=== PATIENT | male | born 1990 | race Caucasian/White ===

== ENCOUNTER 2024-05-06 19:08 | Emergency (ER) | payer OTHER, SELFPAY ==
[2024-05-06 19:14] VITALS: BP 109/73; PULSE 90; TEMP 36.7; O2SAT 100; BMI 18.0
--- NOTE | 2024-05-06 19:31 | ED.SKABFB1 ---
HPI - Skin/Abscess/Foreign Bdy General Chief complaint: Skin/Abscess/Foreign Body Stated complaint: Abscess/Boil on buttocks Time Seen by Provider: 05/06/24 19:22 Source: patient Mode of arrival: walk-in History of Present Illness HPI narrative: This 34-year-old male with a history of HIV who is on antiretroviral therapy presents for evaluation of an abscess on his left buttock. It started 2 weeks ago as a pimple that he popped. Since that time it has gotten larger and is now draining copious mucopurulent material. He thinks he may have had a fever twice but has not documented any fever. He denies any chest pain or shortness of breath. He also has a lesion on the glans of his penis. He denies that he has ever had herpes and is not currently sexually active. The lesion on his penis he states started like a pimple and is now flat and approximately 1.5 cm. There is no notable drainage from this area. He has no abdominal pain. He has been urinating normally. He states the abscess on his buttock is causing him a lot of pain and he cannot sit or lie down comfortably on his left buttock. His infectious disease doctor is at [facility]. Related Data Home Medications ?Medication ?Instructions ?Recorded ?Confirmed bictegravir 50 mg-emtricitabine tab PO 05/06/24 200 mg-tenofovir alafenam 25 mg tablet (Biktarvy) cariprazine .Route 05/06/24 Allergies Allergy/AdvReac Type Severity Reaction Status Date / Time No Known Drug Allergies Allergy Verified 05/06/24 19:17 Review of Systems ROS Status of ROS 10 or more systems reviewed and unremarkable except as noted in history and below PFSH PFSH Social History Little interest or pleasure in doing things: not at all Feeling down, depressed, or hopeless: not at all Exam Narrative Exam Narrative: Vital signs and Nursing Notes reviewed: Patient is afebrile with a normal pulse, normal blood pressure, he is not hypoxic with pulse ox of 100% on room air General: Awake, alert, oriented, uncomfortable due to a left buttock abscess and lying on his right buttock, no respiratory distress, extremely thin/cachectic male HEENT: Normocephalic atraumatic, mucous membranes are moist and pink, eyes are clear, normal conjunctiva, vision is grossly intact Chest: Lungs are clear to auscultation with good air entry, there is no wheezing rhonchi or rales appreciated no accessory muscle use, patient is speaking in complete sentences-no chest wall tenderness to palpation CVS: Regular rate and rhythm S1-S2, no murmurs rubs or gallops, pulses are brisk and equal bilaterally ABD: Soft, nondistended, nontender, no rebound guarding or rigidity, bowel sounds are normal, no pulsatile masses appreciated : Small area of erythema on the glans of the penis which is somewhat excoriated without vesicles or drainage. This may be a herpes outbreak it is unclear at this time. There is also an approximately 6 x 6 cm indurated erythematous tender abscess on the midportion of the left buttock draining copious mucopurulent drainage that was cultured, there is no extension of this buttock into the rectum or anus area and there is no perineal infection concerning for necrotizing fasciitis. Extremities: Moving all extremities, no lower extremity tenderness or swelling noted, negative Homans' sign, pulses are brisk and equal bilaterally Skin: Normal in appearance without rash,pallor, petechiae or purpura Neuro: No focal deficits Constitutional Vital Signs, click to edit/add: Last Vital Signs Temp 98.0 F 05/06/24 19:14 Pulse 84 05/06/24 21:13 Resp 16 05/06/24 21:13 BP 109/73 05/06/24 19:14 Pulse Ox 99 05/06/24 21:13 O2 Del Method Room Air 05/06/24 19:14 Course Vital Signs Vital signs: Vital Signs Temperature 98.0 F 05/06/24 19:14 Pulse Rate 90 05/06/24 19:14 Respiratory Rate 16 05/06/24 19:14 Blood Pressure 109/73 05/06/24 19:14 Pulse Oximetry 100 05/06/24 19:14 Oxygen Delivery Method Room Air 05/06/24 19:14 Temperature 98.0 F 05/06/24 19:14 Pulse Rate 84 05/06/24 21:13 Respiratory Rate 16 05/06/24 21:13 Blood Pressure 109/73 05/06/24 19:14 Pulse Oximetry 99 05/06/24 21:13 Oxygen Delivery Method Room Air 05/06/24 19:14 MDM - Skin/Abscess/Foreign Bdy MDM Narrative Medical decision making narrative: This 34-year-old male with history of HIV who is on antiretroviral therapy and sees infectious disease at [facility] presents for evaluation of an abscess on his left buttock that has been there for the past 2 weeks. He states it started out like a pimple and he popped it. Since then it has grown in size and has been draining. It is approximately 6 cm, indurated and tender with mucopurulent drainage which was cultured. He also has a flat red area on the glans of his penis that is hard to differentiate but could be a herpes simplex two outbreak. He states he does not think he has ever had herpes before but in light of the fact that he is immunosuppressed and now has an abscess I explained to him that his immune system may be somewhat diminished allowing for a viral infection to present itself. There was nothing to culture on his penis but the buttock abscess was cultured. He has normal vital signs in the emergency department but thinks he may have had a fever twice over the course of the past 2 weeks. An IV was placed and he was medicated with IV Unasyn, Zofran and given a Percocet for pain. He was given an acyclovir for the lesion on his penis. Routine labs are reviewed. He has a normal white count and hemoglobin. Electrolytes are normal but his glucose is only 54. He was given a Gatorade and peanut butter crackers. He admits that he did not drink much or eat much earlier today. He does state that he feels hungry though. Overall he is not toxic in appearance but very thin and somewhat cachectic. He will be discharged home with prescription for Zofran, Percocet for pain, Augmentin until cultures come back and Valtrex for the lesion on his penis. He was encouraged to follow-up closely with his infectious disease doctor at [facility]. He was also encouraged to use warm compresses and or soaks in the tub to keep the open area on his buttock draining. Incision and drainage was not performed as the abscess was draining copious purulent drainage. The abscess did not appear to approximate the buttocks or perineum and there was no sign of any necrotizing fasciitis on the exam. Lab Data Labs: Lab Results 05/06/24 Range/Units 19:30 WBC 5.2 (4.0-11.0) 10^3/uL RBC 3.72 L (4.70-6.10) 10^6/uL Hgb 14.2 (14.0-18.0) g/dL Hct 40.1 L (42.0-54.0) % MCV 107.8 H (80.0-94.0) fL MCH 38.2 H (25.9-34.0) pg MCHC 35.4 H (29.9-35.2) g/dL RDW 13.5 (11.0-15.0) % Plt Count 216 (150-450) 10^3/uL MPV 12.7 (9.5-13.5) fL Neut % (Auto) 74.4 (43.0-75.0) % Lymph % (Auto) 16.2 L (20.5-60.0) % Rock % (Auto) 7.1 (1.7-12.0) % Eos % (Auto) 1.7 (0.9-7.0) % Baso % (Auto) 0.4 (0.2-2.0) % Neut # (Auto) 3.9 (1.4-6.5) 10^3/uL Lymph # (Auto) 0.8 L (1.2-3.8) 10^3/uL Rock # (Auto) 0.4 (0.3-0.8) 10^3/uL Eos # (Auto) 0.1 (0.0-0.7) 10^3/uL Baso # (Auto) 0.0 (0.0-0.1) 10^3/uL Abs Immat Gran (auto) 0.01 (0.00-0.03) 10^3/uL Imm/Tot Granulo (auto) 0.2 (0.0-0.5) % Sodium 135 L (136-145) mmol/L Potassium 3.9 (3.5-5.1) mmol/L Chloride 99 (98-107) mmol/L Carbon Dioxide 28.8 (21.0-32.0) mmol/L Anion Gap 11.1 BUN 15.0 (7.0-18.0) mg/dL Creatinine 0.86 (0.70-1.30) mg/dL Est GFR ( Amer) >60 (>=60) Est GFR (Non-Af Amer) >60 (>=60) BUN/Creatinine Ratio 17.4 Glucose 54 L (74-106) mg/dL Lactate 1.5 (0.4-2.0) mmol/L Calcium 9.3 (8.5-10.1) mg/dL Total Bilirubin 0.9 (0.2-1.0) mg/dL AST 17 (15-37) U/L ALT 16 (16-63) U/L Alkaline Phosphatase 94 (46-116) U/L Total Protein 9.4 H (6.4-8.2) g/dL Albumin 3.9 (3.4-5.0) g/dL Globulin 5.5 g/dL Albumin/Globulin Ratio 0.7 Discharge Plan Discharge Chief Complaint: Skin/Abscess/Foreign Body Clinical Impression: Abscess of buttock, left, Lesion of penis, Hypoglycemia Patient Disposition: Home, Self-Care Time of Disposition Decision: 20:31 Condition: Good Prescriptions / Home Meds: No Action Biktarvy 50-200-25 mg tablet PO cariprazine [Vraylar] .Route Print Language: Filipino Instructions: Non-diabetic Hypoglycemia (ED), Abscess (ED) Additional Instructions: Follow-up closely with your infectious disease doctor for further evaluation and treatment of the abscess and lesion on your penis. Use all medications as prescribed. Use warm compresses or soaks to keep the buttock abscess open and draining. Referrals: Physician,Non-Staff, MD [Primary Care Provider] - 1 week Discharge Date/Time: 05/06/24 21:05
[2024-05-06 19:59] LABS: Basophils Percent Auto 0.4 % (0.2-2.0); Eosinophils Absolute Auto 0.1 10^3/uL (0.0-0.7); Eosinophils Percent Auto 1.7 % (0.9-7.0); Hematocrit 40.1 % (42.0-54.0); Hemoglobin 14.2 g/dL (14.0-18.0); Immature Granulocytes Abs Auto 0.01 10^3/uL (0.00-0.03); Immature Granulocytes Pct Auto 0.2 % (0.0-0.5); Lymphocytes Absolute Auto 0.8 10^3/uL (1.2-3.8); Lymphocytes Percent Auto 16.2 % (20.5-60.0); Mean Corpuscular HGB Conc 35.4 g/dL (29.9-35.2); Mean Corpuscular Hemoglobin 38.2 pg (25.9-34.0); Mean Corpuscular Volume 107.8 fL (80.0-94.0); Mean Platelet Volume 12.7 fL (9.5-13.5); Monocytes Absolute Auto 0.4 10^3/uL (0.3-0.8); Monocytes Percent Auto 7.1 % (1.7-12.0); Neutrophils Absolute Auto 3.9 10^3/uL (1.4-6.5); Neutrophils Percent Auto 74.4 % (43.0-75.0); Platelet Count 216 10^3/uL (150-450); Red Blood Count 3.72 10^6/uL (4.70-6.10); Red Cell Distribution Width 13.5 % (11.0-15.0); White Blood Count 5.2 10^3/uL (4.0-11.0)
[2024-05-06] MEDS: 0.9 % SODIUM CHLORIDE 1,000 ML 1000 ML IV (20:02)
[2024-05-06] MEDS: OXYCODONE HCL/ACETAMINOPHEN 5MG/325MG 1 TAB PO (20:05)
[2024-05-06] MEDS: ACYCLOVIR 200 MG CAPSULE 400 MG PO (20:05)
[2024-05-06] MEDS: ONDANSETRON PF 4 MG/2 ML VIAL IV (20:06)
[2024-05-06] MEDS: AMPICILLIN SODIUM/SULBACTAM NA 3 GM in 0.9 % SODIUM CHLORIDE 100 ML IV (20:07)
[2024-05-06 20:15] LABS: Alanine Aminotransferase 16 U/L (16-63); Albumin Globulin Ratio 0.7; Albumin Level 3.9 g/dL (3.4-5.0); Alkaline Phosphatase 94 U/L (46-116); Anion Gap 11.1; Aspartate Amino Transferase 17 U/L (15-37); BUN Creatinine Ratio 17.4; Bilirubin Total 0.9 mg/dL (0.2-1.0); Calcium 9.3 mg/dL (8.5-10.1); Carbon Dioxide 28.8 mmol/L (21.0-32.0); Chloride 99 mmol/L (98-107); Estimated GFR (African America >60 (>=60); Estimated GFR (Non-African Ame >60 (>=60); Globulin 5.5 g/dL; Glucose 54 mg/dL (74-106); Potassium 3.9 mmol/L (3.5-5.1); Sodium 135 mmol/L (136-145); Total Protein 9.4 g/dL (6.4-8.2)
[2024-05-06 20:17] LABS: Lactate/Lactic Acid 1.5 mmol/L (0.4-2.0)
[2024-05-06 21:13] VITALS: PULSE 84; O2SAT 99
== END 2024-05-06 21:05 | disposition home or self-care (01) ==
PROVIDERS: Emergency Provider Emergency Medicine
DX: N48.89 Other specified disorders of penis (principal); L02.31 Cutaneous abscess of buttock; E16.2 Hypoglycemia, unspecified; Z21 Asymptomatic human immunodeficiency virus [HIV] infection status; Z79.899 Other long term (current) drug therapy
CPT/HCPCS: 36415; 80053; 83605; 85025; 87040; 87070; 87075; 87150; 87186; 96365; 96375; 99285; J0295; J2405

== ENCOUNTER 2025-01-05 08:52 | Emergency (ER) | payer OTHER, SELFPAY ==
[2025-01-05 08:57] VITALS: BP 107/70; PULSE 111; TEMP 36.5; O2SAT 100; BMI 18.2
--- NOTE | 2025-01-05 09:15 | ED.GENADUL1 ---
HPI HPI - General Adult General Chief complaint: Back Pain/Injury Stated complaint: LOWER BACK PAIN Time Seen by Provider: 01/05/25 08:58 Source: patient Mode of arrival: walk-in History of Present Illness HPI narrative: 34-year-old male presents for lower back pain. There is been no injury and it started yesterday. It does not radiate and he has no dysuria or hematuria. Certain movements make it worse. Related Data Home Medications ?Medication ?Instructions ?Recorded ?Confirmed bictegravir 50 mg-emtricitabine 1 tab PO DAILY 05/06/24 01/05/25 200 mg-tenofovir alafenam 25 mg tablet (Biktarvy) cariprazine .Route 05/06/24 sulfamethoxazole 800 tab 01/05/25 mg-trimethoprim 160 mg tablet Allergies Allergy/AdvReac Type Severity Reaction Status Date / Time No Known Drug Allergies Allergy Verified 05/06/24 19:17 Opioid HPI Opioid Management Most Recent Opioid Data: Last Pain Scale 10 Today, 08:57 Last MAR Pain Assessment Today, 09:35 Review of Systems ROS Narrative A ten point review of systems is negative except as noted above. PFSH PFSH Social History Little interest or pleasure in doing things: not at all Feeling down, depressed, or hopeless: not at all Exam Narrative Exam Narrative: Nurses note and vital signs reviewed and patient is not hypoxic. General: Diminutive male is standing when I walk into the room. He is in no acute distress. Skin: Warm, dry, no pallor noted. There is no rash noted. Head: Normocephalic, atraumatic Eye: Normal conjunctiva, no drainage Ears, Nose, Mouth, and Throat: oral mucosa is moist. Nares patent. Cardiovascular: Regular Rate and Rhythm Respiratory: Patient is in no distress, no accessory muscle use, lungs are clear to auscultation, no wheezing, rales or rhonchi Back: No bruise or abrasion. He has no palpable tenderness. GI: Soft and nontender Musculoskeletal: Motor strength intact in his lower extremities. Hips and knees have full range of motion Neurological: A&O, normal speech Psychiatric: Cooperative Constitutional Vital Signs, click to edit/add: Last Vital Signs Temp 97.7 F 01/05/25 08:57 Pulse 111 H 01/05/25 08:57 Resp 20 01/05/25 08:57 BP 107/70 01/05/25 08:57 Pulse Ox 100 01/05/25 08:57 O2 Del Method Room Air 01/05/25 08:57 Course Vital Signs Vital signs: Vital Signs Temperature 97.7 F 01/05/25 08:57 Pulse Rate 111 H 01/05/25 08:57 Respiratory Rate 20 01/05/25 08:57 Blood Pressure 107/70 01/05/25 08:57 Pulse Oximetry 100 01/05/25 08:57 Oxygen Delivery Method Room Air 01/05/25 08:57 Temperature 97.7 F 01/05/25 08:57 Pulse Rate 111 H 01/05/25 08:57 Respiratory Rate 20 01/05/25 08:57 Blood Pressure 107/70 01/05/25 08:57 Pulse Oximetry 100 01/05/25 08:57 Oxygen Delivery Method Room Air 01/05/25 08:57 Medical Decision Making MDM Narrative Medical decision making narrative: X-rays were performed but the patient walked out before they were resulted. He had been given IM Toradol. He is fully able to make medical decisions for himself. Differential Diagnosis Differential Diagnosis: Muscle strain, back pain, arthritis Discharge Plan Discharge Stand Alone Forms: Portal Instructions Chief Complaint: Back Pain/Injury Clinical Impression: Low back pain, Left against medical advice Patient Disposition: Left Against Medical Advice Time of Disposition Decision: 09:59 Condition: Undetermined Mode of Transportation: Private Vehicle Prescriptions / Home Meds: No Action Biktarvy 50-200-25 mg tablet 1 tab PO DAILY cariprazine [Vraylar] .Route sulfamethoxazole-trimethoprim 800-160 mg tablet Print Language: Yemeni Instructions: Acute Low Back Pain (ED), Against Medical Advice (ED) Referrals: Physician,Non-Staff, MD [Primary Care Provider] - 1 week Discharge Date/Time: 01/05/25 09:49
[2025-01-05] MEDS: KETOROLAC TROMETHAMINE 30 MG/ML VIAL IM (09:35)
--- OUTSIDE RECORDS SUMMARY | 2025-01-05 10:05 | XMS_ITS | CCD ---
Author Organization [facility] Care Team Providers Care Mechanic Helper Name Role Phone TONJA KAISER Unavailable Unavailable TONJA KAISER Unavailable Unavailable MC VERDUZCO Unavailable Unavailable PEDRO STEWART Unavailable Unavailable TONJA KAISER Unavailable Unavailable TONJA KAISER Unavailable Unavailable TALEB, NADA Unavailable Unavailable BRODIE, LUCIANA Unavailable Unavailable BRODIE, LUCIANA Unavailable Unavailable SONAM MICHEL Unavailable Unavailable SELF, REFERRED Referring Unavailable CATRACHO CHOWDHURYA Attending Unavailable LUCIANA MICHELLE Admitting Unavailable TONJA KAISER Primary Care Unavailable Unavailable Primary Care Provider Unavailabl e [facility] Primary Care Provider Unav ailable FLO DOWLING Admitting Unavailable FLO DOWLING Attending Unavailable ATUL ARNDT Attending Unavailable [facility] Primary Care Unavailable GAYATRI GONZALES Admitting Unavailable GAYATRI GONZALES Attending Unavailable MC LUO Consulting Unavailable MISAEL SIMMONS Consulting Unavailable WALLACE LIM Admitting Unavailable WALLACE LIM Attending Unavailable TONJA KAISER Primary Care Unavailable GINA HEREDIA Consulting Unavailable JANINE OLMSTEAD Referring Unavailable TONJA KAISER Primary Care Unavailable NEISHA SIMMONS Referring Unavailable [facility] Primary Care Unavailable JOI ARTEAGA Attending Unavailable GRACY NELSON Referring Unavailable DOMONIQUE CORTEZ Attending Unavailable [facility] Primary Care Unavailable DOMONIQUE CORTEZ Attending Unavailable GRACY NELSON Referring Unavailable Mee Barcenas Attending Unavailable Mee Barcenas Primary Care Unavailable Mee Barcenas Admitting Unavailable NO PCP, NO PCP Primary Care Unavailable RUBIN BLANC Attending Unavailable NO PCP, NO PCP Primary Care Unavailable TONJA KAISER Attending Unavailable ANAND BLISS Attending Unavailable TOSHIA SHINE Attending Unavailable HALIMA WELLS Attending Unavailable TOSHIA SHINE Referring Unavailable TOSHIA SHINE Referring Unavailable HALIMA WELLS Attending Unavailable TONJA KAISER Attending Unavailable Allergies Allergy Classification Reported Allergen(s) Allergy Type Date of Onset Reaction(s) Facility (1 source) No Known Medication Allergies; Translations: [Unknown] Propensity to adverse reactions to drug (disorder) [facility] Repository Medications Current Medications Medication Drug Class(es) Dates Sig (Normalized) Sig (Original) azithromycin 600 mg oral tablet (18 sources) Macrolide Antimicrobial Start: 07-01-2023 End: 07-19-2023 take 2 tablets by mouth every week azithromycin (Zithromax) 600 MG tablet Indications: Human immunodeficiency virus (HIV) disease (HCC) Take 2 tablets (1,200 mg) by mouth 1 (one) time per week for 3 doses. 6 tablet 0 07/04/2023 07/19/2023 Active Start: 06-25-2023 End: 06-24-2023 azithromycin (Zithromax) tab let 1,200 mg Start: 06-25-2023 End: 06-24-2023 azithromycin (Zithromax) tab let 1,200 mg cariprazine 3 mg oral capsule (2 sources) Atypical Antipsychotic Start: 02-04-2023 Vraylar 3 MG capsule Take 3 mg by mouth. 0 02/04/2023 Active fluticasone propionate 0.05 mg/actuat metered dose nasal spray (11 sources) Corticosteroid Start: 07-04-2023 End: 07-03-2024 take 2 spray(s) nasal route once daily fluticasone (Flonase) 50 MCG/ACT nasal spray Indications: Chronic cough Administer 2 sprays into each nostril daily. Shake gently. Before first use, prime pump. After use, clean tip and replace cap. 16 g 11 07/04/2023 07/03/2024 Active loratadine 10 mg oral tablet (11 sources) Start: 07-04-2023 End: 07-03-2024 take 1 tablet by mouth once daily as needed loratadine (Claritin) 10 MG tablet Indications: Chronic cough Take 1 tablet (10 mg) by mouth Daily as needed for allergies. 30 tablet 11 07/04/2023 07/03/2024 Active sulfamethoxazole 800 mg / trimethoprim 160 mg oral tablet (20 sources) Dihydrofolate Reductase Inhibitor Antibacterial, Sulfonamide Antimicrobial Start: 06-27-2023 End: 07-04-2023 take 1 tablet by mouth three times weekly sulfamethoxazole-tri methoprim (Bactrim DS) 800-160 MG tablet Indications: Human immunodeficiency virus (HIV) disease (HCC) Take 1 tablet by mouth three times a week. 21 tablet 0 07/04/2023 Active Start: 06-27-2023 take 1 tablet by ammon th three times weekly sulfamethoxazole-trimethoprim (Bactrim D S) 800-160 MG tablet Take 1 tablet by mouth three times a week. 21 tablet 0 06/27/2023 Active Start: 06-27-2023 take 1 tablet by ammon th three times weekly sulfamethoxazole-trimethoprim (Bactrim D S) 800-160 MG tablet Take 1 tablet by mouth three times a week. 21 tablet 0 06/27/2023 Active Start: 06-27-2023 take 1 tablet by ammon th three times weekly sulfamethoxazole-trimethoprim (Bactrim D S) 800-160 MG tablet Take 1 tablet by mouth three times a week. 21 tablet 0 06/27/2023 Active Start: 06-27-2023 take 1 tablet by ammon th three times weekly sulfamethoxazole-trimethoprim (Bactrim D S) 800-160 MG tablet Take 1 tablet by mouth three times a week. 21 tablet 0 06/27/2023 Active Start: 06-24-2023 End: 06-24-2023 sulfamethoxazole-trimethopri m (Bactrim DS) 800-160 MG per tablet 1 tablet vitamin b12 1 mg oral tablet (20 sources) Vitamin B12 Start: 07-04-2023 End: 07-04-2023 cyanocobalamin (Vitamin B-12 ) injection 1,000 mcg Start: 06-24-2023 End: 07-04-2023 take 1 tablet by mouth once daily cyanocobalamin (Vitamin B-12) 1000 MCG tablet Indications: B12 deficiency Take 1 tablet (1,000 mcg) by mouth daily. 30 tablet 0 07/04/2023 Active Start: 06-24-2023 End: 06-24-2023 cyanocobalamin (Vitamin B-12 ) injection 1,000 mcg Completed/Discontinued Medications Medication Drug Class(es) Dates Sig (Normalized) Sig (Original) Acetaminophen (2 sources) Start: 05-15-2023 End: 05-17-2023 take 1 tablet by mouth every six hours as needed for pain and fever acetaminophen (Tylenol) tablet 650 mg 2 ml benztropine mesylate 1 mg/ml injection (2 sources) Anticholinergic, Antihistamine Start: 05-15-2023 End: 05-17-2023 inject 2 mg by intramuscular injection twice daily as needed 2 mg, IntraMUSCular, 2 times daily PRN, Acute Dystonia/Extrapyram idal Symptoms, Starting on 05/15/23 at 2220 diphenhydrAMINE (2 sources) Histamine-1 Receptor Antagonist Start: 05-15-2023 End: 05-17-2023 take 1 capsule by mouth every six hours as needed diphenhydrAMINE (BENADryl) capsule 50 mg diphenhydrAMINE (BENADryl) injection 50 mg (2 sources) Start: 05-15-2023 End: 05-17-2023 inject 50 mg by intramuscular injection every six hours as needed diphenhydrAMINE (BENADryl) injection 50 mg hydrOXYzine pamoate 50 mg oral capsule (2 sources) Antihistamine Start: 05-15-2023 End: 05-17-2023 take 1 capsule by mouth every six hours as needed for anxiety 50 mg, Oral, Every 6 hours PRN, anxiety, Starting on 05/15/23 at 2220 Contact provider if symptoms not relieved by current dose. LORazepam 0.5 mg oral tablet (4 sources) Benzodiazepine Start: 05-15-2023 End: 05-15-2023 LORazepam (Ativan) tablet 0.5 mg Start: 05-14-2023 End: 05-14-2023 LORazepam (Ativan) tablet 1 mg Nicotine (2 sources) Cholinergic Nicotinic Agonist Start: 05-16-2023 End: 05-17-2023 nicotine (Nicoderm, Step 2) 14 MG/24HR patch 1 patch polyethylene glycol 3350 [id number] mg powder for oral solution (2 sources) Osmotic Laxative Start: 05-15-2023 End: 05-17-2023 take 17 g by mouth every twenty-four hours as needed for constipation 17 g, Oral, Daily PRN, constipation, Starting on 05/15/23 at 2220 1st line for treatment of constipation - give scheduled if no bowel movement in past 24 hours. traZODone hydrochloride 50 mg oral tablet (2 sources) Serotonin Reuptake Inhibitor Start: 05-15-2023 End: 05-17-2023 take 50 mg by mouth once daily as needed for sleep 50 mg, Oral, Nightly PRN, sleep, Starting on 05/15/23 at 2220 Problems Active Problems Problem Classification Problem Date Documented Da te Episodic/Chronic Abdominal pain (1 source) Generalized abdominal pain; Translations: [Generalized abdominal pain] Onset: 8 Episodic Anxiety disorders (17 sources) Posttraumatic stress disorder; Translations: [Post-traumatic stress disorder, unspecified] Onset: 2 05-05-2023 Chronic Coagulation and hemorrhagic disorders (11 sources) Thrombocytopenic disorder; Translations: [Thrombocytopenia, unspecified] Onset: 3 06-29-2023 Chronic HIV infection (20 sources) Human immunodeficiency virus infection; Translations: [Human immunodeficiency virus [HIV] disease] Onset: 4 06-11-2022 Chronic Miscellaneous mental health disorders (2 sources) Primary insomnia; Translations: [Primary insomnia] Onset: 4 Chronic Mood disorders (2 sources) Bipolar disorder, unspecified; Translations: [Bipolar disorder, unspecified] Onset: 2 Chronic Nutritional deficiencies (17 sources) Malnutrition (calorie); Translations: [Moderate protein-calorie malnutrition] Onset: 3 05-05-2023 Chronic Other connective tissue disease (2 sources) Hand pain Onset: 5 Episodic Other eye disorders (17 sources) Bilateral vitreous floaters; Translations: [Other vitreous opacities, bilateral] Onset: 3 07-04-2023 Chronic Other eye disorders (2 sources) Other vitreous opacities, bilateral; Translations: [Other vitreous opacities, bilateral] Onset: 3 Chronic Other gastrointestinal disorders (1 source) Personal history of other diseases of the digestive system; Translations: [Personal history of other diseases of the digestive system] Onset: 8 Episodic Other hereditary and degenerative nervous system conditions (2 sources) Drug induced akathisia; 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] Onset: 4 Chronic Other infections; including parasitic (17 sources) Post-viral disorder; 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 condition, unspecified] Onset: 3 05-05-2023 Chronic Other nervous system disorders (2 sources) Paresthesia; Translations: [Anesthesia of skin] 06-24-2023 Episodic Other nervous system disorders (4 sources) Numbness of upper limb; Translations: [Anesthesia of skin] Onset: 3 06-24-2023 Episodic Residual codes; unclassified (2 sources) Auditory hallucinations; Translations: [Auditory hallucinations] 05-15-2023 Episodic Residual codes; unclassified (2 sources) Noncompliance with medication regimen; Translations: [Non compliance w medication regimen] 06-24-2023 Episodic Skin and subcutaneous tissue infections (3 sources) Acute lymphangitis of left finger; Translations: [Cellulitis of unspecified finger] Onset: 5 Episodic Substance-related disorders (3 sources) Nicotine dependence, unspecified, uncomplicated; Translations: [Other psychoactive substance abuse, uncomplicated] Onset: 7 Chronic Unclassified (1 source) Patient's other noncompliance with medication regimen for other reason; Translations: [Patient's other noncompliance with medication regimen for other reason] Onset: 3 Unclassified (1 source) Finger Pain Onset: 5 Unclassified (1 source) Thumb Pain Onset: 5 Unclassified (2 sources) Health Maintenance; Translations: [Health Maintenance] Onset: 4 Past or Other Problems Problem Classification Problem Date Documented Da te Episodic/Chronic E Codes: Fall (2 sources) Unspecified fall, initial encounter; Translations: [Unspecified fall, initial encounter] Onset: 06-11-2024 Episodic Genitourinary symptoms and ill-defined conditions (2 sources) Painful micturition, unspecified; Translations: [Painful micturition, unspecified] Onset: 04-26-2024 Episodic Immunizations and screening for infectious disease (6 sources) Needs influenza immunization; Translations: [Encounter for immunization] Onset: 07-04-2023 07-04-2023 Episodic Nutritional deficiencies (17 sources) Cobalamin deficiency; Translations: [Deficiency of other specified B group vitamins] Onset: 07-04-2023 07-04-2023 Episodic Other aftercare (2 sources) Other chcf (current) drug therapy; Translations: [Other chcf (current) drug therapy] Onset: 05-09-2024 Episodic Other circulatory disease (17 sources) Orthostatic hypotension; Translations: [Orthostatic hypotension] Onset: 05-04-2023 05-04-2023 Episodic Other connective tissue disease (20 sources) Other symptoms and signs involving the musculoskeletal system; Translations: [Other musculoskeletal symptoms referable to limbs] Onset: 06-25-2017 06-11-2022 Episodic Other connective tissue disease (2 sources) Pain in right leg; Translations: [Pain in right leg] Onset: 05-03-2023 Episodic Other gastrointestinal disorders (2 sources) Diarrhea, unspecified; Translations: [Diarrhea, unspecified] Onset: 04-26-2024 Episodic Other lower respiratory disease (17 sources) Chronic cough; Translations: [Chronic cough] Onset: 07-04-2023 07-04-2023 Episodic Other nervous system disorders (19 sources) Metabolic encephalopathy; Translations: [Metabolic encephalopathy] Onset: 06-25-2017 Resolved: 07-04-2023 06-11-2022 Chronic Other nervous system disorders (2 sources) Tremor, unspecified; Translations: [Paresthesia of skin] Onset: 06-24-2017 Episodic Other nervous system disorders (17 sources) Paresthesia of upper limb; Translations: [Anesthesia of skin] Onset: 06-24-2023 07-04-2023 Episodic Other nervous system disorders (15 sources) Impaired cognition; Translations: [Other symptoms and signs involving cognitive functions and awareness] Onset: 07-04-2023 07-04-2023 Episodic Other nervous system disorders (2 sources) Anesthesia of skin; Translations: [Anesthesia of skin] Onset: 07-04-2023 Episodic Other nervous system disorders (2 sources) Paresthesia of skin; Translations: [Paresthesia of skin] Onset: 07-04-2023 Episodic Residual codes; unclassified (19 sources) Altered mental status; Translations: [Altered mental status, unspecified] Onset: 06-25-2017 Resolved: 07-04-2023 06-11-2022 Episodic Residual codes; unclassified (2 sources) Auditory hallucinations; Translations: [Auditory hallucinations] Onset: 05-14-2023 Episodic Residual codes; unclassified (2 sources) High risk heterosexual behavior; Translations: [High risk heterosexual behavior] Onset: 05-09-2024 Episodic Spondylosis; intervertebral disc disorders; other back problems (3 sources) Radiculopathy, site unspecified; Translations: [Lumbago with sciatica, right side] Onset: 06-24-2017 Episodic Substance-related disorders (4 sources) Inhalant use, unspecified, uncomplicated; Translations: [Other psychoactive substance use, unspecified, uncomplicated] Onset: 05-09-2024 Episodic Suicide and intentional self-inflicted injury (20 sources) Suicidal thoughts; Translations: [Suicidal ideations] Onset: 05-14-2023 05-15-2023 Episodic Syncope (19 sources) Syncope and collapse; Translations: [Syncope and collapse] Onset: 05-03-2023 Resolved: 07-04-2023 05-04-2023 Episodic Unclassified (1 source) Altered mental status, unspecified; Translations: [Altered mental status, unspecified] Onset: 06-25-2017 Episodic Unclassified (1 source) Patient's other noncompliance with medication regimen for other reason; Translations: [Patient's other noncompliance with medication regimen for other reason] Onset: 06-24-2023 Results Test Name Value Interpretation Reference Range Facility Office Visiton 12-19-2024 Follow-up visit [id number] Constantin Galan 1990 M Date Provider Department Center 12/19/2024 TONJA ANDRADE [facility] Adrian Heal Family History Problem Relation Age of Onset Alcohol abuse Mother Anxiety disorder Mother Arthritis Mother Cancer Mother COPD Mother Depression Mother Diabetes Mother Drug abuse Mother Hypertension Mother Kidney disease Mother Mental illness Mother Suicide Attempts Mother Alcohol abuse Father Family Status - Relation Status Age at Mother Father Level of Service:87083 [place] OFFICE/OUTPATIENT ESTABLISHED LOW MDM 20 MIN Reason for Visit and Comments: Human immunodeficiency virus (HIV) disease (CMS/HCC) [Other] Normal [facility] EDPROVon 12-10-[address] [facility] Lisa [facility] [id number] EMERGENCY DEPARTMENT ENCOUNTER ED Room: CHIEF COMPLAINT Chief Complaint Patient presents with Hand Pain Possible left thumb infection HISTORY OF PRESENT ILLNESS Patient is a 34-year-old male past medical history of HIV (not on antiretroviral medications for the past 2 months due to being incarcerated) presents to ED with 2 weeks of left thumb pain. Patient states pain began as a swelling at the tip of his thumb which was red and inflamed. Became increasingly painful with pressure and began to have a blood blister . Patient was seen at [place] and was given antibiotics for which patient has taken without any relief. Patient did not have incision and drainage at the time. Patient denies any nausea, vomiting, fevers, chills, pain extends to the palm of his hand. No circumferential swelling or pain with passive extension. Distal pulse intact. Patient denies any IV sites in his hand. Denies any other swollen joints but does report having recurrent abscesses that emerged different locations. Denies any pustules to his palms of his hands or soles. Patient has establish care with [facility] however has missed his last 2 appointments and currently trying to reschedule. REVIEW OF SYSTEMS Review of Systems Constitutional: Negative for fatigue and fever. Respiratory: Negative for cough and chest tightness. Cardiovascular: Negative for chest pain. Skin: Positive for wound. Negative for pallor and rash. Neurological: Positive for light-headedness. All other systems reviewed and are negative. PAST MEDICAL HISTORY has a past medical history of HIV disease ([facility] (2012), STD (sexually transmitted disease), and Varicella (Rogelio had it when i was a kid). SURGICAL HISTORY has no past surgical history on file. CURRENT MEDICATIONS Previous Medications ALPRAZOLAM (XANAX) 1 MG TABLET Take 1 tablet (1 mg) by mouth if needed each day for anxiety. BACLOFEN (LIORESAL) 20 MG TABLET Take 1 tablet (20 mg) by mouth if needed at bedtime (Sleep). BENZTROPINE (COGENTIN) 0.5 MG TABLET Take 1 tablet (0.5 mg) by mouth two times daily. CFQAHHNNC-QEYLWBIV-ZULSX OV ALA (BIKTARVY) 50-200-25 MG TABLET Take one tablet by mouth per day. CARIPRAZINE (VRAYLAR) 4.5 MG CAPSULE TAKE 1 CAPSULE (3 MG) BY MOUTH IN THE MORNING. GABAPENTIN (NEURONTIN) 100 MG CAPSULE Take 1 capsule (100 mg) by mouth if needed in the morning, at noon, and at bedtime (Anxiety). ALLERGIES has No Known Allergies. FAMILY HISTORY He indicated that the status of his mother is unknown. He indicated that the status of his father is unknown. family history includes Alcohol abuse in his father and mother; Anxiety disorder in his mother; Arthritis in his mother; COPD in his mother; Cancer in his mother; Depression in his mother; Diabetes in his mother; Drug abuse in his mother; Hypertension in his mother; Kidney disease in his mother; Mental illness in his mother; Suicide Attempts in his mother. SOCIAL HISTORY reports that he has been smoking cigarettes. He has a 15 pack-year smoking history. He has never used smokeless tobacco. He reports that he does not currently use alcohol after a past usage of about 3.0 standard drinks of alcohol per week. He reports that he does not currently use drugs after having used the following drugs: Marijuana, Methamphetamines, and Psilocybin. PHYSICIAL EXAM INITIAL VITALS: height is 1.473 m (4' 10 ) and weight is 38.1 kg (84 lb). His temporal temperature is 36.8 ???C (98.3 ???F). His blood pressure is 119/77 and his pulse is 95. His respiration is 20 and oxygen saturation is 100%. Physical Exam Vitals and nursing note reviewed. Constitutional: General: He is not in acute distress. Appearance: He is well-developed. He is ill-appearing. Comments: Cronically ill appearing, Cachectic Appearance. HENT: Head: Normocephalic and atraumatic. Eyes: Conjunctiva/sclera: Conjunctivae normal. Cardiovascular: Rate and Rhythm: Normal rate and regular rhythm. Heart sounds: No murmur heard. Pulmonary: Effort: Pulmonary effort is normal. No respiratory distress. Breath sounds: Normal breath sounds. Abdominal: Palpations: Abdomen is soft. Tenderness: There is no abdominal tenderness. Musculoskeletal: General: No swelling. Arms: Cervical back: Neck supple. Comments: 3 cm blood blister that is warm and exquisitely tender to touch on the left thumb consistent with felon. No evidence of flexor tenosynovitis or deep infection of the palmar aspect of hand. Plan to incise and drain and discharged with another round of antibiotics. Skin: General: Skin is warm and dry. Capillary Refill: Capillary refill takes less than 2 seconds. Neurological: Mental Status: He is alert. Psychiatric: Mood and Affect: Mood normal. DIAGNOSTIC RESULTS EKG: All EKG's are inte (more content not included)... Normal [facility] BLOOD CULTUREon 11-28-2024 Bacteria identified Aer cx Nom (Bld) SPECIMEN NOTES SUBOPTIMAL VOLUME OF BLOOD COLLECTED, RESULTS MAY BE AFFECTED. CULTURE RESULTS NO GROWTH 5 DAYS Normal [facility] Comment on above: Performed By: #### 1 7928-3 #### [facility] ([id number]) [address] [place] [address], [address] [place] [address] Bacteria identified Aer cx Nom (Bld) CULTURE RESULTS NO GROWTH 5 DAYS Normal [facility] CBC AND AUTO DIFFon 11-29-19 25 ABSOLUTE BASOPHIL 0.0 X10E9/L Normal 0.0-0.2 [facility] Comment on above: Performed By: #### C YANETH GARCÍA, 1988-12 #### [facility] ([id number]) [address] [place] [address] ABSOLUTE NEUTROPHIL 5.9 X10E9/L Normal 1.5-6.6 [facility] Comment on above: Performed By: #### C YANETH GARCÍA, 1988-12 #### [facility] ([id number]) [address] [facility] [place] [address] Basophils/100 WBC (Bld) 0.3 % Normal P [facility] Comment on above: Performed By: #### C YANETH GARCÍA, 1988-12 #### [facility] ([id number]) [address] [facility] [place] [address] Eosinophils (Bld) [#/Vol] 0.1 10*3/uL Normal 0.0-0.4 [facility] Comment on above: Performed By: #### C YANETH GARCÍA, 1988-12 #### [facility] ([id number]) [address] [place] [address] Eosinophils/100 WBC (Bld) 1.1 % Normal [facility] Comment on above: Performed By: #### C RICKY [facility], 1988-12 #### [facility] ([id number]) [address] [place] [address] Erythrocyte distribution width (RBC) [Ratio] 15.2 % High 11.5-15.0 [facility] Comment on above: Performed By: #### C RICKY [facility], 1988-12 #### [facility] ([id number]) [address] [place] [address] Hematocrit (Bld) [Volume fraction] 39.9 % Normal 39-49 [facility] Comment on above: Performed By: #### Navdeep GARCÍA [facility], 1988-12 #### [facility] ([id number]) [address] [place] [address] Hemoglobin (Bld) [Mass/Vol] 14.2 g/dL Normal 13.0-17.0 [facility] Comment on above: Performed By: #### Navdeep GARCÍA [facility], 1988-12 #### [facility] ([id number]) [address] [place] [address] Lymphocytes (Bld) [#/Vol] 0.7 10*3/uL Low 1.0-3.5 [facility] Comment on above: Performed By: #### Navdeep GARCÍA [facility], 1988-12 #### [facility] ([id number]) [address] [place] [address] Lymphocytes/100 WBC (Bld) 9.5 % Normal [facility] Comment on above: Performed By: #### Navdeep GARCÍA [facility], 1988-12 #### [facility] ([id number]) [address] [place] [address] MCH (RBC) [Entitic mass] 38.8 pg High 27-34 [facility] Comment on above: Performed By: #### C RICKY [facility], , 1988-12 #### [facility] ([id number]) [address] [place] [address] MCHC (RBC) [Mass/Vol] 35.5 g/dL Normal 32-36 [facility] Comment on above: Performed By: #### C RICKY [facility], , 1988-12 #### [facility] ([id number]) [address] [place] [address] MCV (RBC) [Entitic vol] 109 fL High 80-100 P [facility] Comment on above: Performed By: #### Navdeep GARCÍA [facility], , 1987-12 #### [facility] ([id number]) [address] [place] [place] [address] Monocytes (Bld) [#/Vol] 0.4 10*3/uL Normal 0-0.9 [facility] Comment on above: Performed By: #### C BCA [facility], , 1987-12 #### [facility] ([id number]) [address] [place] [place] [address] Monocytes/100 WBC (Bld) 5.5 % Normal [facility] Comment on above: Performed By: #### Navdeep BCA [facility], , 1987-12 #### [facility] ([id number]) [address] [place] [place] [address] Neutrophils/100 WBC (Bld) 83.6 % Normal [facility] Comment on above: Performed By: #### C BCA CMP, , 1987-12 #### [facility] ([id number]) [address] [place] [place] [address] Platelet mean volume (Bld) [Entitic vol] 9.9 fL Normal 7-12 [facility] Comment on above: Performed By: #### C BCA, CMP, , 1987-12 #### [facility] ([id number]) [address] [place] [address] Platelets (Bld) [#/Vol] 172 10*3/uL Normal 150-450 [facility] Comment on above: Performed By: #### C YANETH GARCÍA, 1987-12 #### [facility] ([id number]) [address] [place] [address] RBC COUNT 3.66 X10E12/L Low 4.10-5.70 [facility] Comment on above: Performed By: #### C RICKY CMP, , 1987-12 #### [facility] ([id number]) [address] [place] [address] WBC (Bld) [#/Vol] 7.1 10*3/uL Normal 4.0-11.0 [facility] Comment on above: Performed By: #### C RICKY CMP, 1987-12 #### [facility] ([id number]) [address] [place] [address] COMPREHENSIVE METABOLIC PANE Agustin 11-28-2024 Albumin [Mass/Vol] 4.2 g/dL Normal 3.2-5.3 [facility] Comment on above: Performed By: #### C RICKY CMP, 1987-12 #### [facility] ([id number]) [address] [place] [address] ALP [Catalytic activity/Vol] 80 U/L Normal 39-130 [facility] Comment on above: Performed By: #### C BCA CMP, 1987-12 #### [facility] ([id number]) [address] [place] [address] ALT [Catalytic activity/Vol] 18 U/L Normal 0-40 [facility] Comment on above: Performed By: #### C BCA CMP, 1987-12 #### [facility] ([id number]) [address] [place] [address] Anion gap [Moles/Vol] 11 mmol/L Normal 5-15 [facility] Comment on above: Performed By: #### C BCA CMP, 1987-12 #### [facility] ([id number]) [address] [place] [place] [address] AST [Catalytic activity/Vol] 21 U/L Normal 0-41 [facility] Comment on above: Performed By: #### C BCA CMP, 1987-12 #### [facility] ([id number]) [address] [place] [place] [address] Bilirubin [Mass/Vol] 0.6 mg/dL Normal 0.3-1.2 [facility] Comment on above: Performed By: #### C RICKY [facility], 1987-12 #### [facility] ([id number]) [address] [place] [place] [address] Calcium [Mass/Vol] 9.3 mg/dL Normal 8.5-10.5 [facility] Comment on above: Performed By: #### C RICKY [facility], 1987-12 #### [facility] ([id number]) [address] [place] [place] [address] Chloride [Moles/Vol] 102 mmol/L Normal 98-109 [facility] Comment on above: Performed By: #### C BCA [facility], 1987-12 #### [facility] ([id number]) [address] [place] [place] [address] CO2 [Moles/Vol] 25 mmol/L Normal 22-32 [facility] Comment on above: Performed By: #### C BCA CMP, 1987-12 #### [facility] ([id number]) [address] [place] [address] Creatinine [Mass/Vol] 0.67 mg/dL Low 0.70-1.20 [facility] Comment on above: Result Comment: METH OD TRACEABLE TO IDMS STANDARD Performed By: #### C RICKY CMP, 1987-12 #### [facility] ([id number]) [address] [place] [address] eGFR (CKD-EPI) NON-RACE DEPENDENT >90 Normal >59 [facility] Comment on above: Result Comment: Reported eGFR is based on the CKD-EPI 2020 equation that does not use a race coefficient. Performed By: #### C YANETH GARCÍA, 1987-12 #### [facility] ([id number]) [address] [place] [address] Glucose [Mass/Vol] 111 mg/dL High 65-99 [facility] Comment on above: Performed By: #### C RICKY [facility], 1987-12 #### [facility] ([id number]) [address] [place] [address] Potassium [Moles/Vol] 3.9 mmol/L Normal 3.5-5.0 [facility] Comment on above: Performed By: #### C YANETH GARCÍA, 1987-12 #### [facility] ([id number]) [address] [place] [address] Protein [Mass/Vol] 8.7 g/dL High 6.0-8.0 [facility] Comment on above: Performed By: #### C RICKY [facility], 1987-12 #### [facility] ([id number]) [address] [place] [address] Sodium [Moles/Vol] 138 mmol/L Normal 134-146 [facility] Comment on above: Performed By: #### C RICKY [facility], 1987-12 #### [facility] ([id number]) [address] [place] [address] Urea nitrogen [Mass/Vol] 26 mg/dL High 5-23 [facility] Comment on above: Performed By: #### C RICKY [facility], 1987-12 #### [facility] ([id number]) [address] [place] [address] CRP [Mass/Vol]on 11-28-2024 C REACTIVE PROTEIN 0.9 mg/dL High 0.000-0.744 [facility] Comment on above: Performed By: #### C RICKY [facility], , 1987-12 #### [facility] ([id number]) [address] [facility] [place] [address] Lactate (P latia) [Moles/Vol]o n 11-28-2024 LACTATE W/REFLEX 1.9 mmol/L Normal 0.4-2.0 [facility] Comment on above: Result Comment: Result did not trigger repeat Lactate, re-order if needed. Performed By: #### C RICKY, [facility], [id number], 1987-12 #### [facility] ([id number]) [address] [facility] [place] [address] XR FINGER THUMB LT MIN 2 VWS on 11-28-2024 XR FINGER THUMB LT MIN 2 VWS XR FINGER THUMB LT MIN 2 VWS XR FINGER THUMB LT MIN 2 VWS INDICATION: infection COMPARISON: None FINDINGS: No acute fracture or dislocation. No suspicious periosteal reaction or erosion. No retained radiopaque foreign body. Bones appear somewhat undermineralized for age; correlate clinically IMPRESSION: No osseous abnormality. Finalized by Mc Raymundo MD on 11/28/2024 4:22 AM Normal [facility] Office Visiton 06-26-2024 Follow-up visit [id number] Constantin Galan 1990 M Date Provider Department Center 06/26/2024 HALIMA ARROYO [facility] Adrian Heal Family History Problem Relation Age of Onset Alcohol abuse Mother Anxiety disorder Mother Arthritis Mother Cancer Mother COPD Mother Depression Mother Diabetes Mother Drug abuse Mother Hypertension Mother Kidney disease Mother Mental illness Mother Suicide Attempts Mother Alcohol abuse Father Family Status - Relation Status Age at Mother Father Level of Service:74757 [place] OFFICE/OUTPATIENT ESTABLISHED LOW MDM 20 MIN Reason for Visit and Comments: Health Maintenance [619] Normal [facility] CT CERVICAL SPINE WO IV CONT Sorin 06-11-2024 CT CERVICAL SPINE WO IV CONTRAST STUDY: Cervical spine CT without contrast CLINICAL HISTORY: Acute cervical neck pain. Fall. Trauma. COMPARISON:None TECHNIQUE: CT cervical spine was performed utilizing thin section CT imaging without contrast. Coronal and sagittal reformatted images were obtained and reviewed. Automated exposure control was utilized. FINDINGS: The cervical spine is visualized from the skull base through C6. No vertebral soft tissue swelling. No vertebral body height loss. The dens is not. The lateral masses of C1 appear to be well aligned with C2. Please note, CT is insensitive for the evaluation of the spinal canal and spinal canal contents. If concern for intracanalicular process consider correlation MRI. Please note, ligamentous injury is not well evaluated on a neutral position CT. If concern for ligamentous injury consider flex-ex radiographs or MRI. IMPRESSION: 1. No evidence of acute osseous abnormality. All CT scans at this facility use dose modulation, iterative reconstruction, and/or weight based dosing when appropriate to reduce radiation dose to as low as reasonably achievable. Electronically signed: Mc Stewart. [facility] CT HEAD WO IV CONTRASTon CT HEAD WO IV CONTRAST STUDY: CT HEAD WI THOUT CONTRAST CLINICAL HISTORY: Acute head pain. fall; r/o bleed COMPARISON: 03/22/2018 TECHNIQUE: CT head was performed without contrast utilizing 2.5 mm axial reconstruction with images reviewed in bone and brain windows. Automated exposure control was utilized. FINDINGS: No intracranial mass mass effect or shift of midline structures. No extra-axial fluid flexion. Terrell-white differentiation is preserved. There is no CT evidence of large vessel vascular distribution of acute infarct, acute ischemia or hemorrhage. Midline structures appear to be unremarkable. Nasal septal defect is seen measuring 90 10 mm. Please note, MRI is more sensitive for the evaluation of an acute or occult process if indicated. IMPRESSION: 1. No evidence of an acute intracranial process. All CT scans at this facility use dose modulation, iterative reconstruction, and/or weight based dosing when appropriate to reduce radiation dose to as low as reasonably achievable. Electronically signed: Mc Stewart. [facility] CT LUMBAR SPINE WO IV CONTRA STon 06-11-2024 CT LUMBAR SPINE WO IV CONTRAST CT LUMBAR SPINE WO IV CONTRAST 06/11/2024 8:30 PM CLINICAL INDICATIONS: Lumbar back pain, fall. Trauma. Injury. PROTOCOL: TECHNIQUE: Multi detector CT axial slices of the lumbar spine are obtained with IV contrast. Volumetric acquisition sagittal, coronal, and 3-D reconstructions were performed and reviewed on a separate workstation. All CT scans at this facility use dose modulation, iterative reconstruction, and/or weight based dosing when appropriate to reduce radiation dose to as low as reasonably achievable. COMPARISON: None FINDINGS: The lowest lumbar type vertebral body is taken as L5 for the purposes of this examination. There is degenerative disc disease noted with disc bulging at L4-L5. There is no vertebral body height loss. Facets are well aligned. Please note, CT is insensitive for the evaluation of the spinal canal and spinal canal contents. Consider correlation with MRI if concern for intracanalicular process. Moderate amount of stool seen in the colon. IMPRESSION: No evidence of acute osseous abnormality. Electronically signed: Mc Stewart. Normal [facility] CT THORACIC SPINE WO IV CONT RASTon 06-11-2024 CT THORACIC SPINE WO IV CONTRAST CT THORACIC SPINE WO IV CONTRAST 06/11/2024 8:30 PM CLINICAL INDICATIONS: Acute thoracic back pain. Fall. TECHNIQUE: Multi detector CT axial slices of the thoracic spine are obtained with IV contrast. Volumetric acquisition sagittal, coronal, and 3-D reconstructions were performed and reviewed on a separate workstation. All CT scans at this facility use dose modulation, iterative reconstruction, and/or weight based dosing when appropriate to reduce radiation dose to as low as reasonably achievable. COMPARISON: None FINDINGS: No vertebral body height loss. There is mild mid thoracic degenerative disc disease. There is dependent changes and atelectasis in both lungs. Please note, CT is insensitive for the evaluation of the spinal canal spinal canal contents. Consider MRI if there is concern for intracanalicular process. IMPRESSION: Mild multilevel degenerative disc disease with endplate degenerative changes. No evidence of acute osseous abnormality. Electronically signed: Mc Stewart. Normal 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 Patient states that he was not paying attention and was unaware it was there. Patient denies needing any assistance climbing out. Patient reports lower right sided back pain that worsened while walking to the ED. Reports tingling down right leg. Full sensation. Patient is reporting a tingling sensation in his head that he states is present when he is cold. Blue/garcia discoloration noted to patients finger tips, patients finger tips are cold on further assessment. Normal [facility] EDPROVon 06-11-[address] [facility] Lisa [facility] [id number] EMERGENCY DEPARTMENT ENCOUNTER 06/11/2024 CHIEF COMPLAINT Chief Complaint Patient presents with Back Pain Fall HISTORY OF PRESENT ILLNESS 34 y/o male with a h/o HIV, PTSD, bipolar disorder presents to the ED for evaluation of back pain. 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 Pt reports he initially landed on his feet and then onto his buttock. Pt c/o right low back pain since the fall. Pt reports he was able to get himself out of the hole and walk here. Pt denies n/w/t of extremities. Pt reports the right low back pain radiates into right buttock. Pt denies neck and upper back pain. Pt denies head injury, MARTINEZ, LOC. Pt denies loss of bladder/bowel control. Pt denies any other injuries or concerns. Pt denies anticoagulation. REVIEW OF SYSTEMS Review of Systems Constitutional: Negative for chills and fever. Eyes: Negative for visual disturbance. Respiratory: Negative for shortness of breath. Cardiovascular: Negative for chest pain. Gastrointestinal: Negative for abdominal pain, diarrhea and vomiting. Genitourinary: Negative for difficulty urinating. Musculoskeletal: Positive for back pain. Negative for neck pain. Skin: Negative for wound. Neurological: Negative for dizziness, syncope, weakness, numbness and headaches. Psychiatric/Behavioral: Negative for confusion. All other systems reviewed and are negative. PAST MEDICAL HISTORY has a past medical history of HIV disease ([facility]) (2012), STD (sexually transmitted disease), and Varicella (Rogelio had it when i was a kid). SURGICAL HISTORY has no past surgical history on file. CURRENT MEDICATIONS Discharge Medication List as of 06/11/2024 9:20 PM CONTINUE these medications which have NOT CHANGED Details ALPRAZolam (Xanax) 1 mg tablet Take 1 tablet (1 mg) by mouth if needed each day for anxiety., Starting Tue05/11/2024, Until 06/10/2024 at 2359, Normal baclofen (Lioresal) 20 mg tablet Take 1 tablet (20 mg) by mouth if needed at bedtime (Sleep)., Starting Tue05/09/2024, Until Tue08/07/2024 at 2359, Normal benztropine (Cogentin) 0.5 mg tablet Take 1 tablet (0.5 mg) by mouth two times daily., Starting Tue05/09/2024, Normal jpywqnsgx-unmdzirm-sfgup ov ala (Biktarvy) 50-200-25 mg tablet Take one tablet by mouth per day., Normal cariprazine (Vraylar) 4.5 mg capsule TAKE 1 CAPSULE (3 MG) BY MOUTH IN THE MORNING., Normal diazePAM (Valium) 5 mg tablet Take 1 tablet (5 mg) by mouth if needed for anxiety., Starting Tue11/09/2022, Normal gabapentin (Neurontin) 100 mg capsule Take 1 capsule (100 mg) by mouth if needed in the morning, at noon, and at bedtime (Anxiety)., Starting Tue05/09/2024, Until Tue08/07/2024 at 2359, Normal sulfamethoxazole-trimeth oprim (Bactrim DS) 800-160 mg tablet Take 1 tablet by mouth in the morning., Starting Tue05/17/2024, Until Tue07/16/2024, Normal ALLERGIES has No Known Allergies. FAMILY HISTORY He indicated that the status of his mother is unknown. He indicated that the status of his father is unknown. family history includes Alcohol abuse in his father and mother; Anxiety disorder in his mother; Arthritis in his mother; COPD in his mother; Cancer in his mother; Depression in his mother; Diabetes in his mother; Drug abuse in his mother; Hypertension in his mother; Kidney disease in his mother; Mental illness in his mother; Suicide Attempts in his mother. SOCIAL HISTORY reports that he has been smoking cigarettes. He has a 15.00 pack-year smoking history. He has never used smokeless tobacco. He reports current alcohol use of about 3.0 standard drinks of alcohol per week. He reports current drug use. Drugs: Marijuana, Methamphetamines, and Psilocybin. PHYSICIAL EXAM INITIAL VITALS: oral temperature is 36.4 ???C (97.6 ???F). His blood pressure is 106/79 and his pulse is 108. His respiration is 18 and oxygen saturation is 98%. Physical Exam Vitals reviewed. Constitutional: General: He is not in acute distress. Appearance: Normal appearance. He is not ill-appearing or toxic-appearing. HENT: Head: Normocephalic and atraumatic. Mouth/Throat: Mouth: Mucous membranes are moist. Eyes: Extraocular Movements: Extraocular movements intact. Conjunctiva/sclera: Conjunctivae normal. Cardiovascular: Rate and Rhythm: Normal rate and regular rhythm. Pulses: Normal pulses. Heart sounds: Normal heart sounds. Pulmonary: Effort: Pulmonary effort is normal. No respiratory distress. Breath sounds: Normal breath sounds. Chest: Chest wall: No tenderness. Abdominal: Palpations: Abdomen is soft. Tenderness: There is no abdominal tenderness. Musculoskeletal: General: Normal range of motion. Cervical back: Normal range of motion and neck supple. No tenderness. Thoracic back: No tenderness. Lumb (more content not included)... Normal [facility] Orders Onlyon 05-17-2024 Orders Only [id number] Constantin Galan Delroy 1990 M Date Provider Department Center 05/17/2024 TONJA ANDRADE [facility] Family History Problem Relation Age of Onset Alcohol abuse Mother Anxiety disorder Mother Arthritis Mother Cancer Mother COPD Mother Depression Mother Diabetes Mother Drug abuse Mother Hypertension Mother Kidney disease Mother Mental illness Mother Suicide Attempts Mother Alcohol abuse Father Family Status - Relation Status Age at Mother Father Normal [facility] Orders Onlyon 05-11-2024 Orders Only [id number] Constantin Galan W 1990 M Date Provider Department Center 05/11/2024 Gabino-HALIMA WELLS [facility] Family History Problem Relation Age of Onset Alcohol abuse Mother Anxiety disorder Mother Arthritis Mother Cancer Mother COPD Mother Depression Mother Diabetes Mother Drug abuse Mother Hypertension Mother Kidney disease Mother Mental illness Mother Suicide Attempts Mother Alcohol abuse Father Family Status - Relation Status Age at Mother Father Normal [facility] CBC WITH AUTO DIFFERENTIALon 05-09-2024 Basophils (Bld) [#/Vol] 0.01 10*3/uL Normal 0.00-0.[address] [facility] Comment on above: Performed By: #### L [id number] #### [facility] ([facility]) [address] [place] [address] Basophils/100 WBC (Bld) 0.3 % Normal 0.0-1.0 [facility] Comment on above: Performed By: #### L [id number] #### [facility] ([facility]) [address] [place] [address] Eosinophils (Bld) [#/Vol] 0.02 10*3/uL Normal 0.00-0.[address] [facility] Comment on above: Performed By: #### L [id number] #### [facility] [address] [place] [address] Eosinophils/100 WBC (Bld) 0.6 % Normal 0.0-6.[address] [facility] Comment on above: Performed By: #### L [id number] #### [facility] ([facility]) [address] [place] [address] Erythrocyte distribution width (RBC) [Ratio] 13.4 % Normal 11.5-15.[address] [facility] Comment on above: Performed By: #### L [id number] #### [facility] ([facility]) [address] [place] [address] ERYTHROCYTE MEAN CORPUSCULAR HEMOGLOBIN CONCENTRATION (G/DL) BY AUTOMATED 35.7 g/dL High 32.0-35.[address] [facility] Comment on above: Performed By: #### L [id number] #### [facility] [address] [place] [address] Hematocrit (Bld) [Volume fraction] 38.1 % Low 39.0-55.[address] [facility] Comment on above: Performed By: #### L [id number] #### [facility] ([facility] [address] [place] [address] Hemoglobin (Bld) [Mass/Vol] 13.6 g/dL Normal 13.0-17.[address] [facility] Comment on above: Performed By: #### L [id number] #### [facility] ([facility]) [address] [place] [address] Immature granulocytes (Bld) [#/Vol] 0.01 10*3/uL Normal 0.00-0.[address] [facility] Comment on above: Performed By: #### L [id number] #### [facility] ([facility]) [address] [place] [address] Immature granulocytes/100 WBC (Bld) 0.3 % Normal 0.0-1.[address] [facility] Comment on above: Performed By: #### L [id number] #### [facility] ([facility]) [address] [place] [address] Lymphocytes (Bld) [#/Vol] 0.62 10*3/uL Low 1.20-4.[address] [facility] Comment on above: Performed By: #### L [id number] #### [facility] ([facility]) [address] [place] [address] Lymphocytes/100 WBC (Bld) 17.4 % Low 20.0-45.[address] [facility] Comment on above: Performed By: #### L [id number] #### [facility] ([facility]) [address] [place] [address] MCH (RBC) [Entitic mass] 38.4 pg High 27.0-33.[address] [facility] Comment on above: Performed By: #### L [id number] #### [facility] ([facility]) [address] [place] [address] MCV (RBC) [Entitic vol] 107.6 fL High 82.0-98.0 [facility] Comment on above: Performed By: #### L [id number] #### [facility] ([facility]) [address] [place] [address] Monocytes (Bld) [#/Vol] 0.26 10*3/uL Normal 0.10-1.[address] [facility] Comment on above: Performed By: #### L [id number] #### [facility] [address] [place] [address] Monocytes/100 WBC (Bld) 7.3 % Normal 5.0-12.0 [facility] Comment on above: Performed By: #### L [id number] #### [facility] ([facility]) [address] [place] [address] Neutrophils (Bld) [#/Vol] 2.65 10*3/uL Normal 1.60-7.[address] [facility] Comment on above: Performed By: #### L [id number] #### [facility] ([facility]) [address] [place] [address] Neutrophils/100 WBC (Bld) 74.1 % High 40.0-72.[address] [facility] Comment on above: Performed By: #### L [id number] #### [facility] ([facility]) [address] [place] [address] NRBC (PER 100 WBCS) BY AUTOMATED COUNT 0.0 % Normal [address] [facility] Comment on above: Performed By: #### L [id number] #### [facility] ([facility]) [address] [place] [address] PLATELETS (10*3/UL) IN BLOOD AUTOMATED COUNT 159 10*3/uL Normal 150-[address] [facility] Comment on above: Performed By: #### L [id number] #### [facility] ([facility]) [address] [place] [address] RBC (Bld) [#/Vol] 3.54 10*6/uL Low 4.20-5.70 [facility] Comment on above: Performed By: #### L [id number] #### [facility] ([facility]) [address] [place] [address] WBC (Bld) [#/Vol] 3.57 10*3/uL Low 4.00-10.60 [facility] Comment on above: Performed By: #### L [id number] #### [facility] ([facility]) [address] [place] [address] CHLAMYDIA TRACHOMATIS AND NE ISSERIA GONORRHEA, TMAon 05-09-2024 CHLAMYDIA TRACHOMATIS DNA PROBE (PRESENCE) IN UNSP SPEC Negative Normal Negative [facility] Comment on above: Result Comment: No C hlamydia trachomatis rRNA Detected. The Aptima Combo 2 Assay is a FDA approved target amplification nucleic acid probe test that utilizes target capture for the in vitro qualitative detection and differentiation of ribosomal RNA (rRNA) from Chlamydia trachomatis (CT) and/or Neisseria gonorrhoeae (GC) to aid the diagnosis of chlamydial and/or gonococcal urogenital disease using the Carlisle System. The Aptima Combo 2 Assay involves target capture, target amplification by Campus Recruiting Coordinator-Mediated Amplification (TMA), and the detection of the amplification products (amplicon) by the Hybridization Protection Assay (HPA). The internal process controls of the [place] System monitor the target capture, amplification, and detection steps of the assay, this is not intended to control for sampling adequacy. Performed By: #### L [id number] ####[facility] ([facility])[address] [place] [address] NEISSERIA GONORRHOEAE DNA PROBE (PRESENCE) IN UNSP SPEC Negative Normal Negative [facility] Comment on above: Result Comment: No N eisseria gonorrhoeae rRNA Detected. The Aptima Combo 2 Assay is a FDA approved target amplification nucleic acid probe test that utilizes target capture for the in vitro qualitative detection and differentiation of ribosomal RNA (rRNA) from Chlamydia trachomatis (CT) and/or Neisseria gonorrhoeae (GC) to aid the diagnosis of chlamydial and/or gonococcal urogenital disease using the [place] System. The Aptima Combo 2 Assay involves target capture, target amplification by Campus Recruiting Coordinator-Mediated Amplification (TMA), and the detection of the amplification products (amplicon) by the Hybridization Protection Assay (HPA). The internal process controls of the [place] System monitor the target capture, amplification, and detection steps of the assay, this is not intended to control for sampling adequacy. Performed By: #### L [id number] ####[facility] ([facility])[address] [place] [address] COMPREHENSIVE METABOLIC PANE Agustin 05-09-2024 Albumin [Mass/Vol] 4.1 g/dL Normal 3.5-5.7 [facility] Comment on above: Performed By: #### L [id number] #### [facility] ([facility]) [address] [place] [address] ALP [Catalytic activity/Vol] 76 U/L Normal 34-[address] [facility] Comment on above: Performed By: #### L [id number] #### [facility] ([facility]) [address] [place] [address] ALT [Catalytic activity/Vol] 7 U/L Normal 7-[address] [facility] Comment on above: Performed By: #### L [id number] #### [facility] ([facility]) [address] [place] [address] Anion gap [Moles/Vol] 10 mmol/L Normal 7-20 [facility] Comment on above: Performed By: #### L [id number] #### [facility] ([facility]) [address] [place] [address] AST [Catalytic activity/Vol] 15 U/L Normal 13-[address] [facility] Comment on above: Performed By: #### L [id number] #### [facility] ([facility]) [address] [place] [address] Bilirubin [Mass/Vol] 0.8 mg/dL Normal 0.3-1.0 [facility] Comment on above: Performed By: #### L [id number] #### [facility] ([facility]) [address] [place] [address] Calcium [Mass/Vol] 9.1 mg/dL Normal 8.6-10.3 [facility] Comment on above: Performed By: #### L [id number] #### [facility] ([facility]) [address] [place] [address] Chloride [Moles/Vol] 100 mmol/L Normal 98-107 [facility] Comment on above: Performed By: #### L [id number] #### [facility] ([facility]) [address] [place] [address] CO2 [Moles/Vol] 28 mmol/L Normal 21-31 [facility] Comment on above: Performed By: #### L [id number] #### [facility] ([facility]) [address] [place] [address] Creatinine [Mass/Vol] 0.75 mg/dL Normal 0.70-1.30 [facility] Comment on above: Performed By: #### L [id number] #### [facility] ([facility]) [address] [place] [address] GLOMERULAR FILTRATION RATE ML/MIN/1.73 SQ M.PREDICTED 120.7 mL/min/1.73m*2 Normal >60.[address] [facility] Comment on above: Result Comment: The [facility]???s estimated glomerular filtration rate (eGFR) will no longer include consideration of race in its calculation. The National Kidney Foundation???s eGFR Task Force developed new recommendations for the estimation of the glomerular filtration rate in the [place] They recommend immediate implementation of the new equation refit without the race variable in all laboratories because the calculation does not include race. In addition to not including race in the calculation and reporting, it included diversity in its development, and has acceptable performance characteristics and potential consequences that do not disproportionately affect any one group of individuals. Performed By: #### L [id number] #### [facility] ([facility]) [address] [place] [address] Glucose [Mass/Vol] 63 mg/dL Low 70-100 [facility] Comment on above: Performed By: #### L [id number] #### [facility] ([facility]) [address] [place] [address] Potassium [Moles/Vol] 3.5 mmol/L Normal 3.5-5.1 [facility] Comment on above: Performed By: #### L [id number] #### [facility] ([facility]) [address] [place] [address] Protein [Mass/Vol] 8.1 g/dL Normal 6.0-8.3 [facility] Comment on above: Performed By: #### L [id number] #### [facility] ([facility]) [address] [place] [address] Sodium [Moles/Vol] 134 mmol/L Low 136-145 [facility] Comment on above: Performed By: #### L [id number] #### [facility] ([facility]) [address] [place] [address] Urea nitrogen [Mass/Vol] 12 mg/dL Normal 7-[address] [facility] Comment on above: Performed By: #### L [id number] #### [facility] ([facility]) [address] [place] [address] UREA NITROGEN/CREATININE (MASS RATIO) IN SER/PLAS 16.[address] [facility] Comment on above: Performed By: #### L [id number] #### [facility] ([facility]) [address] [place] [address] Labon 05-09-2024 Lab [id number] AngeliaConstantin Delroy 1990 M Date Provider Department [place] 05/09/[address] [place] [address] LAB RESOURCE [facility] Family History Problem Relation Age of Onset Alcohol abuse Mother Anxiety disorder Mother Arthritis Mother Cancer Mother COPD Mother Depression Mother Diabetes Mother Drug abuse Mother Hypertension Mother Kidney disease Mother Mental illness Mother Suicide Attempts Mother Alcohol abuse Father Family Status - Relation Status Age at Mother Father Normal [facility] Office Visiton 05-09-2024 Follow-up visit [id number] Constantin Galan 1990 M Date Provider Department [place] 05/09/2024 HALIMA ARROYO [facility] Adrian Heal Family History Problem Relation Age of Onset Alcohol abuse Mother Anxiety disorder Mother Arthritis Mother Cancer Mother COPD Mother Depression Mother Diabetes Mother Drug abuse Mother Hypertension Mother Kidney disease Mother Mental illness Mother Suicide Attempts Mother Alcohol abuse Father Family Status - Relation Status Age at Mother Father Level of Service:65643 [place] OFFICE/OUTPATIENT ESTABLISHED LOW MDM 20 MIN Reason for Visit and Comments: Health Maintenance [619] Normal [facility] RPRon 05-09-2024 REAGIN AB PRESENCE IN SERUM BY RPR Non-Reactive Normal Nonreactive [facility] Comment on above: Performed By: #### L [id number] ####[facility] ([facility] [place] [address] T CELL SUBSET ANALYSISon CD3 88.87 % Normal 65.00-90.[address] [facility] Comment on above: Performed By: #### L [id number] #### [facility] ([facility]) [address] [place] [address] CD3 ABSOLUTE 552 cells/mm3 Low 760-2130 [facility] Comment on above: Performed By: #### L [id number] #### [facility] ([facility]) [address] [place] [address] CD4 8.04 % Low 40.00-70.[address] [facility] Comment on above: Performed By: #### L [id number] #### [facility] ([facility]) [address] [place] [address] CD4 ABSOLUTE 50 cells/mm3 Low 430-[address] [facility] Comment on above: Performed By: #### L [id number] #### [facility] ([facility]) [address] [place] [address] CD4:CD8 0.10 Low 1.00-4.[address] [facility] Comment on above: Performed By: #### L [id number] #### [facility] ([facility]) [address] [place] [address] CD8 78.16 % High 15.00-40.[address] [facility] Comment on above: Performed By: #### L [id number] #### [facility] ([facility]) [address] [place] [address] CD8 ABSOLUTE 486 cells/mm3 Normal 180-865 [facility] Comment on above: Performed By: #### L [id number] #### [facility] ([facility]) [address] [place] [address] TOXICOLOGY PANEL URINEon AMPHETAMINE+METHAMPHETA MINE SCREEN (PRESENCE) IN URINE Negative Normal Negative [facility] Comment on above: Performed By: #### L [id number] #### [facility] ([facility]) [address] [place] [address] BARBITURATES PRESENCE IN URINE BY SCREEN METHOD Negative Normal Negative [facility] Comment on above: Performed By: #### L [id number] #### [facility] ([facility]) [address] [place] [address] Benzodiazepines Ql (U) Negative Normal Negative [facility] Comment on above: Performed By: #### L [id number] #### [facility] ([facility]) [address] [place] [address] CANNABINOID (PRESENCE) IN URINE BY SCREEN METHOD Negative Normal Negative [facility] Comment on above: Performed By: #### L [id number] #### [facility] ([facility]) [address] [place] [address] Cocaine Ql (U) Negative Normal Negative [facility] Comment on above: Performed By: #### L [id number] #### [facility] ([facility]) [address] [place] [address] METHADONE (PRESENCE) IN URINE BY SCREEN METHOD Negative Normal Negative [facility] Comment on above: Performed By: #### L [id number] #### [facility] ([facility]) [address] [place] [address] OPIATES (PRESENCE) IN URINE BY SCREEN METHOD Negative Normal Negative [facility] Comment on above: Performed By: #### L [id number] #### [facility] ([facility]) [address] [place] [address] PHENCYCLIDINE PRESENCE IN URINE BY SCREEN METHOD Negative Normal Negative [facility] Comment on above: Performed By: #### L [id number] #### [facility] ([facility]) [address] [place] [address] Propoxyphene Screen Ql (U) Negative Normal Negative [facility] Comment on above: Performed By: #### L [id number] #### [facility] ([facility]) [address] [place] [address] TRICYCLIC ANTIDEPRESSANTS (PRESENCE) IN URINE Negative Normal Negative [facility] Comment on above: Performed By: #### L [id number] #### [facility] ([facility]) [address] [place] [address] URINALYSISon 05-09-2024 BILIRUBIN, TOTAL PRESENCE IN URINE Negative Normal Negative [facility] Comment on above: Order Comment: Micro scopics not performed on urines with negative chemical reactions unless requested on original order. Performed By: #### L [id number] #### [facility] ([facility]) [address] [place] [address] Clarity (U) Clear Normal Clear [facility] Comment on above: Order Comment: Micro scopics not performed on urines with negative chemical reactions unless requested on original order. Performed By: #### L [id number] #### [facility] ([facility]) [address] [place] [address] Color (U) Yellow Normal Yellow [facility] Comment on above: Order Comment: Micro scopics not performed on urines with negative chemical reactions unless requested on original order. Performed By: #### L [id number] #### [facility] ([facility]) [address] [place] [address] Glucose (U) [Mass/Vol] Negative Normal Negative [facility] Comment on above: Order Comment: Micro scopics not performed on urines with negative chemical reactions unless requested on original order. Performed By: #### L [id number] #### [facility] ([facility]) [address] [place] [address] HEMOGLOBIN PRESENCE IN URINE Negative Normal Negative [facility] Comment on above: Order Comment: Micro scopics not performed on urines with negative chemical reactions unless requested on original order. Performed By: #### L [id number] #### [facility] ([facility]) [address] [place] [address] Ketones Ql (U) Negative Normal Negative [facility] Comment on above: Order Comment: Micro scopics not performed on urines with negative chemical reactions unless requested on original order. Performed By: #### L [id number] #### [facility] ([facility]) [address] [place] [address] LEUKOCYTE ESTERASE PRESENCE IN URINE BY TEST STRIP Negative Normal Negative [facility] Comment on above: Order Comment: Micro scopics not performed on urines with negative chemical reactions unless requested on original order. Performed By: #### L [id number] #### [facility] ([facility]) [address] [place] [address] NITRITE PRESENCE IN URINE Negative Normal Negative [facility] Comment on above: Order Comment: Micro scopics not performed on urines with negative chemical reactions unless requested on original order. Performed By: #### L [id number] #### [facility] ([facility]) [address] [place] [address] pH (U) 6.0 [pH] Normal 5.0-8.[address] [facility] Comment on above: Order Comment: Micro scopics not performed on urines with negative chemical reactions unless requested on original order. Performed By: #### L [id number] #### [facility] ([facility]) [address] [place] [address] Protein (U) [Mass/Vol] Negative Normal Negative Un [facility] Comment on above: Order Comment: Micro scopics not performed on urines with negative chemical reactions unless requested on original order. Performed By: #### L [id number] #### [facility] ([facility]) [address] [place] [address] Specific gravity (U) [Rel density] 1.006 Low 1.015-1.[address] [facility] Comment on above: Order Comment: Micro scopics not performed on urines with negative chemical reactions unless requested on original order. Performed By: #### L [id number] #### [facility] ([facility]) [address] [place] [address] UROBILINOGEN (EU/DL) IN URINE 2.0 EU/dL Abnormal Negative [facility] Comment on above: Order Comment: Micro scopics not performed on urines with negative chemical reactions unless requested on original order. Performed By: #### L [id number] #### [facility] ([facility]) [address] [place] [address] Office Visiton 04-26-2024 Follow-up visit [id number] Constantin Galan 1990 M Date Provider Department Center 04/26/2024 TONJA ANDRADE [facility] Family History Problem Relation Age of Onset Alcohol abuse Mother Anxiety disorder Mother Arthritis Mother Cancer Mother COPD Mother Depression Mother Diabetes Mother Drug abuse Mother Hypertension Mother Kidney disease Mother Mental illness Mother Suicide Attempts Mother Alcohol abuse Father Family Status - Relation Status Age at Mother Father Level of Service:06552 [place] OFFICE/OUTPATIENT ESTABLISHED LOW MDM 20 MIN Reason for Visit and Comments: Human immunodeficiency virus (HIV) disease ([facility]) [Other] Health Maintenance [619] Med Management [[id number]] - Out of biktarvy, has not taken a dose in 3 weeks [facility] 3602-14-2024 36 Pt called he is currently in long term and needs a medication refill on his Biktarvy. He does not know his release date but stated he will call and make an appt when he is out. 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 [facility] Refillon 02-14-2024 Refill [id number] Constantin Galan 1990 M Date Provider Department [place] 02/14/2024 [address]-XIVTPLILIAN MENDOZA [facility] Family History Problem Relation Age of Onset Alcohol abuse Mother Anxiety disorder Mother Arthritis Mother Cancer Mother COPD Mother Depression Mother Diabetes Mother Drug abuse Mother Hypertension Mother Kidney disease Mother Mental illness Mother Suicide Attempts Mother Alcohol abuse Father Family Status - Relation Status Age at Mother Father Reason for Visit and Comments: Med Refill [[id number]] [facility] 36on 12-22-2023 36 Patient had previous admission to [facility]. I reschedule his appointment within the two weeks of his discharge date. Normal [facility] CBC W Auto Differential pane l (Bld)Ordered By: Giovanny Fraga on 12-16-2023 Basophils (Bld) [#/Vol] 0.0 10*3/uL 0.0 - 0.2 10*3/uL [facility] [employer] Basophils/100 WBC (Bld) 0.4 % 0.0 - 2.0 % [facility] Eosinophils (Bld) [#/Vol] 0.1 10*3/uL 0.0 - 0.5 10*3/uL [facility] Eosinophils/100 WBC (Bld) 2.6 % 0.0 - 6.0 % [facility] Erythrocyte distribution width (RBC) [Ratio] 14.7 % 11.5 - 15.0 % [facility] Hematocrit (Bld) [Volume fraction] 39.4 % Low 40.0 - 52.0 % [facility] Hemoglobin (Bld) [Mass/Vol] 14.1 g/dL 13.0 - 18.0 g/dL [facility] Immature granulocytes (Bld) [#/Vol] 0.1 10*3/uL High NINF - 0.1 10*3/uL [facility] Immature granulocytes/100 WBC (Bld) 1.5 % 0.0 - 2.0 % [facility] Interpretation and review of laboratory results Abnormal [facility] IPF 12 [facility] Lymphocytes (Bld) [#/Vol] 1.0 10*3/uL 1.0 - 4.3 10*3/uL [facility] Lymphocytes/100 WBC (Bld) 20.9 % 15.0 - 45.0 % [facility] MCH (RBC) [Entitic mass] 37.1 pg High 26.0 - 34.0 pg [facility] MCHC (RBC) [Mass/Vol] 35.8 % 30.5 - 36.0 % [facility] MCV (RBC) [Entitic vol] 103.7 fL High 77.0 - 99.0 fL [facility] Monocytes (Bld) [#/Vol] 0.4 10*3/uL 0.0 - 0.9 10*3/uL [facility] Monocytes/100 WBC (Bld) 8.7 % 5.0 - 13.0 % [facility] Neutrophils (Bld) [#/Vol] 3.0 10*3/uL 1.8 - 7.5 10*3/uL [facility] Neutrophils/100 WBC (Bld) 65.9 % 38.0 - 82.0 % [facility] Nucleated RBC/100 WBC (Bld) [Ratio] 0.9 % [facility] Platelet mean volume (Bld) [Entitic vol] 13.0 fL High 9.0 - 12.7 fL [facility] Platelets (Bld) [#/Vol] 84 10*3/uL Low 140 - 440 10*3/uL [facility] RBC (Bld) [#/Vol] 3.80 10*6/uL Low 4.40 - 5.9 0 10*6/uL [facility] WBC (Bld) [#/Vol] 4.6 10*3/uL 3.6 - 10.7 10*3/uL [facility] CBC WITH AUTO DIFFERENTIALon 12-16-2023 Basophils (Bld) [#/Vol] 0.0 10*3/uL Normal 0.0-0.2 [facility] Comment on above: Performed By: #### L [id number] ####Dairy Scientist: ZEHRA ONEILL ([id number])[facility])[address] [place] [address] Basophils/100 WBC (Bld) 0.4 % Normal 0.0-2.0 S [facility] Comment on above: Performed By: #### L [id number] ####Dairy Scientist: ZEHRA ONEILL ([id number])[facility] ([facility])[address] [place] [address] Eosinophils (Bld) [#/Vol] 0.1 10*3/uL Normal 0.0-0.5 [facility] Comment on above: Performed By: #### L [id number] ####Dairy Scientist: ZEHRA ONEILL ([phone])[facility])[address] [place] [address] Eosinophils/100 WBC (Bld) 2.6 % Normal 0.0-6.0 [facility] Comment on above: Performed By: #### L [id number] ####Dairy Scientist: ZEHRA ONEILL ([phone])[facility])[address] [place] [address] Erythrocyte distribution width (RBC) [Ratio] 14.7 % Normal 11.5-15.0 [facility] Comment on above: Performed By: #### L [id number] ####Dairy Scientist: ZEHRA ONEILL ([phone])[facility])[address] [place] [address] Hematocrit (Bld) [Volume fraction] 39.4 % Low 40.0-52.0 [facility] Comment on above: Performed By: #### L [id number] ####Dairy Scientist: ZEHRA ONEILL ([phone])[facility])[address] [place] [address] Hemoglobin (Bld) [Mass/Vol] 14.1 g/dL Normal 13.0-18.0 [facility] Comment on above: Performed By: #### L [id number] ####Dairy Scientist: ZEHRA ONEILL ([id number])[facility] ([facility])[address] [place] [address] IMMATURE GRANS % 1.5 % Normal 0.0-2.0 [facility] Comment on above: Performed By: #### L [id number] ####Dairy Scientist: ZEHRA ONEILL ([id number])[facility] [facility] [place] [address] IMMATURE GRANS ABSOLUTE 0.1 10*3/uL High <0.1 [facility] Comment on above: Performed By: #### L [id number] ####Dairy Scientist: ZEHRA ONEILL ([phone])[facility])[address] [place] [address] [place] IPF 12 Normal [facility] Comment on above: Performed By: #### L [id number] ####Dairy Scientist: ZEHRA ONEILL ([phone])[facility])[address] [place] [address] Lymphocytes (Bld) [#/Vol] 1.0 10*3/uL Normal 1.0-4.3 [facility] Comment on above: Performed By: #### L [id number] ####Dairy Scientist: ZEHRA ONEILL ([id number])[facility])[address] [place] [address] Lymphocytes/100 WBC (Bld) 20.9 % Normal 15.0-45.0 [facility] Comment on above: Performed By: #### L [id number] ####Dairy Scientist: ZEHRA ONEILL ([phone])[facility] ([facility])[address] [place] [address] MCH (RBC) [Entitic mass] 37.1 pg High 26.0-34.0 [facility] Comment on above: Performed By: #### L [id number] ####Dairy Scientist: ZEHRA ONEILL ([id number])[facility])[address] [place] [address] MCHC 35.8 % Normal 30.5-36.0 [facility] Comment on above: Performed By: #### L [id number] ####Dairy Scientist: ZEHRA ONEILL ([id number])[facility])[address] [place] [address] MCV (RBC) [Entitic vol] 103.7 fL High 77.0-99.0 S [facility] Comment on above: Performed By: #### L [id number] ####Dairy Scientist: ZEHRA ONEILL ([phone])[facility] ([facility])[address] [place] [address] Monocytes (Bld) [#/Vol] 0.4 10*3/uL Normal 0.0-0.9 [facility] Comment on above: Performed By: #### L [id number] ####Dairy Scientist: ZEHRA ONEILL ([id number])[facility] ([facility])[address] [place] [address] Monocytes/100 WBC (Bld) 8.7 % Normal 5.0-13.0 S [facility] Comment on above: Performed By: #### L [id number] ####Dairy Scientist: ZEHRA ONEILL ([phone])[facility])[address] [place] [address] NEUTROPHILS ABSOLUTE 3.0 10*3/uL Normal 1.8-7.5 [facility] Comment on above: Performed By: #### L [id number] ####Dairy Scientist: ZEHRA ONEILL ([phone])[facility])[address] [place] [address] [place] Neutrophils/100 WBC (Bld) 65.9 % Normal 38.0-82.0 [facility] Comment on above: Performed By: #### L [id number] ####Dairy Scientist: ZEHRA ONEILL ([id number])[facility] ([facility])[address] [place] [address] NRBC 0.9 /100 WBCs Normal 0.0-2.0 [facility] Comment on above: Performed By: #### L [id number] ####Dairy Scientist: ZEHRA ONEILL ([id number])[facility] ([facility])[address] [place] [address] Platelet mean volume (Bld) [Entitic vol] 13.0 fL High 9.0-12.7 [facility] Comment on above: Performed By: #### L [id number] ####Dairy Scientist: ZEHRA ONEILL ([id number])[facility] ([facility])[address] [place] [address] Platelets (Bld) [#/Vol] 84 10*3/uL Low 140-440 S [facility] Comment on above: Performed By: #### L [id number] ####Dairy Scientist: ZEHRA ONEILL ([id number])[facility] ([facility])[address] [place] [address] RBC (Bld) [#/Vol] 3.80 10*6/uL Low 4.40-5.90 [facility] Comment on above: Performed By: #### L [id number] ####Dairy Scientist: ZEHRA ONEILL ([id number])[facility] ([facility])[address] [place] [address] [place] WBC (Bld) [#/Vol] 4.6 10*3/uL Normal 3.6-10.7 [facility] Comment on above: Performed By: #### L [id number] ####Dairy Scientist: ZEHRA ONEILL ([id number])[facility] ([facility])[address] [place] [address] [place] CKon 12-16-2023 CK [Catalytic activity/Vol] 43 U/L Normal 30-170 [facility] Comment on above: Performed By: #### L [id number], LAB17, LAB46 ####Dairy Scientist: ZEHRA ONEILL ([id number])[facility] ([facility])[address] [place] [address] COMPLETE URINALYSISon 2023 BILIRUBIN, TOTAL PRESENCE IN URINE Negative Normal Negative [facility] Comment on above: Performed By: #### L [id number] ####Dairy Scientist: ZEHRA ONEILL ([id number])[facility] ([facility])[address] [place] [address] Clarity (U) Clear Normal Clear [facility] Comment on above: Performed By: #### L [id number] ####Dairy Scientist: ZEHRA ONEILL ([id number])[facility] ([facility])[address] [place] [address] Color (U) Yellow Normal Lt. Yellow [facility] Comment on above: Performed By: #### L [id number] ####Dairy Scientist: ZEHRA ONEILL ([id number])[facility] ([facility])[address] [place] [address] GLUCOSE (MG/DL) IN URINE Normal Normal Normal (<70) [facility] Comment on above: Performed By: #### L [id number] ####Dairy Scientist: ZEHRA ONEILL ([id number])[facility] ([facility])[address] [place] [address] HEMOGLOBIN PRESENCE IN URINE Negative Normal Negative [facility] Comment on above: Performed By: #### L [id number] ####Dairy Scientist: ZEHRA ONEILL ([id number])[facility] ([facility])[address] [place] [address] Ketones Ql (U) Negative Normal Negative [facility] Comment on above: Performed By: #### L [id number] ####Dairy Scientist: ZEHRA ONEILL ([phone])[facility] ([facility])[address] [place] [address] LEUKOCYTE ESTERASE PRESENCE IN URINE BY TEST STRIP Negative Normal Negative [facility] Comment on above: Performed By: #### L [id number] ####Dairy Scientist: ZEHRA ONEILL ([id number])[facility] ([facility])[address] [place] [address] NITRITE PRESENCE IN URINE Negative Normal Negative [facility] Comment on above: Performed By: #### L [id number] ####Dairy Scientist: ZEHRA ONEILL ([phone])[facility])[address] [place] [address] pH (U) 6.0 [pH] Normal 5.0-8.0 [facility] Comment on above: Performed By: #### L [id number] ####Dairy Scientist: ZEHRA ONEILL ([id number])[facility])[address] [place] [address] Protein (U) [Mass/Vol] Negative Normal Negative [facility] Comment on above: Performed By: #### L [id number] ####Dairy Scientist: ZEHRA ONEILL ([id number])[facility] ([facility])[address] [place] [address] Specific gravity (U) [Rel density] 1.023 Normal 1.005-1.030 [facility] Comment on above: Performed By: #### L [id number] ####Dairy Scientist: ZEHRA ONEILL ([id number])[facility])[address] [place] [address] UROBILINOGEN (MG/DL) IN URINE 2 mg/dL Abnormal Normal (0-1) [facility] Comment on above: Performed By: #### L [id number] ####Dairy Scientist: ZEHRA ONEILL ([id number])[facility])[address] [place] [address] COMPREHENSIVE METABOLIC PANE Agustin 12-16-2023 Albumin [Mass/Vol] 4.1 g/dL Normal 3.5-5.0 [facility] Comment on above: Performed By: #### L AB62, LAB17, LAB46 ####Dairy Scientist: ZEHRA ONEILL ([id number])[facility])[address] [place] [address] ALP [Catalytic activity/Vol] 88 U/L Normal 38-126 [facility] Comment on above: Performed By: #### Faye FERRIS, LAB17, LAB46 ####Dairy Scientist: ZEHRA ONEILL ([id number])[facility] ([facility])[address] [place] [address] ALT [Catalytic activity/Vol] 63 U/L High 0-49 [facility] Comment on above: Performed By: #### Faye FERRIS, LAB17, LAB46 ####Dairy Scientist: ZEHRA ONEILL ([id number])[facility] ([facility])[address] [place] [address] Anion gap [Moles/Vol] 10 mmol/L Normal 3-13 [facility] Comment on above: Performed By: #### Faye FERRIS, LAB17, LAB46 ####Dairy Scientist: ZEHRA ONEILL ([id number])[facility] ([facility])[address] [place] [address] AST [Catalytic activity/Vol] 47 U/L High 15-46 [facility] Comment on above: Performed By: #### Faye FERRIS, LAB17, LAB46 ####Dairy Scientist: ZEHRA ONEILL ([id number])[facility] ([facility])[address] [place] [address] Bilirubin [Mass/Vol] 0.8 mg/dL Normal 0.2-1.3 [facility] Comment on above: Performed By: #### Faye FERRIS LAB17, LAB46 ####Dairy Scientist: ZEHRA ONEILL ([id number])[facility] ([facility])[address] [place] [address] Calcium [Mass/Vol] 9.5 mg/dL Normal 8.4-10.4 [facility] Comment on above: Performed By: #### Faye FERRIS, LAB17, LAB46 ####Dairy Scientist: ZEHRA ONEILL ([id number])[facility] ([facility])[address] [place] [address] [place] Chloride [Moles/Vol] 101 mmol/L Normal 98-107 [facility] Comment on above: Performed By: #### Faye FERRIS, LAB17, LAB46 ####Dairy Scientist: ZEHRA ONEILL ([phone])[facility])[address] [place] [address] CO2 [Moles/Vol] 28 mmol/L Normal 22-30 [facility] Comment on above: Performed By: #### Faye FERRIS, LAB17, LAB46 ####Dairy Scientist: ZEHRA ONEILL ([id number])[facility])[address] [place] [address] Creatinine [Mass/Vol] 0.56 mg/dL Low 0.66-1.25 [facility] Comment on above: Performed By: #### Faye FERRIS, LAB17, LAB46 ####Dairy Scientist: ZEHRA ONEILL ([phone])[facility])[address] [place] [address] GLOMERULAR FILTRATION RATE ML/MIN/1.73 SQ M.PREDICTED >90.0 Normal >60.0 [facility] Comment on above: Result Comment: Calc ulation based on the Chronic Kidney Disease Epidemiology Collaboration (CKD-EPI) equation refit without adjustment for race Performed By: #### Faye FERRIS, LAB17, LAB46 ####Dairy Scientist: ZEHRA ONEILL ([id number])[facility] ([facility])[address] [place] [address] Glucose [Mass/Vol] 97 mg/dL Normal 70-100 [facility] Comment on above: Performed By: #### Faye FERRIS, LAB17, LAB46 ####Dairy Scientist: ZEHRA ONEILL ([phone])[facility])[address] [place] [address] Potassium [Moles/Vol] 4.0 mmol/L Normal 3.5-5.1 [facility] Comment on above: Performed By: #### Faye FERRIS, LAB17, LAB46 ####Dairy Scientist: ZEHRA ONEILL ([id number])[facility])[address] [place] [address] Protein [Mass/Vol] 8.4 g/dL High 6.3-8.2 [facility] Comment on above: Performed By: #### Faye FERRIS, LAB17, LAB46 ####Dairy Scientist: ZEHRA ONEILL ([id number])[facility] ([facility])[address] [place] [address] Sodium [Moles/Vol] 138 mmol/L Normal 135-145 [facility] Comment on above: Performed By: #### Faye FERRIS, LAB17, LAB46 ####Dairy Scientist: ZEHRA ONEILL ([id number])[facility] ([facility])[address] [place] [address] Urea nitrogen [Mass/Vol] 10 mg/dL Normal 9-20 [facility] Comment on above: Performed By: #### Faye FERRIS, LAB17, LAB46 ####Dairy Scientist: ZEHRA ONEILL ([id number])[facility] ([facility])[address] [place] [address] Comprehensive metabolic 1998 panelon 12-16-2023 Albumin [Mass/Vol] 4.1 g/dL 3.5 - 5.0 g/dL [facility] ALP [Catalytic activity/Vol] 88 U/L 38 - 126 U/L [facility] ALT [Catalytic activity/Vol] 63 U/L High 0 - 49 U/L [facility] Anion gap [Moles/Vol] 10 mmol/L 3 - 13 mmol/L [facility] AST [Catalytic activity/Vol] 47 U/L High 15 - 46 U/L [facility] Bilirubin [Mass/Vol] 0.8 mg/dL 0.2 - 1 .3 mg/dL [facility] Calcium [Mass/Vol] 9.5 mg/dL 8.4 - 10. 4 mg/dL [facility] Chloride [Moles/Vol] 101 mmol/L 98 - 10 7 mmol/L [facility] CO2 [Moles/Vol] 28 mmol/L 22 - 30 mmol/L [facility] Creatinine [Mass/Vol] 0.56 mg/dL Low 0.66 - 1.25 mg/dL [facility] GFR/1.73 sq M.predicted MDRD (S/P/Bld) [Vol rate/Area] - PINF [facility] Comment on above: Calculation based on the Chronic Kidney Disease Epidemiology Collaboration (CKD-EPI) equation refit without adjustment for race Glucose [Mass/Vol] 97 mg/dL 70 - 100 mg/dL [facility] Interpretation and review of laboratory results Abnormal [facility] Potassium [Moles/Vol] 4.0 mmol/L 3.5 - 5.1 mmol/L [facility] Protein [Mass/Vol] 8.4 g/dL High 6.3 - 8.2 g/dL [facility] Sodium [Moles/Vol] 138 mmol/L 135 - 145 mmol/L [facility] Urea nitrogen [Mass/Vol] 10 mg/dL 9 - 20 mg/dL [facility] DRUGS OF ABUSEon 12-16-2023 AMPHETAMINE SCREEN Negative Normal [facility] Comment on above: Performed By: #### L [id number] ####Dairy Scientist: ZEHRA ONEILL ([id number])[facility] ([facility])[address] [place] [address] BARBITURATES SCREEN Negative Normal [facility] Comment on above: Performed By: #### L [id number] ####Dairy Scientist: ZEHRA ONEILL ([id number])[facility] ([facility])[address] [place] [address] BENZODIAZEPINE SCREEN Negative Normal [facility] Comment on above: Performed By: #### L [id number] ####Dairy Scientist: ZEHRA ONEILL ([id number])[facility] ([facility])[address] [place] [address] COCAINE METAB. SCREEN Negative Normal [facility] Comment on above: Performed By: #### L [id number] ####Dairy Scientist: ZEHRA ONEILL ([id number])[facility] ([facility])[address] [place] [address] METHADONE SCREEN Negative Normal [facility] Comment on above: Performed By: #### L [id number] ####Dairy Scientist: ZEHRA ONEILL ([id number])[facility] ([facility])[address] [place] [address] OPIATES SCREEN Negative Normal [facility] Comment on above: Performed By: #### L [id number] ####Dairy Scientist: ZEHRA ONEILL ([id number])[facility])[address] [place] [address] OXYCODONE SCREEN Negative [facility] Comment on above: Performed By: #### L [id number] ####Dairy Scientist: ZEHRA ONEILL ([id number])[facility])[address] [place] [address] PHENCYCLIDINE SCREEN Negative Normal [facility] Comment on above: Result Comment: ORDE R COMMENTS: The expected value for all of the drugs listed above is Negative. The following drugs or drug groups have been screened for by Immunoassay at the following thresholds: Amphetamine class (1000 ng/mL) Barbiturates (200 ng/mL) Benzodiazepines (200 ng/mL) Cocaine (300 ng/mL) Methadone (300 ng/mL) Opiates (300 ng/mL) Oxycodone (100 ng/mL) PCP (25 ng/mL) NOTE: These results are for medical treatment only. Analysis performed using non-forensic procedures. POSITIVE results are NOT confirmed by a more specific alternative method unless requested. If confirmation is needed, request confirmation under separate order. Performed By: #### L [id number] ####Dairy Scientist: ZEHRA PASCUALSCOT ([id number])[facility] ([facility])[address] [place] [address] ECG 12-LEADon 12-16-2023 ECG 12-LEAD IMPRESSION: Sinus rhythm Electronically Signed On 12-16-2023 07:18:05 EDT by Hakan Martinez [facility] ED Nursing Noteon 12-16-2023 ED Nursing Note Pt is now off ED BH unit [facility] Danny 12/16/23 035 [facility] ED Nursing Note Patient was cleared by Dr. ARNDT. Patient report was given to Gerardo WARD and transported back to [facility]. Patient left in no apparent distress. Flaco Melgar RN 12/16/23 0352 [facility] ED Nursing Note Pt walked out to [facility] by Flaco WARD Pt packaged with 5 straps and 2 rails to ensure safety [facility] Danny 12/16/23 0351 [facility] ED Nursing Note DM transport arrived to take pt back to [facility] 1 bag [facility] Danny 12/16/23 0349 [facility] ED Nursing Note Pt activated call Alvarado valencia answered it. Pt asked for something to eat. Given bagged lunch [facility] Danny 12/16/23 0316 [facility] ED Nursing Note Activated call reynaldo , SYLVIA Sam answered it. Pt asked for coca cola, given. Leeann Danny 12/16/23 0310 [facility] ED Nursing Note SYLVIA Sam at patient bedside Emilio Mike, EMT 12/16/23 0239 [facility] ED Nursing Note EKG at patient bedsi de Emilio Mike, EMT 12/16/23 0119 [facility] ED Nursing Note Dr. Arndt at patient bedside Emilio Mike, EMT 12/16/23 0112 [facility] ED Nursing Note Dr. Rivera at patient bedside Emilio Mike, EMT 12/16/23 0058 [facility] ED Nursing Note Registration at joyce ent bedside Emilio Mike, EMT 12/16/23 0051 [facility] ED Nursing Note Given coca cola and warm blanket [facility] Danny 12/16/23 0046 [facility] ED Nursing Note Patient has one bag of belongings. Patient was placed into two hospital gowns and wanded by protective services. Emilio Mike, EMT 12/16/23 0032 [facility] ED Nursing Note Emilio Mike, EM T 12/16/23 0028 Emilio Mike, EMT 12/16/23 0028 [facility] ED Provider Noteon ED Provider Note EMERGENCY DEPARTMENT ENCOUNTER Pt Name: Constantin Galan Birthdate 1990 Date of evaluation: 12/16/2023 ED Provider: Amalia Rivera MD CHIEF COMPLAINT Chief Complaint Patient presents with Delusional Patient was sent from [facility] for medical clearance. Patient is having symptoms of psychosis and racing thoughts. Patient is having racing thoughts. Patient is hearing voices. HISTORY OF PRESENT ILLNESS (Location/Symptom, Timing/Onset, Context/Setting, Quality, Duration, Modifying Factors, Severity) Note limiting factors. I wore appropriate PPE for the entirety of this encounter. HPI Constantin Galan is a 33 y.o. male who presents to the emergency department for medical clearance. Presented himself to [facility] due to symptoms of psychosis in his own words. States that he has not been sleeping and that he believes he is manic which she struggled with in the past. Does admit to methamphetamine use, states his last use was 6 days ago. Denies SI or HI. Denies medical complaints. Does have a history of HIV. Nursing Notes were reviewed. Limitations to history: Outside historians: REVIEW OF SYSTEMS Review of Systems Pertinent positives and negatives as per HPI. PAST MEDICAL HISTORY Past Medical History: Diagnosis Date Altered mental status 06/25/2017 Back injury HIV (human immunodeficiency virus infection) (HCC) 01/2013 Right leg pain since childhood Syncope and collapse 05/04/2023 SURGICAL HISTORY Past Surgical History: Procedure Laterality Date CHOLECYSTECTOMY OTHER SURGICAL HISTORY for projectile vomiting and feeding tube at CURRENT MEDICATIONS Previous Medications CYANOCOBALAMIN (VITAMIN B-12) 1000 MCG TABLET Take 1 tablet (1,000 mcg) by mouth daily. FLUTICASONE (FLONASE) 50 MCG/ACT NASAL SPRAY Administer 2 sprays into each nostril daily. Shake gently. Before first use, prime pump. After use, clean tip and replace cap. LORATADINE (CLARITIN) 10 MG TABLET Take 1 tablet (10 mg) by mouth Daily as needed for allergies. SULFAMETHOXAZOLE-TRIMETH OPRIM (BACTRIM DS) 800-160 MG TABLET Take 1 tablet by mouth three times a week. VRAYLAR 3 MG CAPSULE Take 3 mg by mouth. ALLERGIES Patient has no known allergies. FAMILY HISTORY Family History Problem Relation Name Age of Onset Heart attack Mother x4 Diabetes Mother Thyroid disease Mother Cancer Mother Type unknown SOCIAL HISTORY Social History Socioeconomic History Marital status: Single Tobacco Use Smoking status: Every Day Packs/day: 1 Types: Cigarettes Smokeless tobacco: Never Substance and Sexual Activity Alcohol use: No Alcohol/week: 0.0 standard drinks of alcohol Drug use: Yes Types: Methamphetamines Sexual activity: Defer Social Determinants of Health Transportation Needs: Unmet Transportation Needs (05/04/2023) PRAPARE - Transportation Lack of Transportation (Medical): Yes Lack of Transportation (Non-Medical): Yes Housing Stability: High Risk (05/04/2023) Housing Stability Vital Sign Unable to Pay for Housing in the Last Year: Yes Number of Places Lived in the Last Year: 2 Unstable Housing in the Last Year: Yes SCREENINGS PHYSICAL EXAM ED Triage Vitals [12/16/23 0035] Temp Heart Rate Resp BP 36.7 ?C (98.1 ?F) 86 18 (!) 123/99 SpO2 Temp Source Heart Rate Source Patient Position 97 % Temporal Monitor -- BP Location FiO2 (%) -- -- Physical Exam Vitals and nursing note reviewed. Constitutional: General: He is not in acute distress. Appearance: He is well-developed. HENT: Head: Normocephalic and atraumatic. Eyes: Conjunctiva/sclera: Conjunctivae normal. Cardiovascular: Rate and Rhythm: Normal rate and regular rhythm. Pulmonary: Effort: Pulmonary effort is normal. No respiratory distress. Abdominal: General: There is no distension. Palpations: Abdomen is soft. Musculoskeletal: Cervical back: Neck supple. Skin: General: Skin is warm and dry. Capillary Refill: Capillary refill takes less than 2 seconds. Neurological: Mental Status: He is alert. Psychiatric: Speech: Speech is rapid and pressured. Thought Content: Thought content does not include homicidal or suicidal ideation. Thought content does not include homicidal or suicidal plan. DIAGNOSTIC RESULTS RADIOLOGY (Per Emergency Physician): Interpretation per the Radiologist below, if available at the time of this note: No orders to display LABS: Labs Reviewed CBC WITH AUTO DIFFERENTIAL - Abnormal Result Value Auto WBC 4.6 RBC 3.80 (*) Hemoglobin 14.1 Hematocrit 39.4 (*) MCV 103.7 (*) MCH 37.1 (*) MCHC 35.8 RDW 14.7 Platelets 84 (*) MPV 13.0 (*) nRBC 0.9 Neutrophils Relative 65.9 Lymphocytes Relative 20.9 Monocytes Relative 8.7 Eosinophils Relative 2.6 Basophils Relative 0.4 Immature Grans % 1.5 Neutrophils Absolute 3.0 Lymphocytes Absolute 1.0 Monocytes Absolute 0.4 Eosinophils Absolute 0.1 Basophils Absolute 0.0 (more content not included)... Normal [facility] ED Provider Note Emergency Department Encounter [facility]PT Patient: Constantin Galan : 1990 Date of Evaluation: 12/16/2023 ED Supervising Physician: Atul Arndt MD I independently examined and evaluated Constantin Galan. This will serve as my Supervisory note and shared attestation. I did perform a substantive portion of the visit including all aspects of the Medical Decision Making. I wore appropriate PPE for the entirety of this encounter. In brief, Constantin Galan is a 33 y.o. that presents to the emergency department with hallucinations. He last used meth a week ago. He denies any SI or HI. He denies any medical complaints. He presented from [facility] for medical clearance. Focused exam: Nactvmk-gjdu-dwvzbnhyu, no acute distress, nontoxic-appearing HEENT- atraumatic, normocephalic Neck- no meningismus, no obvious masses Respiratory- no accessory muscle use, no respiratory distress Cardiovascular- well perfused MSK- normal muscle bulk, no gross deformities Skin- non-diaphoretic, no obvious rashes or lesions Neuro- alert, answering questions appropriately, CN2-12 grossly intact, moving all extremities Psych- calm, cooperative. Does not appear to be responding to internal stimuli. EKG interpreted by me: 12-16-2023. Time 0120. Rate 73 normal sinus rhythm. Normal axis. GA interval 122, QRS 75, QTc 396. No STEMI. Independent historians: Imaging interpreted by me: Social determinants affecting care: meth use Escalation of care, appropriate for: transfer to [facility] Brief ED course/MDM: 33-year-old male presenting for medical clearance for psychiatric admission at [facility]. His labs were reassuring. I had a low suspicion for meningitis or encephalitis in this patient given the clinical picture. He was afebrile. He has a history of meth use. I believe his presentation is likely related to the meth use. He was medically cleared for it transfer to [facility] for psychiatric admission. All diagnostic, treatment, and disposition decisions were made by myself in conjunction with the Resident. I also supervised dahl portions of any procedures performed by the Resident. For all further details of the patient's emergency department visit, please see their documentation. (Comment: Please note this report has been produced using speech recognition software and may contain errors related to that system including errors in grammar, punctuation, and spelling, as well as words and phrases that may be inappropriate. If there are any questions or concerns please feel free to contact the dictating provider for clarification.) Atul Arndt MD [employer] Atul Arndt MD 12/16/23 0147 Normal [facility] ETHANOLon 12-16-2023 ETHANOL IN SER/PLAS <0.010 Normal 0.000-0.010 [facility] Comment on above: Result Comment: NIKOLAI Haley COMMENTS: NOTE: This result is for medical treatment only. Analysis performed using non-forensic procedures. Performed By: #### L AB62, LAB17, LAB46 ####Dairy Scientist: ZEHRA ONEILL ([id number])[facility] ([facility])[address] [place] [address] Ethanol (Bld) [Mass/Vol]on 0 12-16-2023 Ethanol [Mass/Vol] g/dL 0.000 - 0.010 g/dL [facility] - Chemistry and C hemistry - challengeon 12-16-2023 CK [Catalytic activity/Vol] 43 U/L 30 - 170 U/L [facility] - Drug toxicology Ordered By: Annemarie Hernandez on 12-16-2023 Amphetamines Screen method >1000 ng/mL Ql (U) Negative [facility] Barbiturates Screen method >200 ng/mL Ql (U) Negative [facility] Benzodiazepines Ql (U) Negative [facility] Methadone Screen Ql (U) Negative S [facility] Opiates Screen Ql (U) Negative [facility] oxyCODONE Ql (U) Negative [facility] Phencyclidine Ql (U) Negative [facility] - Microbiology an d Antimicrobial susceptibilityOrdered By: Rudy Looney on 12-16-2023 SARS-CoV-2 (COVID-19) Ag IA.rapid Ql (Resp) Negative Negative [facility] Comment on above: A negative result do es not rule out the possibility of SARS-CoV-2 infection. NAAT-based methods should be considered for symptomatic patients presenting greater than seven days after onset of symptoms. Method: Lateral flow immunoassay. Fact sheets for healthcare providers and patients can be found at the following sites: https://www.fda.gov/media/235041/download https://www.fda.gov/media/634207/download No Panel InformationOrdered By: Hakan Martinez on 12-16-2023 P [place] 76 degrees [employer] Phone: GA Interval 122 ms [employer] Phone: QRS [place] 88 degrees [employer] Phone: QRSD Interval 75 ms [employer] Phone: [phone] QT Interval 359 ms [employer] Phone: [phone] QTC Interval 396 ms [employer] Phone: [phone] T Wave [place] 56 degrees [employer] Phone: [phone] [employer] Phone: No Panel Informationon 12-15 Sinus rhythm Electronically Signed On 12-16-2023 07:18:05 EDT by Hakan Martinez CV Hakan Freeman MD - 12/16/2023 IMPRESSION: Sinus rhythm Electronically Signed On 12-16-2023 07:18:05 EDT by Hakan Martinez Simple Admit Interpretation and review of laboratory results [email or web address] No Panel InformationOrdered By: Annemarie Hernandez on 12-16-2023 COCAINE METAB. SCREEN Negative [facility] [employer] The expected value f or all of the drugs listed above is Negative. The following drugs or drug groups have been screened for by Immunoassay at the following thresholds: Amphetamine class (1000 ng/mL) Barbiturates (200 ng/mL) Benzodiazepines (200 ng/mL) Cocaine (300 ng/mL) Methadone (300 ng/mL) Opiates (300 ng/mL) Oxycodone (100 ng/mL) PCP (25 ng/mL) NOTE: These results are for medical treatment only. Analysis performed using non-forensic procedures. POSITIVE results are NOT confirmed by a more specific alternative method unless requested. If confirmation is needed, request confirmation under separate order. Why Not Give Back SARS-COV-2 ANTIGENon 024 SARS-COV-2 ANTIGEN SARS-COV-2 ANTIGEN -BINAX Reference Negative Negative A negative result does not rule out the possibility of SARS-CoV-2 infection. NAAT-based methods should be considered for symptomatic patients presenting greater than seven days after onset of symptoms. Method: Lateral flow immunoassay. Fact sheets for healthcare providers and patients can be found at the following sites: https://www.fda.gov/medi a/543417/download https://www.fda.gov/medi a/798635/download Normal [facility] Comment on above: Performed By: #### L [id number] ####Dairy Scientist: ZEHRA ONEILL ([id number])[facility] ([facility] SARS-CoV-2 (COVID-19) Ag IA. rapid Ql (Resp)Ordered By: Rudy Looney on 12-16-2023 Interpretation and review of laboratory results Normal [facility] Urinalysis complete panel (U )Ordered By: Haritha Baron on 12-16-2023 Bilirubin Ql (U) Negative Negative mg/dL [facility] Clarity (U) Clear Clear [facility] Color (U) Yellow Lt. Yellow [facility] Glucose Ql (U) Normal Normal (<70) mg/dL [facility] Hemoglobin Ql (U) Negative Negative mg/dL [facility] Interpretation and review of laboratory results Abnormal [facility] Ketones (U) [Mass/Vol] Negative Negat delroy mg/dL [facility] Leukocyte esterase Test strip Ql (U) Negative Negative Geovany/uL [facility] Nitrite Ql (U) Negative Negative [facility] pH (U) 6.0 [pH] 5.0 - 8.0 pH [facility] Protein (U) [Mass/Vol] Negative Negat delroy mg/dL [facility] Specific gravity (U) [Rel density] 1.023 1.005 - 1.030 [facility] Urobilinogen (U) [Mass/Vol] 2 mg/dL Abnormal Normal (0-1) [facility] Vital signsOrdered By: Hakan Martinez on 12-16-2023 Heart rate 73 /min bpm [facility] [employer] Work Phone: 36on 08-19-2023 36 Called for ns policy - RD Normal [facility] 36on 07-26-2023 36 Tried to call and schedule patient phone number listed states Person you are calling cannot accept calls at this time then went to a fast busy signal. Please have patient contact [facility] to schedule Normal [facility] No Panel Informationon 07-07 Gerardo Ramos DO 07/07/2023 3:28 PM [facility] Neurology Lab EMG/NCS report: Patient: Constantin Galan AGE: 33 y.o. Handedness: Right Gender: Male Referring physician: Gracy Nelson DO Study date: 07/07/23 Reason for referral: Patient presents with paresthesias in the left arm and hand more than the right side. EMG/nerve conduction study of the bilateral upper extremities is done to evaluate for mononeuropathy affecting the right or left upper extremity versus right or left cervical radiculopathy. Summary: The right median sensory nerve action potential was unremarkable. The right ulnar sensory nerve action potential was unremarkable. The left median sensory nerve action potential was unremarkable. The left ulnar sensory nerve action potential was unremarkable. The right median to ulnar palmar comparison mixed nerve action potential was unremarkable. The left median to ulnar palmar comparison mixed nerve action potential was unremarkable. The right radial sensory nerve action potential was unremarkable. The left radial sensory nerve action potential was unremarkable. The right median to ulnar ring finger comparison study was unremarkable. The left median to ulnar ring finger comparison study was unremarkable. The right median to APB compound muscle action potential was unremarkable. The left median to APB compound muscle action potential was unremarkable. The right ulnar to ADM compound muscle action potential was unremarkable. The left ulnar to ADM compound muscle action potential was unremarkable. The right ulnar to FDI compound muscle action potential was unremarkable. The left ulnar to FDI compound muscle action potential was unremarkable. Concentric needle EMG was performed in the bilateral upper extremities. No increased insertional activity, fibrillation potentials, fasciculation potentials or positive sharp waves were seen in any muscle tested. Motor unit action potentials demonstrated normal morphology and firing pattern throughout. Impression: This is a normal study. There is no electrophysiological evidence of a mononeuropathy affecting the right or left upper extremity on this study. There is also no evidence of a right or left-sided cervical radiculopathy on this study. All normal values/reference values for this study were taken from the [facility] reference values which were created in 2019. This dictation was done by using the [employer] dictation system. It has been proofread but still may contain unrecognized voice recognition errors. [facility] Progress Noteon 07-06-2023 Progress Note [facility] [address] [facility] [address] Dept: [phone] Dept Loc: [phone] Visit type: New patient Reason for Visit: Other and Spots and/or Floaters Assessment and Plan Problem List Items Addressed This Visit Eye/Vision problems Floaters in visual field, bilateral Relevant Orders [facility] Ophthalmology Clinic 202 No retinal tears or heme ou Plan: RV 6 weeks, recheck peripheral retina for any tears. Signs and sx of retinal detachment etc in high myopes discussed with pt who understands and will call for any changes in his vision Subjective HPI Pt here today with c/o seeing yellow spots and flashing lights x 2 weeks. Also c/o headaches. Pt dx with HIV January 2013. Last EE x 2 years ago. Pt had muscle surgery in right eye (OD) as a child. JLK Last edited by Jericho Alba on 07/06/2023 9:39 AM. ROS Positive for: Eyes Last edited by Jericho Alba on 07/06/2023 9:39 AM. No Known Allergies Current Outpatient Medications Medication Sig Dispense Refill azithromycin (Zithromax) 600 MG tablet Take 2 tablets (1,200 mg) by mouth 1 (one) time per week for 3 doses. 6 tablet 0 cyanocobalamin (Vitamin B-12) 1000 MCG tablet Take 1 tablet (1,000 mcg) by mouth daily. 30 tablet 0 fluticasone (Flonase) 50 MCG/ACT nasal spray Administer 2 sprays into each nostril daily. Shake gently. Before first use, prime pump. After use, clean tip and replace cap. 16 g 11 loratadine (Claritin) 10 MG tablet Take 1 tablet (10 mg) by mouth Daily as needed for allergies. 30 tablet 11 sulfamethoxazole-trimeth oprim (Bactrim DS) 800-160 MG tablet Take 1 tablet by mouth three times a week. 21 tablet 0 No current facility-administered medications for this encounter. Past Medical History: Diagnosis Date Altered mental status 06/25/2017 Back injury HIV (human immunodeficiency virus infection) (HCC) 01/2013 Right leg pain since childhood Syncope and collapse 05/04/2023 Social History Tobacco Use Smoking status: Every Day Packs/day: 1 Types: Cigarettes Smokeless tobacco: Never Substance Use Topics Alcohol use: No Alcohol/week: 0.0 standard drinks of alcohol Past Surgical History: Procedure Laterality Date CHOLECYSTECTOMY OTHER SURGICAL HISTORY for projectile vomiting and feeding tube at Family History Problem Relation Name Age of Onset Heart attack Mother x4 Diabetes Mother Thyroid disease Mother Cancer Mother Type unknown Objective Base Eye Exam Visual Acuity (Snellen - Linear) Right Left Dist cc 20/50 +1 20/30 +1 Dist ph cc 20/50 +2 Near cc 20/30 20/20 Tonometry (Applanation, 9:39 AM) Right Left Pressure 13 14 Pupils Dark Light Right 3mm 2mm Left 3mm 2mm Visual Bonilla Right Left Full Full Extraocular Movement Right Left Full, Ortho Full, Ortho When looks toward nose slight cross. Pt did have muscle surgery as a child. Neuro/Psych Oriented x3: Yes Mood/Affect: Normal Dilation Both eyes: 2.5% Phenylephrine, 1.0% Tropicamide @ 9:39 AM Slit Lamp and Fundus Exam Slit Lamp Exam Right Left Lids/Lashes Normal Conjunctiva/Sclera White and quiet Cornea Clear Anterior Chamber Deep and quiet Iris Round and reactive Lens Clear Anterior Vitreous Normal Fundus Exam Right Left Disc Normal Normal C/D Ratio 0.2 0.2 Macula Normal Normal Vessels Normal Normal Periphery Normal Normal Refraction Wearing Rx Sphere Cylinder [place] Add Right -6.50 +1.00 088 None Left -9.50 +0.75 073 None Age: 1-2yrs Type: Distance Manifest Refraction Sphere Cylinder [place] Dist VA Add Near VA Right -7.00 +1.25 105 20/30 None 20/30 Left -9.50 +1.25 075 20/30 None 20/20 Final Rx Sphere Cylinder [place] Dist VA Add Near VA Right -7.00 +1.25 105 20/30 None 20/30 Left -9.50 +1.25 075 20/30 None 20/20 Type: Distance Expiration Date: 07/06/2025 Data Reviewed and Summarized The patient will need the following test completed on: 07/06/2023 1. [facility] Ophthalmology Clinic 202 Diagnosis: Floaters in visual field, bilateral (H43.393) Authorizing Provider: DO Joi Goss MD [facility] Office Visiton 07-04-2023 Follow-up visit [id number] Constantin Galan 1990 M Date Provider Department Center 07/04/2023 [id number] [facility] Chart Close Cosign Accepted by: MC BLANDON[NEVAEH] Chart Close Cosign Accepted on: TueJul 04, 2023 2:44 PM Family History Problem Relation Age of Onset Heart attack Mother Comments: x4 Diabetes Mother Thyroid disease Mother Cancer Mother Comments: Type unknown Family Status - Relation Status Age at Mother Alive Notes: Hep C Father Other Notes: Unknown Level of Service:12617 [place] TRANSJ CARE MGMT MOD MDM F2F 14 BELL D DISCHARGE Reason for Visit and Comments: Hospital Follow-up [832] - Arm tight, cough, chest pains, sob, meds for hiv Normal [facility] PATINSon 07-04-2023 PATINS Please call the [facility] to set up an appointment [facility] [address] [place] [address] Normal [facility] Progress Noteon 07-04-2023 Progress Note - Ongoing for past f ew weeks - Reports cognitive slowing and difficulty with memory - Recent CT head was negative for acute process - Recent TSH wnl - Suspect this may be multifactorial, differential includes cognitive impairment from uncontrolled HIV, vitamin B12 deficiency, uncontrolled anxiety/depression - Continue repletion of vitamin B12 levels, recheck next visit - Counseled on importance of establishing with [facility] and initiating HAART for his HIV - Reassess symptoms at follow up and evaluate further for symptoms of anxiety and depression Normal [facility] Progress Note - Present for ~2 yea rs, though feels may be worsening recently - No fevers, SOB, recent CXR negative for acute process, lungs clear on exam - low suspicion for infectious etiology at this time - Etiology possibly due to postnasal drip vs asthma vs GERD - Will trial daily antihistamine and intranasal steroids - If ineffective, will do further workup including PFTs, may consider trial of PPI Normal [facility] Progress Note - Chronic, uncontrol led - Last CD4 count 54 on 05/04/23 - Previously has been on anti-retroviral therapy but has been off this for many years - Counseled on the importance of establishing with the [facility] for initiation of treatment as his uncontrolled HIV is likely contributing to many of his symptoms - Continue Bactrim and Azithromycin for PCP, toxo and MAC prophylaxis - Provided with [facility] phone number in AVS Normal [facility] Progress Note - Intermittent for p ast few days - Etiology unclear, possibly due to migraine vs intrinsic ocular pathology - Recent CT head negative for acute process - Refer to ophthalmology for thorough eye and retinal examination [facility] Progress Note - Etiology still unc lear at this time, also having some numbness in right hand and distal LE but most pronounced in left arm - Differential includes neuropathy from HIV and/or B12 deficiency vs atypical migraine symptoms vs panic attacks vs cervical radiculopathy vs thoracic outlet syndrome - Normal pulses in all extremities on exam, no neck tenderness - Recent TSH wnl, RPR negative, LUE duplex negative for DVT - Recent CT head negative for any lesions or acute process - Will check nerve conduction studies of b/l UE - Continue to treat vitamin B12 deficiency and advised to call [facility] to establish and initiate HIV treatment [facility] Progress Note - Found to have low vitamin B12 level of 226 on 06/24/23 while in the hospital - Since levels are not severely low it is unlikely that this is the cause of all of his neurological symptoms but could be a contributing factor - Will give IM vitamin B12 injection in office today to ensure adequate repletion - Also continue PO vitamin B12 supplement, refills sent - Recheck levels and CBC at follow up appointment in 2 months [facility] Progress Note Teaching Physician Enrique bazan Direct Supervision - Modifier GC I performed a history & physical examination of the patient and also discussed the patient's management with the resident. I was present for the dahl portions of any procedures performed. I reviewed the resident's note and agree with the documented findings and plan of care with any exceptions or corrections noted below. Please see resident?s note for further details. This service has been performed in part by a resident under the direction of a teaching physician (GC Modifier). Mc Blandon MD [facility] Progress Note [facility] [address] [place] [address] Dept: [phone] Dept Loc: [phone] 07/04/2023 Visit type: inpatient follow up Reason for Visit: Hospital Follow-up (Arm tight, cough, chest pains, sob, meds for hiv) ASSESSMENT/PLAN 1. Numbness and tingling in left arm Assessment & Plan: - Etiology still unclear at this time, also having some numbness in right hand and distal LE but most pronounced in left arm - Differential includes neuropathy from HIV and/or B12 deficiency vs atypical migraine symptoms vs panic attacks vs cervical radiculopathy vs thoracic outlet syndrome - Normal pulses in all extremities on exam, no neck tenderness - Recent TSH wnl, RPR negative, LUE duplex negative for DVT - Recent CT head negative for any lesions or acute process - Will check nerve conduction studies of b/l UE - Continue to treat vitamin B12 deficiency and advised to call [facility] to establish and initiate HIV treatment Orders: - Nerve conduction test with EMG 2. B12 deficiency Assessment & Plan: - Found to have low vitamin B12 level of 226 on 06/24/23 while in the hospital - Since levels are not severely low it is unlikely that this is the cause of all of his neurological symptoms but could be a contributing factor - Will give IM vitamin B12 injection in office today to ensure adequate repletion - Also continue PO vitamin B12 supplement, refills sent - Recheck levels and CBC at follow up appointment in 2 months Orders: - cyanocobalamin (Vitamin B-12) 1000 MCG tablet; Take 1 tablet (1,000 mcg) by mouth daily., Starting Tue07/04/2023, Normal - cyanocobalamin (Vitamin B-12) injection 1,000 mcg; 1,000 mcg, IntraMUSCular, Once, On Tue07/04/23 at 1130, For 1 dose 3. Floaters in visual field, bilateral Assessment & Plan: - Intermittent for past few days - Etiology unclear, possibly due to migraine vs intrinsic ocular pathology - Recent CT head negative for acute process - Refer to ophthalmology for thorough eye and retinal examination Orders: - [facility] Ophthalmology Clinic 4. Human immunodeficiency virus (HIV) disease (HCC) Assessment & Plan: - Chronic, uncontrolled - Last CD4 count 54 on 05/04/23 - Previously has been on anti-retroviral therapy but has been off this for many years - Counseled on the importance of establishing with the [facility] for initiation of treatment as his uncontrolled HIV is likely contributing to many of his symptoms - Continue Bactrim and Azithromycin for PCP, toxo and MAC prophylaxis - Provided with [facility] phone number in AVS Orders: - azithromycin (Zithromax) 600 MG tablet; Take 2 tablets (1,200 mg) by mouth 1 (one) time per week for 3 doses., Starting Tue07/04/2023, Until Tue07/19/2023, Normal - sulfamethoxazole-trimeth oprim (Bactrim DS) 800-160 MG tablet; Take 1 tablet by mouth three times a week., Starting Tue07/04/2023, Normal 5. Chronic cough Assessment & Plan: - Present for ~2 years, though feels may be worsening recently - No fevers, SOB, recent CXR negative for acute process, lungs clear on exam - low suspicion for infectious etiology at this time - Etiology possibly due to postnasal drip vs asthma vs GERD - Will trial daily antihistamine and intranasal steroids - If ineffective, will do further workup including PFTs, may consider trial of PPI Orders: - loratadine (Claritin) 10 MG tablet; Take 1 tablet (10 mg) by mouth Daily as needed for allergies., Starting Tue07/04/2023, Until Tue07/03/2024 at 2359, Normal - fluticasone (Flonase) 50 MCG/ACT nasal spray; Administer 2 sprays into each nostril daily. Shake gently. Before first use, prime pump. After use, clean tip and replace cap., Starting Tue07/04/2023, Until Tue07/03/2024, Normal 6. Brain fog Assessment & Plan: - Ongoing for past few weeks - Reports cognitive slowing and difficulty with memory - Recent CT head was negative for acute process - Recent TSH wnl - Suspect this may be multifactorial, differential includes cognitive impairment from uncontrolled HIV, vitamin B12 deficiency, uncontrolled anxiety/depression - Continue repletion of vitamin B12 levels, recheck next visit - Counseled on importance of establishing with [facility] and initiating HAART for his HIV - Reassess symptoms at follow up and evaluate further for symptoms of anxiety and depression 7. Need for immunization against influenza - Flu vaccine quadrivalent (IIV4), for patients ages 6 mo+, (Flulaval) preservative free Follow up in about 2 months (around 09/03/2023). Subjective Constantin Galan is a 33 y.o. male presenting today for a Transitional Care Management Visit related to his recent hospital stay. HPI 33 y.o. male with PMH of HIV (noncompliance with medication last CD4 count 54 on 05/04/23), polysubstance use (tobacco, marijuana, methamphetamine), bipolar disorder, PTSD, and anxiety (more content not included)... Normal [facility] Progress Note MA time with patient 5 minutes TH Normal [facility] Progress Noteon 06-27-2023 Progress Note Initial Post-Hospita l Follow Up Call Call within 2 business days of discharge: yes Patient: Constantin Galan Patient : 1990 Spoke with: Patient Discharge department/facility: [facility] [id number] services provided: Assessment and support for treatment adherence and medication management - Did the patient get his medications filled and are they taking them as instructed from discharge? -Yes. - Patient was encouraged to follow his discharge instructions from his recent hospital stay. -Constantin states he is currently at work and did not have much time to talk. He confirmed his follow up appointment and did not report any transportation concerns. -Constantin did not report any care concerns aside from ensuring that he was listed as Constantin Galan and not Gricel for insurance purposes. -Advised patient to call [facility] [place] future needs. Recommended he save phone number from caller ID. Constantin voiced appreciation of outreach. - Confirmed patient is scheduled for a follow up appointment within 14 days of hospital discharge Follow Up Future Appointments Date Time Provider Department Center 07/04/2023 8:20 AM Gracy Nelson DO [facility] Damian RN [facility] 36on 06-24-2023 36 Notification of Hosp ital Discharge Constantin Monsalve was discharged from [facility] inpatient hospital service to home on 06/24/2023. Prior to patient's discharge, he was scheduled an [facility] follow up appointment within 7 days of hospital discharge (preferred). Will route this note to Gilles Damian (Nate) to initiate Transitional Care Management Process. Future Appointments Date Time Provider Department Center 07/04/2023 8:20 AM Gracy Nelson DO [facility] BASIC METABOLIC PANELon 10-2 Anion gap [Moles/Vol] 10 mmol/L Normal 3-13 [facility] Comment on above: Performed By: #### L AB15, [id number] ####Dairy Scientist: ZEHRA ONEILL ([id number])[facility])[address] [place] [address] Calcium [Mass/Vol] 10.6 mg/dL High 8.4-10.4 [facility] Comment on above: Performed By: #### Faye LOCKE, [id number] ####Dairy Scientist: ZEHRA ONEILL ([id number])[facility] ([facility])[address] [place] [address] Chloride [Moles/Vol] 103 mmol/L Normal 98-107 [facility] Comment on above: Performed By: #### Faye JOHNSTON15, [id number] ####Dairy Scientist: ZEHRA ONEILL ([id number])[facility] ([facility])[address] [place] [address] CO2 [Moles/Vol] 26 mmol/L Normal 22-30 [facility] Comment on above: Performed By: #### Faye JOHNSTON15, [id number] ####Dairy Scientist: ZEHRA ONEILL ([id number])[facility] ([facility])[address] [place] [address] Creatinine [Mass/Vol] 0.61 mg/dL Low 0.66-1.25 [facility] Comment on above: Performed By: #### Faye JOHNSTON15, [id number] ####Dairy Scientist: ZEHRA ONEILL ([id number])[facility])[address] [place] [address] GLOMERULAR FILTRATION RATE ML/MIN/1.73 SQ M.PREDICTED >90.0 Normal >60.0 [facility] Comment on above: Result Comment: Calc ulation based on the Chronic Kidney Disease Epidemiology Collaboration (CKD-EPI) equation refit without adjustment for race Performed By: #### L AB15, [id number] ####Dairy Scientist: ZEHRA ONEILL ([id number])[facility] ([facility])[address] [place] [address] [place] Glucose [Mass/Vol] 83 mg/dL Normal 70-100 [facility] Comment on above: Performed By: #### L AB15, [id number] ####Dairy Scientist: ZEHRA ONEILL ([id number])[facility] ([facility])[address] [place] [address] Potassium [Moles/Vol] 4.5 mmol/L Normal 3.5-5.1 [facility] Comment on above: Performed By: #### L AB15, [id number] ####Dairy Scientist: ZEHRA ONEILL ([id number])[facility] ([facility])[address] [place] [address] Sodium [Moles/Vol] 139 mmol/L Normal 135-145 [facility] Comment on above: Performed By: #### L AB15, [id number] ####Dairy Scientist: ZEHRA ONEILL ([id number])[facility] ([facility])[address] [place] [address] Urea nitrogen [Mass/Vol] 21 mg/dL High 9-20 [facility] Comment on above: Performed By: #### L AB15, [id number] ####Dairy Scientist: ZEHRA ONEILL ([id number])[facility] ([facility])[address] [place] [address] Basic metabolic 1998 panelon 06-24-2023 Anion gap [Moles/Vol] 10 mmol/L 3 - 13 mmol/L [facility] Calcium [Mass/Vol] 10.6 mg/dL High 8.4 - 10. 4 mg/dL [facility] Chloride [Moles/Vol] 103 mmol/L 98 - 10 7 mmol/L [facility] CO2 [Moles/Vol] 26 mmol/L 22 - 30 mmol/L [facility] Creatinine [Mass/Vol] 0.61 mg/dL Low 0.66 - 1.25 mg/dL [facility] GFR/1.73 sq M.predicted MDRD (S/P/Bld) [Vol rate/Area] - PINF [facility] Comment on above: Calculation based on the Chronic Kidney Disease Epidemiology Collaboration (CKD-EPI) equation refit without adjustment for race Glucose [Mass/Vol] 83 mg/dL 70 - 100 mg/dL [facility] Interpretation and review of laboratory results Abnormal [facility] Potassium [Moles/Vol] 4.5 mmol/L 3.5 - 5.1 mmol/L [facility] Sodium [Moles/Vol] 139 mmol/L 135 - 145 mmol/L [facility] Urea nitrogen [Mass/Vol] 21 mg/dL High 9 - 20 mg/dL [facility] CBC W Auto Differential pane l (Bld)Ordered By: Juan Carlos Chapman on 06-24-2023 Basophils (Bld) [#/Vol] 0.1 10*3/uL 0.0 - 0.2 10*3/uL [facility] Basophils/100 WBC (Bld) 1.5 % 0.0 - 2.0 % [facility] Eosinophils (Bld) [#/Vol] 0.2 10*3/uL 0.0 - 0.5 10*3/uL [facility] Eosinophils/100 WBC (Bld) 3.6 % 1.0 - 6.0 % [facility] Erythrocyte distribution width (RBC) [Ratio] 17.5 % High 11.5 - 14.5 % [facility] Hematocrit (Bld) [Volume fraction] 45.6 % 40.0 - 52.0 % [facility] Hemoglobin (Bld) [Mass/Vol] 15.8 g/dL 13.0 - 18.0 g/dL [facility] Interpretation and review of laboratory results Abnormal [facility] Lymphocytes (Bld) [#/Vol] 0.9 10*3/uL Low 1.0 - 4.3 10*3/uL [facility] Lymphocytes/100 WBC (Bld) 19.8 % Low 20.0 - 40.0 % [facility] MCH (RBC) [Entitic mass] 38.2 pg High 26.0 - 34.0 pg [facility] MCHC (RBC) [Mass/Vol] 34.7 % 32.0 - 36.0 % [facility] MCV (RBC) [Entitic vol] 110.2 fL High 80.0 - 98.0 fL [facility] Comment on above: I-Macrocytosis Monocytes (Bld) [#/Vol] 0.4 10*3/uL 0.0 - 0.8 10*3/uL [facility] Monocytes/100 WBC (Bld) 7.5 % 2.0 - 10.0 % [facility] Neutrophils (Bld) [#/Vol] 3.2 10*3/uL 1.8 - 7.0 10*3/uL [facility] Neutrophils/100 WBC (Bld) 67.6 % 40.0 - 80.0 % [facility] Nucleated RBC/100 WBC (Bld) [Ratio] 0.2 % [facility] Platelet mean volume (Bld) [Entitic vol] 10.3 fL 7.4 - 12.4 fL [facility] Platelets (Bld) [#/Vol] 67 10*3/uL Low 140 - 440 10*3/uL [facility] Comment on above: I-Thrombocytopenia RBC (Bld) [#/Vol] 4.14 10*6/uL Low 4.40 - 5.9 0 10*6/uL [facility] WBC (Bld) [#/Vol] 4.7 10*3/uL 3.6 - 10.7 10*3/uL [facility] CBC WITH AUTO DIFFERENTIALon 06-24-2023 Basophils (Bld) [#/Vol] 0.1 10*3/uL Normal 0.0-0.2 [facility] Comment on above: Performed By: #### L [id number] ####Dairy Scientist: ZEHRA ONEILL ([id number])[address] Basophils/100 WBC (Bld) 1.5 % Normal 0.0-2.0 [facility] Comment on above: Performed By: #### L [id number] ####Dairy Scientist: ZEHRA ONEILL ([id number])[facility] ([facility])[address] [place] [address] [place] Eosinophils (Bld) [#/Vol] 0.2 10*3/uL Normal 0.0-0.5 [facility] Comment on above: Performed By: #### L [id number] ####Dairy Scientist: ZEHRA ONEILL ([id number])[facility])[address] [place] [address] Eosinophils/100 WBC (Bld) 3.6 % Normal 1.0-6.0 [facility] Comment on above: Performed By: #### L [id number] ####Dairy Scientist: ZEHRA ONEILL ([id number])[facility])[address] [place] [address] Erythrocyte distribution width (RBC) [Ratio] 17.5 % High 11.5-14.5 [facility] Comment on above: Performed By: #### L [id number] ####Dairy Scientist: ZEHRA ONEILL ([id number])[facility])[address] [place] [address] ERYTHROCYTE MEAN CORPUSCULAR HEMOGLOBIN CONCENTRATION (G/DL) BY AUTOMATED 34.7 % Normal 32.0-36.0 [facility] Comment on above: Performed By: #### L [id number] ####Dairy Scientist: ZEHRA ONEILL ([id number])[facility])[address] [place] [address] Hematocrit (Bld) [Volume fraction] 45.6 % Normal 40.0-52.0 [facility] Comment on above: Performed By: #### L [id number] ####Dairy Scientist: ZEHRA ONEILL ([id number])[address] Hemoglobin (Bld) [Mass/Vol] 15.8 g/dL Normal 13.0-18.0 [facility] Comment on above: Performed By: #### L [id number] ####Dairy Scientist: ZEHRA ONEILL ([id number])[facility])[address] [place] [address] Lymphocytes (Bld) [#/Vol] 0.9 10*3/uL Low 1.0-4.3 [facility] Comment on above: Performed By: #### L [id number] ####Dairy Scientist: ZEHRA ONEILL ([id number])[facility])[address] [place] [address] Lymphocytes/100 WBC (Bld) 19.8 % Low 20.0-40.0 [facility] Comment on above: Performed By: #### L [id number] ####Dairy Scientist: ZEHRA ONEILL ([id number])[facility] ([facility])[address] [place] [address] MCH (RBC) [Entitic mass] 38.2 pg High 26.0-34.0 [facility] Comment on above: Performed By: #### L [id number] ####Dairy Scientist: ZEHRA ONEILL ([id number])[facility] ([facility])[address] [place] [address] MCV (RBC) [Entitic vol] 110.2 fL High 80.0-98.0 [facility] Comment on above: Result Comment: I-Ma crocytosis Performed By: #### L [id number] ####Dairy Scientist: ZEHRA ONEILL ([id number])[facility])[address] [place] [address] Monocytes (Bld) [#/Vol] 0.4 10*3/uL Normal 0.0-0.8 [facility] Comment on above: Performed By: #### L [id number] ####Dairy Scientist: ZEHRA ONEILL ([id number])[facility] ([facility])[address] [place] [address] Monocytes/100 WBC (Bld) 7.5 % Normal 2.0-10.0 [facility] Comment on above: Performed By: #### L [id number] ####Dairy Scientist: ZEHRA ONEILL ([id number])[facility])[address] [place] [address] Neutrophils (Bld) [#/Vol] 3.2 10*3/uL Normal 1.8-7.0 [facility] Comment on above: Performed By: #### L [id number] ####Dairy Scientist: ZEHRA ONEILL ([id number])[facility])[address] [place] [address] Neutrophils/100 WBC (Bld) 67.6 % Normal 40.0-80.0 [facility] Comment on above: Performed By: #### L [id number] ####Dairy Scientist: ZEHRA ONEILL ([phone])[facility] ([facility])[address] [place] [address] NRBC (PER 100 WBCS) BY AUTOMATED COUNT 0.2 /100 WBCs Normal 0.0-2.0 [facility] Comment on above: Performed By: #### L [id number] ####Dairy Scientist: ZEHRA ONEILL ([id number])[facility] ([facility])[address] [place] [address] Platelet mean volume (Bld) [Entitic vol] 10.3 fL Normal 7.4-12.4 [facility] Comment on above: Performed By: #### L [id number] ####Dairy Scientist: ZEHRA ONEILL ([id number])[facility] ([facility])[address] [place] [address] PLATELETS (10*3/UL) IN BLOOD AUTOMATED COUNT 67 10*3/uL Low 140-440 [facility] Comment on above: Result Comment: I-Th rombocytopenia Performed By: #### L [id number] ####Dairy Scientist: ZEHRA ONEILL ([id number])[facility] ([facility])[address] [place] [address] RBC (Bld) [#/Vol] 4.14 10*6/uL Low 4.40-5.90 [facility] Comment on above: Performed By: #### L [id number] ####Dairy Scientist: ZEHRA ONEILL ([id number])[facility] ([facility])[address] [place] [address] WBC (Bld) [#/Vol] 4.7 10*3/uL Normal 3.6-10.7 [facility] Comment on above: Performed By: #### L [id number] ####Dairy Scientist: ZEHRA ONEILL ([id number])[facility])[address] [place] [address] CK TOTAL AND CKMBon 10-27-20 23 CK [Catalytic activity/Vol] 60 U/L Normal 30-170 [facility] Comment on above: Performed By: #### L AB69, [id number], [id number], LAB67, LAB63 ####Dairy Scientist: ZEHRA ONEILL ([id number])[facility])[address] [place] [address] CK.MB [Mass/Vol] 0.5 ng/mL Normal 0.0-4.4 [facility] Comment on above: Performed By: #### L AB69, [id number], [id number], LAB67, LAB63 ####Dairy Scientist: ZEHRA ONEILL ([id number])[facility])[address] [place] [address] RELATIVE INDEX 0.8 Normal 0.0-3.0 [facility] Comment on above: Performed By: #### L AB69, [id number], [id number], LAB67, LAB63 ####Dairy Scientist: ZEHRA ONEILL ([id number])[address] CK.total/Creatine kinase.MB [Catalytic ratio]on 06-24-2023 CK [Catalytic activity/Vol] 60 U/L 30 - 170 U/L [facility] CK.MB [Mass/Vol] 0.5 ng/mL 0.0 - 4.4 ng/mL [facility] Interpretation and review of laboratory results Normal [facility] RELATIVE INDEX 0.8 0.0 - 3.0 [facility] CT HEAD WO IV CONTRASTon CT HEAD WO IV CONTRAST Patient Name: CONSTANTIN BAI : 1990 [facility]#: [id number] Exam Date/Time: 06/24/2023 05:44 Procedure: CT HEAD WO IV CONTRAST Ordering Provider: [facility] Reason For Exam: Dizziness, non-specific EXAMINATION: CT of the head without intravenous contrast. EXAM DATE AND TIME: 06/24/2023 5:44 AM EDT INDICATION: Dizziness, non-specific ADDITIONAL INFORMATION: 33-year-old male with nonspecific dizziness presents for evaluation COMPARISON: None LIMITATIONS: Streak artifact from earrings limits evaluation particularly in the region of the temporal lobes TECHNIQUE: Thin axial imaging of the head was performed without intravenous contrast. Images were reformatted in coronal and sagittal projections using the raw CT data and were interpreted in conjunction with the axial images to render the findings listed below. Dose reduction was employed with automated exposure control. FINDINGS: Brain: No mass or acute hemorrhage. No evidence of acute infarct. Ventricles: Normal in size and morphology for the patient's age. No extracerebral collection with mass effect. Paranasal sinuses: Lobulated mucosal thickening is present involving the maxillary sinuses, right greater than left. Mastoids: There is a small right mastoid effusion. The right mastoid air cells appear hypoplastic. The left mastoid air cells are clear. Skull: The osseous calvarium is intact. Orbits: No orbital emphysema. Soft tissues: The soft tissues are unremarkable. IMPRESSION: 1. No acute intracranial abnormality with limitations as above. 2. Maxillary sinusitis, right greater than left. 3. Small right mastoid effusion. Report Dictated on Electronically Signed By: Trevon Jeffers MD Electronically Signed Date/Time: 06/24/2023 5:51 AM EDT Dizziness, non-specific, tinlging and numbness in L UE and L LE Pt unable to remove earrings Normal [facility] CT Head WO contraston 2022 1. No acute intracra nial abnormality with limitations as above. 2. Maxillary sinusitis, right greater than left. 3. Small right mastoid effusion. Report Dictated on Electronically Signed By: Trevon Jeffers MD Electronically Signed Date/Time: 06/24/2023 5:51 AM T [facility] Patient Name[facility] CONSTANTIN [facility]SALVE : 1990 [id number] Exam Date/Time: 06/24/2023 05:44 Procedure: CT HEAD WO IV CONTRAST Ordering Provider: [facility] Reason For Exam: Dizziness, non-specific EXAMINATION: CT of the head without intravenous contrast. EXAM DATE & TIME: 06/24/2023 5:44 AM EDT INDICATION: Dizziness, non-specific ADDITIONAL INFORMATION: 33-year-old male with nonspecific dizziness presents for evaluation COMPARISON: None LIMITATIONS: Streak artifact from earrings limits evaluation particularly in the region of the temporal lobes TECHNIQUE: Thin axial imaging of the head was performed without intravenous contrast. Images were reformatted in coronal and sagittal projections using the raw CT data and were interpreted in conjunction with the axial images to render the findings listed below. Dose reduction was employed with automated exposure control. FINDINGS: Brain: No mass or acute hemorrhage. No evidence of acute infarct. Ventricles: Normal in size and morphology for the patient's age. No extracerebral collection with mass effect. Paranasal sinuses: Lobulated mucosal thickening is present involving the maxillary sinuses, right greater than left. Mastoids: There is a small right mastoid effusion. The right mastoid air cells appear hypoplastic. The left mastoid air cells are clear. Skull: The osseous calvarium is intact. Orbits: No orbital emphysema. Soft tissues: The soft tissues are unremarkable. [facility] Trevon Jeffers MD - 06/24/2023 Patient Name: CONSTANTIN MONSALVE : 1990 [id number] Exam Date/Time: 06/24/2023 05:44 Procedure: CT HEAD WO IV CONTRAST Ordering Provider: [facility] Reason For Exam: Dizziness, non-specific EXAMINATION: CT of the head without intravenous contrast. EXAM DATE & TIME: 06/24/2023 5:44 AM EDT INDICATION: Dizziness, non-specific ADDITIONAL INFORMATION: 33-year-old male with nonspecific dizziness presents for evaluation COMPARISON: None LIMITATIONS: Streak artifact from earrings limits evaluation particularly in the region of the temporal lobes TECHNIQUE: Thin axial imaging of the head was performed without intravenous contrast. Images were reformatted in coronal and sagittal projections using the raw CT data and were interpreted in conjunction with the axial images to render the findings listed below. Dose reduction was employed with automated exposure control. FINDINGS: Brain: No mass or acute hemorrhage. No evidence of acute infarct. Ventricles: Normal in size and morphology for the patient's age. No extracerebral collection with mass effect. Paranasal sinuses: Lobulated mucosal thickening is present involving the maxillary sinuses, right greater than left. Mastoids: There is a small right mastoid effusion. The right mastoid air cells appear hypoplastic. The left mastoid air cells are clear. Skull: The osseous calvarium is intact. Orbits: No orbital emphysema. Soft tissues: The soft tissues are unremarkable. IMPRESSION: 1. No acute intracranial abnormality with limitations as above. 2. Maxillary sinusitis, right greater than left. 3. Small right mastoid effusion. Report Dictated on Electronically Signed By: Trevon Jeffers MD Electronically Signed Date/Time: 06/24/2023 5:51 AM EDT [facility] Radiology Study observation (narrative) [facility] CT Head WO contrastOrdered B y: Trevon Jeffers on 06-24-2023 [facility] [employer] Work Phone: Cobalamin (Vitamin B12) [Mas s/Vol]on 06-24-2023 Interpretation and review of laboratory results Abnormal [facility] ECG 12-LEADon 06-24-2023 ECG 12-LEAD IMPRESSION: Sinus rhythm ST elev, probable normal early repol pattern Electronically Signed On 06-24-2023 10:52:16 EDT by Mc Harris Normal [facility] FOLATEon 06-24-2023 FOLATE 11.1 ng/mL Normal >=2.9 [facility] Comment on above: Performed By: #### L AB69, [id number], [id number], LAB67, LAB63 ####Dairy Scientist: ZEHRA ONEILL ([id number])[address] Folate [Mass/Vol]on 06-24-20 Interpretation and review of laboratory results Normal [facility] Laboratory - Chemistry and C hemistry - challengeon 06-24-2023 TSH Qn 1.380 m[IU]/L [facility] Cobalamin (Vitamin B12) [Mass/Vol] 226 pg/mL Low 239 - 931 pg/mL [facility] Folate [Mass/Vol] 11.1 ng/mL 2.9 - PINF ng/mL [facility] Troponin I.cardiac [Mass/Vol] ng/mL NINF - 0.034 ng/mL [facility] Troponin I.cardiac [Mass/Vol] ng/mL BANNERF - 0.034 ng/mL [facility] Troponin I.cardiac [Mass/Vol] ng/mL NINF - 0.034 ng/mL [facility] [employer] No Panel Informationon 06-24 No evidence of deep vein or superficial vein thrombosis in the left upper extremity. Vessels demonstrate normal compressibility, color filling, and phasic and spontaneous flow. Contralateral imaging of the right subclavian vein was normal. Right Upper Venous For comparison purposes, the right subclavian vein was investigated. This vein appeared to show normal color filling and Doppler interrogation showed phasic, spontaneous, and somewhat pulsatile flow. Left Upper Venous No evidence of deep vein or superficial vein thrombosis. The internal jugular, subclavian, axillary, brachial, radial, ulnar, basilic, and cephalic veins were imaged in the transverse view and showed normal compressibility. The internal jugular, innominate, subclavian, and axillary veins were imaged in the longitudinal view and showed normal color filling and normal phasic and spontaneous flow. Preliminary Report Preliminary report called to Dr. Aly via secure chat on 06/24/2023 at 10:22 EDT. Production Administrator Details A terrell scale, color Doppler imaging, spectral Doppler analysis and B-flow ultrasound was performed. During the study longitudinal and transverse views were obtained. Pulsed wave doppler was performed. The exam was performed with the patient in the supine position. Overall the study quality was adequate. Study was technically difficult due to: Extremely small arms. . CV CPACS Sinus rhythm ST elev, probable normal early repol pattern Electronically Signed On 06-24-2023 10:52:16 EDT by Mc Harris CV Mc Pride MD - 06/24/2023 IMPRESSION: Sinus rhythm ST elev, probable normal early repol pattern Electronically Signed On 06-24-2023 10:52:16 EDT by Mc Harris Why Not Give Back No Panel InformationOrdered By: Mc Harris on 06-24-2023 P [place] 84 degrees [employer] Phone: GA Interval 121 ms [employer] Phone: QRS [place] 84 degrees [employer] Phone: QRSD Interval 71 ms [employer] Phone: QT Interval 323 ms [employer] Phone: QTC Interval 382 ms [employer] Phone: T Wave [place] 38 degrees [employer] Phone: [employer] Phone: Progress Noteon 06-24-2023 Progress Note I have discussed the care of Constantin Monsalve with the medical student and/or resident. I have personally taken a history, examined the patient, and performed the associated medical decision making activities. I have reviewed & verified the attested documentation. Unless otherwise noted below, this documentation reflects the history, physical exam, and medical decision making that I performed myself. Please see note for my personal highlights or additions in Green. Patient seen and examined by myself on 06/24/23 [place] Changes to Care Plan: -Patient presented with chest pain and LUE pain that both started suddenly after reading a letter notifying him that he has 30-days to vacate his current residence. EKG with findings consistent with early repolarization, troponin normal. LUE venous duplex without evidence of DVT. -Patient also reportedly with LUE paresthesias, however on questioning this is localized to the medial digits of the left hand. Non-contrast head CT unremarkable. Given lack of other focal deficit, no indication for MRI or further workup. If persists recommend outpatient evaluation for carpal tunnel. -Patient with HIV and is not currently on ART. Last CD4 count was 54 in 04/2023. Given that CD4 count was close to 50 two months ago and he remains untreated, will add azithromcying for MAC prophylaxis. Was prescribed Bactrim for PJP prophylaxis following his last admission in 04/2023, however has not been taking it. Will prescribed both antibiotics at discharge. Recheck CD4 and genotype at outpatient basis. Refer to ID for treatment. -Trial topical therapies for LUE pain. Unclear etiology, however suspect musculoskeletal. -He does not require any additional inpatient workup or management, he can be discharged home with outpatient follow-up. 7AM-5PM: contact resident on [facility] Med C team (found by hovering over attending's name on left side of patient's chart) 5PM-7AM: contact AI2 (Med Team A or B) or AI3 (Med Team C or D) Normal [facility] THYROID STIMULATING HORMONEo n 06-24-2023 THYROID STIMULATING HORMONE 1.380 uIU/mL Normal 0.465-4.680 [facility] Comment on above: Performed By: #### L [id number], [id number], [id number], LAB67, LAB63 ####Dairy Scientist: ZEHRA ONEILL ([id number])[facility])[address] [place] [address] [place] TROPONIN Ion 06-24-2023 Troponin I.cardiac [Mass/Vol] ng/mL Normal <0.034 [facility] Comment on above: Result Comment: NIKOLAI Haley COMMENTS: Patients with high levels of Biotin oral intake (ie >5 mg/day) may have falsely decreased Troponin levels. Performed By: #### L AB69, [id number], [id number], LAB67, LAB63 ####Dairy Scientist: ZEHRA ONEILL ([id number])[address] Troponin I.cardiac [Mass/Vol] ng/mL Normal <0.034 [facility] Comment on above: Result Comment: NIKOLAI Haley COMMENTS: Patients with high levels of Biotin oral intake (ie >5 mg/day) may have falsely decreased Troponin levels. Performed By: #### L [id number] ####Dairy Scientist: ZEHRA ONEILL ([id number])[facility])[address] [place] [address] TROPONIN, WITH SERIAL REFLEX on 06-24-2023 Troponin I.cardiac [Mass/Vol] ng/mL Normal <0.034 [facility] Comment on above: Result Comment: NIKOLAI Haley COMMENTS: Patients with high levels of Biotin oral intake (ie >5 mg/day) may have falsely decreased Troponin levels. Performed By: #### L AB15, [id number] ####Dairy Scientist: ZEHRA ONEILL ([id number])[facility])[address] [place] [address] [place] TSH Qnon 06-24-2023 Interpretation and review of laboratory results Normal [facility] Troponin I.cardiac [Mass/Vol ]on 06-24-2023 Interpretation and review of laboratory results Normal [facility] Patients with high levels of Biotin oral intake (ie >5 mg/day) may have falsely decreased Troponin levels. [facility] Interpretation and review of laboratory results Normal [facility] Patients with high levels of Biotin oral intake (ie >5 mg/day) may have falsely decreased Troponin levels. [facility] Interpretation and review of laboratory results Normal [facility] Patients with high levels of Biotin oral intake (ie >5 mg/day) may have falsely decreased Troponin levels. [facility] VITAMIN B12on 06-24-2023 Cobalamin (Vitamin B12) [Mass/Vol] 226 pg/mL Low 239-931 [facility] Comment on above: Performed By: #### L AB69, [id number], [id number], LAB67, LAB63 ####Dairy Scientist: ZEHRA ONEILL ([id number])[facility] ([facility])[address] [place] [address] Vital signsOrdered By: Phillip Harris on 06-24-2023 Heart rate 84 /min bpm [facility] Work Phone: ED Nursing Noteon 06-23-2023 ED Nursing Note Pt states having lef t arm pain on and off and chest pain. Pt denies any heart history. Normal [facility] ED Nursing Note Bed: 18 Expected date: 06/24/23 Expected time: Means of arrival: Comments: triage Lilian Spear RN 06/24/23 0410 Normal [facility] ED Provider Noteon ED Provider Note EMERGENCY DEPARTMENT ENCOUNTER Pt Name: Constantin Monsalve Birthdate 1990 Date of evaluation: 06/23/2023 ED Provider: Josefa Flores MD CHIEF COMPLAINT Chief Complaint Patient presents with ? Chest Pain Pt states having left arm pain and tightness. Pt states pain started on and off since 1400 today. Pt states pain is 4 on 0 to 10. HISTORY OF PRESENT ILLNESS (Location/Symptom, Timing/Onset, Context/Setting, Quality, Duration, Modifying Factors, Severity) Note limiting factors. I wore appropriate PPE for the entirety of this encounter. Constantin Monsalve is a 33 y.o. male with PMHx of HIV, non compliant with medications, presents to the emergency department with tingling and numbness down L UE and LE since 1400 yesterday. Patient reports anxiety 2/2 to subpoena from prosecutors office . He currently lives with his mother and he has an order to vacate the premises. He reports that he has slight chest press of upper L chest, but only minor. NKDA, no current medications. Of note, patient is HIV + and he has not been compliant with his medications in months . Nursing Notes were reviewed. Limitations to history: None Outside historians: None REVIEW OF SYSTEMS Review of Systems Neurological: + numbness and tingling LUE and LLE PAST MEDICAL HISTORY Past Medical History: Diagnosis Date ? Back injury ? HIV (human immunodeficiency virus infection) ([facility]) 01/2013 ? Right leg pain since childhood SURGICAL HISTORY Past Surgical History: Procedure Laterality Date ? CHOLECYSTECTOMY ? OTHER SURGICAL HISTORY for projectile vomiting and feeding tube at CURRENT MEDICATIONS Previous Medications No medications on file ALLERGIES Patient has no known allergies. FAMILY HISTORY Family History Problem Relation Name Age of Onset ? Heart attack Mother x4 ? Diabetes Mother ? Thyroid disease Mother ? Cancer Mother Type unknown SOCIAL HISTORY Social History Socioeconomic History ? Marital status: Single Tobacco Use ? Smoking status: Every Day Packs/day: 1 Types: Cigarettes ? Smokeless tobacco: Never Substance and Sexual Activity ? Alcohol use: No Alcohol/week: 0.0 standard drinks of alcohol ? Drug use: Yes Types: Methamphetamines Social Determinants of Health Transportation Needs: Unmet Transportation Needs (05/04/2023) PRAPARE - Transportation ? Lack of Transportation (Medical): Yes ? Lack of Transportation (Non-Medical): Yes Housing Stability: High Risk (05/04/2023) Housing Stability Vital Sign ? Unable to Pay for Housing in the Last Year: Yes ? Number of Places Lived in the Last Year: 2 ? Unstable Housing in the Last Year: Yes SCREENINGS PHYSICAL EXAM ED Triage Vitals Temp Heart Rate Resp BP 06/23/23214906/23/23214906/23/23214906/23/232149 37.1 ?C (98.8 ?F) 98 16 101/70 SpO2 Temp Source Heart Rate Source Patient Position 06/23/23214906/23/23214906/23/23214906/24/23336 98 % Temporal Monitor Lying BP Location FiO2 (%) 06/24/23336 -- Right arm Physical Exam Vitals and nursing note reviewed. Constitutional: General: He is not in acute distress. Appearance: He is well-developed. HENT: Head: Normocephalic and atraumatic. Eyes: Extraocular Movements: Extraocular movements intact. Pupils: Pupils are equal, round, and reactive to light. Cardiovascular: Rate and Rhythm: Normal rate and regular rhythm. Heart sounds: Normal heart sounds. Pulmonary: Effort: Pulmonary effort is normal. Breath sounds: Normal breath sounds. Chest: Chest wall: No mass or deformity. Abdominal: General: Bowel sounds are normal. Palpations: Abdomen is soft. Musculoskeletal: General: Normal range of motion. Comments: FROM both UE and LE b/l. Sensation intact in all limbs. Full strength in all limbs. Skin: General: Skin is warm and dry. Neurological: General: No focal deficit present. Mental Status: He is alert and oriented to person, place, and time. Cranial Nerves: No cranial nerve deficit. Motor: No weakness. Comments: CN 2-12 intact No focal deficits, no slurring of speech or dropping of face Psychiatric: Mood and Affect: Mood normal. DIAGNOSTIC RESULTS RADIOLOGY (Per Emergency Physician): Interpretation per the Radiologist below, if available at the time of this note: CT head wo IV contrast (Results Pending) IMPRESSION: 1. No acute intracranial abnormality with limitations as above. 2. Maxillary sinusitis, right greater than left. 3. Small right mastoid effusion. LABS: Labs Reviewed CBC WITH AUTO DIFFERENTIAL - Abnormal Result Value Auto WBC 4.7 RBC 4.14 (*) Hemoglobin 15.8 Hematocrit 45.6 MCV 110.2 (*) MCH 38.2 (*) MCHC 34.7 RDW 17.5 (*) Platelets 67 (*) MPV 10.3 nRBC 0.2 Neutrophils Relative 67.6 Lymphocytes Relative 19.8 (*) Monocytes Relative 7.5 Eosinophils Relative 3.6 Basophils Relative 1.5 Neutrophils Absolute 3.2 Lymphocytes Ab (more content not included)... Normal [facility] ED Provider Note Emergency Department Encounter [facility] EMERGENCY DEPT Patient: Constantin Monsalve : 1990 Date of Evaluation: 06/23/2023 ED Supervising Physician: Atul Arndt MD I independently examined and evaluated Constantin Monsalve. This will serve as my Supervisory note and shared attestation. I did perform a substantive portion of the visit including all aspects of the Medical Decision Making. I wore appropriate PPE for the entirety of this encounter. In brief, Constantin Monsalve is a 33 y.o. that presents to the emergency department with some chest discomfort and left arm tightness/numbness. This began at approximately 1400. It began after he got a letter telling him to vacate his mother's house as he was residing too close in proximity to a preschool. He does have a history of HIV, and is not on medications. He says he has been unable to get in with a doctor. Focused exam: Hvbktww-tong-bcpmtssnc, no acute distress, nontoxic-appearing HEENT- atraumatic, normocephalic Neck- no meningismus, no obvious masses Respiratory- bilateral breath sounds, no respiratory distress Cardiovascular- regular rate and rhythm, well perfused MSK- normal muscle bulk, no gross deformities. 2+ L radial pulse. 2+ L DP pulse. Skin- non-diaphoretic, no obvious rashes or lesions Neuro- alert, oriented, no dysarthria or aphasia, visual bonilla intact, CN2-12 grossly intact, no drift in any of the four extremities, subjectively diminished sensation to light touch in the LUE and LLE. Normal sensation to light touch, grossly, to the RUE and RLE. Normal jycoqp-zv-kghn and bnmi-li-zwgi bilaterally. Psych- calm, cooperative EKG interpreted by me: 06-23-2023. Time 2226. Rate 84 normal sinus rhythm. Normal axis. GA interval 121, QRS 71, QTc 382. No STEMI. Medical conditions affecting care: HIV Escalation of care, appropriate for: Admission Brief ED course/MDM: 33-year-old male presenting with numbness in his left upper and lower extremity. His heart score is ~1, for risk factors. I have a low suspicion for vascular compromise given the examination. I have a lower suspicion for acute coronary syndrome in this patient at this time. Given the fact that he is HIV, intracranial pathologies are a consideration. I have a lower suspicion for stroke, although this is a consideration. I did not call a stroke alert at his he was at the window for thrombolytics and did not have a high enough NIH for thrombectomy. His NIH was 1, for the sensory deficits. As he has been unable to get his HIV meds, I think it is appropriate to get him admitted to establish care. Additionally, I think he would benefit from an MRI of his brain. I do not think an LP is indicated at this time. He is afebrile. The CT was reassuring. He will be admitted. All diagnostic, treatment, and disposition decisions were made by myself in conjunction with the Resident. I also supervised dahl portions of any procedures performed by the Resident. For all further details of the patient's emergency department visit, please see their documentation. (Comment: Please note this report has been produced using speech recognition software and may contain errors related to that system including errors in grammar, punctuation, and spelling, as well as words and phrases that may be inappropriate. If there are any questions or concerns please feel free to contact the dictating provider for clarification.) Atul Arndt MD Acute Care [facility] Atul Arndt MD 06/24/23 0621 [facility] ED Nursing Noteon 05-17-2023 ED Nursing Note Saturnino Huggins here to transport Pt. Nurse took Pt to EMS. Pt cooperative. 1 bag of belongings given [facility] 05/16/23 2243 [facility] ED Nursing Note Pt in hallway. Nurse letting Pt in restroom [facility] 05/16/238 [facility] ED Nursing Note Nurse at bedside for vitals [facility] 05/16/23 2234 [facility] ED Nursing Noteon 05-16-2023 ED Nursing Note Nursing staff David Nair at the pt's bedside/vitals. Paula Calloway 05/16/23 1817 [facility] ED Nursing Note computer technical support specialist Jillian S at the bedside giving the pt a dietary tray. Paula Calloway 05/16/23 1730 [facility] ED Nursing Note EMS ETA 1999->[place] Flor Bustos, SYLVIA 05/16/23 1558 [facility] ED Nursing Note Report given to Lucio alcala RN. David Bustos RN 05/16/23 1552 [facility] ED Nursing Note Report called to [facility] 5 SYLVIA Sheikh RN 05/16/23 1423 [facility] ED Nursing Note Dietary tray ordered . Paula JMarta Calloway 05/16/23 1156 Normal [facility] ED Nursing Note SPARE HAND to the room for labs. Madiha Goff MA 05/16/23 0549 Normal [facility] ED Nursing Note Pt resting in bed, b ed near call light on the wall. Lights are off and door ajar. Breathing is unlabored. Keena Ball RN 05/16/23 0106 Normal [facility] HEMOGLOBIN A1Con 05-16-2023 Glucose [Mass/Vol] 77 mg/dL Normal [facility] Comment on above: Order Comment: If no t done within last 12 months Performed By: #### L AB90 ####Dairy Scientist: ZEHRA ONEILL ([id number])[address] HbA1c (Bld) [Mass fraction] 4.3 % Normal <5.7 [facility] Comment on above: Order Comment: If no t done within last 12 months Result Comment: Norm al less than 5.7% Prediabetes 5.7% to 6.4% Diabetes 6.5% or higher --HgbA1C levels may not be accurate in patients who have renal disease, received recent blood transfusions, are anemic, or who have dyshemoglobinemia. Performed By: #### L AB90 ####Dairy Scientist: ZEHRA ONEILL ([id number])[address] LIPID PANELon 05-16-2023 Cholesterol [Mass/Vol] 102 mg/dL Normal <200 [facility] Comment on above: Order Comment: If no t done within last 12 months Performed By: #### L AB18 ####Dairy Scientist: ZEHRA ONEILL ([id number])[address] Cholesterol in HDL [Mass/Vol] 17 mg/dL Low 40-60 [facility] Comment on above: Order Comment: If no t done within last 12 months Performed By: #### L AB18 ####Dairy Scientist: ZEHRA [id number])[facility] ([facility])[address] [place] [address] Cholesterol.total/Ernestine sterol in HDL [Mass ratio] 6 {ratio} Normal [facility] Comment on above: Order Comment: If no t done within last 12 months Result Comment: Ref Range: < 3 Low Risk for CHD 3-6 Mod Risk for CHD > 6 High Risk for CHD Performed By: #### L AB18 ####Dairy Scientist: ZEHRA ONEILL ([id number])[facility] ([facility])[address] [place] [address] LOW DENSITY LIPOPROTEIN 62 mg/dL Normal 0-<100 [facility] Comment on above: Order Comment: If no t done within last 12 months Performed By: #### L AB18 ####Dairy Scientist: ZEHRA ONEILL ([id number])[facility] ([facility])[address] [place] [address] Triglyceride [Mass/Vol] 115 mg/dL Normal <150 [facility] Comment on above: Order Comment: If no t done within last 12 months Performed By: #### L AB18 ####Dairy Scientist: ZEHRA ONEILL ([id number])[facility])[address] [place] [address] Laboratory - Chemistry and C hemistry - challengeon 05-16-2023 Average glucose Estimated from glycated hemoglobin (Bld) [Mass/Vol] 77 mg/dL [facility] - Hematology and Cell countson 05-16-2023 HbA1c (Bld) [Mass fraction] 4.3 % [facility] - 5.7 % [facility] Comment on above: Normal less than 5.7 % Prediabetes 5.7% to 6.4% Diabetes 6.5% or higher --HgbA1C levels may not be accurate in patients who have renal disease, received recent blood transfusions, are anemic, or who have dyshemoglobinemia. Lipid 1996 panelon 3 Cholesterol [Mass/Vol] 102 mg/dL NINF - 200 mg/dL [facility] Cholesterol in HDL [Mass/Vol] 17 mg/dL Low 40 - 60 mg/dL [facility] Cholesterol in LDL [Mass/Vol] 62 mg/dL 0 - <100 [facility] Cholesterol.total/Ernestine sterol in HDL [Mass ratio] 6 {ratio} [facility] Comment on above: Ref Range: < 3 Low Risk for CHD 3-6 Mod Risk for CHD > 6 High Risk for CHD Interpretation and review of laboratory results Abnormal [facility] Triglyceride [Mass/Vol] 115 mg/dL NINF - 150 mg/dL [facility] No Panel Informationon 05-16 [facility] Progress Noteon 05-16-2023 Progress Note Pt seen while boarde d awaiting bed availability at [facility].Initial dispo for PPES but refused d/t RSO status. Patient has been cooperative and behaviorally appropriate per staff. Pt groggy, minimally interactive. Reports feeling no better though he did sleep some overnight. Reports vague auditory hallucinations that are continued but a little better, still endorsing suicidal thoughts with no plan or intent. Denies thoughts of violence toward others. Voices no somatic complaints and confirms no recent substance use except for daily amphetamine use over the last week. Pt was offered the choice to be referred to another inpatient psychiatric facility or to continue to await bed availability at [facility]. Pt elects for soonest bed available. A/P: Pt continues to require admission to [facility]. [] Admission orders placed [] Admission medication reconciliation completed [] Nicotine/EtOH withdrawal assessed and addressed [] Scheduled treatment started Will see daily while boarded in the ED. Normal [facility] COMPLETE URINALYSISon 2022 BACTERIA (#/HPF) IN URINE Moderate Abnormal Negative [facility] Comment on above: Performed By: #### L [id number] #### Dairy Scientist: ZEHRA ONEILL ([id number]) [facility] ([facility]) [address] [place] [address] [place] BILIRUBIN, TOTAL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 ideation while using meth as he reports not caring whether he lived or . He endorses current auditory hallucinations with 18 voices which are all talking to him negatively. One voice is telling him to jump off a bridge. Constantin is having a hard time delineating which voices are not his own. He explains that he has taken medicines to manage voices in the past but is unsure which ones and he has been out of medicine for 2 months. He denies visual hallucinations. He endorses some paranoia about the police being out to get him and is asking to see the news in case there is a warrant for his arrest. It is unclear if he has current legal charges at this time. Patient is currently able to contract for safety and does not exhibit aggression. Constantin has no other questions or concerns at this time. PSYCHIATRIC REVIEW OF SYSTEMS DEPRESSION: Endorses low mood, low energy, poor sleep, feeling worthless. Denies change in appetite, anhedonia, feelings of guilt, difficulty concentrating, psychomotor slowing, suicidal thoughts JOSE: Endorses intense irritability and mood swings, impulsiveness, racing thoughts. Denies euphoric mood, quick distraction, risky behaviors, decrease need for sleep, hyper-focused goals, flight of ideas, pressured speech, difficulty calming down ANXIETY: Endorses excessive worry, hypersomnolence, restlessness, irritability, muscle tension. Denies phobias, panic. OCD: Denies obsessive thoughts, compulsions, irrational repetitive behaviors such as checking, counting, cleaning excessively, or other rituals PSYCHOSIS: Endorses auditory hallucinations, paranoid thinking (see HPI). Denies disorganized thinking, catatonic behavior PTSD: Denies hyperarousal, flashbacks, nightmares, intrusive thoughts/behaviors, avoidance, trouble functioning due to past trauma PSYCHIATRIC HISTORY Past Diagnoses: Anxiety, Depression, Bipolar Disorder, Methamphetamine abuse Outpatient psychiatrist: Halima Wells NP with [facility]. Last seen before January 2023. Previous medications: Trials of Vraylar, Valium, and at least 3 other medicines Previous hospitalizations: Patient unsure. None identified in chart review. Self harm/Suicide attempts: Endorses a history of several attempts to by holding a gun to head, driving recklessly, stabbing self (at least twice) in the past. Last attempt was most recent meth use when he did not care if he . MEDICAL/SURGICAL HISTORY Past Medical History: Diagnosis Date Back injury HIV (human immunodeficiency virus infection) (FORMERLY [facility]) 01/2013 Right leg pain since childhood Past Surgical History: Procedure Laterality Date CHOLECYSTECTOMY OTHER SURGICAL HISTORY for projectile vomiting and feeding tube at Allergies: Patient has no known allergies. SUBSTANCE ABUSE HISTORY ETOH: Denies Nicotine: 1.5 packs cigarettes daily Cannabis: Occasionally smokes weed Illicit drugs: Meth use for 6 years. Longest period of sobriety was for 1.5 years until about 1 year ago when his dog and he started using again. Currently smokes meth and shoots it. Most recently admits to meth use about 2 nights ago when he shot 2 grams and smoked afterwards. Substance treatment: Denies SOCIAL HISTORY Born and raised: [place] Childhood: Endorses unknown type of trauma. Employment: Currently unemployed. 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 Relationships: Currently single. from (more content not included)... [facility] ED Nursing Noteon 05-14-2023 ED Nursing Note Kaitlin RN at [facility] medicating pt. Salbador Nath 05/14/232027 [facility] ED Nursing Note Pt in hallway. Salbador Nath 05/14/232026 [facility] ED Nursing Note Kaitlin, RN at [facility] doing blood work. Edin Freeman 05/14/232010 [facility] ED Nursing Note Pt coming into hallw ay, protective service officers attempting to redirect pt back into room. Salbador Nath 05/14/231952 [facility] ED Nursing Note Pt in hallway [facility] inman at pt in room 50. Stated to pt in room go ahead and kick my ass. Protective services called. Salbador Nath 05/14/231946 [facility] ED Nursing Note Pt standing in doorw ay talking to pt in room 50. Salbador Nath 05/14/231941 [facility] ED Nursing Note Ziebach juice given t o patient. Edin Freeman 05/14/231924 [facility] ED Nursing Note Physician at [facility] serjio Patel 05/14/231906 [facility] ED Nursing Note .................... .Pt resting in bed, calm and cooperative. Tearful Halima Bowles, SYLVIA 05/14/23 1850 [facility] ED Nursing Note Pt to rm 53 with RN. Jillian W. Jorge 05/14/231847 [facility] ED Nursing Note Pt has been changed into 2 hospital gowns, footies and skin assessment completed by nursing. Pt wanded by protective services. 1 bag. Pt kept eye glasses. Jillian Cheney Jorge 05/14/231847 [facility] ED Provider Noteon 3 ED Provider Note Emergency Department Encounter [facility] Patient: Constantin Monsalve : 1990 Date of Evaluation: 05/14/2023 ED Provider: Damaso Salas, Chief Complaint Chief Complaint Patient presents with ? Depression Patient states he has been feeling depressed. Pt states he recently ran away from ex-. When asked if pt feels suicidal, pt states I can't say no but I can't say yes. Pt has no plan. Hx [employer]. States he ran out of psych meds. 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 ? Psychiatric Evaluation NIRALI Monsalve is a 33 y.o. male who presents to the emergency department complaining of psychiatric evaluation. Patient states that he has been feeling suicidal and is hearing voices. He states he typically hears voices but recently they have been louder than normal and that they are asking him to jump off a bridge. Has history of drug use in the past but states that he has not used amphetamines in some time. Has history of HIV and was recently started on medications after previous admission where I did admit him at a separate hospital. Additional history obtained from : n/a Barriers to obtaining history from patient: n/a ROS: Review of Systems completed as follows: (Bold = positive, Not bold = negative) GENERAL: fevers, chills, malaise ENT: runny nose, congestion, sore throat, ear pain NEURO: weakness, numbness of tingling, headache CARDIOVASCULAR: chest pain, syncope PULMONARY: shortness of breath, cough, wheezing GASTROINTESTINAL: nausea, vomiting, abdominal pain, diarrhea, constipation, MUSCULOSKELETAL: pain GENITAL/URINARY: dysuria, hematuria, increased urinary frequency, hesitancy, flank pain SKIN: rash, lesions, wound Past History Past Medical History: Diagnosis Date ? Back injury ? HIV (human immunodeficiency virus infection) (FORMERLY [facility]) 01/2013 ? Right leg pain since childhood Past Surgical History: Procedure Laterality Date ? CHOLECYSTECTOMY ? OTHER SURGICAL HISTORY for projectile vomiting and feeding tube at Social History Socioeconomic History ? Marital status: Single Tobacco Use ? Smoking status: Every Day Packs/day: 1.00 Types: Cigarettes ? Smokeless tobacco: Never Substance and Sexual Activity ? Alcohol use: No Alcohol/week: 0.0 standard drinks of alcohol ? Drug use: Yes Types: Methamphetamines Social Determinants of Health Transportation Needs: Unmet Transportation Needs (05/04/2023) PRAPARE - Transportation ? Lack of Transportation (Medical): Yes ? Lack of Transportation (Non-Medical): Yes Housing Stability: High Risk (05/04/2023) Housing Stability Vital Sign ? Unable to Pay for Housing in the Last Year: Yes ? Number of Places Lived in the Last Year: 2 ? Unstable Housing in the Last Year: Yes I have reviewed the history above as provided by nursing notes. Medications/Allergies Previous Medications No medications on file No Known Allergies I have reviewed the history above as provided by nursing notes. Physical Exam ED Triage Vitals [05/14/23 1833] Temp Heart Rate Resp BP 37.1 ?C (98.7 ?F) (!) 142 20 (!) 130/90 SpO2 Temp Source Heart Rate Source Patient Position 98 % Temporal Monitor -- BP Location FiO2 (%) -- -- GENERAL: The patient appears nourished and normally developed. Vital signs as documented. EYES: PERRL. No scleral icterus or orbital trauma noted. HEENT: Mucous membranes moist. Nares patent without copious rhinorrhea. LUNGS: Lungs are clear to auscultation, without any respiratory distress. CARDIAC: tachycardia. rhythm is regular. No murmur appreciated ABDOMEN: Nontender, soft, with no obvious masses, and no peritoneal signs. EXTREMITIES: Non edematous, with no obvious deformities. SKIN: Good color, with no significant rashes. No pallor. NEURO: No obvious neurological deficits, normal sensation and strength bilaterally. PSYCH: Patient appears agitated. He is pacing around the room. He is occasionally tearful. He appears internally stimulated. Reports SI without HI. Reports auditory hallucinations Diagnostics Labs: Results for orders placed or performed during the hospital encounter of 05/14/23 SARS-CoV-2 Antigen Specimen: Nose; Swab Result Value Ref Range SARS-CoV-2 Antigen Negative Negative CBC auto differential Result Value Ref Range Auto WBC 9.0 3.6 - 10.7 10*3/uL RBC 4.10 (L) 4.40 - 5.90 10*6/uL Hemoglobin 15.6 13.0 - 18.0 g/dL Hematocrit 45.5 40.0 - 52.0 % MCV 110.9 (H) 80.0 - 98.0 fL MCH 38.0 (H) 26.0 - 34.0 pg MCHC 34.3 32.0 - 36.0 % RDW 16.0 (H) 11.5 - 14.5 % Platelets 116 (L) 140 - 440 10*3/uL MPV 10.2 7.4 - 12.4 fL nRBC 0.2 0.0 - 2.0 /100 WBCs Neutrophils Relative 85.6 (H) 40.0 - 80.0 % Lymphocytes Relative 5.8 (L) 20.0 - 40.0 % Monocytes Relative 7.3 2.0 - 10.0 % Eosinophils Relative 0.7 (L) 1.0 - 6.0 % Basophils Relative 0.6 0.0 - 2.0 % Neutrophils Absolute 7.7 (H) 1.8 - 7.0 10*3/uL Lymphocytes Absolu (more content not included)... Normal [facility] ED Provider Note Emergency Department Encounter Location: [facility] Patient: Constantin Monsalve : 1990 Date of evaluation: 05/14/2023 ED Provider: Atul Arndt MD Time received sign-out: 0700 Constantin Monsalve was checked out to me by the previous team. Please see the initial documentation for details of the patient's initial ED presentation, physical exam and completed studies. In brief, Constantin Monsalve is a 33 y.o. adult that presented to the emergency department with AH pending psych. I have reviewed and interpreted all of the currently available lab results and diagnostics from this visit: Results for orders placed or performed during the hospital encounter of 05/14/23 SARS-CoV-2 Antigen Specimen: Nose; Swab Result Value Ref Range SARS-CoV-2 Antigen Negative Negative CBC auto differential Result Value Ref Range Auto WBC 9.0 3.6 - 10.7 10*3/uL RBC 4.10 (L) 4.40 - 5.90 10*6/uL Hemoglobin 15.6 13.0 - 18.0 g/dL Hematocrit 45.5 40.0 - 52.0 % MCV 110.9 (H) 80.0 - 98.0 fL MCH 38.0 (H) 26.0 - 34.0 pg MCHC 34.3 32.0 - 36.0 % RDW 16.0 (H) 11.5 - 14.5 % Platelets 116 (L) 140 - 440 10*3/uL MPV 10.2 7.4 - 12.4 fL nRBC 0.2 0.0 - 2.0 /100 WBCs Neutrophils Relative 85.6 (H) 40.0 - 80.0 % Lymphocytes Relative 5.8 (L) 20.0 - 40.0 % Monocytes Relative 7.3 2.0 - 10.0 % Eosinophils Relative 0.7 (L) 1.0 - 6.0 % Basophils Relative 0.6 0.0 - 2.0 % Neutrophils Absolute 7.7 (H) 1.8 - 7.0 10*3/uL Lymphocytes Absolute 0.5 (L) 1.0 - 4.3 10*3/uL Monocytes Absolute 0.7 0.0 - 0.8 10*3/uL Eosinophils Absolute 0.1 0.0 - 0.5 10*3/uL Basophils Absolute 0.1 0.0 - 0.2 10*3/uL Comprehensive metabolic panel Result Value Ref Range SODIUM 140 135 - 145 mmol/L POTASSIUM 3.8 3.5 - 5.1 mmol/L CHLORIDE 98 98 - 107 mmol/L CARBON DIOXIDE 27 22 - 30 mmol/L ANION GAP 14 (H) 3 - 13 mmol/L UREA NITROGEN 18 9 - 20 mg/dL CREATININE 0.82 0.66 - 1.25 mg/dL GLUCOSE 97 70 - 100 mg/dL CALCIUM 10.6 (H) 8.4 - 10.4 mg/dL AST (SGOT) 37 15 - 46 U/L ALT 34 0 - 49 U/L ALKALINE PHOSPHATASE 102 38 - 126 U/L ALBUMIN 5.3 (H) 3.5 - 5.0 g/dL BILIRUBIN, TOTAL 2.3 (H) 0.2 - 1.3 mg/dL TOTAL PROTEIN 11.0 (H) 6.3 - 8.2 g/dL eGFR >90.0 >60.0 mL/min/1.73m*2 Drug screen panel, emergency Result Value Ref Range AMPHETAMINE SCREEN Positive BARBITURATES SCREEN Negative BENZODIAZEPINE SCREEN Negative COCAINE METAB. SCREEN Negative METHADONE SCREEN Negative OPIATES SCREEN Negative OXYCODONE SCREEN Negative PHENCYCLIDINE SCREEN Negative Ethanol Result Value Ref Range ETHANOL IN SER/PLAS <0.010 0.000 - 0.010 g/dL CK Result Value Ref Range CK 129 30 - 170 U/L Urinalysis with reflex microscopic Result Value Ref Range Color, Urine Dark Yellow (A) Lt. Yellow Clarity, Urine Clear Clear pH, Urine 5.5 5.0 - 8.0 pH Leukocytes, Urine 25 (A) Negative Geovany/uL Nitrite, Urine Negative Negative Protein, Urine 50 (A) Negative mg/dL Glucose, Urine Normal Normal (<70) mg/dL Bilirubin, Urine Negative Negative mg/dL Ketones, Urine 10 (A) Negative mg/dL Urobilinogen, Urine 2 (A) Normal (0-1) mg/dL Blood, Urine Negative Negative mg/dL RBC, Urine 3-5 (A) 0 - 2 /HPF WBC, Urine 6-10 (A) 0 - 5 /HPF Squamous Epithelial, Urine 0-2 3 - 5 /HPF Bacteria, Urine Moderate (A) Negative /HPF Mucus, Urine Many (A) Negative /LPF Hyaline Casts, Urine 0-2 (A) Negative /LPF SPECIFIC GRAVITY OF URINE (NUMERIC) 1.035 (H) 1.005 - 1.030 ECG 12 lead Result Value Ref Range Heart Rate 132 bpm QRSD Interval 70 ms QT Interval 289 ms QTC Interval 428 ms P [place] 78 degrees QRS [place] 87 degrees T Wave [place] 44 degrees GA Interval 103 ms No orders to display Final ED Course and MDM: In brief, Constantin Monsalve is a 33 y.o. whose care was signed out to me by the outgoing provider. In brief, pt with signed out to me pending psych. Psych saw pt. He will go to [facility]. Medications LORazepam (Ativan) tablet 1 mg (1 mg Oral Given 05/14/232024) LORazepam (Ativan) tablet 0.5 mg (0.5 mg Oral Given 05/15/23 1042) diphenhydrAMINE (BENADryl) injection 50 mg (50 mg IntraMUSCular Given 05/15/23 1236) And haloperidol lactate (Haldol) injection 5 mg (5 mg IntraMUSCular Given 05/15/23 1236) And LORazepam (Ativan) injection 2 mg (2 mg IntraMUSCular Given 05/15/23 1236) Final Impression 1. Auditory hallucination 2. Suicidal ideation 3. HIV infection, unspecified symptom status (HCC) DISPOSITION Transfer To Another Facility 05/15/2023 01:02:30 PM (Please note that portions of this note may have been completed with a voice recognition program. Efforts were made to edit the dictations but occasionally words are mis-transcribed.) Atul Arndt MD [employer] Atul Arndt MD 05/15/23 1303 Normal [facility] ETHANOLon 05-14-2023 ETHANOL IN SER/PLAS <0.010 Normal 0.000-0.010 [facility] Comment on above: Result Comment: NIKOLAI Haley COMMENTS: NOTE: This result is for medical treatment only. Analysis performed using non-forensic procedures. Performed By: #### L AB46, LAB62, LAB17 ####Dairy Scientist: ZEHRA ONEILL ([id number])[address] Ethanol (Bld) [Mass/Vol]on 0 05-14-2023 Ethanol [Mass/Vol] g/dL 0.000 - 0.010 g/dL [facility] - Chemistry and C hemistry - challengeon 05-14-2023 CK [Catalytic activity/Vol] 129 U/L 30 - 170 U/L [facility] - Microbiology an d Antimicrobial susceptibilityOrdered By: Leydi Boggs on 05-14-2023 SARS-CoV-2 (COVID-19) Ag IA.rapid Ql (Resp) Negative Negative [facility] Comment on above: A negative result do es not rule out the possibility of SARS-CoV-2 infection. NAAT-based methods should be considered for symptomatic patients presenting greater than seven days after onset of symptoms. Method: Lateral flow immunoassay. Fact sheets for healthcare providers and patients can be found at the following sites: https://www.fda.gov/media/376610/download https://www.seniorshelf.com.gov/media/379005/download No Panel Informationon 05-14 Interpretation and review of laboratory results Normal [facility] SARS-CoV-2 (COVID-19) Ag IA. rapid Ql (Resp)Ordered By: Leydi Boggs on 05-14-2023 Interpretation and review of laboratory results Normal [facility] CARECOORDon 05-05-2023 CARECOORD S/W, follow up Yohan Casiano from [facility] did speak with the patient and did reinstate patient Medicaid effective 04/29/23. Medicaid billing number: [id number]. No call back from the Care Center. I did message the [facility] in [employer] chat to schedule the patient. [facility] did schedule the patient for PCP appt. 05/[address] Nino GENAO. They noted they made a referral to the Care Center and will follow up with the patient via phone. I did visit patient to inform of the above. His Mother was at the bedside. He did give permission to speak in front of Mother. The patient was provided a bus pass. He noted he will be staying at the [facility]. Patient appreciative, made aware of the above appointments and follow up call from care Center referral. [facility] and patient info provided for follow up. [facility] CARECOORD S/W, follow up Yohan Casiano from [facility] did email me today concerning patient. I am trying to see if we can get patient Medicaid reactivated quickly. I am awaiting Tonja response about speaking directly to the patient. I did discuss patient with ID Physician who requested patient be set up with the Care Center at [facility] for follow up and ongoing care. I did call the Care Center [phone] to make an appointment. New patient Intake will call me back. I did also call [facility] [phone] requesting assist for patient. Contact info left requesting a call back. The patient tells me today he will likely go to [facility]. He is requesting bus passes. I will see if I can secure some passes. The patient did inform me he is from his spouse. Aty times the patient will go by Constantin Galan. Await call back from the above agencies. Normal [facility] CBC (HEMOGRAM)on 05-05-2023 Erythrocyte distribution width (RBC) [Ratio] 15.7 % High 11.5-14.5 [facility] Comment on above: Performed By: #### L [id number] ####Dairy Scientist: NANO KOHLER ([id number])[facility] ([facility])[address] [place] [address] ERYTHROCYTE MEAN CORPUSCULAR HEMOGLOBIN CONCENTRATION (G/DL) BY AUTOMATED 35.5 % Normal 32.0-36.0 [facility] Comment on above: Performed By: #### L [id number] ####Dairy Scientist: NANO KOHLER ([id number])[facility] ([facility] [place] [address] Hematocrit (Bld) [Volume fraction] 36.3 % Low 40.0-52.0 [facility] Comment on above: Performed By: #### L [id number] ####Dairy Scientist: NANO KOHLER ([id number])[facility] ([facility])[address] [place] [address] Hemoglobin (Bld) [Mass/Vol] 12.9 g/dL Low 13.0-18.0 [facility] Comment on above: Performed By: #### L [id number] ####Dairy Scientist: NANO KOHLER ([id number])[facility] ([facility])[address] [place] [address] MCH (RBC) [Entitic mass] 38.7 pg High 26.0-34.0 [facility] Comment on above: Performed By: #### L [id number] ####Dairy Scientist: NANO KOHLER ([id number])[facility] ([facility])[address] MCV (RBC) [Entitic vol] 109.1 fL High 80.0-98.0 [facility] Comment on above: Performed By: #### L [id number] ####Dairy Scientist: NANO KOHLER ([id number])[facility] ([facility])[address] Platelet mean volume (Bld) [Entitic vol] 12.0 fL Normal 7.4-12.4 [facility] Comment on above: Performed By: #### L AB294 ####Dairy Scientist: NANO KOHLER ([id number])[facility] ([facility])[address] PLATELETS (10*3/UL) IN BLOOD AUTOMATED COUNT 50 10*3/uL Low 140-440 [facility] Comment on above: Performed By: #### L [id number] ####Dairy Scientist: NANO KOHLER ([id number])[facility] M[facility]NI[facility] ([facility])[address] [place] [address] RBC (Bld) [#/Vol] 3.33 10*6/uL Low 4.40-5.90 [facility] Comment on above: Performed By: #### L [id number] ####Dairy Scientist: NANO KOHLER ([id number])[facility] MULLINSCHRISTUS [facility]. VINCENT PHYSICIANS MEDICAL CENTEREnrique ([facility])[address] [place] [address] WBC (Bld) [#/Vol] 2.9 10*3/uL Low 3.6-10.7 [facility] Comment on above: Performed By: #### L [id number] ####Dairy Scientist: NANO KOHLER ([id number])[facility] MULLINSCHRI[address]US [facility]ENTERN ([facility])[address] CHLAMYDIA/GONORRHEAon 2022 CHLAMYDIA/GONORRHEA NEISSERIA GONORRHOEA E DNA PROBE Reference Not Detected Not Detected CHLAMYDIA TRACHOMATIS DNA PROBE Reference Not Detected Not Detected ORDER COMMENTS: Methodology: real-time PCR This test is intended for medical purposes only and is not intended for the evaluation of suspected sexual abuse or for other forensic purposes. In certain contexts, culture may be required to meet applicable laws and regulations for diagnosis of C. trachomatis and N. gonorrhoeae infections. Per 2014 CDC recommmendations, this test does not include confirmation of positive results by an alternative nucleic acid target. A negative result does not exclude the possibility of infection. A result of invalid indicates that a new specimen should be collected if clinically indicated. Normal [facility] Comment on above: Performed By: #### L [id number] #### Dairy Scientist: ZEHRA ONEILL ([id number]) [facility] ([facility]) [address] COMPREHENSIVE METABOLIC PANE Agustin 05-05-2023 Albumin [Mass/Vol] 3.2 g/dL Low 3.5-5.0 [facility] Comment on above: Performed By: #### L AB17 ####Dairy Scientist: NANO KOHLER ([id number])[facility] ([facility])[address] ALP [Catalytic activity/Vol] 61 U/L Normal 38-126 [facility] Comment on above: Performed By: #### L AB17 ####Dairy Scientist: NANO KOHLER ([id number])[facility])[address] ALT [Catalytic activity/Vol] 15 U/L Normal 0-49 [facility] Comment on above: Performed By: #### L AB17 ####Dairy Scientist: NANO KOHLER ([id number])[facility] ([facility])[address] Anion gap [Moles/Vol] 4 mmol/L Normal 3-13 [facility] Comment on above: Performed By: #### L AB17 ####Dairy Scientist: NANO KOHLER ([id number])[facility] ([facility])[address] AST [Catalytic activity/Vol] 22 U/L Normal 15-46 [facility] Comment on above: Performed By: #### L AB17 ####Dairy Scientist: NANO KOHLER ([id number])[facility] ([facility])[address] Bilirubin [Mass/Vol] 0.5 mg/dL Normal 0.2-1.3 [facility] Comment on above: Performed By: #### L AB17 ####Dairy Scientist: NANO KOHLER ([id number])[facility] [place] ([facility])[address] Calcium [Mass/Vol] 8.0 mg/dL Low 8.4-10.4 [facility] Comment on above: Performed By: #### L AB17 ####Dairy Scientist: NANO KOHLER ([id number])[facility] ([facility])[address] Chloride [Moles/Vol] 108 mmol/L High 98-107 [facility] Comment on above: Performed By: #### L AB17 ####Dairy Scientist: NANO KOHLER ([id number])[facility] [place] ([facility])[address] CO2 [Moles/Vol] 25 mmol/L Normal 22-30 [facility] Comment on above: Performed By: #### L AB17 ####Dairy Scientist: NANO KOHLER ([id number])[facility] [place] ([facility])[address] Creatinine [Mass/Vol] 0.43 mg/dL Low 0.66-1.25 [facility] Comment on above: Performed By: #### L AB17 ####Dairy Scientist: NANO KOHLER ([id number])[facility] [place] ([facility])[address] GLOMERULAR FILTRATION RATE ML/MIN/1.73 SQ M.PREDICTED >90.0 Normal >60.0 [facility] Comment on above: Result Comment: Calc ulation based on the Chronic Kidney Disease Epidemiology Collaboration (CKD-EPI) equation refit without adjustment for race Performed By: #### L AB17 ####Dairy Scientist: NANO KOHLER ([id number])[facility]ITAL[facility] COLINEnrique (SBHLAB)[address] Glucose [Mass/Vol] 105 mg/dL High 70-100 [facility] Comment on above: Performed By: #### L AB17 ####Dairy Scientist: NANO KOHLER ([id number])[facility] [place] (SBHLAB)[address] Potassium [Moles/Vol] 4.0 mmol/L Normal 3.5-5.1 [facility] Comment on above: Performed By: #### L AB17 ####Dairy Scientist: NANO KOHLER ([id number])[facility] [place] ([facility] Protein [Mass/Vol] 6.1 g/dL Low 6.3-8.2 [facility] Comment on above: Performed By: #### L AB17 ####Dairy Scientist: NANO KOHLER ([id number])[facility] [place] ([facility])[address] Sodium [Moles/Vol] 137 mmol/L Normal 135-145 [facility] Comment on above: Performed By: #### L AB17 ####Dairy Scientist: NANO KOHLER ([id number])[facility] ([facility])[address] Urea nitrogen [Mass/Vol] 11 mg/dL Normal 9-20 [facility] Comment on above: Performed By: #### L AB17 ####Dairy Scientist: NANO KOHLER ([id number])[facility] ([facility])[address] Consulton 05-05-2023 Consult Nutrition Assessment Type and Reason for Visit: Initial, Consult Nutrition Recommendations/Plan: Continue Regular diet Encourage patient to participate in room service and order well balanced meals Per MNT protocol, added: Ensure Plus High Protein BID between meals (+350 kcal, 20 g protein, 240 mL/serving) Please record % meals and oral nutrition supplements consumed in flow-sheet for most accurate nutrient intake assessment. RDN to continue to monitor weekly: fluid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 Abs.Neutrophil (Seg) 6.01 k/uL Normal 1.8-7.7 [facility] Comment on above: Performed By: #### B MP, CDP ####[address] [address] Basophils/100 WBC Auto (Bld) 0 % Normal [facility] Comment on above: Performed By: #### B MP, CDP ####[facility] [place], [place] [address] [facility] [place] [address] Blood morphology MACROCYTOSIS PRESENT Normal [facility] Comment on above: Result Comment: LARG E PLATELETS PRESENTPerformed at [facility] [address] [place] [address] Performed By: #### B MP, CDP ####[facility] [place], [place] [address] [facility] [place] [address] Eosinophils 0.15 10*3/uL Normal 0.0-0.4 [facility] Comment on above: Performed By: #### B MP, CDP ####[address] [facility] [place] [address] Eosinophils/100 leukocytes 2 % Normal 1-4 [facility] Comment on above: Performed By: #### B MP, CDP ####[facility] [facility] [place] [address] Lymphocytes 0.91 10*3/uL Low 1.0-4.8 [facility] Comment on above: Performed By: #### B MP, CDP ####[facility] [place], [place] [address] [facility] [place] [address] Lymphocytes/100 leukocytes 12 % Low 24-44 [facility] Comment on above: Performed By: #### B MP, CDP ####[facility] [place], [place] [address] [facility] [place] [address] Monocytes 0.53 10*3/uL Normal 0.2-0.8 [facility] Comment on above: Performed By: #### B MP, CDP ####[facility] [place], [place] [address] [address] Monocytes/100 leukocytes 7 % Normal 1-7 [facility] Comment on above: Performed By: #### B MP, CDP ####[facility] [place] [address].[place] [address] Neutrophil (Seg) 79 % High 36-66 [facility] Comment on above: Performed By: #### B MP, CDP ####[address] [place] [address] Erythrocyte distribution width Auto Ratio (RBC) 15.5 % High 11.5-14.5 [facility] Comment on above: Performed By: #### B MP, CDP ####[address] [address] Erythrocytes (RBC) 3.98 10*6/uL Low 4.5-5.9 [facility] Comment on above: Performed By: #### B MP, CDP ####[address] [address] Hematocrit (HCT) 45.3 % Normal 41-53 [facility] Comment on above: Performed By: #### B MP, CDP ####[address] [address] Hemoglobin mass conc (Bld) 15.6 g/dL Normal 13.5-17.5 [facility] Comment on above: Performed By: #### B MP, CDP ####[address] [address] MCH 39.1 pg High 26-34 [facility] Comment on above: Performed By: #### B MP, CDP ####[address] [address] MCHC mass conc (RBC) 34.4 g/dL Normal 31-37 [facility] Comment on above: Performed By: #### B MP, CDP ####[facility] [place] [address] MCV 113.7 fL High 80-100 [facility] Comment on above: Performed By: #### B MP, CDP ####[facility] [place], [place] [address] [address] Platelets 226 10*3/uL Normal 130-400 [facility] Comment on above: Performed By: #### B MP, CDP ####[facility] [place], [place] [address] [address] WBC (Leukocytes) 7.6 10*3/uL Normal 3.5-11.0 [facility] Comment on above: Performed By: #### B MP, CDP ####[address] [place] [address] Auto Diff Performed NOT REPORTED Normal [facility] Comment on above: Performed By: #### B MP, CDP ####[facility] [place] [address].[place] [address] Erythrocyte morphology NOT REPORTED Normal [facility] Comment on above: Performed By: #### B MP, CDP ####[address] [place] [address] Erythrocytes (RBC) NOT REPORTED Normal [facility] Comment on above: Performed By: #### B MP, CDP ####[facility] [place], [place] [address] [address] Granulocytes/100 WBC (Bld) NOT REPORTED Normal 0.00-0.30 [facility] Comment on above: Performed By: #### B MP, CDP ####[facility] [place], [place] [address] [address] Immature granulocytes #/vol (Bld) NOT REPORTED Normal 0 [facility] Comment on above: Performed By: #### B MP, CDP ####[facility] [place] [address] Platelet mean volume (PMV) NOT REPORTED Normal 6.0-12.0 [facility] Comment on above: Performed By: #### B MP, CDP ####[facility] [place] [address] Platelets NOT REPORTED Normal [facility] Comment on above: Performed By: #### B MP, CDP ####[facility] [place] [address] WBC Morphology NOT REPORTED Normal [facility] Comment on above: Performed By: #### B MP, CDP ####[facility] [address] Occ Bld, Fecal Scrnon 2017 Occult Blood 1 Negative Normal NEG [facility] Comment on above: Performed By: #### O BS ####[facility] [place] [address] Specimen 1 Date Normal [facility] Comment on above: Performed By: #### O BS ####[facility] [place], [place] [address] [address] Specimen 1 Time 1549 Normal [facility] Comment on above: Result Comment: Perf ormed at [facility] [address] [place] [address] Performed By: #### O BS ####[facility] [place] [address] Specimen 2 Date NOT REPORTED Normal [facility] Comment on above: Performed By: #### O BS ####[facility] [facility] [place] [address] Specimen 2 Time NOT REPORTED Normal [facility] Comment on above: Performed By: #### O BS ####[facility] [facility] [place] [address] Specimen 3 Date NOT REPORTED Normal [facility] Comment on above: Performed By: #### O BS ####[facility] [place] [address].[place] [address] Specimen 3 Time NOT REPORTED Normal [facility] Comment on above: Performed By: #### O BS ####[facility] [place] [address].[place] [address] Occult Blood 2 NOT REPORTED Normal NEG [facility] Comment on above: Performed By: #### O BS ####[facility] [place] [address] Occult Blood 3 NOT REPORTED Normal NEG [facility] Comment on above: Performed By: #### O BS ####[facility] [place] [address].[place] [address] UA w/Reflex Cultureon 2017 Acetaminophen mass conc Negative Normal NEG [facility] Comment on above: Performed By: #### U AX ####[facility] [place] [address].[place] [address] Bilirubin (direct) Negative Normal NEG [facility] Comment on above: Performed By: #### U AX ####[address] [place] [address] Hemoglobin mass conc (Bld) Negative Normal NEG [facility] Comment on above: Performed By: #### U AX ####[address] [place] [address] Nitrite,Ur Negative Normal NEG [facility] Comment on above: Performed By: #### U AX ####[facility] [place] [address] Turbidity CLEAR Normal CLEAR [facility] Comment on above: Performed By: #### U AX ####[facility] [address] [facility] [place] [address] Urine, color YELLOW Normal YEL [facility] Comment on above: Performed By: #### U AX ####[facility] [place] [address] Urine, glucose presence Negative Normal NEG [facility] Comment on above: Performed By: #### U AX ####[facility] [place] [address] Urine, leukocyte esterase presence Negative Normal NEG [facility] Comment on above: Result Comment: Perf ormed at [facility] [address] [place] [address] Performed By: #### U AX ####[facility] [place] [address] Urine, pH 6.5 [pH] Normal 5.0-8.0 [facility] Comment on above: Performed By: #### U AX ####[facility] [place] [address] Urine, protein presence Negative Normal NEG [facility] Comment on above: Performed By: #### U AX ####[facility] [place] [address].[place] [address] Urine, specific gravity 1.015 Normal 1.005-1.030 [facility] Comment on above: Performed By: #### U AX ####[facility] [place] [address] Urobilinogen,Ur Normal Normal NORM [facility] Comment on above: Performed By: #### U AX ####[facility] [facility] [place] [address] Comment NOT REPORTED Normal [facility] Comment on above: Performed By: #### U AX ####[facility] [place] [address] Cult,Bloodon 07-01-2017 Cult,Blood Specimen Description .BLOOD 5ML PURP 5ML RED LEFT UPPER ARM Performed at [address] [address] Special Requests NOT REPORTEDCulture NO GROWTH 6 DAYS Performed at [address] [address] Report Status FINAL 07/01/2017 Normal [facility] Comment on above: Performed By: #### A LCB, BMP, CDP, PATH ####[address] [address] Cult,Blood Specimen Description .BLOOD RED 3ML PURPLE 3ML BOTH LEFT AC Performed at [address] [address] Special Requests NOT REPORTEDCulture NO GROWTH 6 DAYS Performed at [address] [address] Report Status FINAL 07/01/2017 Normal [facility] Comment on above: Performed By: #### A LCB, BMP, CDP, PATH ####[address] [address] HIV-1,Quant,RNAon 07-01-2017 HIV-1,Quant,RNA Specimen Description .PLASMA Performed at [address] [address] Special Requests NOT REPORTEDDirect Exam HIV-1 RNA DETECTED, 1510 CP/ML (3.18 LOG CP/ML) This test is a sensitive method for quantitating HIV-1 RNA viral loads in plasma. It utilizes RT-PCR in the FDA approved [employer]qman 48 system. This test is intended for detecting and quantifying HIV-1 RNA viral loads in the range of 20 - 10,000,000 cp/ml (1.30 - 7.00 log cp/ml). The reference value for this assay is <20 cp/ml (<1.30 log cp/ml). Patie nts should have confirmed HIV-1 infection prior to RNA quantification. The test has been developed to monitor disease progression and efficacy of Anti-HIV drug therapy. Performed at [address] [address] Report Status FINAL 07/01/2017 Normal [facility] Comment on above: Performed By: #### A LCB, BMP, CDP, PATH ####[address] [address] Cult,CSFon 06-28-2017 Cult,CSF Specimen Description .CSF Performed at [address] [address] Special Requests NOT REPORTEDDirect Exam NO NEUTROPHILS SEEN NO BACTERIA SEEN Gram stain made from cytocentrifuged specimen. Organisms and cells will be concentrated. Culture NO GROWTH 3 DAYS Performed at [address] [address] Report Status FINAL 06/28/2017 Normal [facility] Comment on above: Performed By: #### A LCB, BMP, CDP, PATH ####[address] [address] VDRL, Qual, CSFon 06-28-2017 VDRL, Qual, CSF NONREACTIVE Normal NR [facility] Comment on above: Result Comment: Perf ormed at [address] [address] Performed By: #### L AC ####[facility] [place] [address].[place] [address] HSV DNA, PCRon 06-27-2017 HSV by PCR Not Detected Normal [facility] Comment on above: Result Comment: (NOT E)NOT DETECTED - A negative result does not rule out thepresence of PCR inhibitors in the patient specimen or assayspecific nucleic acid in concentrations below the level ofdetection by the assay.INTERPRETIVE INFORMATION: Herpes Simplex Virus by PCRTest developed and characteristics determined by [employer]. See Compliance Statement B: [facility]/CSPerformed by Dimple Dough,[address] [place] [address],[place] [address] vee.[facility] [facility], Lobito Davila MD, Lab. Director Performed By: #### A CHUN, LAUREN, LAILA, PATH ####[address] [place] [address] Smear to Pathologiston 06-27 Smear to Pathologist TO BE REVIEWED BY PATHOLOGIST Normal [facility] Comment on above: Result Comment: Revi ewed by pathologist: Parag Ledesma M.D.SMEAR AND CBC DATA REVIEWED. MODERATE MACROCYTOSIS NOTED. INCREASE IN HEMOGLOBIN AND HEMATOCRIT. PLEASE ALSO SEE SUBSEQUENT CBC DATA.Performed at [facility] [address] [place] [address] Performed By: #### A AARTIB, LAUREN, LAILA, PATH ####[facility] [place] [address].[place] [address] B12/Folate Panelon 7 Cobalamins (Vitamin B12) 165 pg/mL Low 211-946 [facility] Comment on above: Performed By: #### A AARTIB, BMP, CDP, PATH ####[address] [place] [address] Folic Acid 8.7 ng/mL Normal >4.8 [facility] Comment on above: Result Comment: Perf ormed at [facility] [address] [place] [address] Performed By: #### A LAUREN MCCOLLUM CDP, PATH ####[address] [address] Basic Metabolic Profon 06-26 (cont.) Normal [facility] Comment on above: Result Comment: Aver age GFR for 20-29 years old: 116 mL/min/1.73sq mChronic Kidney Disease: <60 mL/min/1.73sq mKidney failure: <15 mL/min/1.73sq meGFR calculated using average adult body mass. Additional eGFR calculator available at:http://www.[employer]/multiple_crcl_2012.htmPerformed at [facility] [address] [place] [address] Performed By: #### A LAUREN MCCOLLUM, LAILA, PATH ####[address] [address] Anion gap 11 mmol/L Normal 9-17 [facility] Comment on above: Performed By: #### A LAUREN MCCOLLUM, LAILA, PATH ####[address] [address] Calcium 8.9 mg/dL Normal 8.6-10.4 [facility] Comment on above: Performed By: #### A LAUREN MCCOLLUM, LAILA, PATH ####[address] [address] Chloride 100 mmol/L Normal 98-107 [facility] Comment on above: Performed By: #### A LAUREN MCCOLLUM, LAILA, PATH ####[address] [address] CO2 26 mmol/L Normal 20-31 [facility] Comment on above: Performed By: #### A LAUREN MCCOLLUM, CDP, PATH ####[facility] [place] [address] Creatinine 0.69 mg/dL Low 0.70-1.20 [facility] Comment on above: Performed By: #### A LCB, BMP, CDP, PATH ####[facility] [place], [place] [address] [place] [address] eGFR (non-black) mL/min/{1.73_m2} Normal >60 [facility] Comment on above: Performed By: #### A LCB, BMP, CDP, PATH ####[facility] [place] [address].[place] [address] Glucose mass conc 92 mg/dL Normal 70-99 [facility] Comment on above: Performed By: #### A LCB, BMP, CDP, PATH ####[facility] [place] [address].[place] [address] Potassium molar conc 3.9 mmol/L Normal 3.7-5.3 [facility] Comment on above: Performed By: #### A LCB, BMP, CDP, PATH ####[address] [place] [address] Sodium 137 mmol/L Normal 135-144 [facility] [place] Comment on above: Performed By: #### A LCB, BMP, CDP, PATH ####[facility] [place] [place], [place] [address] [facility] [place] [address] Urea nitrogen 10 mg/dL Normal 6-20 [facility] [place] Comment on above: Performed By: #### A LCB, BMP, CDP, PATH ####[address] [address] BUN/CRE Ratio NOT REPORTED Normal 9-20 [facility] [place] Comment on above: Performed By: #### A LCB, BMP, CDP, PATH ####[address] [place] [address] Staging: NOT REPORTED Normal [facility] [place] Comment on above: Performed By: #### A LCB, BMP, CDP, PATH ####[address] [address] CBC with Diffon 06-26-2017 Abs. Basophil 0.05 k/uL Normal 0.0-0.2 [facility] [place] Comment on above: Performed By: #### A LCB, BMP, CDP, PATH ####[address] [place] [address] Abs.Neutrophil (Seg) 3.75 k/uL Normal 1.3-9.1 [facility] Comment on above: Performed By: #### A LCB, BMP, CDP, PATH ####[address] [place] [address] Basophils/100 WBC Auto (Bld) 1 % Normal [facility] [place] Comment on above: Performed By: #### A LCB, BMP, CDP, PATH ####[address] [address] Blood morphology MACROCYTOSIS PRESENT Normal [facility] [place] Comment on above: Result Comment: Perf ormed at [facility] [address] [place] [address] Performed By: #### A LCB, BMP, CDP, PATH ####[address] [address] Eosinophils 0.10 10*3/uL Normal 0.0-0.4 [facility] [place] Comment on above: Performed By: #### A LCB, BMP, CDP, PATH ####[address] [address] Eosinophils/100 leukocytes 2 % Normal [facility] [place] Comment on above: Performed By: #### A LCB, BMP, CDP, PATH ####[facility] [place] [place] [address].[place] [address] Lymphocytes 0.88 10*3/uL Low 1.0-4.8 [facility] [place] Comment on above: Performed By: #### A LCB, BMP, CDP, PATH ####[address] [place] [address] Lymphocytes/100 leukocytes 17 % Normal [facility] [place] Comment on above: Performed By: #### A LCB, BMP, CDP, PATH ####[address] [address] Monocytes 0.42 10*3/uL Normal 0.1-1.3 [facility] [place] Comment on above: Performed By: #### A LCB, BMP, CDP, PATH ####[address] [address] Monocytes/100 leukocytes 8 % Normal [facility] [place] Comment on above: Performed By: #### A LCB, BMP, CDP, PATH ####[address] [address] Neutrophil (Seg) 72 % Normal [facility] Comment on above: Performed By: #### A LCB, BMP, CDP, PATH ####[address] [address] Erythrocyte distribution width Auto Ratio (RBC) 14.6 % Normal 11.5-14.9 [facility] [place] Comment on above: Performed By: #### A LCB, BMP, CDP, PATH ####[address] [address] Erythrocytes (RBC) 4.11 10*6/uL Low 4.5-5.9 [facility] Comment on above: Performed By: #### A LCB, BMP, CDP, PATH ####[facility] [place] [place] [address] Hematocrit (HCT) 46.3 % Normal 41-53 [facility] Comment on above: Performed By: #### A LCB, BMP, CDP, PATH ####[address] [address] Hemoglobin mass conc (Bld) 16.4 g/dL Normal 13.5-17.5 [facility] [place] Comment on above: Performed By: #### A LCB, BMP, CDP, PATH ####[address] [address] MCH 39.9 pg High 26-34 [facility] [place] Comment on above: Performed By: #### A LCB, BMP, CDP, PATH ####[address] [address] MCHC mass conc (RBC) 35.4 g/dL Normal 31-37 [facility] Comment on above: Performed By: #### A LCB, BMP, CDP, PATH ####[address] [address] MCV 112.6 fL High 80-100 [facility] [place] Comment on above: Performed By: #### A LCB, BMP, CDP, PATH ####[address] [address] Platelet mean volume (PMV) 9.5 fL Normal 6.0-12.0 [facility] [place] Comment on above: Performed By: #### A LCB, BMP, CDP, PATH ####[address] [address] Platelets 159 10*3/uL Normal 150-450 [facility] [place] Comment on above: Performed By: #### A LCB, BMP, CDP, PATH ####[facility] [place] [facility] [place] [address] WBC (Leukocytes) 5.2 10*3/uL Normal 3.5-11.0 [facility] Comment on above: Performed By: #### A LCB, BMP, CDP, PATH ####[address] [address] Auto Diff Performed NOT REPORTED Normal [facility] Comment on above: Performed By: #### A LCB, BMP, CDP, PATH ####[address] [address] Erythrocyte morphology NOT REPORTED Normal [facility] [place] Comment on above: Performed By: #### A LCB, BMP, CDP, PATH ####[address] [address] Granulocytes/100 WBC (Bld) NOT REPORTED Normal 0.00-0.30 [facility] [place] Comment on above: Performed By: #### A LCB, BMP, CDP, PATH ####[address] [address] Immature granulocytes #/vol (Bld) NOT REPORTED Normal 0 [facility] [place] Comment on above: Performed By: #### A LCB, BMP, CDP, PATH ####[address] [address] Platelets NOT REPORTED Normal [facility] [place] Comment on above: Performed By: #### A LCB, BMP, CDP, PATH ####[address] [address] WBC Morphology NOT REPORTED Normal [facility] Comment on above: Performed By: #### A LCB, BMP, CDP, PATH ####[address] [address] CONSULTATIONon 06-26-[address] [address] CONSULTATIONPATIENT NAME: CONSTANTIN GALAN : 1990MED REC NO: [id number] ROOM: 2096ACCOUNT NO: [id number] ADMIT DATE: 06/25/2017PROVIDER: Cherelle Balderas HasanCONSULT DATE: 06/26/2017REFERRING PROVIDER: Dr. Asher and Dr. Peng OF PRESENT ILLNESS: This gentleman was brought to the hospital onaccount of difficulty thinking and reasoning by . According to theinformation provided, he states that for the last few days, the right upperextremity has been painful, weak, numb and tender. He is now on a medicalmonitored floor.No change in vision, speech or swallowing. No transient lateralizedneurological symptoms. He smokes.Urine was positive for benzodiazepines and cannabinoids.Additional laboratory is satisfactory.CT brain unremarkable.Cervical spine CT with mild degenerative changes. He is on a medicalfloor.FAMILY HISTORY: Unremarkable for neurological disorders.REVIEW OF SYSTEMS: Remarkable for HIV infection and he is on retroviraltherapy.PHYSIC AL EXAMINATION: A sick-looking frail, young gentleman is seen,short-statured. He is awake. Insight, orientation, and recall seemsnormal. Symmetric facies are noted. Tongue, palate and uvula midline. Motor examination reveals no drift of the outstretched upper extremities. Right upper extremity proximal and distal strength 5- with weak grasp. Tender shoulder, elbow and wrist joint.Left upper extremity 5/5, bilateral lower extremities 5/5, distal 5/5. Upper extremity reflexes 2 knee jerks, 2 ankle jerks, 2 plantar responseflexor. Stance, gait, and cerebellar testing is unremarkable.This gentleman is experiencing features of a painful right upper extremity.IMAGING STUDIES: Unremarkable.We will obtain x-rays of his shoulder, elbow and wrist. Also, we willstart him on naproxen short-term for one week.He will undergo B12, folate, and thyroid profile on account of complains ofcognitive dysfunction.We will follow up in the hospital only as-needed. Thank you for asking usto see the patient. He can be discharged at your discretion.Cherelle BALDERAS HASAND: 06/26/2017 11:15:40 /[id number]#: [id number] Doc#: [id number]: Dr. Mayo Normal [facility] [place] CT HEAD WO CONTRASTon 2016 CT HEAD WO CONTRAST EXAMINATION:CT OF TH E HEAD WITHOUT CONTRAST - STROKE ALERT 06/25/2017 1:26 amTECHNIQUE:CT of the head was performed without the administration of intravenouscontrast. Dose modulation, iterative reconstruction, and/or weight basedadjustment of the mA/kV was utilized to reduce the radiation dose to as lowas reasonably achievable.COMPARISON:No ne.HISTORY:ORDERING SYSTEM PROVIDED HISTORY: change in mental status, HIVTECHNOLOGIST PROVIDED HISTORY:Has a code stroke or stroke alert been called?->NoOrdering Physician Provided Reason for Exam: CHANGE IN MENTAL STATUS, HIVAcuity: AcuteType of Exam: InitialFINDINGS:BRAIN/VE NTRICLES: There is no acute intracranial hemorrhage, mass effect ormidline shift. No abnormal extra-axial fluid collection. The terrell-whitedifferentiatio n is maintained without evidence of an acute infarct. There isno evidence of hydrocephalus.ORBITS: The visualized portion of the orbits demonstrate no acute abnormality.SINUSES: Nonspecific effusion of right mastoid air cells. Remainingparanasal sinuses are unremarkable.SOFT TISSUES/SKULL: No acute abnormality of the visualized skull or softtissues.IMPRESSION: No acute intracranial abnormality.Nonspecific right mastoid effusion.Interpreted by:TERESA Clancyigned by:Trevon Mcclain MD06/26/17Final result Normal [facility] [place] Smear to Pathologiston 06-26 Smear to Pathologist NOT REPORTED Normal [facility] Comment on above: Performed By: #### A LCB, BMP, CDP, PATH ####[facility] [place] [place] [address] TSH w/reflex to FT4on 2016 Thyroid stimulating hormone (TSH) 0.81 m[IU]/L Normal 0.30-5.00 [facility] [place] Comment on above: Result Comment: Perf ormed at [facility] [address] [facility] [place] [address] Performed By: #### A CHUN, LAUREN, LAILA, PATH ####[facility] [place] [facility] [place] [address] Thyroxine, Freeon 06-26-2017 Thyroxine, Free 0.89 ng/dL Low 0.93-1.70 [facility] [place] Comment on above: Result Comment: Perf ormed at [facility] [address] [facility] [place] [address] Performed By: #### A CHUN, LAUREN, LAILA, PATH ####[facility] [place] [facility] [place] [address] XR ELBOW RIGHT LIMITEDon XR ELBOW RIGHT LIMITED EXAMINATION:3 VIE WS OF THE RIGHT SHOULDER; 2 VIEWS OF THE RIGHT ELBOW; 2 VIEWS OF THERIGHT WRIST06/26/2017 12:16 pmCOMPARISON:Right shoulder plain radiographs from 06/24/2017HISTORY:ORDERI NG SYSTEM PROVIDED HISTORY: arthritis fxTECHNOLOGIST PROVIDED HISTORY:Reason for exam:->arthritis fxOrdering Physician Provided Reason for Exam: painAcuity: AcuteType of Exam: InitialAdditional signs and symptoms: Pain right arm x 2 days no known [id number] male with right arm pain for 2 days without any known injuryFINDINGS:Right shoulder:Right acromioclavicular and right glenohumeral joints grossly unremarkable.Visualized right-sided ribs appear intact. monitor car operator leads overlie theright hemithorax. No acute fracture or gross dislocation.Right elbow:Osseous alignment is normal. Joint spaces are well maintained. No acutefracture or gross dislocation is seen.The radial head and radial neck appear intact.There is no significant elevation of the posterior fat pad or sail sign tosuggest a joint effusion.Right wrist:Joint spaces are well maintained.Osseous alignment is normal. No marginal erosions are identified.No acute fracture or gross dislocation is seen.Scaphoid appears grossly intact.No significant soft tissue swelling is identified.IMPRESSION: Right shoulder:No acute fracture or gross dislocation.Right elbow:No acute fracture or gross dislocation.Right wrist:No acute fracture or gross dislocation.Interpreted by:TERESA Deeigned by:Caden Duncan MD06/26/17Final result Normal [facility] [place] XR SHOULDER RIGHT STANDARDon 06-26-2017 XR SHOULDER RIGHT STANDARD EXAMINATION:3 VIEWS OF THE RIGHT SHOULDER; 2 VIEWS OF THE RIGHT ELBOW; 2 VIEWS OF THERIGHT WRIST06/26/2017 12:16 pmCOMPARISON:Right shoulder plain radiographs from 06/24/2017HISTORY:ORDERI NG SYSTEM PROVIDED HISTORY: arthritis fxTECHNOLOGIST PROVIDED HISTORY:Reason for exam:->arthritis fxOrdering Physician Provided Reason for Exam: painAcuity: AcuteType of Exam: InitialAdditional signs and symptoms: Pain right arm x 2 days no known [id number] male with right arm pain for 2 days without any known injuryFINDINGS:Right shoulder:Right acromioclavicular and right glenohumeral joints grossly unremarkable.Visualized right-sided ribs appear intact. monitor car operator leads overlie theright hemithorax. No acute fracture or gross dislocation.Right elbow:Osseous alignment is normal. Joint spaces are well maintained. No acutefracture or gross dislocation is seen.The radial head and radial neck appear intact.There is no significant elevation of the posterior fat pad or sail sign tosuggest a joint effusion.Right wrist:Joint spaces are well maintained.Osseous alignment is normal. No marginal erosions are identified.No acute fracture or gross dislocation is seen.Scaphoid appears grossly intact.No significant soft tissue swelling is identified.IMPRESSION: Right shoulder:No acute fracture or gross dislocation.Right elbow:No acute fracture or gross dislocation.Right wrist:No acute fracture or gross dislocation.Interpreted by:TERESA Deeigned by:Caden Duncan MD06/26/17Final result Normal [facility] [place] XR WRIST RIGHT LIMITEDon XR WRIST RIGHT LIMITED EXAMINATION:3 VIE WS OF THE RIGHT SHOULDER; 2 VIEWS OF THE RIGHT ELBOW; 2 VIEWS OF THERIGHT WRIST06/26/2017 12:16 pmCOMPARISON:Right shoulder plain radiographs from 06/24/2017HISTORY:ORDERI [employer] SYSTEM PROVIDED HISTORY: arthritis fxTECHNOLOGIST PROVIDED HISTORY:Reason for exam:->arthritis fxOrdering Physician Provided Reason for Exam: painAcuity: AcuteType of Exam: InitialAdditional signs and symptoms: Pain right arm x 2 days no known [id number] male with right arm pain for 2 days without any known injuryFINDINGS:Right shoulder:Right acromioclavicular and right glenohumeral joints grossly unremarkable.Visualized right-sided ribs appear intact. monitor car operator leads overlie theright hemithorax. No acute fracture or gross dislocation.Right elbow:Osseous alignment is normal. Joint spaces are well maintained. No acutefracture or gross dislocation is seen.The radial head and radial neck appear intact.There is no significant elevation of the posterior fat pad or sail sign tosuggest a joint effusion.Right wrist:Joint spaces are well maintained.Osseous alignment is normal. No marginal erosions are identified.No acute fracture or gross dislocation is seen.Scaphoid appears grossly intact.No significant soft tissue swelling is identified.IMPRESSION: Right shoulder:No acute fracture or gross dislocation.Right elbow:No acute fracture or gross dislocation.Right wrist:No acute fracture or gross dislocation.Interpreted by:TERESA Deeigned by:Caden Duncan MD06/26/17Final result Normal [facility] [place] APTTon 06-25-2017 aPTT 26.6 s Normal 23.0-31.0 [facility] [place] Comment on above: Result Comment: IV H eparin Therapy Range: 64.3-87.8Performed at [address] [address] Performed By: #### L AC ####[address] [address] Ammoniaon 06-25-2017 Ammonia 36 umol/L Normal 16-60 [facility] [place] Comment on above: Result Comment: Perf ormed at [address] [address] Performed By: #### L AC ####[address] [address] Basic Metabolic Profon 06-25 (cont.) Normal [facility] [place] Comment on above: Result Comment: Aver age GFR for 20-29 years old: 116 mL/min/1.73sq mChronic Kidney Disease: <60 mL/min/1.73sq mKidney failure: <15 mL/min/1.73sq meGFR calculated using average adult body mass. Additional eGFR calculator available at:http://[email or web address]_crcl_2012.htmPerformed at [facility] [address] [place] [address] Performed By: #### A LCB, BMP, CDP, PATH ####[address] [address] Anion gap 14 mmol/L Normal 9-17 [facility] [place] Comment on above: Performed By: #### A LCB, BMP, CDP, PATH ####[address] [address] Calcium 9.5 mg/dL Normal 8.6-10.4 [facility] [place] Comment on above: Performed By: #### A LCB, BMP, CDP, PATH ####[facility] [place] [place] [address] Chloride 98 mmol/L Normal 98-107 [facility] [place] Comment on above: Performed By: #### A LCB, BMP, CDP, PATH ####[facility] [place] [place] [address] CO2 26 mmol/L Normal 20-31 [facility] [place] Comment on above: Performed By: #### A LCB, BMP, CDP, PATH ####[address] [address] Creatinine 0.68 mg/dL Low 0.70-1.20 [facility] [place] Comment on above: Performed By: #### A LCB, BMP, CDP, PATH ####[place] [address] [facility] [place] [address] eGFR (non-black) mL/min/{1.73_m2} Normal >60 [facility] Comment on above: Performed By: #### A LCB, BMP, CDP, PATH ####[facility] [place] [place] [address].[place] [address] Glucose mass conc 100 mg/dL High 70-99 [facility] Comment on above: Performed By: #### A LCB, BMP, CDP, PATH ####[facility] [place] [place] [address].[place] [address] Potassium molar conc 4.2 mmol/L Normal 3.7-5.3 [facility] Comment on above: Performed By: #### A LCB, BMP, CDP, PATH ####[address] [place] [address] Sodium 138 mmol/L Normal 135-144 [facility] [place] Comment on above: Performed By: #### A LCB, BMP, CDP, PATH ####[address] [address] Urea nitrogen 9 mg/dL Normal 6-20 [facility] [place] Comment on above: Performed By: #### A LCB, BMP, CDP, PATH ####[facility] [place] [place] [address].[place] [address] BUN/CRE Ratio NOT REPORTED Normal 9-20 [facility] [place] Comment on above: Performed By: #### A LCB, BMP, CDP, PATH ####[address] [address] Staging: NOT REPORTED Normal [facility] [place] Comment on above: Performed By: #### A LCB, BMP, CDP, PATH ####[address] [address] CBC with Diffon 06-25-2017 Abs. Basophil 0.09 k/uL Normal 0.0-0.2 [facility] [place] Comment on above: Performed By: #### A LCB, BMP, CDP, PATH ####[facility] [place] [place] [address] Abs.Neutrophil (Seg) 6.94 k/uL Normal 1.3-9.1 [facility] Comment on above: Performed By: #### A LCB, BMP, CDP, PATH ####[facility] [place] [place] [address].[place] [address] Basophils/100 WBC Auto (Bld) 1 % Normal [facility] [place] Comment on above: Performed By: #### A LCB, BMP, CDP, PATH ####[facility] [place] [place] [address].[place] [address] Blood morphology MACROCYTOSIS PRESENT Normal [facility] [place] Comment on above: Result Comment: Perf ormed at [facility] [address] [facility] [place] [address] Performed By: #### A LCB, BMP, CDP, PATH ####[facility] [place] [facility] [place] [address] Eosinophils 0.09 10*3/uL Normal 0.0-0.4 [facility] [place] Comment on above: Performed By: #### A LCB, BMP, CDP, PATH ####[facility] [place] [place] [address].[place] [address] Eosinophils/100 leukocytes 1 % Normal [facility] [place] Comment on above: Performed By: #### A LCB, BMP, CDP, PATH ####[facility] [place] [facility] [place] [address] Lymphocytes 1.16 10*3/uL Normal 1.0-4.8 [facility] [place] Comment on above: Performed By: #### A LCB, BMP, CDP, PATH ####[facility] [place] [place] [address] Lymphocytes/100 leukocytes 13 % Normal [facility] [place] Comment on above: Performed By: #### A LCB, BMP, CDP, PATH ####[facility] [place] [place] [address].[place] [address] Monocytes 0.62 10*3/uL Normal 0.1-1.3 [facility] [place] Comment on above: Performed By: #### A LCB, BMP, CDP, PATH ####[address] [address] Monocytes/100 leukocytes 7 % Normal [facility] [place] Comment on above: Performed By: #### A LCB, BMP, CDP, PATH ####[address] [address] Neutrophil (Seg) 78 % Normal [facility] Comment on above: Performed By: #### A LCB, BMP, CDP, PATH ####[address] [address] Erythrocyte distribution width Auto Ratio (RBC) 14.9 % Normal 11.5-14.9 [facility] [place] Comment on above: Performed By: #### A LCB, BMP, CDP, PATH ####[address] [address] Erythrocytes (RBC) 4.37 10*6/uL Low 4.5-5.9 [facility] Comment on above: Performed By: #### A LCB, BMP, CDP, PATH ####[address] [address] Hematocrit (HCT) 50.1 % Normal 41-53 [facility] Comment on above: Performed By: #### A LCB, BMP, CDP, PATH ####[facility] [place] [place] [address] Hemoglobin mass conc (Bld) 17.6 g/dL High 13.5-17.5 [facility] [place] Comment on above: Performed By: #### A LCB, BMP, CDP, PATH ####[address] [address] MCH 40.2 pg High 26-34 [facility] [place] Comment on above: Performed By: #### A LCB, BMP, CDP, PATH ####[address] [address] MCHC mass conc (RBC) 35.1 g/dL Normal 31-37 [facility] Comment on above: Performed By: #### A LCB, BMP, CDP, PATH ####[address] [address] MCV 114.6 fL High 80-100 [facility] [place] Comment on above: Performed By: #### A LCB, BMP, CDP, PATH ####[address] [address] Platelet mean volume (PMV) 9.8 fL Normal 6.0-12.0 [facility] [place] Comment on above: Performed By: #### A LCB, BMP, CDP, PATH ####[address] [address] Platelets 187 10*3/uL Normal 150-450 [facility] [place] Comment on above: Performed By: #### A LCB, BMP, CDP, PATH ####[address] [address] WBC (Leukocytes) 8.9 10*3/uL Normal 3.5-11.0 [facility] Comment on above: Performed By: #### A LCB, BMP, CDP, PATH ####[facility] [place] [place] [address] Auto Diff Performed NOT REPORTED Normal [facility] Comment on above: Performed By: #### A LCB, BMP, CDP, PATH ####[facility] [place] [place] [address] Erythrocyte morphology NOT REPORTED Normal [facility] [place] Comment on above: Performed By: #### A LCB, BMP, CDP, PATH ####[facility] [place] [place] [address] Granulocytes/100 WBC (Bld) NOT REPORTED Normal 0.00-0.30 [facility] [place] Comment on above: Performed By: #### A LCB, BMP, CDP, PATH ####[address] [place] [address] Immature granulocytes #/vol (Bld) NOT REPORTED Normal 0 [facility] [place] Comment on above: Performed By: #### A LCB, BMP, CDP, PATH ####[address] [place] [address] Platelets NOT REPORTED Normal [facility] [place] Comment on above: Performed By: #### A LCB, BMP, CDP, PATH ####[address] [place] [address] WBC Morphology NOT REPORTED Normal [facility] Comment on above: Performed By: #### A LCB, BMP, CDP, PATH ####[address] [place] [address] CD4 Absoluteon 06-25-2017 Ab.T Help(CD3+,CD4+) 271 /uL Low [phone] [facility] Comment on above: Performed By: #### A LCB, BMP, CDP, PATH ####[address] [place] [address] Lymphocytes/100 leukocytes 19 % Low 24-44 [facility] [place] Comment on above: Result Comment: Perf ormed at [facility] [address] [place] [address] Performed By: #### A LCB, BMP, CDP, PATH ####[facility] [place] [place], [place] [address] [place] [address] T [place] (CD3+,CD4+) 23 % Low 27-64 [facility] Comment on above: Performed By: #### A LCB, BMP, CDP, PATH ####[address] [facility] [address] WBC (Leukocytes) 6.2 10*3/uL Normal 3.5-11.0 [facility] Comment on above: Performed By: #### A LCB, BMP, CDP, PATH ####[facility] [place] [place] [address] CSF Cell Counton 06-25-2017 Erythrocytes (RBC) 22 /mm3 High 0 [facility] [place] Comment on above: Result Comment: MARIA M ECTED ON 06/25 AT 0412: PREVIOUSLY REPORTED 11 Performed By: #### L AC ####[facility] [place] [place] [address] WBC (Leukocytes) 0 /mm3 Normal <5 [facility] Comment on above: Performed By: #### L AC ####[facility] [place] [place] [address] Tube Number 3 Normal [facility] [place] Comment on above: Result Comment: Perf ormed at [facility] [address] [place] [address] Performed By: #### L AC ####[address] [place] [address] Urine, appearance COLORLESS Normal [facility] Comment on above: Performed By: #### L AC ####[facility] [place] [facility] [place] [address] Urine, color CLEAR Normal [facility] [place] Comment on above: Performed By: #### L AC ####[facility] [place] [place] [address], [place] [address] Xanthochromia ABSENT Normal [facility] [place] Comment on above: Performed By: #### L AC ####[facility] [place] [place] [address] [place] [address] Volume 6CC Normal [facility] [place] Comment on above: Performed By: #### L AC ####[address] [address] Cryptococcus Ag,CSFon 2016 Cryptococcus Ag,CSF Negative Normal NEG [facility] [place] Comment on above: Result Comment: Perf ormed at [address] [place] [address] Performed By: #### L AC ####[facility] [place] [place] [address] Drug Scr, Abuse, Uron 2016 Amphetamine(s),Ur Negative Normal NEG [facility] Comment on above: Result Comment: (Pos itive cutoff 1000 ng/mL) Performed By: #### L AC ####[address] [address] Barbiturate(s),Ur Negative Normal NEG [facility] Comment on above: Result Comment: (Pos itive cutoff 200 ng/mL) Performed By: #### L AC ####[address] [address] Base excess Negative Normal NEG [facility] [place] Comment on above: Result Comment: (Pos itive cutoff 300 ng/mL) Performed By: #### L AC ####[address] [address] Benzodiazepine(s) Positive Abnormal NEG [facility] Comment on above: Result Comment: (Pos itive cutoff 200 ng/mL) Performed By: #### L AC ####[address] [address] Cannabinoid(s),Ur Positive Abnormal NEG [facility] Comment on above: Result Comment: (Pos itive cutoff 50 ng/mL) Performed By: #### L AC ####[address] [address] Interpretive Info Assay provides medic al screening only. The absence of expected drug(s) and/or Normal [facility] Comment on above: Result Comment: meta bolite(s) may indicate diluted or adulterated urine, limitations of testing or timing of collection.Testing for legal purposes should be confirmed by another method. To request confirmation of test result, please call the lab within 7 days of sample submission.Performed at [facility] [address] [place] [address] Performed By: #### L AC ####[address] [address] Opiate(s), Ur Negative Normal NEG [facility] [place] Comment on above: Result Comment: (Pos itive cutoff 300 ng/mL) Performed By: #### L AC ####[address] [address] Oxycodone, Urine Negative Normal NEG [facility] Comment on above: Result Comment: (Pos itive cutoff 100 ng/mL) Performed By: #### L AC ####[address] [address] Phencyclidine, Ur Negative Normal NEG [facility] Comment on above: Result Comment: (Pos itive cutoff 25 ng/mL) Performed By: #### L AC ####[address] [address] Urine, methadone presence Negative Normal NEG [facility] [place] Comment on above: Result Comment: (Pos itive cutoff 300 ng/mL) Performed By: #### L AC ####[address] [address] Buprenorphrine, Ur NOT REPORTED Normal NEG [facility] Comment on above: Performed By: #### L AC ####[address] [address] MDMA, Urine NOT REPORTED Normal NEG [facility] [place] Comment on above: Performed By: #### L AC ####[address] [address] Methamphetamine, Ur NOT REPORTED Normal NEG [facility] Comment on above: Performed By: #### L AC ####[address] [address] Propoxyphene,Urine NOT REPORTED Normal NEG [facility] Comment on above: Performed By: #### L AC ####[address] [address] Urine, tricyclic antidepressants NOT REPORTED Normal NEG [facility] [place] Comment on above: Performed By: #### L AC ####[address] [address] Ethanol Alcoholon 06-25-2017 Ethanol mg/dL Normal <10 [facility] [place] Comment on above: Performed By: #### A LCB, BMP, CDP, PATH ####[address] [address] Ethanol percent <0.010 Normal [facility] [place] Comment on above: Result Comment: Perf ormed at [facility] [address] [place] [address] Performed By: #### A LCB, BMP, CDP, PATH ####[facility] [place] [place] [address] Fungi,Direct Examon 06-25-20 17 Fungi,Direct Exam Specimen Description .CSF Performed at [facility] [address] [place] [address] Special Requests NOT REPORTEDDirect Exam NO FUNGAL ELEMENTS SEEN Performed at [address] [address] Report Status FINAL 06/25/2017 Normal [facility] Comment on above: Performed By: #### A LCB, BMP, CDP, PATH ####[address] [place] [address] Glucose,CSFon 06-25-2017 Glucose mass conc 65 mg/dL Normal 40-70 [facility] Comment on above: Result Comment: Perf ormed at [facility] [address] [place] [address] Performed By: #### L AC ####[place] [address] [facility] [address] HSV DNA, PCRon 06-25-2017 HSV source .BLOOD Normal [facility] [place] Comment on above: Result Comment: Perf ormed at [facility] [address] [place] [address] Performed By: #### A LCB, BMP, CDP, PATH ####[place] [address] [place] [place] [address] Lactic Acidon 06-25-2017 Lactate 1.5 mmol/L Normal 0.5-2.2 [facility] [place] Comment on above: Result Comment: Perf ormed at [facility] [address] [facility] [place] [address] Performed By: #### L AC ####[facility] [place] [facility] [place] [address] Lactate 2.3 mmol/L High 0.5-2.2 [facility] [place] Comment on above: Result Comment: Perf ormed at [facility] [address] [facility] [place] [address] Performed By: #### L AC ####[facility] [place] [facility] [place] [address] MRI CERVICAL SPINE WO CONTRA STon 06-25-2017 MRI CERVICAL SPINE WO CONTRAST EXAMINATION:MRI OF THE CERVICAL SPINE WITHOUT CONTRAST 06/25/2017 4:11 pmTECHNIQUE:Multiplanar multisequence MRI of the cervical spine was performed without theadministration of intravenous contrast.COMPARISON:None .HISTORY:ORDERING SYSTEM PROVIDED HISTORY: NECK PAIN, CERVICAL SPINETECHNOLOGIST PROVIDED HISTORY:Ordering Physician Provided Reason for Exam: decreased sensation of right taran shoulder pain across the shoulder muscle that he noticed when he woke upyesterday morning. He went to bed at 11:30 that night and states that he hadno pain or decreased sensation at that time. Patient states has someweakness. Pt is HIV positive and takes meds.Acuity: AcuteType of Exam: InitialFINDINGS:There are motion artifacts.BONES/ALIGNMEN T: There is straightening and mild reversal of normal cervicallordosis. There is normal alignment of the cervical spine. The vertebralbody heights are maintained. The bone marrow signal appears unremarkable.There is no evidence of fracture or destructive osseous lesion. Theintervertebral disc heights are grossly maintained.SPINAL CORD: No abnormal cord signal is seen.SOFT TISSUES: No paraspinal mass identified.C2-C3: There is no significant disc protrusion, spinal canal stenosis orneural foraminal narrowing.C3-C4: There is disc osteophytic ridge, with mild left foraminal narrowing.No spinal canal narrowing.C4-C5: There is disc osteophytic ridge, without spinal canal or foraminalstenosis.C5-C6: There is disc osteophytic ridge, without spinal canal or foraminalstenosis.C6-C7: There is disc osteophytic ridge, without spinal canal or foraminalstenosis.C7-T1: There is no significant disc protrusion, spinal canal stenosis orneural foraminal narrowing.IMPRESSION: Limited by motion artifacts.Straightening and mild reversal of normal cervical lordosis.Degenerative disc disease as described above.No spinal canal narrowing.Foraminal narrowing, mild at left C3-4.Interpreted by:TERESA Powelligned by:Kush Nelson MD06/25/17Final result Normal [facility] PTon 06-25-2017 INR Coag RelTime (PPP) 1.0 {INR} Normal [facility] Comment on above: Result Comment: Non- therapeutic Range: INR = 0.9-1.2Therapeutic Range: Moderate Anticoagulant Intensity: INR = 2.0-3.0 High Anticoagulant Intensity: INR = 2.5-3.5Performed at [address] [address] Performed By: #### L AC ####[address] [address] Prothrombin time (PT) Coag time (PPP) 10.8 s Normal 9.7-12.0 [facility] [place] Comment on above: Performed By: #### L AC ####[address] [address] Protein, Total, CSFon 2016 Total Protein - CSF 28.1 mg/dL Normal 15.0-45.0 [facility] [place] Comment on above: Result Comment: Perf ormed at [place] [address] [place] [address] Performed By: #### L AC ####[address] [address] Surgical Pathologyon 017 Surgical Pathology (NOTE)[id number], [place] [address] Fax: SURGICAL PATHOLOGY REPORTPatient Name: EDU GALAN#: [id number] DiagnosisCEREBROSPINAL FLUID, CYTOSPIN PREPARATIONS: HYPOCELLULAR SPECIMEN CONTAINING FEW SCATTERED LYMPHOCYTES ANDRARE MONOCYTOID CELLSNO NEOPLASTIC CELLS IDENTIFIEDDiagnosis CommentThis case was discussed with Dr. Quispe, emergency physician, onJune 27, 2017.Parag Ledesma M.D.Electronically Signed Out 06/27/2017Clinical InformationCerebral spinal fluidSource:A: Cerebrospinal fluid, cytospinsGross DescriptionReceived 1 cc of clear, thin CSF fluid. Two cytospins are made forcytologic evaluation. Microscopic DescriptionTwo cytospin preparations of the cerebrospinal fluid are received. Microscopic examination is performed. Normal [facility] Urinalysis, Routineon 2016 Acetaminophen mass conc Negative Normal NEG [facility] Comment on above: Performed By: #### U AMARU, DEBRA ####[address] [place] [address] Bilirubin (direct) Negative Normal NEG [facility] [place] Comment on above: Performed By: #### U AMARU DEBRA ####[facility] [place] [address] Hemoglobin mass conc (Bld) Negative Normal NEG [facility] [place] Comment on above: Performed By: #### U A UMJIGAR, DEBRA ####[facility] [place] [place] [address] Nitrite,Ur Negative Normal NEG [facility] Comment on above: Performed By: #### U AMARU, DEBRA ####[address] [address] Turbidity CLEAR Normal CLEAR [facility] [place] Comment on above: Performed By: #### U AMARU DEBRA ####[facility] [place] [facility] [place] [address] Urine, color YELLOW Normal YEL [facility] [place] Comment on above: Performed By: #### MARU Ruggiero DEBRA ####[facility] [place] [facility] [address] Urine, glucose presence Negative Normal NEG [facility] Comment on above: Performed By: #### MARU Ruggiero DEBRA ####[facility] [place] [facility] [place] [address] Urine, leukocyte esterase presence Negative Normal NEG [facility] [place] Comment on above: Result Comment: Perf ormed at [facility] [address] [place] [address] Performed By: #### MARU Ruggiero DEBRA ####[facility] [place] [place] [address].[place] [address] Urine, pH 6.5 [pH] Normal 5.0-8.0 [facility] [place] Comment on above: Performed By: #### MARU Ruggiero DEBRA ####[facility] [place] [place] [address].[place] [address] Urine, protein presence TRACE Abnormal NEG [facility] Comment on above: Performed By: #### MARU Ruggiero DEBRA ####[facility] [place] [place] [address].[place] [address] Urine, specific gravity 1.011 Normal 1.000-1.030 [facility] [place] Comment on above: Performed By: #### MARU Ruggiero DEBRA ####[facility] [place] [place] [address].[place] [address] Urobilinogen,Ur Normal Normal NORM [facility] Comment on above: Performed By: #### GERI RuggieroO, DEBRA ####[address] [address] Comment NOT REPORTED Normal [facility] Comment on above: Performed By: #### U A, UMTOMASO, DEBRA ####[address] [address] Urinalysis,Microon 7 ----- Normal [facility] Comment on above: Performed By: #### U A, UMTOMASO, DEBRA ####[address] [address] Mucus Strands 2+ Abnormal [facility] Comment on above: Performed By: #### U AMARU, DEBRA ####[address] [address] Urine WBC's 2 TO 5 Normal [facility] Comment on above: Performed By: #### U AMARU, DEBRA ####[address] [address] Urine, amorphous sediment presence in sediment 1+ Abnormal [facility] Comment on above: Result Comment: Perf ormed at [place] [address] [place] [address] Performed By: #### U A, UMICAO, DEBRA ####[address] [address] Urine, bacteria in sediment FEW Abnormal [facility] Comment on above: Performed By: #### U A, UMICAO, DEBRA ####[address] [address] Urine, epithelial cells in sediment 0 TO 2 Normal [facility] Comment on above: Performed By: #### U A, UMICAO, DEBRA ####[facility] [place] [facility] [place] [address] Urine, erythrocytes 0 TO 2 Normal [facility] Comment on above: Performed By: #### U A, UMICAO, DEBRA ####[facility] [place] [place] [address].[place] [address] Epithelial, Renal NOT REPORTED Normal 0 [facility] Comment on above: Performed By: #### U A, UMICAO, DEBRA ####[facility] [place] [place] [address].[place] [address] Other Observations NOT REPORTED Normal NREQ [facility] Comment on above: Performed By: #### U A, UMICAO, DEBRA ####[address] [place] [address] Trichomonas NOT REPORTED Normal NONE [facility] Comment on above: Performed By: #### U A, UMICAO, DEBRA ####[facility] [place] [place] [address].[place] [address] Urine, casts in sediment NOT REPORTED Normal [facility] Comment on above: Performed By: #### U A, UMICAO, DEBRA ####[facility] [place] [place] [address].[place] [address] Urine, crystals in sediment NOT REPORTED Normal [facility] Comment on above: Performed By: #### U A, UMICAO, DEBRA ####[facility] [place] [place] [address].[place] [address] Urine, yeast presence in sediment NOT REPORTED Normal NONE [facility] Comment on above: Performed By: #### U A, UMICAO, DEBRA ####[facility] [place] [place] [address].[place] [address] XR CHEST LIMITEDon 7 XR CHEST LIMITED EXAMINATION:SINGLE V IEW OF THE CHEST06/25/2017 1:43 amCOMPARISON:None.HISTOR Y:ORDERING SYSTEM PROVIDED HISTORY: AMSTECHNOLOGIST PROVIDED HISTORY:Reason for exam:->AMSOrdering Physician Provided Reason for Exam: AMSAcuity: AcuteType of Exam: InitialFINDINGS:The cardiac silhouette is within normal limits for size. The pulmonaryvasculature is within normal limits. There is no focal consolidation, pleuraleffusion or pneumothorax. The visualized osseous structures demonstrate noacute abnormality.IMPRESSION: No acute cardiopulmonary abnormality.Interpreted by:TERESA Delgadoigned by:Mc Montgomery MD06/25/17Final result Normal [facility] XR SHOULDER RIGHT STANDARDon 06-24-2017 Thyroid stimulating hormone (TSH) EXAMINATION:3 VIEWS OF THE RIGHT CNVLOBFN41/27/2017 11:56 amCOMPARISON:None.HISTOR Y:ORDERING SYSTEM PROVIDED HISTORY: PainTECHNOLOGIST PROVIDED HISTORY:Reason for exam:->PainOrdering Physician Provided Reason for Exam: RT SHOULDER PAINAcuity: UnknownType of Exam: [id number] male with right shoulder painFINDINGS:Right acromioclavicular and right glenohumeral joints grossly unremarkable.Visualized ribs appear grossly intact. No acute fracture or grossdislocation.IMPRESS ION: No acute fracture or gross dislocation.Interpreted by:TERESA Deeigned by:Caden Duncan MD06/24/17Final result Normal [facility] Vital Signs Date Time Vital Sign Value Performing Clinician Yossi vogel 12-16-2023 02:38-0400 Body temperature 99.1 [degF] Atul Arndt MD Work Phone: [facility] 12-16-2023 02:38-0400 Diastolic blood pressure 76 mm[Hg] Atul Arndt MD Work Phone: [facility] 12-16-2023 02:38-0400 Heart rate 87 /min Atul Arndt MD Work Phone: [facility] 12-16-2023 02:38-0400 Respiratory rate 16 /min Atul Arndt MD Work Phone: [facility] 12-16-2023 02:38-0400 SaO2% (BldA) [Mass fraction] 97 % Atul Arndt MD Work Phone: [facility] [employer] 12-16-2023 02:38-0400 Systolic blood pressure 124 mm[Hg] Atul Arndt MD Work Phone: [facility] [employer] 12-16-2023 00:35-0400 Body height 149.9 cm Atul Arndt MD Work Phone: [facility] [employer] 12-16-2023 00:35-0400 Body mass index (BMI) [Ratio] 17.57 kg/m2 Atul Arndt MD Work Phone: [employer] 12-16-2023 00:35-0400 Body weight 39.46 kg Atul Arndt MD Work Phone: [facility] [employer] 07-04-2023 08:34-0500 Body height 147.3 cm Gracy Nelson DO Work Phone: [employer] 07-04-2023 08:34-0500 Body mass index (BMI) [Ratio] 18.6 kg/m2 Gracytomas Nelson DO Work Phone: [employer] 07-04-2023 08:34-0500 Body temperature 97 [degF] Gracy Nelson DO Work Phone: [employer] 07-04-2023 08:34-0500 Body weight 40.37 kg Gracytomas Nelson DO Work Phone: [employer] 07-04-2023 08:34-0500 Diastolic blood pressure 73 mm[Hg] Gracy Nelson DO Work Phone: [employer] 07-04-2023 08:34-0500 Heart rate 91 /min Gracy Nelson DO Work Phone: [employer] 07-04-2023 08:34-0500 SaO2% (BldA) [Mass fraction] 99 % Gracy Nelson DO Work Phone: [employer] Comment on above: 07-04-2023 08:34-0500 Systolic blood pressure 107 mm[Hg] Gracy Nelson DO Work Phone: [facility] [employer] 06-24-2023 15:19-0400 Body temperature 98.8 [degF] Atul Arndt MD Work Phone: [facility] [employer] 06-24-2023 15:19-0400 Diastolic blood pressure 78 mm[Hg] Atul Ems Work Phone: [facility] [employer] 06-24-2023 15:19-0400 Heart rate 87 /min Atul Ems Work Phone: [facility] [employer] 06-24-2023 15:19-0400 Respiratory rate 14 /min Atul Ems Work Phone: [facility] [employer] 06-24-2023 15:19-0400 SaO2% (BldA) [Mass fraction] 100 % Atul Arndt MD Work Phone: [facility] [employer] 06-24-2023 15:19-0400 Systolic blood pressure 114 mm[Hg] Atul Arndt MD Work Phone: [facility] [employer] 05-16-2023 22:35-0400 Body temperature 98.8 [degF] Damaso Nesheim DO Work Phone: [facility] [employer] 05-16-2023 22:35-0400 Diastolic blood pressure 69 mm[Hg] Damaso Nesheim DO Work Phone: [facility] [employer] 05-16-2023 22:35-0400 Heart rate 120 /min Damaso Nesheim DO Work Phone: [facility] [employer] 05-16-2023 22:35-0400 Respiratory rate 18 /min Damaso Nesheim DO Work Phone: [facility] [employer] 05-16-2023 22:35-0400 SaO2% (BldA) [Mass fraction] 96 % Damaso Nesheim DO Work Phone: [facility] [employer] 05-16-2023 22:35-0400 Systolic blood pressure 98 mm[Hg] Damaso Nesheim DO Work Phone: [employer] 05-14-2023 18:32-0400 Body height 147.3 cm [employer] Work Phone: [employer] 05-14-2023 18:32-0407 Body mass index (BMI) [Ratio] 16.93 kg/m2 Damaso [employer]esLenet Work Phone: [employer] 05-14-2023 18:32-0403 Body weight 36.74 kg [employer] Work Phone: [employer] Encounters Encounter Date Encounter Type Care Provider Facility Start: 12-19-2024 End: 12-19-2024 ambulatory TONJA Mercer BARBI [facility] Start: 12-09-2024 End: 12-10-2024 Emergency department patient visit [facility] Start: 12-09-2024 End: 12-09-2024 Emergency department patient visit NO PCP NO PCP [facility] Start: 11-28-2024 End: 11-28-2024 Emergency department patient visit NO PCP NO PCP [facility] Start: 06-26-2024 End: 06-26-2024 ambulatory HALIMA Zhu [facility] Start: 06-11-2024 End: 06-11-2024 Emergency department patient visit TOSHIA SHINE [facility] Start: 05-09-2024 End: 05-09-2024 ambulatory HALIMA Zhu [facility] Start: 04-26-2024 End: 04-26-2024 ambulatory TONJA KAISER [facility] Start: 01-18-2024 End: 01-18-2024 Emergency department patient visit Facility:[facility] Start: 12-16-2023 End: 12-16-2023 Emergency department patient visit ATUL Briceño [facility] Start: 12-16-2023 End: 12-16-2023 Encounter for other general examination ATUL D [facility] Start: 12-16-2023 End: 12-16-2023 Admission to establishment Atul Arndt MD Work Phone: [employer] Work Phone: Start: 12-16-2023 End: 12-16-2023 Emergency department patient visit Atul Arndt MD Work Phone: [facility] Comment on above: Medical clearance fo r psychiatric admission (Primary Dx) Start: 08-19-2023 Telephone encounter Pcp None Other Phone: [facility] Comment on above: No Show Start: 07-07-2023 End: 07-08-2023 ambulatory [facility] Start: 07-07-2023 End: 07-07-2023 Subsequent hospital visit by physician Domonique Cortez MD Work Phone: [facility] Comment on above: Numbness and tinglin g in left arm Start: 07-06-2023 End: 07-07-2023 ambulatory [facility] Start: 07-06-2023 End: 07-06-2023 Office outpatient new 30 minutes Joi Arteaga MD Work Phone: [facility] Comment on above: Floaters in visual f ield, bilateral Start: 07-04-2023 End: 07-04[facility] Start: 07-04-2023 End: 07-04-2023 Sbsq hospital care/day 35 minutes Domonique Cortez MD Work Phone: [facility] [place] Comment on above: Numbness and tinglin g in left arm (Primary Dx); B12 deficiency; Floaters in visual field, bilateral; Human immunodeficiency virus (HIV) disease (HCC); Chronic cough; Brain fog; Need for immunization against influenza Start: 07-04-2023 End: 07-04-2023 Transitional care manage srvc 14 day discharge Domonique Cortez MD Work Phone: [facility] [place] Comment on above: Numbness and tinglin g in left arm (Primary Dx); B12 deficiency; Floaters in visual field, bilateral; Human immunodeficiency virus (HIV) disease (HCC); Chronic cough; Brain fog; Need for immunization against influenza Start: 06-24-2023 End: 06-24-2023 ambulatory FLO DOWLING [facility] Start: 06-24-2023 End: 06-24-2023 Emergency department patient visit Atul Arndt MD Work Phone: [facility] Comment on above: Numbness and tinglin g of left upper and lower extremity (Primary Dx); Non compliance w medication regimen; Currently asymptomatic HIV infection, with history of HIV-related illness (HCC); Left arm weakness Start: 06-24-2023 End: 06-24-2023 Emergency department patient visit NEISHA SIMMONS [facility] Start: 06-23-2023 End: 06-23-2023 Subsequent hospital visit by physician Ach Ecg [facility] Comment on above: Arrived Start: 05-14-2023 End: 05-17-2023 Emergency department patient visit GAYATRI GONZALES [facility] Start: 05-14-2023 End: 05-16-2023 Emergency department patient visit Damaso G Josue DO Work Phone: [facility] Comment on above: Auditory hallucinati on (Primary Dx); Suicidal ideation; HIV infection, unspecified symptom status (HCC) Start: 05-03-2023 End: 05-05-2023 ambulatory MISAEL SIMMONS [facility] Start: 05-03-2023 End: 05-03-2023 Emergency department patient visit JANINE OLMSTEAD [facility] Start: 05-03-2023 End: 05-03-2023 Subsequent hospital visit by physician [facility] Non-Invasive Cardiology Comment on above: Arrived Start: 03-05-2023 ambulatory Facility:[facility] Start: 12-29-2020 End: 12-29-2020 Emergency department patient visit REFERRED SELF Facility:[facility] Start: 10-05-2019 End: 10-05-2019 ambulatory Mee Barcenas Facility:[facility] Start: 01-30-2018 End: 01-30-2018 Emergency department patient visit [facility] Start: 10-04-2017 End: 10-05-2017 Emergency department patient visit [facility] Start: 06-25-2017 End: 06-26-2017 Ambulatory [facility] Start: 06-24-2017 End: 06-24-2017 Emergency department patient visit PEDRO STEWART [facility] Procedures Date Procedure Procedure Detail Performing Clinician Start: 12-16-2023 Ecg routine ecg w/le ast 12 lds trcg only w/o i&r Atul Arndt MD Work Phone: Start: 12-16-2023 Urnls dip stick/tabl et rgnt auto w/o microscopy Atul Arndt MD Work Phone: Start: 12-16-2023 Comprehensive metabo lic panel Atul Arndt MD Work Phone: Start: 12-16-2023 End: 12-16-2023 Drug test def 1-7 classes Atul Arndt MD Work Phone: Start: 12-16-2023 SARS-CoV-2 (COVID-19 ) Ag [Presence] in Respiratory specimen by Rapid immunoassay Atul Arndt MD Work Phone: Start: 07-07-2023 Needle emg ea extrem ty w/paraspinl area complete Gracy Nelson DO Work Phone: Start: 06-24-2023 Dup-scan xtr veins unilateral/limited study Lucero Constanza Aly DO Work Phone: Start: 06-24-2023 Creatine kinase total P lucian Constanza Aly DO Work Phone: Start: 06-24-2023 Ct head/brain w/o co ntrast material Josefa Flores MD Work Phone: Start: 06-24-2023 Assay of troponin quantitative Atul Arndt MD Work Phone: Start: 06-24-2023 Basic metabolic pane l calcium total Atul Arndt MD Work Phone: Start: 06-23-2023 Ecg routine ecg w/le ast 12 lds trcg only w/o i&r Neisha Simmons PA-C Work Phone: Start: 09-18-2023 Hemoglobin glycosylated a1c Melinda Baig DO Work Phone: Start: 05-16-2023 Lipid panel Melinda Baig DO Work Phone: Start: 05-16-2023 Lipid 1996 panel - S julio c or Plasma Damaso Salas DO Work Phone: Start: 05-15-2023 Drug tst prsmv instr mnt chem analyzers pr date Damaso Salas DO Work Phone: Start: 05-15-2023 Urnls dip stick/tabl et reagent auto microscopy Damaso Yoana Salas DO Work Phone: Start: 05-14-2023 SARS-CoV-2 (COVID-19 ) Ag [Presence] in Respiratory specimen by Rapid immunoassay Damaso Salas DO Work Phone: Start: 05-14-2023 Comprehensive metabo lic panel Damaso Salas DO Work Phone: Start: 05-14-2023 Drug test def 1-7 classes Damaso Yoana Salas DO Work Phone: Start: 05-14-2023 Ecg routine ecg w/le ast 12 lds i&r only Hakan Martinez MD Work Phone: Start: 05-03-2023 Ecg routine ecg w/le ast 12 lds trcg only w/o i&r Damaso Salas DO Work Phone: Start: 01-30-2018 OCCULT BLOOD SCREEN [facility]ACQUI [facility] Start: 01-30-2018 Basic metabolic pane l calcium total TONJA [facility] Start: 01-30-2018 Blood count complete auto&auto difrntl wbc TONJA [facility] Start: 01-30-2018 URINE RT REFLEX TO CULTURE [facility]JA [facility] Start: 01-30-2018 INSERT PERIPHERAL IV DA JHOAN [facility] Start: 06-26-2017 DISCHARGE PATIENT SUGEY [facility] Start: 06-26-2017 Radex elbow 2 views JACQUI [facility] Start: 06-26-2017 Radex shoulder compl ete minimum 2 views TONJA [facility] Start: 06-26-2017 Radex wrist 2 views [facility]ACQUI [facility] Start: 06-26-2017 T4, FREE TONJA MARTINEZ Start: 06-26-2017 TSH WITH REFLEX ELIECER [facility] Start: 06-26-2017 VITAMIN B12 AND FOLATE [facility]JA [facility] Start: 06-26-2017 BASIC METABOLIC PANEL Keyanna [facility] Start: 06-26-2017 CBC WITH AUTO DIFFERENTIAL [facility] Start: 06-26-2017 PERIPHERAL BLOOD SME AR, PATH REVIEW [facility]JA [facility] Start: 06-25-2017 Mri spinal canal cer vical w/o contrast matrl [facility]JA [facility] Start: 06-25-2017 PT EVAL AND TREAT SUGEY SAMRA RICOEN Start: 06-25-2017 IP CONSULT TO NEUROLOGY [facility]JA [facility] Start: 06-25-2017 HIV RNA, QUANTITATIVE, PCR TONJA [facility] Start: 06-25-2017 T-HELPER CELLS (CD4) COUNT [facility]JA [facility] Start: 06-25-2017 AMMONIA TONJA MARTINEZ Start: 06-25-2017 DIET GENERAL TONJA MARTINEZ Start: 06-25-2017 FULL CODE TONJA MARTINEZ Start: 06-25-2017 NOTIFY PHYSICIAN (SPECIFY) TONJA [facility] Start: 06-25-2017 PLACE INTERMITTENT PNEUMATIC COMPRESSION DEVICE [facility]JA [facility] Start: 06-25-2017 REASON FOR NO CHEMIC AL VTE PROPHYLAXIS TONJA [facility] Start: 06-25-2017 TELEMETRY MONITORING ALLISON LOPEZLIBRADO BARBI Start: 06-25-2017 VITAL SIGNS TONJA MARTINEZ Start: 06-25-2017 IP CONSULT TO INFECT IOUS DISEASES TONJA [facility] Start: 06-25-2017 PATIENT STATUS (FROM ED OR OR/PROCEDURAL) TONJA [facility] Start: 06-25-2017 LACTIC ACID TONJA MARTINEZ Start: 06-25-2017 HSV PCR TONJA MARTINEZ Start: 06-25-2017 CRYPTOCOCCAL ANTIGEN, CSF TONJA [facility] Start: 06-25-2017 CSF CELL COUNT WITH DIFFERENTIAL TONJA [facility] Start: 06-25-2017 CSF CULTURE TONJA MARTINEZ Start: 06-25-2017 CYTOLOGY, NON-CHECKER/STOCKER SUGEY [facility] Start: 06-25-2017 FUNGAL STAIN TONJA MARTINEZ Start: 06-25-2017 GLUCOSE, CSF TONJA MARTINEZ Start: 06-25-2017 PROTEIN, CSF TONJA MARTINEZ Start: 06-25-2017 VDRL, CSF TONJA MARTINEZ Start: 06-25-2017 Microscopic urinalysis TOJNA [facility] Start: 06-25-2017 Urinalysis TONJA MARTINEZ Start: 06-25-2017 URINE DRUG SCREEN SUGEY [facility] Start: 06-25-2017 Chest x-ray 1 view frontal TONJA [facility] Start: 06-25-2017 BEDREST TONJA MARTINEZ Start: 06-25-2017 LUMBAR PUNCTURE ELIECER [facility] Start: 06-25-2017 NURSING COMMUNICATION D INNA [facility] Start: 06-25-2017 VERIFY INFORMED CONSENT TONJA [facility] Start: 06-25-2017 Ct head/brain w/o co ntrast material TONJA [facility] Start: 06-25-2017 BASIC METABOLIC PANEL D INNA [facility] Start: 06-25-2017 CBC WITH AUTO DIFFERENTIAL TONJA [facility] Start: 06-25-2017 ETHANOL TONJA MARTINEZ Start: 06-25-2017 PERIPHERAL BLOOD SME AR, PATH REVIEW TONJA [facility] Start: 06-25-2017 APTT TONJA MARTINEZ Start: 06-25-2017 CULTURE BLOOD #1 MIHIR VELOZ Start: 06-25-2017 LACTIC ACID TONJA MARTINEZ Start: 06-25-2017 PROTIME-INR TONJA MARTINE[facility] Start: 06-25-2017 INSERT PERIPHERAL IV DA JHOAN [facility] Start: 06-25-2017 POC GLUCOSE FINGERSTICK [facility]JA [facility] Start: 06-25-2017 LUMBAR PUNCTURE [facility]ECER [facility] Start: 06-24-2017 Radex shoulder compl ete minimum 2 views TONJA [facility] Start: 06-24-2017 POC GLUCOSE FINGERSTICK [facility]JA [facility] Plan of Treatment Date Care Activity Detail Author Start: 2049 RSV Immunization age d 60 or older (1 - 1-dose 60+ series) RSV Immunization aged 60 or older (1 - 1-dose 60+ series) [facility] Start: 11-02-2026 DTaP/Tdap/Td Vaccine s (7 - Td or Tdap) DTaP/Tdap/Td Vaccines (7 - Td or Tdap) [facility] Start: 07-06-2025 Glaucoma screening Diabetes: R etinopathy Screening [facility] Start: 05-16-2024 Hemoglobin A1c measurement Diabetes: Hemoglobin A1C [facility] Start: 05-16-2024 Lipid panel Lipid Panel [facility] Start: 09-05-2023 End: 09-05-2023 Patient encounter procedure 09/05/2023 8:10 AM EST Office Visit [facility] [place] [address] [place] [phone] Davin Martinez MD [address] [place], [place] [phone] [facility] [place] Start: 08-19-2023 End: 08-19-2023 Patient encounter procedure 08/19/2023 9:00 AM EST Appointment [facility] [address] [place] [phone] Joi Arteaga MD [address] [place], [place] [phone] [facility] Start: 07-07-2023 End: 07-07-2023 Patient encounter procedure 07/07/2023 10:30 AM EST Appointment [facility] [address] [place] [address] Domonique Cortez MD [address], [address] [place], [place] [phone] [facility] Start: 07-06-2023 End: 07-06-2023 Patient encounter procedure 07/06/2023 9:00 AM EST Appointment [facility] [address] [place] [phone] Joi Arteaga MD [address] [place], [place] [phone] [facility] Start: 07-04-2023 End: 07-04-2024 Nerve conduction test with EMG Nerve conduction test with [facility] Neurology Routine Numbness and tingling in left arm Expected: 07/04/2023 (Approximate), Expires: 07/04/2024 [facility] Work Phone: Comment on above: Expected: 07/04/2023 (Approximate), Expires: 07/04/2024 Start: 07-04-2023 End: 07-04-2023 Patient encounter procedure 07/04/2023 8:20 AM EST [facility] [address] [place] [phone] Gracy Nelson DO [address] [place] [address] [facility] Start: 05-19-2023 End: 05-19-2023 Patient encounter procedure 05/19/2023 8:45 AM EDT Office Visit [address] [phone] Idris Oneill MD [address] [place] [address] [facility] Start: 05-18-2023 End: 05-18-2023 Patient encounter procedure 05/18/2023 9:00 AM EDT Office Visit [facility] [address] [place] [phone] Eugenio Lopez MD [address] [place], [place] [phone] [facility] Start: 04-29-2023 Influenza vaccination Influenza Vacc ine (#1) [facility] Start: 11-02-2021 Pneumococcal Vaccine : Pediatrics (0 to 5 Years) and At-Risk Patients (6 to 64 Years) (3 - PPSV23 or PCV20) Pneumococcal Vaccine: Pediatrics (0 to 5 Years) and At-Risk Patients (6 to 64 Years) (3 - PPSV23 or PCV20) [facility] Start: 11-02-2021 Pneumococcal Vaccine : Pediatrics (0 to 5 Years) and At-Risk Patients (6 to 64 Years) (3 of 3 - PPSV23 or PCV20) Pneumococcal Vaccine: Pediatrics (0 to 5 Years) and At-Risk Patients (6 to 64 Years) (3 of 3 - PPSV23 or PCV20) [facility] Start: 07-03-2014 Hepatitis A Vaccines (2 of 2 - Risk 2-dose series) Hepatitis A Vaccines (2 of 2 - Risk 2-dose series) [facility] Start: 10-01-2013 Pneumococcal Vaccine : Pediatrics (0 to 5 Years) and At-Risk Patients (6 to 64 Years) (2 - PPSV23 if available, else PCV20) Pneumococcal Vaccine: Pediatrics (0 to 5 Years) and At-Risk Patients (6 to 64 Years) (2 - PPSV23 if available, else PCV20) [facility] Start: 02-26-2008 DTaP/Tdap/Td Vaccine s (1 - Tdap) DTaP/Tdap/Td Vaccines (1 - Tdap) [facility] Start: 02-26-2008 Hepatitis A Vaccines (1 of 2 - Risk 2-dose series) Hepatitis A Vaccines (1 of 2 - Risk 2-dose series) [facility] Start: 02-26-2008 Zoster Vaccines (1 o f 2) Zoster Vaccines (1 of 2) [facility] Start: 2007 Hepatitis C screening Hepatitis C Sc reening [facility] Start: 2007 MMR Vaccines (1 of 2 - Risk 2-dose series) MMR Vaccines (1 of 2 - Risk 2-dose series) [facility] Start: 2002 Varicella vaccination Varicell a Vaccines (1 of 2 - 13+ 2-dose series) [facility] Start: 04-05-2001 Varicella vaccination Varicell a Vaccines (1 of 2 - 2-dose childhood series) [facility] Start: 2001 Depression Screening Depression Scre ening [facility] Start: 1999 Diabetic foot examination Diabetes: Foot Exam [facility] Start: 1999 Glaucoma screening Diabetes: R etinopathy Screening [facility] Start: 1999 Preventive dental service Diabetes: Dental Exam [facility] Start: 1994 COVID-19 Vaccine (#1) COVID-19 Vacci ne (#1) [facility] Start: 1991 Meningococcal Vaccin e (1 - Risk 2-dose series) Meningococcal Vaccine (1 - Risk 2-dose series) [facility] Start: 1990 Varicella vaccination Varicell a Vaccines (1 of 2 - 2-dose childhood series) [facility] Start: 1989 COVID-19 Vaccine (#1) COVID-19 Vacci ne (#1) [facility] Start: 1989 Hemoglobin A1c measurement Diabetes: Hemoglobin A1C [facility] Start: 1989 Hepatitis B Vaccines (1 of 3 - 3-dose series) Hepatitis B Vaccines (1 of 3 - 3-dose series) [facility] Start: 1989 Lipid panel Lipid Panel [facility] Immunizations Immunization Date Immunization Notes Care Provider Fa cility 07-04-2023 influenza, injectabl e, quadrivalent, preservative free Gracy Omar DO Work Phone: [facility] 07-04-2023 influenza virus vaccine, unspecified formulation Gracy Omar DO Work Phone: [facility] 05-24-2014 influenza virus vaccine, unspecified formulation Atul Arndt MD Work Phone: [facility] 12-31-2013 hepatitis A and hepatitis B vaccine Atul Arndt MD Work Phone: [facility] 08-06-2013 pneumococcal conjuga te vaccine, 13 valent Sbh Ecg [facility] 08-06-2013 hepatitis A and hepatitis B vaccine Atul Arndt MD Work Phone: [facility] NEGATED: Highlighted row has not occurred!05-15-2023 Influenza, injectable, Madin Adrienne Canine Kidney, preservative free, quadrivalent Damaso Nesheim DO Work Phone: [facility] Comment on above: Deferred: Patient Re fused Payers Date Payer Category Payer Medicaid [id number] 2022 Unknown [id number] 2019 Unknown [id number] 2017 Unknown [id number] 2015 Unknown [id number] 1989 Unknown [id number] 1989 Unknown [id number] 1989 Unknown [id number] [id number] 1989 Unknown [id number] Social History Date Type Detail Facility Tobacco smoking status NHIS Smokes tobacc o daily [facility] History of tobacco use Cigarette Smoker S [facility] Start: 05-03-2023 End: 12-16-2023 Alcohol intake Current non-drinker of alcohol (finding) [facility] Start: 05-03-2023 End: 05-04-2023 Alcohol intake [facility] Start: 05-03-2023 End: 05-04-2023 Tobacco use panel [facility] Start: 1989 Sex Assigned At Not on file [facility] Start: 04-23-2023 End: 05-14-2023 Exposure to SARS-CoV-2 (event) Not sure [facility] How often to you hav e a drink containing alcohol? Never [facility] How many standard dr inks containing alcohol do you have on a typical day? Patient does not drink [facility] In the past 12 month s, was there a time when you were not able to pay the mortgage or rent on time? Yes [facility] How often to you hav e a drink containing alcohol? 2-3 time sa week [facility] How many standard dr inks containing alcohol do you have on a typical day? 3 or 4 [facility] Clinical Notes 05-04-2023 to 12-19-2024 [facility] Danny - 12/16/2023 3:52 AM EDTIndimery Seguraw - 12/16/2023 3:52 AM Acacia Melgar RN - 12/16/2023 3:51 AM EDTIndia Danny - 12/16/2023 3:50 AM EDTIndia Danny - 12/16/2023 3:49 AM EDT Note Date & Type Note Facility 12-19-2024 Note Case Management Care Plan Labs Viral Load: 1913 Date drawn: 05/09/2024 CD4: 50 Date drawn: 05/09/2024 Lab follow up needed: Patient was encouraged to get labs before leaving campus - patient reports unable to get labs today. Medication compliance Compliance: Patient has not been compliant with medication Prescribed ART: Biktarvy Barriers with medication: Patient report no barriers, however is not taking ART as prescribed. Mcm attempted to assess barriers, patient was not open to communication. Coverage Insurance: Medicaid [employer] program: Not enrolled in [employer] Supervisor: LORETA Housing: Unstable Type: Other - living with friends. Barriers to stable housing: Lack of income, limited supports. Referrals made: Patient educated about possible resources within patient area. Follow up plan: Mcm will continue to monitor. Utilities: NA Barriers to stable utilities: NA - not responsible for utilities. Referrals made: NA Follow up plan: Mcm will continue to monitor. Food: Patient reports food instability Barriers to stable food: Patient did not report any issues with foos stability, however has lost a considerable amount of weight. Referrals made: Patient educated, and offered meal vouchers, declined. Follow up plan: Mcm will continue to monitor. Behavioral Health Therapy: Patient has declined a referral for Behavioral Health services Therapist: LORETA Psychotropic Medication Management: Patient is not consistent with medication management services Prescriber: Halima Zhu Groups: Patient has declined referrals for groups Transportation Problems getting to medical appointments and/or medical needs met? No If yes, explain Resources provided Social Support: Patient reports lack of social support. Prevention for Positives PFP methods: [facility] reviewed Prevention for Positives information with patient., Patient understands U=U., MCM reviewed additional STI information. Patient was encouraged to take condoms. [facility] 12-19-2024 Note Immunization History Administered Date(s) Administered Hep A, Adult 09/07/2017, 04/19/2018 Influenza, Unspecified 05/29/2018 Influenza, injectable, quadrivalent, preservative free 06/07/2017, 09/11/2019 Influenza, seasonal, injectable 05/24/2014 Pneumococcal Conjugate PCV 13 04/09/2016, 08/27/2016 Pneumococcal Polysaccharide PPV23 11/02/2016 Tdap 11/02/2016 Subjective Constantin Galan is a 34 y.o. male who presents to the Infectious Disease clinic for follow-up of HIV infection. Constantin Galan was diagnosed in 2012 and has been on Biktarvy since 2019. Constantin Galan is feeling unchanged since his last visit. Patient states that he has been using methamphetamine and he has been losing weight and his teeth are breaking. Constantin W [place] >90% adherent with medication and tolerating it well. Remains sexually active and uses condoms for protection consistently. Denies nausea, vomiting, diarrhea, constipation, SOB, chest pain, fever, and rash. Risk Factors: MSM Past Medical History: Past Medical History: Diagnosis Date HIV disease ([facility]) 2012 STD (sexually transmitted disease) Varicella Rogelio had it when i was a kid Patient Active Problem List Diagnosis Bipolar I disorder ([facility]) Posttraumatic stress disorder Acute leg pain Autonomic neuropathy Back pain Chronic pain Hemorrhoids HIV (human immunodeficiency virus infection) ([facility]) Joint pain Migraine without aura Retention of urine Short stature disorder Syncope Severe stimulant use disorder ([facility]) Past Surgical History No past surgical history on file. Medications Current Outpatient Medications on File Prior to Visit Medication Sig Dispense Refill benztropine (Cogentin) 0.5 mg tablet Take 1 tablet (0.5 mg) by mouth two times daily. 60 tablet 2 cariprazine (Vraylar) 4.5 mg capsule TAKE 1 CAPSULE (3 MG) BY MOUTH IN THE MORNING. 30 capsule 2 ibuprofen 600 mg tablet Take 1 tablet (600 mg) by mouth every 6 (six) hours if needed for moderate pain (4-7 pain score) for up to 10 days. 40 tablet 0 [DISCONTINUED] nbmjapsvz-lpvvnypo-yaiosch ala (Biktarvy) 50-200-25 mg tablet Take one tablet by mouth per day. 30 tablet 3 ALPRAZolam (Xanax) 1 mg tablet Take 1 tablet (1 mg) by mouth if needed each day for anxiety. 30 tablet 0 baclofen (Lioresal) 20 mg tablet Take 1 tablet (20 mg) by mouth if needed at bedtime (Sleep). 30 tablet 2 [] clindamycin (Cleocin) 300 mg capsule Take 1 capsule (300 mg) by mouth three times daily for 7 days. 21 capsule 0 gabapentin (Neurontin) 100 mg capsule Take 1 capsule (100 mg) by mouth if needed in the morning, at noon, and at bedtime (Anxiety). 90 capsule 2 No current facility-administered medications on file prior to visit. Social History Socioeconomic History Marital status: Spouse name: None Number of children: None Years of education: None Highest education level: None Occupational History None Tobacco Use Smoking status: Every Day Current packs/day: 1.00 Average packs/day: 1 pack/day for 15.0 years (15.0 ttl pk-yrs) Types: Cigarettes Smokeless tobacco: Never Tobacco comments: Vape daily Vaping Use Vaping status: Never Used Substance and Sexual Activity Alcohol use: Not Currently Alcohol/week: 3.0 standard drinks of alcohol Types: 3 Cans of beer per week Drug use: Not Currently Types: Marijuana, Methamphetamines, Psilocybin Comment: Used crystal meth a week ago Sexual activity: Yes Partners: Male control/protection: None Other Topics Concern None Social History Narrative None Social Determinants of Health Financial Resource Strain: High Risk (11/23/2023) Overall Financial Resource Strain (CARDIA) Difficulty of Paying Living Expenses: Hard Food Insecurity: No Food Insecurity (12/09/2024) Received from [facility] Hunger Screening Within the past 12 months we worried whether our food would run out before we got money to buy more.: Never True Within the past 12 months the food we bought just didn't last and we didn't have money to get more.: Never True Transportation Needs: Unmet Transportation Needs (11/23/2023) Transportation Lack of Transportation (Medical): Yes Lack of Transportation (Non-Medical): Not on file Physical Activity: Not on file Stress: Not on file Social Connections: Not on file Intimate Partner Violence: At Risk (11/23/2023) Humiliation, Afraid, Rape, and Kick questionnaire Fear of Current or Ex-Partner: Yes Emotionally Abused: Not on file Physically Abused: Not on file Sexually Abused: Not on file Housing Stability: High Risk (11/23/2023) Housing Stability Vital Sign Unable to Pay for Housing in the Last Year: Yes Number of Times Moved in the Last Year: Not on file Homeless in the Last Year: Not on file Family History Family History Problem Relation Name Age of Onset Alcohol abuse Mother Keena Anxiety disorder Mother Keena Arthritis Mother (more content not included)... [facility] 12-19-2024 Note [place] [employer] met with patient on 12/19/24 manager reading and patient created patient Care Plan and discussed additional SDOH: Transportation: Patient has access to transport via own vehicle. Dental: Dental services were requested, patient was informed that he will have to utilize insurance, and if [facility] accepts insurance, he can seek services there. However, our dental assistance is currently limited to emergencies. Mcm asked if patient would like assistance with finding dental services. Patient did decline. Primary Care Provider: Declined referral Eligbility: Patient meets program eligibility., Application submitted this visit. [facility] 12-10-2024 Note Procedure Digital Block Performed by: Anand Bliss MD Authorized by: Anand Bliss MD Consent: Consent obtained: Verbal Consent given by: Patient Risks, benefits, and alternatives were discussed: yes Risks discussed: Infection, allergic reaction and unsuccessful block Alternatives discussed: No treatment [place] protocol: Procedure explained and questions answered to patient or proxy's satisfaction: yes Patient identity confirmed: Verbally with patient Indications: Indications: Pain relief Location: Block location: Finger Pre-procedure details: Neurovascular status: intact Skin preparation: Alcohol and antiseptic wash Procedure details: Syringe type: Controlled syringe Needle gauge: 25 G Anesthetic injected: Lidocaine 1% w/o epi Technique: Three-sided block Injection procedure: Anatomic landmarks identified, incremental injection, negative aspiration for blood, anatomic landmarks palpated and introduced needle Post-procedure details: Outcome: Anesthesia achieved Procedure completion: Tolerated well, no immediate complications Anand Bliss MD 12/14/[address] [facility] 12-10-2024 Note Procedure Incision and Drainage Performed by: Anand Bliss MD Authorized by: Anand Bliss MD Consent: Consent obtained: Verbal Consent given by: Patient Risks discussed: Bleeding, incomplete drainage and pain Alternatives discussed: No treatment [place] protocol: Procedure explained and questions answered to patient or proxy's satisfaction: yes Patient identity confirmed: Verbally with patient Location: Type: Abscess Size: 3 cm Location: Upper extremity Upper extremity location: Finger Finger location: L thumb Pre-procedure details: Skin preparation: Povidone-iodine Sedation: Sedation type: None Anesthesia: Anesthesia method: None Procedure type: Complexity: Simple Procedure details: Ultrasound guidance: no Needle aspiration: no Incision types: Single straight Incision depth: Dermal Drainage: Bloody and purulent Drainage amount: Moderate Wound treatment: Wound left open Packing materials: None Post-procedure details: Procedure completion: Tolerated well, no immediate complications Comments: Bilateral incision along the inferior cuticle edge of the left thumb to evacuate bloody purulent drainage from erasmo Bliss MD 12/14/[address] [facility] 11-12-2024 Note Patient called to re scheduled missed appointments with ID provider & and Mh provider. Patient was agreeable to have appointments scheduled on same day, patient informed that a new application will need to be completed during next clinic appointment. Patient agreeable. [facility] 10-30-2024 Note Outreach attempt - r eschedule missed appointment with the following providers ID & MH. Patient also is currently no eligible for program services. [facility] 10-23-2024 Note Outreach attempt reg arding missed appointments and program eligibility. 10/24/2024 patient will no longer being eligible for services after today (10/23/2024), unless application is completed and supportive documents submitted - if applicable. Mcm left VM. [facility] 10-18-2024 Note Mcm called patient r egarding the following : missed ID appointment, program eligibility is needed. Patient's application expires 10/24/2024 - which will make him not eligable for services. [facility] lvm. [facility] 10-03-2024 Note Outreach attempt to patient regarding missed clinic appointments as well as update eligibility documents. Patient reports not able to complete application via phone, and will complete it during ID appointment scheduled for 10/10/2024. [facility] 07-30-2024 Note [facility] attempted to bell l pt regarding missed appointment within clinic. Pt was encouraged to call [facility] to have missed appointment rescheduled. [facility] 06-26-2024 Note Attestation signed by Halima Wells NP at 06/29/2024 12:57 PM As the teaching Nurse Practitioner, I have personally performed or re-performed the history of present illness, physical exam and medical decision making activities of the encounter and verified the student's documentation. I made pertinent changes as necessary to ensure accurate documentation. Psych Progress Note Time In: 1523 Time Out: 1543 The primary encounter diagnosis was Substance use disorder. Diagnoses of Akathisia, Bipolar I disorder ([facility]), Primary insomnia, and Other long term care pharmacist (current) drug therapy were also pertinent to this visit. HPI Present at Visit: Attended session alone. Constantin was in the office for his medication management appointment. Location of Service: Office Focus: Mood instability Constantin said today ???has been hell???. He shared there has been a lot going on. He said he was in the emergency department because he had fallen into a hole. He shared that he had hit his head and injured his lower back. He said that he is feeling better from that incident. Constantin shared that he is still going to Recovery. He shared that he still resides with Aditya and Royce. He said that they started back on meth, but he has not. He shared that his relationship with Aditya is coming to an end as he believes Aditya is cheating on him. He described a recent situation when Aditya left him at a hotel after he got high. Constantin shared that he met another person over the weekend that has taken interest in him. He said he has not pursued or been involved with this sarbjit as he would feel like he was cheating on Aditya even though he got permission from Aditya to see other people. Constantin has recognized that Aditya triggers him to doing drugs. He said that Aditya has been emotionless, and he realizes that he is better off without him. Review medications with patient. Patient has been compliant with meds. Patient understands that a urine toxicology test is required in order to refill his Xanax. Patient has no further concerns or questions at this time. Current Presenting Symptoms/Problems: Mood: Good concentration Anxiety: Generalized worry Trauma/Abuse: No abuse reported Cognition: bereavement Sleep: Insomnia Lifestyle Habits: Attempts healthy eating, Regular exercise, and Structured routine of day Medication Compliance: Inconsistent Onset/Timing: Adolescence Context: Constantin substance use disorder began early in adolescence he believes that is related to his unstable childhood. Severity: Moderate to severe Therapeutic Interventions Provided: Assessed Mood, Assessed Thinking, Assessed Safety, Discussed Medications, Discussed rationale, risks, benefits and alternatives, Medications Discussed, Psychoeducation, and Symptoms monitoring Response to Intervention: Agreeable Overall Assessment of Progress: recent recovery OARRS: No concerns noted and Reviewed Mental Status Exam Level of Alertness: alert Appearance: appears stated age, clean, dressed appropriately, neat, and well-groomed Eye Contact: normal Build/Stature: thin and short Posture: good posture and relaxed Muscle Tone: normal Gait and Ambulation: coordinated and normal Attitude Toward Examiner: cooperative Behavior: normal Speech: clear, coherent reciprocal, normal, normal pitch, normal rate, normal rhythm, normal volume, and spontaneous Language: expressive normal and receptive normal Mood: anxious and depressed Affect: flat Thought Process: coherent, goal-directed, linear, logical, normal, and relevant Thought Content: intact Orientation: oriented to person, oriented to place, and oriented to time Attention and Concentration: able to appropriately shift attention, able to focus, able to sustain attention, and intact Memory: able to comment on events, conversation content appropriate, and intact Estimated Intelligence: average Insight: intact Judgement: social judgment impaired: Mild Reliability: reliability unclear Plan: Continue-Vraylar 4.5 mg daily Bipolar Continue- Benztropine 0.5 mg BID Akathisia Continue- Gabapentin 100 mg TID Anxiety Continue - Baclofen 20 mg nightly for insomnia Complete labs. Continue- Xanax 1 mg daily as needed for panic if Tox is screen is negative. Constantin knows to contact the office with any treatment concerns. Constantin will reschedule with me in 1 month to review his medications. He will begin psychotherapy as soon as possible [facility] 05-17-2024 Note ERROR [facility] 05-09-2024 Note You are not granted access to view this sensitive note. [facility] 04-26-2024 Note Mcm met with pt. Pt reports not changes since last in clinic. Was given a gas vouchers to assist with getting to and from appointment. Pt reports being aware he needs to mushroom picker ART. No additional concerns reported. [facility] 04-26-2024 Note Immunization History Administered Date(s) Administered Hep A, Adult 09/07/2017, 04/19/2018 Influenza, Unspecified 05/29/2018 Influenza, injectable, quadrivalent, preservative free 06/07/2017, 09/11/2019 Influenza, seasonal, injectable 05/24/2014 Pneumococcal Conjugate PCV 13 04/09/2016, 08/27/2016 Pneumococcal Polysaccharide PPV23 11/02/2016 Tdap 11/02/2016 Subjective Constantin Galan is a 34 y.o. male who presents to the Infectious Disease clinic for follow-up of HIV infection. Constantin Galan was diagnosed in 2012 and has been on Biktarvy since 2019. Constantin Galan is feeling unchanged since his last visit. Constantin Galan >90% adherent with medication and tolerating it well. Remains sexually active and uses condoms for protection consistently. Denies nausea, vomiting, diarrhea, constipation, SOB, chest pain, fever, and rash. Risk Factors: MSM Past Medical History: Past Medical History: Diagnosis Date HIV disease ([facility]) 2012 STD (sexually transmitted disease) Varicella Rogelio had it when i was a kid Patient Active Problem List Diagnosis Bipolar I disorder ([facility]) Posttraumatic stress disorder Acute leg pain Autonomic neuropathy Back pain Chronic pain Hemorrhoids HIV (human immunodeficiency virus infection) ([facility]) Joint pain Migraine without aura Retention of urine Short stature disorder Syncope Severe stimulant use disorder ([facility]) Past Surgical History No past surgical history on file. Medications Current Outpatient Medications on File Prior to Visit Medication Sig Dispense Refill benztropine (Cogentin) 0.5 mg tablet Take 1 tablet (0.5 mg) by mouth in the morning and at bedtime. 60 tablet 2 cariprazine (Vraylar) 4.5 mg capsule TAKE 1 CAPSULE (3 MG) BY MOUTH IN THE MORNING. 30 capsule 2 diazePAM (Valium) 5 mg tablet Take 1 tablet (5 mg) by mouth if needed for anxiety. 30 tablet 2 naltrexone ER (Vivitrol) injection Inject 4 mL (380 mg) into the shoulder, thigh, or buttocks every 28 (twenty-eight) days. 1.2 each 5 traZODone (Desyrel) 50 mg tablet TAKE 1 TABLET (50 MG) BY MOUTH AT BEDTIME NEEDED FOR SLEEP 30 tablet 2 buPROPion XL (Wellbutrin XL) 150 mg 24 hr tablet TAKE 1 TABLET (150 MG) BY MOUTH IN THE MORNING. DO NOT CRUSH, CHEW, OR SPLIT. 30 tablet 2 gabapentin (Neurontin) 100 mg capsule Take 1 capsule (100 mg) by mouth if needed in the morning, at noon, and at bedtime (Anxiety). 90 capsule 2 No current facility-administered medications on file prior to visit. Social History Socioeconomic History Marital status: Spouse name: None Number of children: None Years of education: None Highest education level: None Occupational History None Tobacco Use Smoking status: Every Day Packs/day: 1.00 Years: 15.00 Additional pack years: 0.00 Total pack years: 15.00 Types: Cigarettes Smokeless tobacco: Never Tobacco comments: Vape daily Vaping Use Vaping Use: Never used Substance and Sexual Activity Alcohol use: Yes Alcohol/week: 3.0 standard drinks of alcohol Types: 3 Cans of beer per week Drug use: Yes Types: Marijuana, Methamphetamines, Psilocybin Comment: Used crystal meth a week ago Sexual activity: Yes Partners: Male control/protection: None Other Topics Concern None Social History Narrative None Social Determinants of Health Financial Resource Strain: High Risk (11/23/2023) Overall Financial Resource Strain (CARDIA) Difficulty of Paying Living Expenses: Hard Food Insecurity: No Food Insecurity (11/23/2023) Hunger Vital Sign Worried About Running Out of Food in the Last Year: Never true Ran Out of Food in the Last Year: Not on file Transportation Needs: Unmet Transportation Needs (11/23/2023) Transportation Lack of Transportation (Medical): Yes Lack of Transportation (Non-Medical): Not on file Physical Activity: Not on file Stress: Not on file Social Connections: Not on file Intimate Partner Violence: At Risk (11/23/2023) Humiliation, Afraid, Rape, and Kick questionnaire Fear of Current or Ex-Partner: Yes Emotionally Abused: Not on file Physically Abused: Not on file Sexually Abused: Not on file Housing Stability: High Risk (11/23/2023) Housing Stability Vital Sign Unable to Pay for Housing in the Last Year: Yes Number of Places Lived in the Last Year: Not on file Unstable Housing in the Last Year: Yes Family History Family History Problem Relation Name Age of Onset Alcohol abuse Mother Keena Anxiety disorder Mother Keena Arthritis Mother Keena Cancer Mother Keena COPD Mother Keena Depression Mother Keena Diabetes Mother Keena Drug abuse Mother Keena Hypertension Mother Keena Kidney disease Mother Keena Mental illness Mother Keena Suicide Attempts Mother Keena Alcohol abuse Father Rogelio Allergies No Known Allergies Review of Systems Constitutional: Negative. HENT: Negative. Eyes: Negative. Respirato (more content not included)... [facility] 04-10-2024 Note Missed appointments, unable to contact and complete eligibility documents. [facility] 12-16-2023 Emergency department Note Pt is now off ED BH unit [facility] Danny 12/16/23 0352 [facility] 12-16-2023 Emergency department Note Pt is now off ED BH unit [facility] Danny 12/16/23 035 Patient was cleared by Dr. ARNDT. Patient report was given to Gerardo WARD and transported back to [facility]. Patient left in no apparent distress. Flaco Melgar RN 12/16/23 035 Pt walked out to cot by Flaco WARD Pt packaged with 5 straps and 2 rails to ensure safety [facility] Danny 12/16/23 035 transport arrived to take pt back to [facility] 1 bag [facility] Danny 12/16/23 0349 Pt activated call light, Alvarado Brush answered it. Pt asked for something to eat. Given bagged lunch [facility] Danny 12/16/23 0316 Activated call light, SYLVIA Sam answered it. Pt asked for coca cola, given. Leeann Danny 12/16/23 0310 SYLVIA Sam at patient bedside MONSE Trcay 12/16/23 0239 EKG at patient bedside MONSE Tracy 12/16/[address] Arndt at patient bedside MONSE Tracy 12/16/[address] Rivera at patient bedside MONSE Tracy 12/16/23 0058 Registration at patient bedside MONSE Tracy 12/16/23 0051 Given coca cola and warm blanket Leeann Danny 12/16/23 0046 Patient has one bag of belongings. Patient was placed into two hospital gowns and wanded by protective services. MONSE Tracy 12/16/23 0032 MONSE Tracy 12/16/23 0028 MONSE Tracy 12/16/23 0028 Emergency Department Encounter [facility] EMERGENCY DEPT Patient: Constantin Galan : 1990 Date of Evaluation: 12/16/2023 ED Supervising Physician: Atul Arndt MD I independently examined and evaluated Constantin Galan. This will serve as my Supervisory note and shared attestation. I did perform a substantive portion of the visit including all aspects of the Medical Decision Making. I wore appropriate PPE for the entirety of this encounter. In brief, Constantin Galan is a 33 y.o. that presents to the emergency department with hallucinations. He last used meth a week ago. He denies any SI or HI. He denies any medical complaints. He presented from [facility] for medical clearance. Focused exam: [id number], no acute distress, nontoxic-appearing HEENT- atraumatic, normocephalic Neck- no meningismus, no obvious masses Respiratory- no accessory muscle use, no respiratory distress Cardiovascular- well perfused MSK- normal muscle bulk, no gross deformities Skin- non-diaphoretic, no obvious rashes or lesions Neuro- alert, answering questions appropriately, CN2-12 grossly intact, moving all extremities Psych- calm, cooperative. Does not appear to be responding to internal stimuli. EKG interpreted by me: 12-16-2023. Time 0120. Rate 73 normal sinus rhythm. Normal axis. GA interval 122, QRS 75, QTc 396. No STEMI. Independent historians: Imaging interpreted by me: Social determinants affecting care: meth use Escalation of care, appropriate for: transfer to [facility] Brief ED course/MDM: 33-year-old male presenting for medical clearance for psychiatric admission at [facility]. His labs were reassuring. I had a low suspicion for meningitis or encephalitis in this patient given the clinical picture. He was afebrile. He has a history of meth use. I believe his presentation is likely related to the meth use. He was medically cleared for it transfer to [facility] for psychiatric admission. All diagnostic, treatment, and disposition decisions were made by myself in conjunction with the Resident. I also supervised dahl portions of any procedures performed by the Resident. For all further details of the patient's emergency department visit, please see their documentation. (Comment: Please note this report has been produced using speech recognition software and may contain errors related to that system including errors in grammar, punctuation, and spelling, as well as words and phrases that may be inappropriate. If there are any questions or concerns please feel free to contact the dictating provider for clarification.) Atul Arndt MD Acute Care [facility] Atul Arndt MD 12/16/23 0147 Patient was sent from [facility] for medical clearance. Patient is having symptoms of psychosis and racing thoughts. Patient is having racing thoughts. Patient is hearing voices. documented in this encounter [facility] 12-16-2023 Emergency department Note Patient was cleared by Dr. ARNDT. Patient report was given to Gerardo WARD and transported back to [facility]. Patient left in no apparent distress. Flaco Melgar RN 12/16/23 0352 [facility] 12-16-2023 Emergency department Note Pt walked out to cot by Flaco WARD Pt packaged with 5 straps and 2 rails to ensure safety [facility] Danny 12/16/23 0351 [facility] 12-16-2023 Emergency department Note DM transport arrived to take pt back to [facility] 1 bag [facility] Danny 12/16/23 0349 [facility] 12-16-2023 Emergency department Note Pt activated call lightAlvarado answered it. Pt asked for something to eat. Given bagged lunch [facility] 12/16/23 0316 [facility] 12-16-2023 Emergency department Note Activated call light, SYLVIA Sam answered it. Pt asked for coca cola, given. [facility] 12/16/23 0310 [facility] 12-16-2023 Emergency department Note [facility]LVIA [facility] 12/16/23 0239 [facility] 12-16-2023 Note Patient was sent fro [facility] for medical clearance. Patient is having symptoms of psychosis and racing thoughts. Patient is having racing thoughts. Patient is hearing voices. [facility] 12-16-2023 Emergency department Note EKG at patient bedside MONSE Tracy 12/16/23 0119 [facility] 12-16-[address] Arndt at patient bedside MONSE Tracy 12/16/23 0112 [facility] 12-16-2023 Note NOTE: This result is for medical treatment only. Analysis performed using non-forensic procedures. [facility] 12-16-[address] Rivera at patient bedside MONSE Tracy 12/16/23 0058 [facility] 12-16-2023 Emergency department Note Registration at patient bedside MONSE Tracy 12/16/23 0051 [facility] 12-16-2023 Emergency department Note Given coca cola and warm blanket Leeann Delgado 12/16/23 0046 [facility] 12-16-2023 Emergency department Note Patient has one bag of belongings. Patient was placed into two hospital gowns and wanded by protective services. MONSE Tracy 12/16/23 0032 [facility] 12-16-2023 Emergency department Note MONSE Tracy 12/16/23 0028 MONSE Tracy 12/16/23 0028 [facility] 12-16-2023 Emergency department Triage note Patient was sent from [facility] for medical clearance. Patient is having symptoms of psychosis and racing thoughts. Patient is having racing thoughts. Patient is hearing voices. [facility] 12-16-2023 Physician Emergency department Note Emergency Department Encounter [facility] EMERGENCY DEPT Patient: Constantin Galan : 1990 Date of Evaluation: 12/16/2023 ED Supervising Physician: Atul Arndt MD I independently examined and evaluated Constantin Galan. This will serve as my Supervisory note and shared attestation. I did perform a substantive portion of the visit including all aspects of the Medical Decision Making. I wore appropriate PPE for the entirety of this encounter. In brief, Constantin Galan is a 33 y.o. that presents to the emergency department with hallucinations. He last used meth a week ago. He denies any SI or HI. He denies any medical complaints. He presented from [facility] for medical clearance. Focused exam: [id number], no acute distress, nontoxic-appearing HEENT- atraumatic, normocephalic Neck- no meningismus, no obvious masses Respiratory- no accessory muscle use, no respiratory distress Cardiovascular- well perfused MSK- normal muscle bulk, no gross deformities Skin- non-diaphoretic, no obvious rashes or lesions Neuro- alert, answering questions appropriately, CN2-12 grossly intact, moving all extremities Psych- calm, cooperative. Does not appear to be responding to internal stimuli. EKG interpreted by me: 12-16-2023. Time 0120. Rate 73 normal sinus rhythm. Normal axis. GA interval 122, QRS 75, QTc 396. No STEMI. Independent historians: Imaging interpreted by me: Social determinants affecting care: meth use Escalation of care, appropriate for: transfer to [facility] Brief ED course/MDM: 33-year-old male presenting for medical clearance for psychiatric admission at [facility]. His labs were reassuring. I had a low suspicion for meningitis or encephalitis in this patient given the clinical picture. He was afebrile. He has a history of meth use. I believe his presentation is likely related to the meth use. He was medically cleared for it transfer to [facility] for psychiatric admission. All diagnostic, treatment, and disposition decisions were made by myself in conjunction with the Resident. I also supervised dahl portions of any procedures performed by the Resident. For all further details of the patient's emergency department visit, please see their documentation. (Comment: Please note this report has been produced using speech recognition software and may contain errors related to that system including errors in grammar, punctuation, and spelling, as well as words and phrases that may be inappropriate. If there are any questions or concerns please feel free to contact the dictating provider for clarification.) Atul Arndt MD [employer] Atul Arndt MD 12/16/23 0147 [employer] Phone: 08-19-2023 Telephone encounter Note Called for ns policy - RD [facility] 08-19-2023 Miscellaneous Notes Called for ns policy - RD documented in this encounter [facility] 07-07-2023 Note [facility] EMG/NCS report: Patient: Constantin Galan AGE: 33 y.o. Handedness: Right Gender: Male Referring physician: Gracy Nelson DO Study date: 07/07/23 Reason for referral: Patient presents with paresthesias in the left arm and hand more than the right side. EMG/nerve conduction study of the bilateral upper extremities is done to evaluate for mononeuropathy affecting the right or left upper extremity versus right or left cervical radiculopathy. Summary: The right median sensory nerve action potential was unremarkable. The right ulnar sensory nerve action potential was unremarkable. The left median sensory nerve action potential was unremarkable. The left ulnar sensory nerve action potential was unremarkable. The right median to ulnar palmar comparison mixed nerve action potential was unremarkable. The left median to ulnar palmar comparison mixed nerve action potential was unremarkable. The right radial sensory nerve action potential was unremarkable. The left radial sensory nerve action potential was unremarkable. The right median to ulnar ring finger comparison study was unremarkable. The left median to ulnar ring finger comparison study was unremarkable. The right median to APB compound muscle action potential was unremarkable. The left median to APB compound muscle action potential was unremarkable. The right ulnar to ADM compound muscle action potential was unremarkable. The left ulnar to ADM compound muscle action potential was unremarkable. The right ulnar to FDI compound muscle action potential was unremarkable. The left ulnar to FDI compound muscle action potential was unremarkable. Concentric needle EMG was performed in the bilateral upper extremities. No increased insertional activity, fibrillation potentials, fasciculation potentials or positive sharp waves were seen in any muscle tested. Motor unit action potentials demonstrated normal morphology and firing pattern throughout. Impression: This is a normal study. There is no electrophysiological evidence of a mononeuropathy affecting the right or left upper extremity on this study. There is also no evidence of a right or left-sided cervical radiculopathy on this study. All normal values/reference values for this study were taken from the [facility] reference values which were created in 2019. This dictation was done by using the [employer] dictation system. It has been proofread but still may contain unrecognized voice recognition errors. [facility] 07-07-2023 Procedure note Associated Ord er(s): NERVE CONDUCTION TEST WITH EMG [facility] EMG/NCS report: Patient: Constantin Galan AGE: 33 y.o. Handedness: Right Gender: Male Referring physician: Gracy Nelson DO Study date: 07/07/23 Reason for referral: Patient presents with paresthesias in the left arm and hand more than the right side. EMG/nerve conduction study of the bilateral upper extremities is done to evaluate for mononeuropathy affecting the right or left upper extremity versus right or left cervical radiculopathy. Summary: The right median sensory nerve action potential was unremarkable. The right ulnar sensory nerve action potential was unremarkable. The left median sensory nerve action potential was unremarkable. The left ulnar sensory nerve action potential was unremarkable. The right median to ulnar palmar comparison mixed nerve action potential was unremarkable. The left median to ulnar palmar comparison mixed nerve action potential was unremarkable. The right radial sensory nerve action potential was unremarkable. The left radial sensory nerve action potential was unremarkable. The right median to ulnar ring finger comparison study was unremarkable. The left median to ulnar ring finger comparison study was unremarkable. The right median to APB compound muscle action potential was unremarkable. The left median to APB compound muscle action potential was unremarkable. The right ulnar to ADM compound muscle action potential was unremarkable. The left ulnar to ADM compound muscle action potential was unremarkable. The right ulnar to FDI compound muscle action potential was unremarkable. The left ulnar to FDI compound muscle action potential was unremarkable. Concentric needle EMG was performed in the bilateral upper extremities. No increased insertional activity, fibrillation potentials, fasciculation potentials or positive sharp waves were seen in any muscle tested. Motor unit action potentials demonstrated normal morphology and firing pattern throughout. Impression: This is a normal study. There is no electrophysiological evidence of a mononeuropathy affecting the right or left upper extremity on this study. There is also no evidence of a right or left-sided cervical radiculopathy on this study. All normal values/reference values for this study were taken from the [facility] reference values which were created in 2019. This dictation was done by using the [employer] dictation system. It has been proofread but still may contain unrecognized voice recognition errors. [employer] Phone: 07-07-2023 Procedure note Associated Ord er(s): NERVE CONDUCTION TEST WITH EMG [facility] EMG/NCS report: Patient: Constantin Galan AGE: 33 y.o. Handedness: Right Gender: Male Referring physician: Gracy Nelson DO Study date: 07/07/23 Reason for referral: Patient presents with paresthesias in the left arm and hand more than the right side. EMG/nerve conduction study of the bilateral upper extremities is done to evaluate for mononeuropathy affecting the right or left upper extremity versus right or left cervical radiculopathy. Summary: The right median sensory nerve action potential was unremarkable. The right ulnar sensory nerve action potential was unremarkable. The left median sensory nerve action potential was unremarkable. The left ulnar sensory nerve action potential was unremarkable. The right median to ulnar palmar comparison mixed nerve action potential was unremarkable. The left median to ulnar palmar comparison mixed nerve action potential was unremarkable. The right radial sensory nerve action potential was unremarkable. The left radial sensory nerve action potential was unremarkable. The right median to ulnar ring finger comparison study was unremarkable. The left median to ulnar ring finger comparison study was unremarkable. The right median to APB compound muscle action potential was unremarkable. The left median to APB compound muscle action potential was unremarkable. The right ulnar to ADM compound muscle action potential was unremarkable. The left ulnar to ADM compound muscle action potential was unremarkable. The right ulnar to FDI compound muscle action potential was unremarkable. The left ulnar to FDI compound muscle action potential was unremarkable. Concentric needle EMG was performed in the bilateral upper extremities. No increased insertional activity, fibrillation potentials, fasciculation potentials or positive sharp waves were seen in any muscle tested. Motor unit action potentials demonstrated normal morphology and firing pattern throughout. Impression: This is a normal study. There is no electrophysiological evidence of a mononeuropathy affecting the right or left upper extremity on this study. There is also no evidence of a right or left-sided cervical radiculopathy on this study. All normal values/reference values for this study were taken from the [facility] reference values which were created in 2019. This dictation was done by using the [employer] dictation system. It has been proofread but still may contain unrecognized voice recognition errors. documented in this encounter [facility] 07-06-2023 History of Present illness Narrative Images from the original note were not included. [facility] [address] [facility] [address] Dept: [phone] Dept Loc: [phone] Visit type: New patient Reason for Visit: Other and Spots and/or Floaters Assessment and Plan Problem List Items Addressed This Visit Eye/Vision problems Floaters in visual field, bilateral Relevant Orders [facility] Ophthalmology Clinic 202 No retinal tears or heme ou Plan: RV 6 weeks, recheck peripheral retina for any tears. Signs and sx of retinal detachment etc in high myopes discussed with pt who understands and will call for any changes in his vision Subjective HPI Pt here today with c/o seeing yellow spots and flashing lights x 2 weeks. Also c/o headaches. Pt dx with HIV January 2013. Last EE x 2 years ago. Pt had muscle surgery in right eye (OD) as a child. JLK Last edited by Jericho Alba on 07/06/2023 9:39 AM. ROS Positive for: Eyes Last edited by Jericho Alba on 07/06/2023 9:39 AM. No Known Allergies Current Outpatient Medications Medication Sig Dispense Refill azithromycin (Zithromax) 600 MG tablet Take 2 tablets (1,200 mg) by mouth 1 (one) time per week for 3 doses. 6 tablet 0 cyanocobalamin (Vitamin B-12) 1000 MCG tablet Take 1 tablet (1,000 mcg) by mouth daily. 30 tablet 0 fluticasone (Flonase) 50 MCG/ACT nasal spray Administer 2 sprays into each nostril daily. Shake gently. Before first use, prime pump. After use, clean tip and replace cap. 16 g 11 loratadine (Claritin) 10 MG tablet Take 1 tablet (10 mg) by mouth Daily as needed for allergies. 30 tablet 11 sulfamethoxazole-trimethoprim (Bactrim DS) 800-160 MG tablet Take 1 tablet by mouth three times a week. 21 tablet 0 No current facility-administered medications for this encounter. Past Medical History: Diagnosis Date Altered mental status 06/25/2017 Back injury HIV (human immunodeficiency virus infection) (HCC) 01/2013 Right leg pain since childhood Syncope and collapse 05/04/2023 Social History Tobacco Use Smoking status: Every Day Packs/day: 1 Types: Cigarettes Smokeless tobacco: Never Substance Use Topics Alcohol use: No Alcohol/week: 0.0 standard drinks of alcohol Past Surgical History: Procedure Laterality Date CHOLECYSTECTOMY OTHER SURGICAL HISTORY for projectile vomiting and feeding tube at Family History Problem Relation Name Age of Onset Heart attack Mother x4 Diabetes Mother Thyroid disease Mother Cancer Mother Type unknown Objective Base Eye Exam Visual Acuity (Snellen - Linear) Right Left Dist cc 20/50 +1 20/30 +1 Dist ph cc 20/50 +2 Near cc 20/30 20/20 Tonometry (Applanation, 9:39 AM) Right Left Pressure 13 14 Pupils Dark Light Right 3mm 2mm Left 3mm 2mm Visual Bonilla Right Left Full Full Extraocular Movement Right Left Full, Ortho Full, Ortho When looks toward nose slight cross. Pt did have muscle surgery as a child. Neuro/Psych Oriented x3: Yes Mood/Affect: Normal Dilation Both eyes: 2.5% Phenylephrine, 1.0% Tropicamide @ 9:39 AM Slit Lamp and Fundus Exam Slit Lamp Exam Right Left Lids/Lashes Normal Conjunctiva/Sclera White and quiet Cornea Clear Anterior Chamber Deep and quiet Iris Round and reactive Lens Clear Anterior Vitreous Normal Fundus Exam Right Left Disc Normal Normal C/D Ratio 0.2 0.2 Macula Normal Normal Vessels Normal Normal Periphery Normal Normal Refraction Wearing Rx Sphere Cylinder [place] Add Right -6.50 +1.00 088 None Left -9.50 +0.75 073 None Age: 1-2yrs Type: Distance Manifest Refraction Sphere Cylinder [place] Dist VA Add Near VA Right -7.00 +1.25 105 20/30 None 20/30 Left -9.50 +1.25 075 20/30 None 20/20 Final Rx Sphere Cylinder [place] Dist VA Add Near VA Right -7.00 +1.25 105 20/30 None 20/30 Left -9.50 +1.25 075 20/30 None 20/20 Type: Distance Expiration Date: 07/06/2025 Data Reviewed and Summarized The patient will need the following test completed on: 07/06/2023 1. [facility] Op[facility]mology Clinic Diagnosis: Floaters in visual field, bilateral (H43.393) Authorizing Provider: DO Joi Goss MD documented in this encounter [facility] 07-04-2023 Evaluation + Plan note Associated Problem(s): Brain fog - Ongoing for past few weeks - Reports cognitive slowing and difficulty with memory - Recent CT head was negative for acute process - Recent TSH wnl - Suspect this may be multifactorial, differential includes cognitive impairment from uncontrolled HIV, vitamin B12 deficiency, uncontrolled anxiety/depression - Continue repletion of vitamin B12 levels, recheck next visit - Counseled on importance of establishing with [facility] and initiating HAART for his HIV - Reassess symptoms at follow up and evaluate further for symptoms of anxiety and depression [facility] 07-04-2023 Miscellaneous Notes Associated Problem(s): Brain fog - Ongoing for past few weeks - Reports cognitive slowing and difficulty with memory - Recent CT head was negative for acute process - Recent TSH wnl - Suspect this may be multifactorial, differential includes cognitive impairment from uncontrolled HIV, vitamin B12 deficiency, uncontrolled anxiety/depression - Continue repletion of vitamin B12 levels, recheck next visit - Counseled on importance of establishing with [facility] and initiating HAART for his HIV - Reassess symptoms at follow up and evaluate further for symptoms of anxiety and depression Associated Problem(s): Chronic cough - Present for ~2 years, though feels may be worsening recently - No fevers, SOB, recent CXR negative for acute process, lungs clear on exam - low suspicion for infectious etiology at this time - Etiology possibly due to postnasal drip vs asthma vs GERD - Will trial daily antihistamine and intranasal steroids - If ineffective, will do further workup including PFTs, may consider trial of PPI Associated Problem(s): Human immunodeficiency virus (HIV) disease (HCC) - Chronic, uncontrolled - Last CD4 count 54 on 05/04/23 - Previously has been on anti-retroviral therapy but has been off this for many years - Counseled on the importance of establishing with the [facility] for initiation of treatment as his uncontrolled HIV is likely contributing to many of his symptoms - Continue Bactrim and Azithromycin for PCP, toxo and MAC prophylaxis - Provided with [facility] phone number in AVS Associated Problem(s): Floaters in visual field, bilateral - Intermittent for past few days - Etiology unclear, possibly due to migraine vs intrinsic ocular pathology - Recent CT head negative for acute process - Refer to ophthalmology for thorough eye and retinal examination Associated Problem(s): Numbness and tingling in left arm - Etiology still unclear at this time, also having some numbness in right hand and distal LE but most pronounced in left arm - Differential includes neuropathy from HIV and/or B12 deficiency vs atypical migraine symptoms vs panic attacks vs cervical radiculopathy vs thoracic outlet syndrome - Normal pulses in all extremities on exam, no neck tenderness - Recent TSH wnl, RPR negative, LUE duplex negative for DVT - Recent CT head negative for any lesions or acute process - Will check nerve conduction studies of b/l UE - Continue to treat vitamin B12 deficiency and advised to call [facility] to establish and initiate HIV treatment Associated Problem(s): B12 deficiency - Found to have low vitamin B12 level of 226 on 06/24/23 while in the hospital - Since levels are not severely low it is unlikely that this is the cause of all of his neurological symptoms but could be a contributing factor - Will give IM vitamin B12 injection in office today to ensure adequate repletion - Also continue PO vitamin B12 supplement, refills sent - Recheck levels and CBC at follow up appointment in 2 months documented in this encounter [facility] 07-04-2023 Miscellaneous Notes Associated Problem(s): Brain fog - Ongoing for past few weeks - Reports cognitive slowing and difficulty with memory - Recent CT head was negative for acute process - Recent TSH wnl - Suspect this may be multifactorial, differential includes cognitive impairment from uncontrolled HIV, vitamin B12 deficiency, uncontrolled anxiety/depression - Continue repletion of vitamin B12 levels, recheck next visit - Counseled on importance of establishing with [facility] and initiating HAART for his HIV - Reassess symptoms at follow up and evaluate further for symptoms of anxiety and depression Associated Problem(s): Chronic cough - Present for ~2 years, though feels may be worsening recently - No fevers, SOB, recent CXR negative for acute process, lungs clear on exam - low suspicion for infectious etiology at this time - Etiology possibly due to postnasal drip vs asthma vs GERD - Will trial daily antihistamine and intranasal steroids - If ineffective, will do further workup including PFTs, may consider trial of PPI Associated Problem(s): Human immunodeficiency virus (HIV) disease (HCC) - Chronic, uncontrolled - Last CD4 count 54 on 05/04/23 - Previously has been on anti-retroviral therapy but has been off this for many years - Counseled on the importance of establishing with the [facility] for [facility] of treatment as his uncontrolled HIV is likely contributing to many of his symptoms - Continue Bactrim and Azithromycin for PCP, toxo and MAC prophylaxis - Provided with [facility] phone number in AVS Associated Problem(s): Floaters in visual field, bilateral - Intermittent for past few days - Etiology unclear, possibly due to migraine vs intrinsic ocular pathology - Recent CT head negative for acute process - Refer to ophthalmology for thorough eye and retinal examination Associated Problem(s): Numbness and tingling in left arm - Etiology still unclear at this time, also having some numbness in right hand and distal LE but most pronounced in left arm - Differential includes neuropathy from HIV and/or B12 deficiency vs atypical migraine symptoms vs panic attacks vs cervical radiculopathy vs thoracic outlet syndrome - Normal pulses in all extremities on exam, no neck tenderness - Recent TSH wnl, RPR negative, LUE duplex negative for DVT - Recent CT head negative for any lesions or acute process - Will check nerve conduction studies of b/l UE - Continue to treat vitamin B12 deficiency and advised to call [facility] to establish and initiate HIV treatment Associated Problem(s): B12 deficiency - Found to have low vitamin B12 level of 226 on 06/24/23 while in the hospital - Since levels are not severely low it is unlikely that this is the cause of all of his neurological symptoms but could be a contributing factor - Will give IM vitamin B12 injection in office today to ensure adequate repletion - Also continue PO vitamin B12 supplement, refills sent - Recheck levels and CBC at follow up appointment in 2 months Addended by: GRACY NELSON on: 07/06/2023 09:01 AM Modules accepted: Level of Service documented in this encounter [facility] 07-04-2023 Evaluation + Plan note Associated Problem(s): Chronic cough - Present for ~2 years, though feels may be worsening recently - No fevers, SOB, recent CXR negative for acute process, lungs clear on exam - low suspicion for infectious etiology at this time - Etiology possibly due to postnasal drip vs asthma vs GERD - Will trial daily antihistamine and intranasal steroids - If ineffective, will do further workup including PFTs, may consider trial of PPI [facility] 07-04-2023 Evaluation + Plan note Associated Problem(s): Human immunodeficiency virus (HIV) disease (HCC) - Chronic, uncontrolled - Last CD4 count 54 on 05/04/23 - Previously has been on anti-retroviral therapy but has been off this for many years - Counseled on the importance of establishing with the [facility] for initiation of treatment as his uncontrolled HIV is likely contributing to many of his symptoms - Continue Bactrim and Azithromycin for PCP, toxo and MAC prophylaxis - Provided with [facility] phone number in AVS [facility] 07-04-2023 Evaluation + Plan note Associated Problem(s): Floaters in visual field, bilateral - Intermittent for past few days - Etiology unclear, possibly due to migraine vs intrinsic ocular pathology - Recent CT head negative for acute process - Refer to ophthalmology for thorough eye and retinal examination [facility] 07-04-2023 Evaluation + Plan note Associated Problem(s): Numbness and tingling in left arm - Etiology still unclear at this time, also having some numbness in right hand and distal LE but most pronounced in left arm - Differential includes neuropathy from HIV and/or B12 deficiency vs atypical migraine symptoms vs panic attacks vs cervical radiculopathy vs thoracic outlet syndrome - Normal pulses in all extremities on exam, no neck tenderness - Recent TSH wnl, RPR negative, LUE duplex negative for DVT - Recent CT head negative for any lesions or acute process - Will check nerve conduction studies of b/l UE - Continue to treat vitamin B12 deficiency and advised to call [facility] to establish and initiate HIV treatment [facility] 07-04-2023 Evaluation + Plan note Associated Problem(s): B12 deficiency - Found to have low vitamin B12 level of 226 on 06/24/23 while in the hospital - Since levels are not severely low it is unlikely that this is the cause of all of his neurological symptoms but could be a contributing factor - Will give IM vitamin B12 injection in office today to ensure adequate repletion - Also continue PO vitamin B12 supplement, refills sent - Recheck levels and CBC at follow up appointment in 2 months [facility] 07-04-2023 Note Addended by: GRACY MOTA on: 07/06/2023 09:01 AM Modules accepted: Level of Service [facility] 07-04-2023 History of Present illness Narrative Images from the original note were not included. [facility] [address] [place] [id number] Dept: [phone] Dept Loc: [phone] 07/04/2023 Visit type: inpatient follow up Reason for Visit: Hospital Follow-up (Arm tight, cough, chest pains, sob, meds for hiv) ASSESSMENT/PLAN 1. Numbness and tingling in left arm Assessment & Plan: - Etiology still unclear at this time, also having some numbness in right hand and distal LE but most pronounced in left arm - Differential includes neuropathy from HIV and/or B12 deficiency vs atypical migraine symptoms vs panic attacks vs cervical radiculopathy vs thoracic outlet syndrome - Normal pulses in all extremities on exam, no neck tenderness - Recent TSH wnl, RPR negative, LUE duplex negative for DVT - Recent CT head negative for any lesions or acute process - Will check nerve conduction studies of b/l UE - Continue to treat vitamin B12 deficiency and advised to call [facility] to establish and initiate HIV treatment Orders: - Nerve conduction test with EMG 2. B12 deficiency Assessment & Plan: - Found to have low vitamin B12 level of 226 on 06/24/23 while in the hospital - Since levels are not severely low it is unlikely that this is the cause of all of his neurological symptoms but could be a contributing factor - Will give IM vitamin B12 injection in office today to ensure adequate repletion - Also continue PO vitamin B12 supplement, refills sent - Recheck levels and CBC at follow up appointment in 2 months Orders: - cyanocobalamin (Vitamin B-12) 1000 MCG tablet; Take 1 tablet (1,000 mcg) by mouth daily., Starting Tue07/04/2023, Normal - cyanocobalamin (Vitamin B-12) injection 1,000 mcg; 1,000 mcg, IntraMUSCular, Once, On Tue07/04/23 at 1130, For 1 dose 3. Floaters in visual field, bilateral Assessment & Plan: - Intermittent for past few days - Etiology unclear, possibly due to migraine vs intrinsic ocular pathology - Recent CT head negative for acute process - Refer to ophthalmology for thorough eye and retinal examination Orders: - [facility] 4. Human immunodeficiency virus (HIV) disease (HCC) Assessment & Plan: - Chronic, uncontrolled - Last CD4 count 54 on 05/04/23 - Previously has been on anti-retroviral therapy but has been off this for many years - Counseled on the importance of establishing with the [facility] for initiation of treatment as his uncontrolled HIV is likely contributing to many of his symptoms - Continue Bactrim and Azithromycin for PCP, toxo and MAC prophylaxis - Provided with [facility] phone number in AVS Orders: - azithromycin (Zithromax) 600 MG tablet; Take 2 tablets (1,200 mg) by mouth 1 (one) time per week for 3 doses., Starting Tue07/04/2023, Until Tue07/19/2023, Normal - sulfamethoxazole-trimethoprim (Bactrim DS) 800-160 MG tablet; Take 1 tablet by mouth three times a week., Starting Tue07/04/2023, Normal 5. Chronic cough Assessment & Plan: - Present for ~2 years, though feels may be worsening recently - No fevers, SOB, recent CXR negative for acute process, lungs clear on exam - low suspicion for infectious etiology at this time - Etiology possibly due to postnasal drip vs asthma vs GERD - Will trial daily antihistamine and intranasal steroids - If ineffective, will do further workup including PFTs, may consider trial of PPI Orders: - loratadine (Claritin) 10 MG tablet; Take 1 tablet (10 mg) by mouth Daily as needed for allergies., Starting Tue07/04/2023, Until Tue07/03/2024 at 2359, Normal - fluticasone (Flonase) 50 MCG/ACT nasal spray; Administer 2 sprays into each nostril daily. Shake gently. Before first use, prime pump. After use, clean tip and replace cap., Starting Tue07/04/2023, Until Tue07/03/2024, Normal 6. Brain fog Assessment & Plan: - Ongoing for past few weeks - Reports cognitive slowing and difficulty with memory - Recent CT head was negative for acute process - Recent TSH wnl - Suspect this may be multifactorial, differential includes cognitive impairment from uncontrolled HIV, vitamin B12 deficiency, uncontrolled anxiety/depression - Continue repletion of vitamin B12 levels, recheck next visit - Counseled on importance of establishing with [facility] and initiating HAART for his HIV - Reassess symptoms at follow up and evaluate further for symptoms of anxiety and depression 7. Need for immunization against influenza - Flu vaccine quadrivalent (IIV4), for patients ages 6 mo+, (Flulaval) preservative free Follow up in about 2 months (around 09/03/2023). Subjective Constantin Galan is a 33 y.o. male presenting today for a Transitional Care Management Visit related to his recent hospital stay. HPI 33 y.o. male with PMH of HIV (noncompliance with medication last CD4 count 54 on 05/04/23), polysubstance use (tobacco, marijuana, methamphetamine), bipolar disorder, PTSD, and anxiety that presented to [facility] on 06/24/2023 and was admitted for chest discomfort + left arm pain and paresthesias. At presentation VSS, labs only significant for platelets 67, MCV 110.2, B12 226, folate 11.1. ECG with findings consistent with early repolarization, Serial troponins negative. Non-contrast CT head with no acute intracranial abnormality. LUE duplex was also performed which was negative. Patient's symptoms resolved spontaneously overnight. He was started on azithromycin and bactrim for prophylaxis for opportunistic infections and referred to HIV care center for initiation of HIV treatment. Yellow Spots in Vision - Last couple days, intermittent - Headache for past week, comes and goes - Otherwise denies change in vision - Denies any eye pain or redness Left Arm Tight/Numbness Chest tightness - Gets numbness and tingling after arm tightens up lasting 45 minutes to 1 hour - Denies any specific trigger, usually occurs when arm is at rest - Also feels that chest is tight at this time, some SOB, heart racing Cough - For past couple years, but feels it is worsening - Does have some sputum production daily for last couple moths - Denies fevers - Usually feels cold but is sweating intermittently - Does report Feels out of it , brain fog Lightheaded, no syncope - Last few weeks - Thinks he is not acting right - Poor appetite, not eating well for past couple days, does feel sick is he tries to eat - Denies room spinning, has not passed out - Feels that his brain is processing things slower than usual 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 Medications listed as ordered at the time of discharge from hospital: Outpatient Medications Prior to Visit Medication Sig Dispense Refill azithromycin (Zithromax) 600 MG tablet Take 2 tablets (1,200 mg) by mouth 1 (one) time per week for 3 doses. Do not start before July 01, 2023. 6 tablet 0 cyanocobalamin (Vitamin B-12) 1000 MCG tablet Take 1 tablet (1,000 mcg) by mouth daily. 30 tablet 0 sulfamethoxazole-trimethoprim (Bactrim DS) 800-160 MG tablet Take 1 tablet by mouth three times a week. 21 tablet 0 No facility-administered medications prior to visit. Reconciled medication list reflecting any changes from today's visit: Current Outpatient Medications: azithromycin (Zithromax) 600 MG tablet, Take 2 tablets (1,200 mg) by mouth 1 (one) time per week for 3 doses., Disp: 6 tablet, Rfl: 0 cyanocobalamin (Vitamin B-12) 1000 MCG tablet, Take 1 tablet (1,000 mcg) by mouth daily., Disp: 30 tablet, Rfl: 0 fluticasone (Flonase) 50 MCG/ACT nasal spray, Administer 2 sprays into each nostril daily. Shake gently. Before first use, prime pump. After use, clean tip and replace cap., Disp: 16 g, Rfl: 11 loratadine (Claritin) 10 MG tablet, Take 1 tablet (10 mg) by mouth Daily as needed for allergies., Disp: 30 tablet, Rfl: 11 sulfamethoxazole-trimethoprim (Bactrim DS) 800-160 MG tablet, Take 1 tablet by mouth three times a week., Disp: 21 tablet, Rfl: 0 No current facility-administered medications for this visit. Review of Systems Constitutional: Positive for appetite change (Decreased appetite) and fatigue. HENT: Positive for postnasal drip. Negative for sore throat and trouble swallowing. Eyes: Positive for visual disturbance (Intermittent yellow spots). Respiratory: Positive for cough. Cardiovascular: Positive for chest pain (Left side, associated with arm pain and numbness). Skin: Negative for rash and wound. Neurological: Positive for weakness (generalized), light-headedness, numbness and headaches. Negative for tremors. Psychiatric/Behavioral: Positive for decreased concentration. The patient is nervous/anxious. No Known Allergies Past Medical History: Diagnosis Date Altered mental status 06/25/2017 Back injury HIV (human immunodeficiency virus infection) (HCC) 01/2013 Right leg pain since childhood Syncope and collapse 05/04/2023 Past Surgical History: Procedure Laterality Date CHOLECYSTECTOMY OTHER SURGICAL HISTORY for projectile vomiting and feeding tube at Family History Problem Relation Name Age of Onset Heart attack Mother x4 Diabetes Mother Thyroid disease Mother Cancer Mother Type unknown Social History Tobacco Use Smoking status: Every Day Packs/day: 1 Types: Cigarettes Smokeless tobacco: Never Substance Use Topics Alcohol use: No Alcohol/week: 0.0 standard drinks of alcohol Objective BP 107/73 (BP Location: Right arm, Patient Position: Sitting, BP Cuff Size: Adult) Pulse 91 Temp 36.1 C (97 F) (Temporal) Ht 4' 10 (1.473 m) Wt 89 lb (40.4 kg) SpO2 99% Comment: RA BMI 18.60 kg/m Physical Exam Constitutional: General: He is not in acute distress. Appearance: He is not toxic-appearing. HENT: Mouth/Throat: Mouth: Mucous membranes are dry. Eyes: General: No visual field deficit. Cardiovascular: Rate and Rhythm: Regular rhythm. Tachycardia present. Pulses: Normal pulses. Heart sounds: Normal heart sounds. Pulmonary: Effort: Pulmonary effort is normal. No respiratory distress. Breath sounds: Normal breath sounds. Abdominal: General: Abdomen is flat. Bowel sounds are normal. There is no distension. Palpations: Abdomen is soft. Tenderness: There is no abdominal tenderness. Musculoskeletal: Right lower leg: No edema. Left lower leg: No edema. Skin: General: Skin is warm and dry. Neurological: Mental Status: He is alert and oriented to person, place, and time. Sensory: Sensory deficit present. Motor: No tremor. Deep Tendon Reflexes: Reflex Scores: Patellar reflexes are 2+ on the right side and 1+ on the left side. Comments: Diminished sensation over entire left arm and hand, right arm with diminished sensation in hand and fingers, bilateral LE with diminished sensation distally Psychiatric: Mood and Affect: Mood is anxious. Speech: Speech normal. Behavior: Behavior normal. Data Reviewed and Summarized: Medical decision making including: See Assessment/Plan Goals None [facility] Staffed with Dr. Kevin NELSON DO PGY : 3 07/04/2023 MARA time with patient 5 minutes TH Teaching Physician Note Direct Supervision - Modifier GC I performed a history & physical examination of the patient and also discussed the patient's management with the resident. I was present for the dahl portions of any procedures performed. I reviewed the resident's note and agree with the documented findings and plan of care with any exceptions or corrections noted below. Please see resident s note for further details. This service has been performed in part by a resident under the direction of a teaching physician (ADIN Mckeon). Mc Blandon MD documented in this encounter [facility] 07-04-2023 History of Present illness Narrative Images from the original note were not included. [facility] [address] [facility] [id number] Dept: [phone] Dept Loc: [phone] 07/04/2023 Visit type: inpatient follow up Reason for Visit: Hospital Follow-up (Arm tight, cough, chest pains, sob, meds for hiv) ASSESSMENT/PLAN 1. Numbness and tingling in left arm Assessment & Plan: - Etiology still unclear at this time, also having some numbness in right hand and distal LE but most pronounced in left arm - Differential includes neuropathy from HIV and/or B12 deficiency vs atypical migraine symptoms vs panic attacks vs cervical radiculopathy vs thoracic outlet syndrome - Normal pulses in all extremities on exam, no neck tenderness - Recent TSH wnl, RPR negative, LUE duplex negative for DVT - Recent CT head negative for any lesions or acute process - Will check nerve conduction studies of b/l UE - Continue to treat vitamin B12 deficiency and advised to call [facility] to establish and initiate HIV treatment Orders: - Nerve conduction test with EMG 2. B12 deficiency Assessment & Plan: - Found to have low vitamin B12 level of 226 on 06/24/23 while in the hospital - Since levels are not severely low it is unlikely that this is the cause of all of his neurological symptoms but could be a contributing factor - Will give IM vitamin B12 injection in office today to ensure adequate repletion - Also continue PO vitamin B12 supplement, refills sent - Recheck levels and CBC at follow up appointment in 2 months Orders: - cyanocobalamin (Vitamin B-12) 1000 MCG tablet; Take 1 tablet (1,000 mcg) by mouth daily., Starting Tue07/04/2023, Normal - cyanocobalamin (Vitamin B-12) injection 1,000 mcg; 1,000 mcg, IntraMUSCular, Once, On Tue07/04/23 at 1130, For 1 dose 3. Floaters in visual field, bilateral Assessment & Plan: - Intermittent for past few days - Etiology unclear, possibly due to migraine vs intrinsic ocular pathology - Recent CT head negative for acute process - Refer to ophthalmology for thorough eye and retinal examination Orders: - [facility] 4. Human immunodeficiency virus (HIV) disease (HCC) Assessment & Plan: - Chronic, uncontrolled - Last CD4 count 54 on 05/04/23 - Previously has been on anti-retroviral therapy but has been off this for many years - Counseled on the importance of establishing with the [facility] for initiation of treatment as his uncontrolled HIV is likely contributing to many of his symptoms - Continue Bactrim and Azithromycin for PCP, toxo and MAC prophylaxis - Provided with [facility] phone number in AVS Orders: - azithromycin (Zithromax) 600 MG tablet; Take 2 tablets (1,200 mg) by mouth 1 (one) time per week for 3 doses., Starting Tue07/04/2023, Until Tue07/19/2023, Normal - sulfamethoxazole-trimethoprim (Bactrim DS) 800-160 MG tablet; Take 1 tablet by mouth three times a week., Starting Tue07/04/2023, Normal 5. Chronic cough Assessment & Plan: - Present for ~2 years, though feels may be worsening recently - No fevers, SOB, recent CXR negative for acute process, lungs clear on exam - low suspicion for infectious etiology at this time - Etiology possibly due to postnasal drip vs asthma vs GERD - Will trial daily antihistamine and intranasal steroids - If ineffective, will do further workup including PFTs, may consider trial of PPI Orders: - loratadine (Claritin) 10 MG tablet; Take 1 tablet (10 mg) by mouth Daily as needed for allergies., Starting Tue07/04/2023, Until Tue07/03/2024 at 2359, Normal - fluticasone (Flonase) 50 MCG/ACT nasal spray; Administer 2 sprays into each nostril daily. Shake gently. Before first use, prime pump. After use, clean tip and replace cap., Starting Tue07/04/2023, Until Tue07/03/2024, Normal 6. Brain fog Assessment & Plan: - Ongoing for past few weeks - Reports cognitive slowing and difficulty with memory - Recent CT head was negative for acute process - Recent TSH wnl - Suspect this may be multifactorial, differential includes cognitive impairment from uncontrolled HIV, vitamin B12 deficiency, uncontrolled anxiety/depression - Continue repletion of vitamin B12 levels, recheck next visit - Counseled on importance of establishing with [facility] and initiating HAART for his HIV - Reassess symptoms at follow up and evaluate further for symptoms of anxiety and depression 7. Need for immunization against influenza - Flu vaccine quadrivalent (IIV4), for patients ages 6 mo+, (Flulaval) preservative free Follow up in about 2 months (around 09/03/2023). Subjective Constantin Galan is a 33 y.o. male presenting today for a Transitional Care Management Visit related to his recent hospital stay. HPI 33 y.o. male with PMH of HIV (noncompliance with medication last CD4 count 54 on 05/04/23), polysubstance use (tobacco, marijuana, methamphetamine), bipolar disorder, PTSD, and anxiety that presented to [facility] on 06/24/2023 and was admitted for chest discomfort + left arm pain and paresthesias. At presentation VSS, labs only significant for platelets 67, MCV 110.2, B12 226, folate 11.1. ECG with findings consistent with early repolarization, Serial troponins negative. Non-contrast CT head with no acute intracranial abnormality. LUE duplex was also performed which was negative. Patient's symptoms resolved spontaneously overnight. He was started on azithromycin and bactrim for prophylaxis for opportunistic infections and referred to HIV care center for initiation of HIV treatment. Yellow Spots in Vision - Last couple days, intermittent - Headache for past week, comes and goes - Otherwise denies change in vision - Denies any eye pain or redness Left Arm Tight/Numbness Chest tightness - Gets numbness and tingling after arm tightens up lasting 45 minutes to 1 hour - Denies any specific trigger, usually occurs when arm is at rest - Also feels that chest is tight at this time, some SOB, heart racing Cough - For past couple years, but feels it is worsening - Does have some sputum production daily for last couple moths - Denies fevers - Usually feels cold but is sweating intermittently - Does report Feels out of it , brain fog Lightheaded, no syncope - Last few weeks - Thinks he is not acting right - Poor appetite, not eating well for past couple days, does feel sick is he tries to eat - Denies room spinning, has not passed out - Feels that his brain is processing things slower than usual 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 Medications listed as ordered at the time of discharge from hospital: Outpatient Medications Prior to Visit Medication Sig Dispense Refill azithromycin (Zithromax) 600 MG tablet Take 2 tablets (1,200 mg) by mouth 1 (one) time per week for 3 doses. Do not start before July 01, 2023. 6 tablet 0 cyanocobalamin (Vitamin B-12) 1000 MCG tablet Take 1 tablet (1,000 mcg) by mouth daily. 30 tablet 0 sulfamethoxazole-trimethoprim (Bactrim DS) 800-160 MG tablet Take 1 tablet by mouth three times a week. 21 tablet 0 No facility-administered medications prior to visit. Reconciled medication list reflecting any changes from today's visit: Current Outpatient Medications: azithromycin (Zithromax) 600 MG tablet, Take 2 tablets (1,200 mg) by mouth 1 (one) time per week for 3 doses., Disp: 6 tablet, Rfl: 0 cyanocobalamin (Vitamin B-12) 1000 MCG tablet, Take 1 tablet (1,000 mcg) by mouth daily., Disp: 30 tablet, Rfl: 0 fluticasone (Flonase) 50 MCG/ACT nasal spray, Administer 2 sprays into each nostril daily. Shake gently. Before first use, prime pump. After use, clean tip and replace cap., Disp: 16 g, Rfl: 11 loratadine (Claritin) 10 MG tablet, Take 1 tablet (10 mg) by mouth Daily as needed for allergies., Disp: 30 tablet, Rfl: 11 sulfamethoxazole-trimethoprim (Bactrim DS) 800-160 MG tablet, Take 1 tablet by mouth three times a week., Disp: 21 tablet, Rfl: 0 No current facility-administered medications for this visit. Review of Systems Constitutional: Positive for appetite change (Decreased appetite) and fatigue. HENT: Positive for postnasal drip. Negative for sore throat and trouble swallowing. Eyes: Positive for visual disturbance (Intermittent yellow spots). Respiratory: Positive for cough. Cardiovascular: Positive for chest pain (Left side, associated with arm pain and numbness). Skin: Negative for rash and wound. Neurological: Positive for weakness (generalized), light-headedness, numbness and headaches. Negative for tremors. Psychiatric/Behavioral: Positive for decreased concentration. The patient is nervous/anxious. No Known Allergies Past Medical History: Diagnosis Date Altered mental status 06/25/2017 Back injury HIV (human immunodeficiency virus infection) ([facility]) 01/2013 Right leg pain since childhood Syncope and collapse 05/04/2023 Past Surgical History: Procedure Laterality Date CHOLECYSTECTOMY OTHER SURGICAL HISTORY for projectile vomiting and feeding tube at Family History Problem Relation Name Age of Onset Heart attack Mother x4 Diabetes Mother Thyroid disease Mother Cancer Mother Type unknown Social History Tobacco Use Smoking status: Every Day Packs/day: 1 Types: Cigarettes Smokeless tobacco: Never Substance Use Topics Alcohol use: No Alcohol/week: 0.0 standard drinks of alcohol Objective BP 107/73 (BP Location: Right arm, Patient Position: Sitting, BP Cuff Size: Adult) Pulse 91 Temp 36.1 C (97 F) (Temporal) Ht 4' 10 (1.473 m) Wt 89 lb (40.4 kg) SpO2 99% Comment: RA BMI 18.60 kg/m Physical Exam Constitutional: General: He is not in acute distress. Appearance: He is not toxic-appearing. HENT: Mouth/Throat: Mouth: Mucous membranes are dry. Eyes: General: No visual field deficit. Cardiovascular: Rate and Rhythm: Regular rhythm. Tachycardia present. Pulses: Normal pulses. Heart sounds: Normal heart sounds. Pulmonary: Effort: Pulmonary effort is normal. No respiratory distress. Breath sounds: Normal breath sounds. Abdominal: General: Abdomen is flat. Bowel sounds are normal. There is no distension. Palpations: Abdomen is soft. Tenderness: There is no abdominal tenderness. Musculoskeletal: Right lower leg: No edema. Left lower leg: No edema. Skin: General: Skin is warm and dry. Neurological: Mental Status: He is alert and oriented to person, place, and time. Sensory: Sensory deficit present. Motor: No tremor. Deep Tendon Reflexes: Reflex Scores: Patellar reflexes are 2+ on the right side and 1+ on the left side. Comments: Diminished sensation over entire left arm and hand, right arm with diminished sensation in hand and fingers, bilateral LE with diminished sensation distally Psychiatric: Mood and Affect: Mood is anxious. Speech: Speech normal. Behavior: Behavior normal. Data Reviewed and Summarized: Medical decision making including: See Assessment/Plan Goals None Internal Medicine Center Staffed with Dr. Kevin NELSON DO PGY : 3 07/04/2023 MARA time with patient 5 minutes TH Teaching Physician Note Direct Supervision - Modifier ADIN I performed a history & physical examination of the patient and also discussed the patient's management with the resident. I was present for the dahl portions of any procedures performed. I reviewed the resident's note and agree with the documented findings and plan of care with any exceptions or corrections noted below. Please see resident s note for further details. This service has been performed in part by a resident under the direction of a teaching physician (ADIN Mckeon). Mc Blandon MD documented in this encounter [facility] 07-04-2023 Instructions Gracy Nelson DO - 07/04/2023 8:20 AM EST Please call the [facility] [place] to set up an appointment [facility] [address] [id number] documented in this encounter [facility] 07-04-2023 Instructions Gracy Nelson DO - 07/04/2023 8:20 AM EST Please call the [facility] to set up an appointment [facility] [address] [id number] documented in this encounter [facility] 07-04-2023 Note Addended by: GRACY MOTA on: 07/06/2023 09:01 AM Modules accepted: Level of Service [facility] 06-27-2023 Note Hospital discharge t o home noted. Please see separate patient outreach encounter. [facility] [employer] [facility] 06-24-2023 Note Attestation with edits by Flo Dowling DO at 06/29/2023 9:54 AM Patient seen & examined on day of discharge. Please refer to note dated on the day of discharge (06/24/2023) for associated attestation, exam, and plan. My personal highlights or additions below noted in Green. Internal Medicine: Med Team Discharge Summary Constantin Monsalve : 1990 ADMIT DATE: 06/24/2023 DISCHARGE DATE: 06/24/23 PCP: No primary care provider on file. Visit Status: Observation Code Status: FULL CODE Primary Discharge Diagnosis: Left arm pain Secondary Discharge Diagnoses: HIV with low CD4 Bipolar Disorder Anxiety Polysubstance use Thrombocytopenia B12 deficiency with macrocytosis Reason for Admission & Hospital Course: Constantin Galan is a 33 y.o. male with PMH of HIV (noncompliance with medication last CD4 count ~50), polysubstance use (tobacco, marijuana, methamphetamine), bipolar disorder, PTSD, and anxiety that presented to [facility] on 06/24/2023 and was admitted for chest discomfort + left arm pain and parasthesis after receiving distressing news. In the ED vital signs were stable and overall workup was negative for acute process. Labs were significant for thrombocytopenia, macrocytosis, and cobalamin def. ECG revealed sinus rhythm with ST changes consistent for early repolarization and negative serial troponin. Non-contrast CT head was negative for bleed. Overnight the patient had resolution of chest and LLE symptoms, only LUE pain + paresthesia persisted. LUE duplex US was negative for thrombosis. NIH score was 0 in the AM. Patient was deemed medically stable for discharge and was prescribed Bactrim + Azithromycin for prophylaxis against HIV-related opportunistic infections with plan for close outpatient follow up with [facility] referral [place] [facility] [place] Disposition: Home Activity: No restriction. Diet: Adult diet Regular Discharge Medications: Medication List START taking these medications azithromycin 600 MG tablet Commonly known as: Zithromax Take 2 tablets (1,200 mg) by mouth 1 (one) time per week for 3 doses. Do not start before July 01, 2023. Start taking on: July 01, 2023 cyanocobalamin 1000 MCG tablet Commonly known as: Vitamin B-12 Take 1 tablet (1,000 mcg) by mouth daily. sulfamethoxazole-trimethoprim 800-160 MG tablet Commonly known as: Bactrim DS Take 1 tablet by mouth three times a week. Start taking on: June 27, 2023 Where to Get Your Medications These medications were sent to [facility] [address] [place] [address] Hours: Tuesday to Tuesday 10 am to 6 pm azithromycin 600 MG tablet cyanocobalamin 1000 MCG tablet sulfamethoxazole-trimethoprim 800-160 MG tablet Notable Medication Changes & Reasoning: Bactrim 800-160 mg PO three times weekly (MWF) - PJP + Toxoplasmosis prophylaxis Azithromycin 1200 mg PO once weekly - MAC prophylaxis Vitamin B12 oral supplement Consultants None Procedures Performed LUE duplex US (06/24/23): No evidence of deep vein or superficial vein thrombosis in the left upper extremity. Vessels demonstrate normal compressibility, color filling, and phasic and spontaneous flow. Contralateral imaging of the right subclavian vein was normal. ECG (06/24/23): Sinus rhythm ST elev, probable normal early repol pattern Significant Laboratory/Radiographic Data: CT Head w/o contrast (06/24/23): No acute intracranial abnormality with limitations as above. Maxillary sinusitis, right greater than left. Small right mastoid effusion. Pending Results at Time of Discharge None Follow Up Appointment(s): Future Appointments Date Time Provider Department Center 07/04/2023 8:20 AM Gracy Nelson DO [facility] Items to Address at Followup Visit: HIV ART + prophylaxis LUE paresthesia resolution Substance use disorder counseling Ensure follow up with Care Center Outpatient evaluation for carpal tunnel Recheck CD4 count Workup for carpal tunnel if he continues to have paresthesias in median nerve distribution [facility] 06-24-2023 Note Attestation with edits by Flo Dowling DO at 06/24/2023 5:31 PM I have discussed the care of Constantin Monsalve with the medical student and/or resident. I have personally taken a history, examined the patient, and performed the associated medical decision making activities. I have reviewed & verified the attested documentation. Unless otherwise noted below, this documentation reflects the history, physical exam, and medical decision making that I performed myself. Please see note for my personal highlights or additions in Green. Patient seen and examined by myself on 06/24/23 Dahl Changes to Care Plan: -Patient presented with chest pain and LUE pain that both started suddenly after reading a letter notifying him that he has 30-days to vacate his current residence. EKG with findings consistent with early repolarization, troponin normal. LUE venous duplex without evidence of DVT. -Patient also reportedly with LUE paresthesias, however on questioning this is localized to the first/second digits of the left hand. Non-contrast head CT unremarkable. Given lack of other focal deficit, no indication for MRI or further workup. If persists recommend outpatient evaluation for carpal tunnel. -Patient with HIV and is not currently on ART. Last CD4 count was 54 in 04/2023. Given that CD4 count was close to 50 two months ago and he remains untreated, will add azithromcying for MAC prophylaxis. Was prescribed Bactrim for PJP prophylaxis following his last admission in 04/2023, however has not been taking it. Will prescribed both antibiotics at discharge. Recheck CD4 and genotype at outpatient basis. Refer to ID for treatment. -Trial topical therapies for LUE pain. Unclear etiology, however suspect musculoskeletal. -He does not require any additional inpatient workup or management, he can be discharged home with outpatient follow-up. 7AM-5PM: contact resident on [facility] Med C team (found by hovering over attending's name on left side of patient's chart) 5PM-7AM: contact AI2 (Med Team A or B) or AI3 (Med Team C or D) Internal Medicine: Med Team Initial History and Physical Constantin Monsalve : 1990(33 y.o.) Date: June 24, 2023 TEAM: Navdeep Attending: Dr. Dowling Subjective: Chief Complaint: LUE/LLE parasthesias Constantin Galan is a 33 y.o. with PMH HIV with noncompliance with medications (last on Biktarvy 1 year prior), polysubstance use (tobacco, marijuana, methamphetamines), bipolar disorder, PTSD, and anxiety that presented to [facility] on 06/24/2023 from home with LUE and LLE parasthesias, chest discomfort. Pt seen bedside in ED, and somnolent during initial interview, improving throughout day. States that symptoms initially began on 06/23 around 1400. States that he received stressful news around that time. After receiving news, pt developed LUE/LLE parasthesias and chest discomfort which prompted presentation to [facility] ED for further evaluation. This morning, pt states that initial symptoms have largely resolved and he is now experiencing 8/10, shooting pain of entire LUE. States that he has not taken medications over past several months as he has been unable to get in to see provider recently. He does have a chronic non-productivecough and chronic stable diarrhea. Patient also having mild dizziness. States that he currently smokes cigarettes, 1ppd, since the age of 11. Endorses hx of IV methamphetamine use with last use 2 months ago, injected into the left antecubital region. Endorsed using same syringe over again occasionally for injection. States that he now smokes methamphetamine instead of injecting. Endorses marijuana use, once per week on average. Denies alcohol use. Denies headaches, fevers, chills, night sweats, recent weight loss, chest pain, SOB, abdominal pain, N/V, constipation, or vision change. In ED, VSS. Labs largely unremarkable with exception of platelets 67, MCV 110.2, B12 226, folate 11.1. ECG with findings consistent with early repolarization. Serial troponins negative. Non-contrast CT head with no acute intracranial abnormality. Initial NIH per ED provider was 1 for sensory deficit. On repeat this AM, NIH 0. LUE venous duplex US was negative for thrombus. Agree with above. Patient seen and examined at bedside and was resting comfortably. He notes that he had a sudden onset of chest pain and left upper extremity pain after reading a letter notifying him that he has 30-days to vacate his current residence. His chest pain has resolved, however he continues to have left upper extremity pain that is localized to the biceps region that he states shoots down his arm. He has no pain in the shoulder or elbow. He reports no injury/trauma. He no (more content not included)... [facility] 06-24-2023 History and physical note Internal Medicine: Med Team Initial History and Physical Constantin Monsalve : 1990(33 y.o.) Date: June 24, 2023 TEAM: Navdeep Attending: Dr. Dowling Subjective: Chief Complaint: LUE/LLE parasthesias Constantin Galan is a 33 y.o. with PMH HIV with noncompliance with medications (last on Biktarvy 1 year prior), polysubstance use (tobacco, marijuana, methamphetamines), bipolar disorder, PTSD, and anxiety that presented to [facility] on 06/24/2023 from home with LUE and LLE parasthesias, chest discomfort. Pt seen bedside in ED, and somnolent during initial interview, improving throughout day. States that symptoms initially began on 06/23 around 1400. States that he received stressful news around that time. After receiving news, pt developed LUE/LLE parasthesias and chest discomfort which prompted presentation to [facility] ED for further evaluation. This morning, pt states that initial symptoms have largely resolved and he is now experiencing 8/10, shooting pain of entire LUE. States that he has not taken medications over past several months as he has been unable to get in to see provider recently. He does have a chronic non-productive cough and chronic stable diarrhea. Patient also having mild dizziness. States that he currently smokes cigarettes, 1ppd, since the age of 11. Endorses hx of IV methamphetamine use with last use 2 months ago, injected into the left antecubital region. Endorsed using same syringe over again occasionally for injection. States that he now smokes methamphetamine instead of injecting. Endorses marijuana use, once per week on average. Denies alcohol use. Denies headaches, fevers, chills, night sweats, recent weight loss, chest pain, SOB, abdominal pain, N/V, constipation, or vision change. In ED, VSS. Labs largely unremarkable with exception of platelets 67, MCV 110.2, B12 226, folate 11.1. ECG with findings consistent with early repolarization. Serial troponins negative. Non-contrast CT head with no acute intracranial abnormality. Initial NIH per ED provider was 1 for sensory deficit. On repeat this AM, NIH 0. LUE venous duplex US was negative for thrombus. Agree with above. Patient seen and examined at bedside and was resting comfortably. He notes that he had a sudden onset of chest pain and left upper extremity pain after reading a letter notifying him that he has 30-days to vacate his current residence. His chest pain has resolved, however he continues to have left upper extremity pain that is localized to the biceps region that he states shoots down his arm. He has no pain in the shoulder or elbow. He reports no injury/trauma. He notes some numbness/paresthesias in the first/second digits of his left hand. He has HIV and was previously treated with Biktarvy, however he has not been on ART for the last year. He was prescribed Bactrim following his last hospitalization in 04/2023, however there was an issue with the prescription and he was never able to pick it up. Review of Systems Constitutional: Negative for appetite change, chills, diaphoresis and fever. Eyes: Negative for visual disturbance. Respiratory: Positive for cough (chronic, non-productive). Negative for shortness of breath. Cardiovascular: Negative for chest pain and leg swelling. Gastrointestinal: Positive for diarrhea (chronic). Negative for abdominal pain, constipation, nausea and vomiting. Musculoskeletal: Positive for myalgias (LUE). Negative for arthralgias and joint swelling. Skin: Positive for color change (slight erythema LUE). Negative for rash and wound. Neurological: Positive for dizziness and numbness (LUE). Negative for headaches. Past Medical History: Diagnosis Date Back injury HIV (human immunodeficiency virus infection) ([facility]) 01/2013 Right leg pain since childhood Past Surgical History: Procedure Laterality Date CHOLECYSTECTOMY OTHER SURGICAL HISTORY for projectile vomiting and feeding tube at Family History Problem Relation Name Age of Onset Heart attack Mother x4 Diabetes Mother Thyroid disease Mother Cancer Mother Type unknown Social History Tobacco Use Smoking Status Every Day Packs/day: 1 Types: Cigarettes Smokeless Tobacco Never Social History Substance and Sexual Activity Alcohol Use No Alcohol/week: 0.0 standard drinks of alcohol Social History Substance and Sexual Activity Drug Use Yes Types: Methamphetamines No Known Allergies Prior to Admission medications Not on File Objective: Vitals: 06/23/23 2150 06/24/23 0337 06/24/23 0530 06/24/23 0824 BP: 101/70 98/64 96/70 103/61 BP Location: Right arm Right arm Patient Position: Lying Lying Lying Pulse: 98 65 69 65 Resp: 16 16 16 16 Temp: 37.1 C (98.8 F) 36.9 C (98.4 F) TempSrc: Temporal Temporal SpO2: 98% 98% 97% 98% Physical Exam Constitutional: Appearance: He is ill-appearing. HENT: Head: Normocephalic. Mouth/Throat: Mouth: Mucous membranes are moist. Pharynx: Oropharynx is clear. Comments: Poor dentition Eyes: Extraocular Movements: Extraocular movements intact. Conjunctiva/sclera: Conjunctivae normal. Pupils: Pupils are equal, round, and reactive to light. Cardiovascular: Rate and Rhythm: Normal rate and regular rhythm. Pulses: Normal pulses. Heart sounds: Normal heart sounds. Pulmonary: Effort: Pulmonary effort is normal. Breath sounds: Normal breath sounds. Abdominal: General: Abdomen is flat. Bowel sounds are normal. Palpations: Abdomen is soft. Tenderness: There is no abdominal tenderness. Musculoskeletal: General: Normal range of motion. Cervical back: Normal range of motion and neck supple. Skin: General: Skin is warm and dry. Findings: Erythema (mild LUE) present. No lesion or rash. Neurological: General: No focal deficit present. Mental Status: He is alert and oriented to person, place, and time. Cranial Nerves: No cranial nerve deficit. Sensory: Sensory deficit (LUE decreased sensation to palpation. Paresthesia in radial nerve distribution) present. Motor: No weakness. Agree with the above physical exam. In addition: He appears chronically ill and appears older than stated age. Poor dentition without signs of infection noted. No significant erythema noted on my exam. No tenderness to palpation in any region of the LUE. No edema of the LUE. Distal pulses are intact and he has normal capillary refill. [facility] within last 24 hours Auto WBC Date Value Ref Range Status 06/24/2023 4.7 3.6 - 10.7 10*3/uL Final Hemoglobin Date Value Ref Range Status 06/24/2023 15.8 13.0 - 18.0 g/dL Final Hematocrit Date Value Ref Range Status 06/24/2023 45.6 40.0 - 52.0 % Final Platelets Date Value Ref Range Status 06/24/2023 67 (L) 140 - 440 10*3/uL Final Comment: I-Thrombocytopenia MCV Date Value Ref Range Status 06/24/2023 110.2 (H) 80.0 - 98.0 fL Final Comment: I-Macrocytosis SODIUM Date Value Ref Range Status 06/24/2023 139 135 - 145 mmol/L Final POTASSIUM Date Value Ref Range Status 06/24/2023 4.5 3.5 - 5.1 mmol/L Final CHLORIDE Date Value Ref Range Status 06/24/2023 103 98 - 107 mmol/L Final CARBON DIOXIDE Date Value Ref Range Status 06/24/2023 26 22 - 30 mmol/L Final UREA NITROGEN Date Value Ref Range Status 06/24/2023 21 (H) 9 - 20 mg/dL Final CREATININE Date Value Ref Range Status 06/24/2023 0.61 (L) 0.66 - 1.25 mg/dL Final GLUCOSE Date Value Ref Range Status 06/24/2023 83 70 - 100 mg/dL Final CALCIUM Date Value Ref Range Status 06/24/2023 10.6 (H) 8.4 - 10.4 mg/dL Final No results found for: AST , ALT , PROT , BILITOT , ALKPHOS , INR , APTT , LIPASE CK Date Value Ref Range Status 06/24/2023 60 30 - 170 U/L Final CKMB Date Value Ref Range Status 06/24/2023 0.5 0.0 - 4.4 ng/mL Final TROPONIN I Date Value Ref Range Status 06/24/2023 <0.012 <0.034 ng/mL Final 06/24/2023 <0.012 <0.034 ng/mL Final 06/24/2023 <0.012 <0.034 ng/mL Final No results found for: PROCAL , CHOL , TRIG , HDL , TSH , VITD25 , HGBA1C , VANCOTROUGH Assessment and Plan: Principal Problem: Left arm numbness #Left upper extremity pain #Left hand paresthesia - Sudden onset left sided numbness and left arm pain following stressful event - ECG with early repolarization, serial troponin negative - CT head w/o contrast negative for bleed - LUE duplex US negative for SVT and DVT - Lack of focal deficits and no indication for MRI or further inpatient evaluation - Suspect left arm pain musculoskeletal in origin - Would consider carpal tunnel workup for paresthesia in outpatient setting if persistent Agree. No evidence of cellulitis on physical exam. Paresthesia with clear nerve distribution is consistent with a peripheral neuropathy and there is no indication for an MRI at this time. #HIV hx, medication non-compliance - Most recently treated on Biktarvy, no therapy in the last year - CD3/CD4 count 54 (05/04/23) - HIV opportunistic infection prophylaxis - Order Bactrim 800-160 mg PO on MWF (PJP + Toxoplasmosis) - Order Azithromycin 1200 mg PO once weekly (MAC) - Recheck CD4 count and genotype for drug resistance in outpatient setting - Referral to [facility] for outpatient follow up and HIV long-term management Agree. Recheck CD4 count at follow-up. #Substance use disorder - Methamphetamine, marijuana, tobacco 1 ppd for 22 years - Encourage cessation of substance use - Educated on risks of cellulitis and thrombophlebitis in the setting of IV drug use with HIV #Cobalamin Deficiency #Macrocytosis - B12 226, folate 11.1 - Hgb 15.8, MCV 110.2 - Order cyanocobalamin 1000 mcg IM - Advise oral B12 supplementation in outpatient setting Agree. Discuss continued supplementation at follow-up. #Bipolar Disorder #PTSD #Anxiety - Referral for outpatient psychiatry follow up. - Goals of Care: FULL CODE - DVT Prophylaxis: No VTE Prophylaxis Needed - planned discharge for today - GI Prophylaxis: Not Indicated - Diet: General - BMI Classification: There is no height or weight on file to calculate BMI. Underweight (BMI <18.5) - Disposition: Admit to [facility] for observation - Given the signs and symptoms associated with his primary diagnosis in the setting of his comorbid conditions, he is expected to require <48 hrs of hospital care (i.e. observation level care). Associated attestation - Flo Dowling DO - 06/24/2023 5:31 PM EDT I have discussed the care of Constantin Monsalve with the medical student and/or resident. I have personally taken a history, examined the patient, and performed the associated medical decision making activities. I have reviewed & verified the attested documentation. Unless otherwise noted below, this documentation reflects the history, physical exam, and medical decision making that I performed myself. Please see note for my personal highlights or additions in Green. Patient seen and examined by myself on 06/24/23 [place] Changes to Care Plan: -Patient presented with chest pain and LUE pain that both started suddenly after reading a letter notifying him that he has 30-days to vacate his current residence. EKG with findings consistent with early repolarization, troponin normal. LUE venous duplex without evidence of DVT. -Patient also reportedly with LUE paresthesias, however on questioning this is localized to the first/second digits of the left hand. Non-contrast head CT unremarkable. Given lack of other focal deficit, no indication for MRI or further workup. If persists recommend outpatient evaluation for carpal tunnel. -Patient with HIV and is not currently on ART. Last CD4 count was 54 in 04/2023. Given that CD4 count was close to 50 two months ago and he remains untreated, will add azithromcying for MAC prophylaxis. Was prescribed Bactrim for PJP prophylaxis following his last admission in 04/2023, however has not been taking it. Will prescribed both antibiotics at discharge. Recheck CD4 and genotype at outpatient basis. Refer to ID for treatment. -Trial topical therapies for LUE pain. Unclear etiology, however suspect musculoskeletal. -He does not require any additional inpatient workup or management, he can be discharged home with outpatient follow-up. 7AM-5PM: contact resident on [facility] Med C team (found by hovering over attending's name on left side of patient's chart) 5PM-7AM: contact AI2 (Med Team A or B) or AI3 (Med Team C or D) [facility] 06-24-2023 History and physical note Internal Medicine: Med Team Initial History and Physical Constantin Monsalve : 1990(33 y.o.) Date: June 24, 2023 TEAM: Navdeep Attending: Dr. Dowling Subjective: Chief Complaint: LUE/LLE parasthesias Constantin Galan is a 33 y.o. with PMH HIV with noncompliance with medications (last on Biktarvy 1 year prior), polysubstance use (tobacco, marijuana, methamphetamines), bipolar disorder, PTSD, and anxiety that presented to [facility] on 06/24/2023 from home with LUE and LLE parasthesias, chest discomfort. Pt seen bedside in ED, and somnolent during initial interview, improving throughout day. States that symptoms initially began on 06/23 around 1400. States that he received stressful news around that time. After receiving news, pt developed LUE/LLE parasthesias and chest discomfort which prompted presentation to [facility] ED for further evaluation. This morning, pt states that initial symptoms have largely resolved and he is now experiencing 8/10, shooting pain of entire LUE. States that he has not taken medications over past several months as he has been unable to get in to see provider recently. He does have a chronic non-productive cough and chronic stable diarrhea. Patient also having mild dizziness. States that he currently smokes cigarettes, 1ppd, since the age of 11. Endorses hx of IV methamphetamine use with last use 2 months ago, injected into the left antecubital region. Endorsed using same syringe over again occasionally for injection. States that he now smokes methamphetamine instead of injecting. Endorses marijuana use, once per week on average. Denies alcohol use. Denies headaches, fevers, chills, night sweats, recent weight loss, chest pain, SOB, abdominal pain, N/V, constipation, or vision change. In ED, VSS. Labs largely unremarkable with exception of platelets 67, MCV 110.2, B12 226, folate 11.1. ECG with findings consistent with early repolarization. Serial troponins negative. Non-contrast CT head with no acute intracranial abnormality. Initial NIH per ED provider was 1 for sensory deficit. On repeat this AM, NIH 0. LUE venous duplex US was negative for thrombus. Agree with above. Patient seen and examined at bedside and was resting comfortably. He notes that he had a sudden onset of chest pain and left upper extremity pain after reading a letter notifying him that he has 30-days to vacate his current residence. His chest pain has resolved, however he continues to have left upper extremity pain that is localized to the biceps region that he states shoots down his arm. He has no pain in the shoulder or elbow. He reports no injury/trauma. He notes some numbness/paresthesias in the first/second digits of his left hand. He has HIV and was previously treated with Biktarvy, however he has not been on ART for the last year. He was prescribed Bactrim following his last hospitalization in 04/2023, however there was an issue with the prescription and he was never able to pick it up. Review of Systems Constitutional: Negative for appetite change, chills, diaphoresis and fever. Eyes: Negative for visual disturbance. Respiratory: Positive for cough (chronic, non-productive).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 bilaterally. PSYCH: Patient appears agitated. He is pacing around the room. He is occasionally tearful. He appears internally stimulated. Reports SI without HI. Reports auditory hallucinations Diagnostics Labs: Results for orders placed or performed during the hospital encounter of 05/14/23 SARS-CoV-2 Antigen Specimen: Nose; Swab Result Value Ref Range SARS-CoV-2 Antigen Negative Negative CBC auto differential Result Value Ref Range Auto WBC 9.0 3.6 - 10.7 10*3/uL RBC 4.10 (L) 4.40 - 5.90 10*6/uL Hemoglobin 15.6 13.0 - 18.0 g/dL Hematocrit 45.5 40.0 - 52.0 % MCV 110.9 (H) 80.0 - 98.0 fL MCH 38.0 (H) 26.0 - 34.0 pg MCHC 34.3 32.0 - 36.0 % RDW 16.0 (H) 11.5 - 14.5 % Platelets 116 (L) 140 - 440 10*3/uL MPV 10.2 7.4 - 12.4 fL nRBC 0.2 0.0 - 2.0 /100 WBCs Neutrophils Relative 85.6 (H) 40.0 - 80.0 % Lymphocytes Relative 5.8 (L) 20.0 - 40.0 % Monocytes Relative 7.3 2.0 - 10.0 % Eosinophils Relative 0.7 (L) 1.0 - 6.0 % Basophils Relative 0.6 0.0 - 2.0 % Neutrophils Absolute 7.7 (H) 1.8 - 7.0 10*3/uL Lymphocytes Absolute 0.5 (L) 1.0 - 4.3 10*3/uL Monocytes Absolute 0.7 0.0 - 0.8 10*3/uL Eosinophils Absolute 0.1 0.0 - 0.5 10*3/uL Basophils Absolute 0.1 0.0 - 0.2 10*3/uL Comprehensive metabolic panel Result Value Ref Range SODIUM 140 135 - 145 mmol/L POTASSIUM 3.8 3.5 - 5.1 mmol/L CHLORIDE 98 98 - 107 mmol/L CARBON DIOXIDE 27 22 - 30 mmol/L ANION GAP 14 (H) 3 - 13 mmol/L UREA NITROGEN 18 9 - 20 mg/dL CREATININE 0.82 0.66 - 1.25 mg/dL GLUCOSE 97 70 - 100 mg/dL CALCIUM 10.6 (H) 8.4 - 10.4 mg/dL AST (SGOT) 37 15 - 46 U/L ALT 34 0 - 49 U/L ALKALINE PHOSPHATASE 102 38 - 126 U/L ALBUMIN 5.3 (H) 3.5 - 5.0 g/dL BILIRUBIN, TOTAL 2.3 (H) 0.2 - 1.3 mg/dL TOTAL PROTEIN 11.0 (H) 6.3 - 8.2 g/dL eGFR >90.0 >60.0 mL/min/1.73m*2 Ethanol Result Value Ref Range ETHANOL IN SER/PLAS <0.010 0.000 - 0.010 g/dL CK Result Value Ref Range CK 129 30 - 170 U/L ECG 12 lead Result Value Ref Range Heart Rate 132 bpm QRSD Interval 70 ms QT Interval 289 ms QTC Interval 428 ms P [place] 78 degrees QRS [place] 87 degrees T Wave [place] 44 degrees GA Interval 103 ms Radiographs: No orders to display Procedures/EKG: EKG Interpreted in [employer] software by myself SCREENINGS EMERGENCY DEPARTMENT COURSE and DIFFERENTIAL DIAGNOSIS/MDM: Vitals: Vitals: 05/14/23 1833 05/14/23 2328 05/14/23 2329 05/15/23 0416 BP: (!) 130/90 101/73 105/68 Pulse: (!) 142 101 96 97 Resp: Temp: 37.1 C (98.7 F) 36.1 C (96.9 F) 36.3 C (97.4 F) TempSrc: Temporal Temporal Temporal SpO2: 98% 96% 99% 98% Weight: Height: The patient presented with a chief complaint of hallucinations, SI. Vital signs reviewed. On exam, patient appears agitated. He appears anxious. He was agreeable to oral Ativan so was given a 1 mg oral dose. I had concerns for alcohol ingestion, drug ingestion, acute psychosis, suicidal ideation. I ordered psychiatric screening labs. These labs were personally reviewed and patient has a grossly normal CBC and metabolic panel. His alcohol level is negative. His CK level is not elevated. His drug screen is pending. I did have the psychiatric resident evaluate the patient however when they went to the bedside, patient was sedated, sleepy. They will have to evaluate him when he is more awake and arousable later in the shift. If they do deem required, patient is considered medically clear for inpatient psychiatric admission. Diagnoses as of 05/15/23 0526 Auditory hallucination Suicidal ideation HIV infection, unspecified symptom status (HCC) External records reviewed: Reviewed admission record from 05/03/2023 where patient was admitted due to HIV status, being off his meds and not feeling well. He was evaluated by infectious disease and started on ART. Discussions with other clinicians: Discussed with psychiatry Chronic conditions impacting care: HIV ED Medications managed: Medications LORazepam (Ativan) tablet 1 mg (1 mg Oral Given 05/14/232024) Patients symptoms are consistent with sepsis, severe sepsis or septic shock (if yes, use .sepsiscoremeasure ) - no Final Impression 1. Auditory hallucination 2. Suicidal ideation 3. HIV infection, unspecified symptom status (HCC) DISPOSITION anticipate admission for suicidal ideation Comment: Please note this report has been produced using speech recognition software and may contain errors related to that system including errors in grammar, punctuation, and spelling, as well as words and phrases that may be inappropriate. If there are any questions or concerns please feel free to contact the dictating provider for clarification. Damaso Salas DO [employer] Damaso Salas DO 05/15/23 0526 Emergency Department Encounter Location: [facility] EMERGENCY DEPT Patient: Constantin Monsalve : 1990 Date of evaluation: 05/14/2023 ED Provider: Atul Arndt MD Time received sign-out: 0700 Constantin Monsalve was checked out to me by the previous team. Please see the initial documentation for details of the patient's initial ED presentation, physical exam and completed studies. In brief, Constantin Monsalve is a 33 y.o. adult that presented to the emergency department with AH pending psych. I have reviewed and interpreted all of the currently available lab results and diagnostics from this visit: Results for orders placed or performed during the hospital encounter of 05/14/23 SARS-CoV-2 Antigen Specimen: Nose; Swab Result Value Ref Range SARS-CoV-2 Antigen Negative Negative CBC auto differential Result Value Ref Range Auto WBC 9.0 3.6 - 10.7 10*3/uL RBC 4.10 (L) 4.40 - 5.90 10*6/uL Hemoglobin 15.6 13.0 - 18.0 g/dL Hematocrit 45.5 40.0 - 52.0 % MCV 110.9 (H) 80.0 - 98.0 fL MCH 38.0 (H) 26.0 - 34.0 pg MCHC 34.3 32.0 - 36.0 % RDW 16.0 (H) 11.5 - 14.5 % Platelets 116 (L) 140 - 440 10*3/uL MPV 10.2 7.4 - 12.4 fL nRBC 0.2 0.0 - 2.0 /100 WBCs Neutrophils Relative 85.6 (H) 40.0 - 80.0 % Lymphocytes Relative 5.8 (L) 20.0 - 40.0 % Monocytes Relative 7.3 2.0 - 10.0 % Eosinophils Relative 0.7 (L) 1.0 - 6.0 % Basophils Relative 0.6 0.0 - 2.0 % Neutrophils Absolute 7.7 (H) 1.8 - 7.0 10*3/uL Lymphocytes Absolute 0.5 (L) 1.0 - 4.3 10*3/uL Monocytes Absolute 0.7 0.0 - 0.8 10*3/uL Eosinophils Absolute 0.1 0.0 - 0.5 10*3/uL Basophils Absolute 0.1 0.0 - 0.2 10*3/uL Comprehensive metabolic panel Result Value Ref Range SODIUM 140 135 - 145 mmol/L POTASSIUM 3.8 3.5 - 5.1 mmol/L CHLORIDE 98 98 - 107 mmol/L CARBON DIOXIDE 27 22 - 30 mmol/L ANION GAP 14 (H) 3 - 13 mmol/L UREA NITROGEN 18 9 - 20 mg/dL CREATININE 0.82 0.66 - 1.25 mg/dL GLUCOSE 97 70 - 100 mg/dL CALCIUM 10.6 (H) 8.4 - 10.4 mg/dL AST (SGOT) 37 15 - 46 U/L ALT 34 0 - 49 U/L ALKALINE PHOSPHATASE 102 38 - 126 U/L ALBUMIN 5.3 (H) 3.5 - 5.0 g/dL BILIRUBIN, TOTAL 2.3 (H) 0.2 - 1.3 mg/dL TOTAL PROTEIN 11.0 (H) 6.3 - 8.2 g/dL eGFR >90.0 >60.0 mL/min/1.73m*2 Drug screen panel, emergency Result Value Ref Range AMPHETAMINE SCREEN Positive BARBITURATES SCREEN Negative BENZODIAZEPINE SCREEN Negative COCAINE METAB. SCREEN Negative METHADONE SCREEN Negative OPIATES SCREEN Negative OXYCODONE SCREEN Negative PHENCYCLIDINE SCREEN Negative Ethanol Result Value Ref Range ETHANOL IN SER/PLAS <0.010 0.000 - 0.010 g/dL CK Result Value Ref Range CK 129 30 - 170 U/L Urinalysis with reflex microscopic Result Value Ref Range Color, Urine Dark Yellow (A) Lt. Yellow Clarity, Urine Clear Clear pH, Urine 5.5 5.0 - 8.0 pH Leukocytes, Urine 25 (A) Negative Geovany/uL Nitrite, Urine Negative Negative Protein, Urine 50 (A) Negative mg/dL Glucose, Urine Normal Normal (<70) mg/dL Bilirubin, Urine Negative Negative mg/dL Ketones, Urine 10 (A) Negative mg/dL Urobilinogen, Urine 2 (A) Normal (0-1) mg/dL Blood, Urine Negative Negative mg/dL RBC, Urine 3-5 (A) 0 - 2 /HPF WBC, Urine 6-10 (A) 0 - 5 /HPF Squamous Epithelial, Urine 0-2 3 - 5 /HPF Bacteria, Urine Moderate (A) Negative /HPF Mucus, Urine Many (A) Negative /LPF Hyaline Casts, Urine 0-2 (A) Negative /LPF SPECIFIC GRAVITY OF URINE (NUMERIC) 1.035 (H) 1.005 - 1.030 ECG 12 lead Result Value Ref Range Heart Rate 132 bpm QRSD Interval 70 ms QT Interval 289 ms QTC Interval 428 ms P [place] 78 degrees QRS [place] 87 degrees T Wave [place] 44 degrees GA Interval 103 ms No orders to display Final ED Course and MDM: In brief, Constantin Monsalve is a 33 y.o. whose care was signed out to me by the outgoing provider. In brief, pt with signed out to me pending psych. Psych saw pt. He will go to [facility]. Medications LORazepam (Ativan) tablet 1 mg (1 mg Oral Given 05/14/232024) LORazepam (Ativan) tablet 0.5 mg (0.5 mg Oral Given 05/15/23 1042) diphenhydrAMINE (BENADryl) injection 50 mg (50 mg IntraMUSCular Given 05/15/23 1236) And haloperidol lactate (Haldol) injection 5 mg (5 mg IntraMUSCular Given 05/15/23 1236) And LORazepam (Ativan) injection 2 mg (2 mg IntraMUSCular Given 05/15/23 1236) Final Impression 1. Auditory hallucination 2. Suicidal ideation 3. HIV infection, unspecified symptom status (HCC) DISPOSITION Transfer To Another Facility 05/15/2023 01:02:30 PM (Please note that portions of this note may have been completed with a voice recognition program. Efforts were made to edit the dictations but occasionally words are mis-transcribed.) Atul Arndt MD [employer] Atul Arndt MD 05/15/23 1300 Patient presented to the ED for psychiatric evaluation. He is suicidal and hearing voices, they are asking him to jump off a bridge. Denies using methamphetamines recently. Originally the patient was supposed to be admitted to [facility] psychiatry. However, [facility] called back and said that they have multiple young patients at their facility and the patient is a known sex offender. They do not feel that those young patients would be safe around this patient so they refused to take him. I spoke with Dr. Baig of inpatient psychiatry here at [facility] and she decided to admit patient to [facility] instead. Clinical impression unchanged. Greg Reece MD 05/15/232228 documented in this encounter [facility] 05-16-2023 Emergency department Note Pt in hallway. Nurse letting Pt in restroom Patt Tomas 05/16/232237 [facility] 05-16-2023 Emergency department Note Nurse at bedside for vitals Patt Tomas 05/16/232233 [facility] 05-16-2023 Emergency department Note Nursing staff David Nair at the pt's bedside/vitals. Paula Calloway 05/16/23 1817 [facility] 05-16-2023 Emergency department Note computer technical support specialist Jillian Cortes at the bedside giving the pt a dietary tray. Paula Calloway 05/16/23 1730 [facility] 05-16-2023 Emergency department Note EMS ETA 2000->[place] David Bustos RN 05/16/23 1558 [facility] 05-16-2023 Emergency department Note Report given to Tonja WARD. David Bustos RN 05/16/23 1552 [facility] 05-16-2023 Emergency department Note Report called to [facility] 5 SYLVIA Sheikh RN 05/16/23 1423 [facility] 05-16-2023 Emergency department Note Dietary tray ordered. Paula Calloway 05/16/23 1156 [facility] 05-16-2023 History of Present illness Narrative Pt seen while boarded awaiting bed availability at [facility].Initial dispo for [facility] but refused d/t RSO status. Patient has been cooperative and behaviorally appropriate per staff. Pt groggy, minimally interactive. Reports feeling no better though he did sleep some overnight. Reports vague auditory hallucinations that are continued but a little better, still endorsing suicidal thoughts with no plan or intent. Denies thoughts of violence toward others. Voices no somatic complaints and confirms no recent substance use except for daily amphetamine use over the last week. Pt was offered the choice to be referred to another inpatient psychiatric facility or to continue to await bed availability at [facility]. Pt elects for soonest bed available. A/P: Pt continues to require admission to [facility]. [] Admission orders placed [] Admission medication reconciliation completed [] Nicotine/EtOH withdrawal assessed and addressed [] Scheduled treatment started Will see daily while boarded in the ED. documented in this encounter [facility] 05-16-2023 Emergency department Note SPARE HAND to the room for labs. Madiha Goff MA 05/16/23 0549 [facility] 05-16-2023 Emergency department Note Pt resting in bed, bed near call light on the wall. Lights are off and door ajar. Breathing is unlabored. Keena Ball RN 05/16/23 0106 [facility] 05-15-2023 Emergency department Note Meal tray delivered Yusra Major LPN 05/15/23 1751 [facility] 05-15-2023 Emergency department Note This RN spoke with [facility]. Report given to caregiver. Caregiver requested pt files to review prior to accepting pt due to pt having a history of being a sex offender in the past Rebeca Delaney RN 05/15/23 1530 [facility] 05-15-2023 Emergency department Note Patient lying in bed with eyes closed. No distress noted. Breathing is even and unlabored on room air. Юлия Sheikh RN 05/15/23 1517 [facility] 05-15-[address] Baig, in regards to message sent to Dr Arndt, she will be down as soon as she can be to assess pt Rebeca Delaney RN 05/15/23 1140 [facility] 05-15-2023 Emergency department Note Pt report to this RN that he is hearing voices that are telling him he is going to be taken away. He states those fucking faggot study assistant out there are trying to take me away . This RN sent message to Dr Arndt to alert his of pts delusions and hallucinations Rebeca Delaney RN 05/15/23 1123 T [facility] 05-15-2023 Emergency department Note Patient continues to get up from bed and come to edge of door and stare at staff. Patient can be heard talking, when RN asked patient if he had any needs he said I am talking to myself. Breathing is even and unlabored on room air. No distress noted. Юлия Sheikh RN 05/15/23 1116 T [facility] 05-15-2023 Emergency department Note Patient continues to get up out of bed and stand grinder warner looking at staff through window, RN asked patient to return to room. Dr. Arndt notified again that patient is requesting something for anxiety. Юлия Sheikh RN 05/15/23 0956 T [facility] 05-15-2023 Emergency department Note Patient requesting something for anxiety, Dr. Arndt notified in person. Юлия Sheikh RN 05/15/23 0946 T [facility] 05-15-2023 Emergency department Note Patient given a coke per his request. Юлия Sheikh RN 05/15/23 0907 T [facility] 05-15-2023 Emergency department Note Meal tray given. Jillian Patel 05/15/23 0831 [facility] 05-15-2023 Emergency department Note PT urine specimen at bedside. Pt requesting blanket and sheet. This RN sent off urine specimen and provided pt with a warm blanket and a sheet Rebeca Delaney RN 05/15/23 0742 [facility] 05-15-2023 Emergency department Note RN at bed side at pt's request. Jillian Patel 05/15/23 0738 [facility] 05-15-2023 Emergency department Note Psych resident at bedside. Salbador Nath 05/15/23 025 [facility] 05-14-2023 Note NOTE: This result is for medical treatment only. Analysis performed using non-forensic procedures. [facility] 05-14-2023 Emergency department Note Kaitlin RN at bedside medicating pt. Salbador Nath 05/14/232027 [facility] 05-14-2023 Emergency department Note Pt in [place]. Salbador Nath 05/14/232026 [facility] 05-14-2023 Note Patient presented to the ED for psychiatric evaluation. He is suicidal and hearing voices, they are asking him to jump off a bridge. Denies using methamphetamines recently. Originally the patient was supposed to be admitted to [facility]. However, [facility] called back and said that they have multiple young patients at their facility and the patient is a known sex offender. They do not feel that those young patients would be safe around this patient so they refused to take him. I spoke with Dr. Baig of inpatient psychiatry here at [facility] and she decided to admit patient to [facility] floor instead. Clinical impression unchanged. Greg Reece MD 05/15/232228 [facility] 05-14-2023 Emergency department Note SYLVIA Madrigal at bedside doing blood work. Edin Freeman 05/14/232010 [facility] 05-14-2023 Emergency department Note Pt coming into hallway, protective service officers attempting to redirect pt back into room. Salbador Nath 05/14/231952 [facility] 05-14-2023 Emergency department Note Pt in hallway yelling at pt in room 50. Stated to pt in room go ahead and kick my ass. Protective services called. Salbador Nath 05/14/231946 [facility] 05-14-2023 Emergency department Note Pt standing in doorway talking to pt in room 50. Salbador Nath 05/14/231941 [facility] 05-14-2023 Emergency department Note Ziebach juice given to patient. Edin Freeman 05/14/231924 [facility] 05-14-2023 Emergency department Note Physician at bed side. Jillian Patel 05/14/23 190 [facility] 05-14-2023 Emergency department Note .....................Pt resting in bed, calm and cooperative. Tearful Halima Bowles RN 05/14/23 185 [facility] 05-14-2023 Emergency department Note Pt to rm 53 with RN. Jillian Patel 05/14/231847 [facility] 05-14-2023 Emergency department Note Pt has been changed into 2 hospital gowns, footies and skin assessment completed by nursing. Pt wanded by protective services. 1 bag. Pt kept eye glasses. Jillian Patel 05/14/231847 [facility] 05-14-2023 Consult note Formatting of th is note is different from the original. DEPARTMENT OF group care worker Emergency Department Consult - Adult IDENTIFYING INFORMATION Name: Constantin Monsalve : 1990 Today's date: 05/15/2023 CHIEF COMPLAINT: I'm so emotional History obtained from: this patient and chart review Per ED note: Chief Complaint Patient presents with Depression Patient states he has been feeling depressed. Pt states he recently ran away from ex-. When asked if pt feels suicidal, pt states I can't say no but I can't say yes. Pt has no plan. Hx [employer]PD. States he ran out of psych meds. 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 Psychiatric Evaluation HISTORY OF PRESENT ILLNESS Constantin Monsalve is a 33 y.o. male presenting to [facility] ED for depression. Psychiatry was consulted for mental health evaluation and progressing agitation. UDS positive for amphetamine use. Constantin Monsalve reports an anxious mood. Constantin identifies stressors in his life as meth use, relationship with ex-, struggling to keep a job, and living with his mother. He says I just need to get my life together. Constantin has been sleeping not great with some racing thoughts keeping him awake at night. Denies nightmares. Constantin reports a good appetite. He endorses symptoms of anxiety including restlessness, agitation, irritability, worried thinking. Constantin currently denies suicidal or homicidal ideation. He most recently endorsed passive suicidal ideation while using meth as he reports not caring whether he lived or . He endorses current auditory hallucinations with 18 voices which are all talking to him negatively. One voice is telling him to jump off a bridge. Constantin is having a hard time delineating which voices are not his own. He explains that he has taken medicines to manage voices in the past but is unsure which ones and he has been out of medicine for 2 months. He denies visual hallucinations. He endorses some paranoia about the police being out to get him and is asking to see the news in case there is a warrant for his arrest. It is unclear if he has current legal charges at this time. Patient is currently able to contract for safety and does not exhibit aggression. Constantin has no other questions or concerns at this time. PSYCHIATRIC REVIEW OF SYSTEMS DEPRESSION: Endorses low mood, low energy, poor sleep, feeling worthless. Denies change in appetite, anhedonia, feelings of guilt, difficulty concentrating, psychomotor slowing, suicidal thoughts JOSE: Endorses intense irritability and mood swings, impulsiveness, racing thoughts. Denies euphoric mood, quick distraction, risky behaviors, decrease need for sleep, hyper-focused goals, flight of ideas, pressured speech, difficulty calming down ANXIETY: Endorses excessive worry, hypersomnolence, restlessness, irritability, muscle tension. Denies phobias, panic. OCD: Denies obsessive thoughts, compulsions, irrational repetitive behaviors such as checking, counting, cleaning excessively, or other rituals PSYCHOSIS: Endorses auditory hallucinations, paranoid thinking (see HPI). Denies disorganized thinking, catatonic behavior PTSD: Denies hyperarousal, flashbacks, nightmares, intrusive thoughts/behaviors, avoidance, trouble functioning due to past trauma PSYCHIATRIC HISTORY Past Diagnoses: Anxiety, Depression, Bipolar Disorder, Methamphetamine abuse Outpatient psychiatrist: Halima Wells, TRAFFIC ANALYST with [facility]. Last seen before January 2023. Previous medications: Trials of Vraylar, Valium, and at least 3 other medicines Previous hospitalizations: Patient unsure. None identified in chart review. Self harm/Suicide attempts: Endorses a history of several attempts to by holding a gun to head, driving recklessly, stabbing self (at least twice) in the past. Last attempt was most recent meth use when he did not care if he . MEDICAL/SURGICAL HISTORY Past Medical History: Diagnosis Date Back injury HIV (human immunodeficiency virus infection) (FORMERLY [facility]) 01/2013 Right leg pain since childhood Past Surgical History: Procedure Laterality Date CHOLECYSTECTOMY OTHER SURGICAL HISTORY for projectile vomiting and feeding tube at Allergies: Patient has no known allergies. SUBSTANCE ABUSE HISTORY ETOH: Denies Nicotine: 1.5 packs cigarettes daily Cannabis: Occasionally smokes weed Illicit drugs: Meth use for 6 years. Longest period of sobriety was for 1.5 years until about 1 year ago when his dog and he started using again. Currently smokes meth and shoots it. Most recently admits to meth use about 2 nights ago when he shot 2 grams and smoked afterwards. Substance treatment: Denies SOCIAL HISTORY Born and raised: [place] Childhood: Endorses unknown type of trauma. Employment: Currently unemployed. 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 Relationships: Currently single. from . Children: None Living situation: Lives with mother in [place], [place]. Was seeking independent housing opportunities but could not pay rent. Legal: Possible charges - unsure what kind (rule out delusion) : Denies Mormon: Denies Weapons: Denies access to firearms Guardian: N/A MENTAL STATUS EXAM Vitals : BP 113/69 Pulse (!) 120 Temp 37 C (98.6 F) (Temporal) Resp 13 Ht 1.473 m (4' 10 ) Wt 36.7 kg (81 lb) SpO2 98% BMI 16.93 kg/m Level of consciousness: Alert and oriented to person, place, time, and situation Appearance: unkempt and hospital attire Eye contact: Good Behavior/Motor: Psychomotor agitation, restless and fidgeting in bed Gait: Lying in bed Involuntary movements: Normal Attitude toward examiner: Cooperative Speech: clear, normal rate, and normal volume Mood: Anxious and Sad Affect: mood congruent and labile, tearful at times Thought processes: mildly disorganized and tangential Thought content: passive suicidal ideations, auditory hallucinations, no homicidal ideations, possible delusion about being arrested Cognition: Fair Concentration: Fair Memory: Fair Insight: Fair Judgement: Fair RESULTS REVIEW Recent Labs 05/14/232016 WBC 9.0 HGB 15.6 PLT 116* Recent Labs 05/14/232016 NA 140 K 3.8 CL 98 CO2 27 BUN 18 CREATININE 0.82 GLUCOSE 97 Recent Labs 05/14/232016 BILITOT 2.3* ALKPHOS 102 AST 37 ALT 34 No results found for: TSH, FREET4 Lab Results Component Value Date ETOH <0.010 05/14/2023 No orders to display RISK ASSESSMENT: LOW RISK FACTORS: Anxiety, Depression, Bipolar, passive SI, meth use, trauma history, unemployed, not taking medicines for 2 months PROTECTIVE FACTORS: willing to seek help, future oriented ASSESSMENT Methamphetamine Abuse Unspecified Anxiety Disorder Unspecified Depressive Disorder BMI Classification: Underweight (BMI <18.5) RECOMMENDED PLAN Transfer patient to [facility] emergency services for further monitoring, evaluation, and treatment Emergency Department informed of patient disposition recommendation Verbal explanation of working diagnosis, signs and symptoms and recommended course of treatment including risk/benefit information has been given to patient. This patient was staffed with attending physician, Dr. Gonzales T [facility] 05-14-2023 Consult note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 PRN, agitation, Starting on 05/15/23 at 2220 And LORazepam (Ativan) tablet 2 mgJump to med 2 mg, Oral, Every 6 hours PRN, other, agitation, Starting on 05/15/23 at 2220 Group 4: diphenhydrAMINE (BENADryl) injection 50 mgJump to med 50 mg, IntraMUSCular, Every 6 hours PRN, itching, agitation, Starting on 05/15/23 at 2220
Offer PO first and administer IM only if patient unable to comply.
And haloperidol lactate (Haldol) injection 5 mgJump to med 5 mg, IntraMUSCular, Every 6 hours PRN, agitation, Starting on 05/15/23 at 2220
Offer PO first and administer IM only if patient unable to comply. IM route of administration preferred. Because of the risk of TdP and QT prolongation, ECG monitoring is recommended if haloperidol is given IV.
And LORazepam (Ativan) injection 2 mgJump to med 2 mg, IntraMUSCular, Every 6 hours PRN, agitation, Starting on 05/15/23 at 2220
Offer PO first and administer IM only if patient unable to comply. For IV doses dilute dose with 1ml NS.
Scheduled Medication Order 06/22/2023 06/23/2023 06/24/2023 azithromycin (Zithromax) tablet 1,200 mg 1,200 mg, Oral, Weekly, First dose on Tue06/25/23 at 0900, Suspected Indication (Select all that apply): Immunocomp Host Prophylaxis cyanocobalamin (Vitamin B-12) injection 1,000 mcg 1,000 mcg, IntraMUSCular, Daily, First dose on Tue06/24/23 at 1010 1010 (Not Given - Pr ovider: Vashti Gustafson RN - Reason: Other - Comment: To be given with lunch) sulfamethoxazole-trimethoprim (Bactrim DS) 800-160 MG per tablet 1 tablet 1 tablet, Oral, 3 times weekly (Once per day on Tue), First dose on Tue06/24/23 at 0955, Suspected Indication (Select all that apply): Immunocomp Host Prophylaxis 0955 (Not Given - Pr ovider: Vashti Gustafson RN - Reason: Patient/family refused - Comment: To be given with patient's lunch.) Care Teams (unrecognized sec tion and content) Mechanic Helper Relationship Specialty Start Date End Date [facility] [address] [place] [address] PCP - General 07/04/23 Mechanic Helper Relationship Specialty Start Date End Date [facility] [address] [place] [address] PCP - General 07/04/23 Mechanic Helper Relationship Specialty Start Date End Date [facility] [address] [place] [address] PCP - [facility] 07/04/23 Mechanic Helper Relationship Specialty Start Date End Date [facility] [address] [place] [address] PCP - General 07/04/23 Mechanic Helper Relationship Specialty Start Date End Date [facility] [address] [place] [address] PCP - General 07/04/23 FOR RECORDS PERTAINING TO PATIENTS WHO ARE OR HAVE BEEN ENROLLED IN A CHEMICAL DEPENDENCY/SUBSTANCEABUSE PROGRAM, SOME INFORMATION MAY BE OMITTED. This clinical summary was aggregated from multiple sources. Caution should be exercised in using it in the provision of clinical care. This summary normalizes information from multiple sources, and as a consequence, information in this document may materially change the coding, format and clinical context of patient data. In addition, data may be omitted in some cases. CLINICAL DECISIONS SHOULD BE BASED ON THE PRIMARY CLINICAL RECORDS. [employer] provides no warranty or guarantee of the accuracy or completeness of information in this document.
== END 2025-01-05 09:49 | disposition left against medical advice (07) ==
LOC: ER 10:02
PROVIDERS: Emergency Provider Emergency Medicine
DX: M54.50 Low back pain, unspecified (principal); Z53.29 Procedure and treatment not carried out because of patient's decision for other reasons
CPT/HCPCS: 72100; 96372; 99284; J1885

== ENCOUNTER 2025-01-07 04:21 | Emergency (ER) | payer OTHER, SELFPAY ==
[2025-01-07 04:25] VITALS: BP 117/69; PULSE 102; TEMP 36.8; O2SAT 100; BMI 19.0
--- OUTSIDE RECORDS SUMMARY | 2025-01-07 04:30 | XMS_ITS | CCD ---
Author Organization [facility] Care Team Providers Care Clinical Trials Data Coordinator Name Role Phone TONJA KAISER Unavailable Unavailable [...] Unavailable Unavailable Primary Care Provider Unavailabl e [facility], [facility] Physicians Primary Care Provider Unav ailable FLO DOWLING Admitting Unavailable FLO DOWLING Attending Unavailable ATUL ARNDT Attending Unavailable [facility] Primary Care Unavailable GAYATRI GONZALES Admitting Unavailable GAYATRI GONZALES Attending Unavailable MC LUO Consulting Unavailable MISAEL SIMMONS Consulting Unavailable WALLACE LIM Admitting Unavailable WALLACE LIM Attending Unavailable TONJA KAISER Primary Care Unavailable GINA HEREDIA Consulting Unavailable JANINE OLMSTEAD Referring Unavailable TONJA KAISER Primary Care Unavailable NEISHA SIMMONS Referring Unavailable [facility] Primary Care Unavailable JOI ARTEAGA Attending Unavailable GRACY NELSON Referring Unavailable DOMONIQUE CORTEZ Attending [facility] Unavailable DOMONIQUE CORTEZ Attending [...] Propensity to adverse reactions to drug (disorder) [facility] Repository Medications Current Medications Medication Drug Class(es) [...] MG/24HR patch 1 patch polyethylene glycol 3350 18286 mg powder for oral solution (2 sources) [...] 07-04-2023 Episodic Other aftercare (2 sources) Other correction (current) drug therapy; Translations: [Other correction (current) drug therapy] Onset: 05-09-2024 Episodic Other [...] Range Facility Office Visiton 12-19-2024 Follow-up visit [id number] Constantin Galan 1990 M Date Provider Department Center 12/19/2024 TONJA ANDRADE [facility] Family History Problem Relation Age of Onset Alcohol abuse Mother Anxiety disorder Mother Arthritis Mother Cancer Mother COPD Mother Depression Mother Diabetes Mother Drug abuse Mother Hypertension Mother Kidney disease Mother Mental illness Mother Suicide Attempts Mother Alcohol abuse Father Family Status - Relation Status Age at Mother Father Level of Service:10281 AR OFFICE/OUTPATIENT ESTABLISHED LOW MDM 20 MIN Reason for Visit and Comments: Human immunodeficiency virus (HIV) disease (CMS/HCC) [Other] Normal [facility] EDPROVon 12-10-2024 EDPROV [facility] Lisa FIERRO [facility] [address] EMERGENCY DEPARTMENT ENCOUNTER ED Room: CHIEF COMPLAINT [...] blood blister . Patient was seen at [place] and was given antibiotics for which patient [...] or soles. Patient has establish care with [facility] however has missed his last 2 appointments [...] a past medical history of HIV disease ([facility]) (2012), STD (sexually transmitted disease), and Varicella [...] (0.5 mg) by mouth two times daily. JASDKSXCO-MKBHLQNP-OAFHK OV ALA (BIKTARVY) 50-200-25 MG TABLET Take [...] are inte (more content not included)... Normal [facility] BLOOD CULTUREon 11-28-2024 Bacteria identified Aer cx Nom (Bld) SPECIMEN NOTES SUBOPTIMAL VOLUME OF BLOOD COLLECTED, RESULTS MAY BE AFFECTED. CULTURE RESULTS NO GROWTH 5 DAYS Normal [facility] Comment on above: Performed By: #### 1 [id number] #### [facility] ([id number]) [address] [place] [address], [address] [place] [address] Bacteria identified Aer cx Nom (Bld) CULTURE RESULTS NO GROWTH 5 DAYS Normal [facility] CBC AND AUTO DIFFon 11-29-19 25 ABSOLUTE BASOPHIL 0.0 X10E9/L Normal 0.0-0.2 [facility] Comment on above: Performed By: #### C YANETH GARCÍA, 1988-12 #### [facility] ([id number]) [address] [facility] [address] ABSOLUTE NEUTROPHIL 5.9 X10E9/L Normal 1.5-6.6 [facility] Comment on above: Performed By: #### C YANETH GARCÍA, 1988-12 #### [facility] ([id number]) [address] [facility] [place] [address] Basophils/100 WBC (Bld) 0.3 % Normal [facility] Comment on above: Performed By: #### C YANETH GARCÍA, 1988-12 #### [facility] ([id number]) [address] [place] [address] Eosinophils (Bld) [#/Vol] 0.1 10*3/uL Normal 0.0-0.4 [facility] Comment on above: Performed By: #### C YANETH GARCÍA, 1988-12 #### [facility] ([id number]) [address] [place] [address] Eosinophils/100 WBC (Bld) 1.1 % Normal [facility] Comment on above: Performed By: #### C RICKY [facility], 1987-12 #### [facility] ([id number]) [address] [place] [address] Erythrocyte distribution width (RBC) [Ratio] 15.2 % High 11.5-15.0 [facility] Comment on above: Performed By: #### C RICKY [facility], 1987-12 #### [facility] ([id number]) [address] [place] [address] Hematocrit (Bld) [Volume fraction] 39.9 % Normal 39-49 [facility] Comment on above: Performed By: #### Navdeep GARCÍA [facility], 1987-12 #### [facility] ([id number]) [address] [place] [address] Hemoglobin (Bld) [Mass/Vol] 14.2 g/dL Normal 13.0-17.0 [facility] Comment on above: Performed By: #### Navdeep GARCÍA [facility], 1987-12 #### [facility] ([id number]) [address] [place] [address] Lymphocytes (Bld) [#/Vol] 0.7 10*3/uL Low 1.0-3.5 [facility] Comment on above: Performed By: #### Navdeep GARCÍA [facility], 1987-12 #### [facility] ([id number]) [address] [place] [address] Lymphocytes/100 WBC (Bld) 9.5 % Normal [facility] Comment on above: Performed By: #### Navdeep GARCÍA [facility], 1987-12 #### [facility] ([id number]) [address] [place] [address] MCH (RBC) [Entitic mass] 38.8 pg High 27-34 [facility] Comment on above: Performed By: #### C RICKY [facility], , 1987-12 #### [facility] ([id number]) [address] [place] [address] MCHC (RBC) [Mass/Vol] 35.5 g/dL Normal 32-36 [facility] Comment on above: Performed By: #### C RICKY [facility], , 1987-12 #### [facility] ([id number]) [address] [place] [address] MCV (RBC) [Entitic vol] 109 fL High 80-100 [facility] Comment on above: Performed By: #### Navdeep GARCÍA [facility], , 1987-12 #### [facility] ([id number]) [address] [place] [address] Monocytes (Bld) [#/Vol] 0.4 10*3/uL Normal 0-0.9 [facility] Comment on above: Performed By: #### C BCA [facility], , 1987-12 #### [facility] ([id number]) [address] [place] [address] Monocytes/100 WBC (Bld) 5.5 % Normal [facility] Comment on above: Performed By: #### Navdeep BCA [facility], , 1987-12 #### [facility] ([id number]) [address] [place] [address] Neutrophils/100 WBC (Bld) 83.6 % Normal [facility] Comment on above: Performed By: #### C BCA CMP, , 1987-12 #### [facility] ([id number]) [address] [place] [address] Platelet mean volume (Bld) [Entitic vol] 9.9 fL Normal 7-12 [facility] Comment on above: Performed By: #### C BCA, CMP, , 1987-12 #### [facility] ([id number]) [address] [place] [address] Platelets (Bld) [#/Vol] 172 10*3/uL Normal 150-450 [facility] Comment on above: Performed By: #### C YANETH GARCÍA, 1988-12 #### [facility] ([id number]) [address] [place] [address] RBC COUNT 3.66 X10E12/L Low 4.10-5.70 [facility] Comment on above: Performed By: #### C RICKY CMP, , 1987-12 #### [facility] ([id number]) [address] [place] [address] WBC (Bld) [#/Vol] 7.1 10*3/uL Normal 4.0-11.0 [facility] Comment on above: Performed By: #### C RICKY CMP, 1987-12 #### [facility] ([id number]) [address] [place] [address] COMPREHENSIVE METABOLIC PANE Agustin 11-28-2024 Albumin [Mass/Vol] 4.2 g/dL Normal 3.2-5.3 [facility] Comment on above: Performed By: #### C RICKY CMP, 1987-12 #### [facility] ([id number]) [address] [place] [address] ALP [Catalytic activity/Vol] 80 U/L Normal 39-130 [facility] Comment on above: Performed By: #### C BCA CMP, 1987-12 #### [facility] ([id number]) [address] [place] [address] ALT [Catalytic activity/Vol] 18 U/L Normal 0-40 [facility] Comment on above: Performed By: #### C BCA CMP, 1987-12 #### [facility] ([id number]) [address] [place] [address] Anion gap [Moles/Vol] 11 mmol/L Normal 5-15 [facility] Comment on above: Performed By: #### C BCA CMP, 1987-12 #### [facility] ([id number]) [address] [place] [address] AST [Catalytic activity/Vol] 21 U/L Normal 0-41 [facility] Comment on above: Performed By: #### C BCA CMP, 1987-12 #### [facility] ([id number]) [address] [place] [address] Bilirubin [Mass/Vol] 0.6 mg/dL Normal 0.3-1.2 [facility] Comment on above: Performed By: #### C RICKY [facility], 1987-12 #### [facility] ([id number]) [address] [place] [address] Calcium [Mass/Vol] 9.3 mg/dL Normal 8.5-10.5 [facility] Comment on above: Performed By: #### C RICKY [facility], 1987-12 #### [facility] ([id number]) [address] [place] [address] Chloride [Moles/Vol] 102 mmol/L Normal 98-109 [facility] Comment on above: Performed By: #### C BCA [facility], 1987-12 #### [facility] ([id number]) [address] [place] [address] CO2 [Moles/Vol] 25 mmol/L Normal 22-32 [facility] Comment on above: Performed By: #### C BCA CMP, 1987-12 #### [facility] ([id number]) [address] [place] [address] Creatinine [Mass/Vol] 0.67 mg/dL Low 0.70-1.20 [facility] Comment on above: Result Comment: METH OD TRACEABLE TO IDMS STANDARD Performed By: #### C RICKY CMP, 1987-12 #### [facility] ([id number]) [address] [place] [address] eGFR (CKD-EPI) NON-RACE DEPENDENT >90 Normal >59 [facility] Comment on above: Result Comment: Reported eGFR is based on the CKD-EPI 2020 equation that does not use a race coefficient. Performed By: #### C YANETH GARCÍA, 1987-12 #### [facility] ([id number]) [address] [place] [address] Glucose [Mass/Vol] 111 mg/dL High 65-99 [facility] Comment on above: Performed By: #### C RICKY [facility], 1987-12 #### [facility] ([id number]) [address] [place] [address] Potassium [Moles/Vol] 3.9 mmol/L Normal 3.5-5.0 [facility] Comment on above: Performed By: #### C YANETH GARCÍA, 1987-12 #### [facility] ([id number]) [address] [place] [address] Protein [Mass/Vol] 8.7 g/dL High 6.0-8.0 [facility] Comment on above: Performed By: #### C RICKY [facility], 1987-12 #### [facility] ([id number]) [address] [place] [address] Sodium [Moles/Vol] 138 mmol/L Normal 134-146 [facility] Comment on above: Performed By: #### C RICKY [facility], 1987-12 #### [facility] ([id number]) [address] [place] [address] Urea nitrogen [Mass/Vol] 26 mg/dL High 5-23 [facility] Comment on above: Performed By: #### C RICKY [facility], 1987-12 #### [facility] ([id number]) [address] [place] [address] CRP [Mass/Vol]on 11-28-2024 C REACTIVE PROTEIN 0.9 mg/dL High 0.000-0.744 [facility] Comment on above: Performed By: #### C RICKY [facility], , 1987-12 #### [facility] ([id number]) [address] [facility] [place] [address] Lactate (P latia) [Moles/Vol]o n 11-28-2024 LACTATE W/REFLEX 1.9 mmol/L Normal 0.4-2.0 [facility] Comment on above: Result Comment: Result did not trigger repeat Lactate, re-order if needed. Performed By: #### C RICKY, [facility], [address]-3, 1987-12 #### [facility] ([id number]) [address] [place] [address] XR FINGER THUMB LT MIN 2 VWS [...] Raymundo MD on 11/28/2024 4:22 AM Normal [facility] Office Visiton 06-26-2024 Follow-up visit [id number] Constantin Galan 1990 M Date Provider Department Center 06/26/2024 HALIMA ARROYO [facility] Family History Problem Relation Age of Onset Alcohol abuse Mother Anxiety disorder Mother Arthritis Mother Cancer Mother COPD Mother Depression Mother Diabetes Mother Drug abuse Mother Hypertension Mother Kidney disease Mother Mental illness Mother Suicide Attempts Mother Alcohol abuse Father Family Status - Relation Status Age at Mother Father Level of Service:72890 AR OFFICE/OUTPATIENT ESTABLISHED LOW MDM 20 MIN Reason for Visit and Comments: Health Maintenance [619] Normal [facility] CT CERVICAL SPINE WO IV CONT [...] as reasonably achievable. Electronically signed: Mc Stewart. [facility] CT HEAD WO IV CONTRASTon CT [...] as reasonably achievable. Electronically signed: Mc Stewart. [facility] CT LUMBAR SPINE WO IV CONTRA [...] osseous abnormality. Electronically signed: Mc Stewart. Normal [facility] CT THORACIC SPINE WO IV CONT [...] osseous abnormality. Electronically signed: Mc Stewart. 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 Normal [facility] EDPROVon 06-11-2024 EDPROV [facility] Lisa FIERRO [facility] [address] EMERGENCY DEPARTMENT ENCOUNTER 06/11/2024 CHIEF COMPLAINT Chief Complaint Patient presents with Back Pain Fall HISTORY OF PRESENT ILLNESS 34 y/o male with a h/o HIV, PTSD, bipolar disorder presents to the ED for evaluation of back pain. 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 Lumb (more content not included)... Normal [facility] Orders Onlyon 05-17-2024 Orders Only [id number] Constantin Galan Delroy 1990 M Date Provider Department Center 05/17/2024 [facility]ONJA [facility]ADE [facility] Family History Problem Relation Age of Onset Alcohol abuse Mother Anxiety disorder Mother Arthritis Mother Cancer Mother COPD Mother Depression Mother Diabetes Mother Drug abuse Mother Hypertension Mother Kidney disease Mother Mental illness Mother Suicide Attempts Mother Alcohol abuse Father Family Status - Relation Status Age at Mother Father Normal [facility] Orders Onlyon 05-11-2024 Orders Only [id number] Constantin Galan W 1990 M Date Provider Department Center 05/11/2024 Gabino-HALIMA WELLS [facility] Family History Problem Relation Age of Onset Alcohol abuse Mother Anxiety disorder Mother Arthritis Mother Cancer Mother COPD Mother Depression Mother Diabetes Mother Drug abuse Mother Hypertension Mother Kidney disease Mother Mental illness Mother Suicide Attempts Mother Alcohol abuse Father Family Status - Relation Status Age at Mother Father Normal [facility] CBC WITH AUTO DIFFERENTIALon 05-09-2024 Basophils (Bld) [#/Vol] 0.01 10*3/uL Normal 0.00-0.20 [facility] Comment on above: Performed By: #### L [id number] #### [facility] ([facility]ER) [address] [place] [address] Basophils/100 WBC (Bld) 0.3 % Normal 0.0-1.0 [facility] Comment on above: Performed By: #### L [id number] #### [facility] ([facility]) [address] [place] [address] Eosinophils (Bld) [#/Vol] 0.02 10*3/uL Normal 0.00-0.50 [facility] Comment on above: Performed By: #### L [id number] #### [facility] ([facility]) [address] [place] [address] Eosinophils/100 WBC (Bld) 0.6 % Normal 0.0-6.0 [facility] Comment on above: Performed By: #### L [id number] #### [facility] ([facility]) [address] [place] [address] Erythrocyte distribution width (RBC) [Ratio] 13.4 % Normal 11.5-15.0 [facility] Comment on above: Performed By: #### L [id number] #### [facility] ([facility]) [address] [place] [address] ERYTHROCYTE MEAN CORPUSCULAR HEMOGLOBIN CONCENTRATION (G/DL) BY AUTOMATED 35.7 g/dL High 32.0-35.0 [facility] Comment on above: Performed By: #### L [id number] #### [facility] ([facility]) [address] [place] [address] Hematocrit (Bld) [Volume fraction] 38.1 % Low 39.0-55.0 [facility] Comment on above: Performed By: #### L [id number] #### [facility] ([facility]) [address] [place] [address] Hemoglobin (Bld) [Mass/Vol] 13.6 g/dL Normal 13.0-17.0 [facility] Comment on above: Performed By: #### L [id number] #### [facility] ([facility]) [address] [place] [address] Immature granulocytes (Bld) [#/Vol] 0.01 10*3/uL Normal 0.00-0.20 [facility] Comment on above: Performed By: #### L [id number] #### [facility] ([facility]) [address] [place] [address] Immature granulocytes/100 WBC (Bld) 0.3 % Normal 0.0-1.0 [facility] Comment on above: Performed By: #### L [id number] #### [facility] ([facility]) [address] [place] [address] Lymphocytes (Bld) [#/Vol] 0.62 10*3/uL Low 1.20-4.00 [facility] Comment on above: Performed By: #### L [id number] #### [facility] ([facility]) [address] [place] [address] Lymphocytes/100 WBC (Bld) 17.4 % Low 20.0-45.0 [facility] Comment on above: Performed By: #### L [id number] #### [facility] ([facility]) [address] [place] [address] MCH (RBC) [Entitic mass] 38.4 pg High 27.0-33.0 [facility] Comment on above: Performed By: #### L [id number] #### [facility] ([facility]) [address] [place] [address] MCV (RBC) [Entitic vol] 107.6 fL High 82.0-98.0 [facility] Comment on above: Performed By: #### L [id number] #### [facility] ([facility]) [address] [place] [address] Monocytes (Bld) [#/Vol] 0.26 10*3/uL Normal 0.10-1.00 [facility] Comment on above: Performed By: #### L [id number] #### [facility] ([facility]) [address] [place] [address] Monocytes/100 WBC (Bld) 7.3 % Normal 5.0-12.0 [facility] Comment on above: Performed By: #### L [id number] #### [facility] ([facility]) [address] [place] [address] Neutrophils (Bld) [#/Vol] 2.65 10*3/uL Normal 1.60-7.60 [facility] Comment on above: Performed By: #### L [id number] #### [facility] ([facility]) [address] [place] [address] Neutrophils/100 WBC (Bld) 74.1 % High 40.0-72.0 [facility] Comment on above: Performed By: #### L [id number] #### [facility] ([facility]) [address] [place] [address] NRBC (PER 100 WBCS) BY AUTOMATED COUNT 0.0 % Normal 0 [facility] Comment on above: Performed By: #### L [id number] #### [facility] ([facility]) [address] [place] [address] PLATELETS (10*3/UL) IN BLOOD AUTOMATED COUNT 159 10*3/uL Normal 150-400 [facility] Comment on above: Performed By: #### L [id number] #### [facility] ([facility]) [address] [place] [address] RBC (Bld) [#/Vol] 3.54 10*6/uL Low 4.20-5.70 [facility] Comment on above: Performed By: #### L [id number] #### [facility] ([facility]) [address] [place] [address] WBC (Bld) [#/Vol] 3.57 10*3/uL Low 4.00-10.60 [facility] Comment on above: Performed By: #### L [id number] #### [facility] ([facility]) [address] [place] [address] CHLAMYDIA TRACHOMATIS AND NE ISSERIA GONORRHEA, TMAon 05-09-2024 CHLAMYDIA TRACHOMATIS DNA PROBE (PRESENCE) IN UNSP SPEC Negative Normal Negative [facility] Comment on above: Result Comment: No C hlamydia trachomatis rRNA Detected. The Aptima Combo 2 Assay is a FDA approved target amplification nucleic acid probe test that utilizes target capture for the in vitro qualitative detection and differentiation of ribosomal RNA (rRNA) from Chlamydia trachomatis (CT) and/or Neisseria gonorrhoeae (GC) to aid the diagnosis of chlamydial and/or gonococcal urogenital disease using the Fayette System. The Aptima Combo 2 Assay involves target capture, target amplification by Agency Recruiter-Mediated Amplification (TMA), and the detection of the amplification products (amplicon) by the Hybridization Protection Assay (HPA). The internal process controls of the Fayette System monitor the target capture, amplification, and detection steps of the assay, this is not intended to control for sampling adequacy. Performed By: #### L [id number] ####[facility] ([facility])[address] [place] [address] NEISSERIA GONORRHOEAE DNA PROBE (PRESENCE) IN UNSP SPEC Negative Normal Negative [facility] Comment on above: Result Comment: No N eisseria gonorrhoeae rRNA Detected. The Aptima Combo 2 Assay is a FDA approved target amplification nucleic acid probe test that utilizes target capture for the in vitro qualitative detection and differentiation of ribosomal RNA (rRNA) from Chlamydia trachomatis (CT) and/or Neisseria gonorrhoeae (GC) to aid the diagnosis of chlamydial and/or gonococcal urogenital disease using the Fayette System. The Aptima Combo 2 Assay involves target capture, target amplification by Agency [employer]-Mediated Amplification (TMA), and the detection of the amplification products (amplicon) by the Hybridization Protection Assay (HPA). The internal process controls of the [employer] monitor the target capture, amplification, and detection steps of the assay, this is not intended to control for sampling adequacy. Performed By: #### L [id number] ####[facility] ([facility])[address] [place] [address] COMPREHENSIVE METABOLIC PANE Agustin 05-09-2024 Albumin [Mass/Vol] 4.1 g/dL Normal 3.5-5.[address] [facility] Comment on above: Performed By: #### L [id number] #### [facility] ([facility]) [address] [place] [address] ALP [Catalytic activity/Vol] 76 U/L Normal 34-104 [facility] Comment on above: Performed By: #### L [id number] #### [facility] ([facility]) [address] [place] [address] ALT [Catalytic activity/Vol] 7 U/L Normal 7-52 [facility] Comment on above: Performed By: #### L [id number] #### [facility] ([facility]) [address] [place] [address] Anion gap [Moles/Vol] 10 mmol/L Normal 7-20 [facility] Comment on above: Performed By: #### L [id number] #### [facility] ([facility]) [address] [place] [address] AST [Catalytic activity/Vol] 15 U/L Normal 13-39 [facility] Comment on above: Performed By: #### L [id number] #### [facility] ([facility]) [address] [place] [address] Bilirubin [Mass/Vol] 0.8 mg/dL Normal 0.3-1.0 [facility] Comment on above: Performed By: #### L [id number] #### [facility] ([facility]) [address] [place] [address] Calcium [Mass/Vol] 9.1 mg/dL Normal 8.6-10.[address] [facility] Comment on above: Performed By: #### L [id number] #### [facility] ([facility]) [address] [place] [address] Chloride [Moles/Vol] 100 mmol/L Normal 98-107 [facility] Comment on above: Performed By: #### L [id number] #### [facility] ([facility]) [address] [place] [address] CO2 [Moles/Vol] 28 mmol/L Normal 21-31 [facility] Comment on above: Performed By: #### L [id number] #### [facility] ([facility]) [address] [place] [address] Creatinine [Mass/Vol] 0.75 mg/dL Normal 0.70-1.30 [facility] Comment on above: Performed By: #### L [id number] #### [facility] ([facility]) [address] [place] [address] GLOMERULAR FILTRATION RATE ML/MIN/1.73 SQ M.PREDICTED 120.7 mL/min/1.73m*2 Normal >60.0 [facility] Comment on above: Result Comment: The [facility]???s estimated glomerular filtration rate (eGFR) will [...] individuals. Performed By: #### L [id number] #### [facility] ([facility]) [address] [place] [address] Glucose [Mass/Vol] 63 mg/dL Low 70-[address] [facility] Comment on above: Performed By: #### L [id number] #### [facility] ([facility]) [address] [place] [address] Potassium [Moles/Vol] 3.5 mmol/L Normal 3.5-5.1 [facility] Comment on above: Performed By: #### L [id number] #### [facility] ([facility]) [address] [place] [address] Protein [Mass/Vol] 8.1 g/dL Normal 6.0-8.[address] [facility] Comment on above: Performed By: #### L [id number] #### [facility] ([facility]) [address] [place] [address] Sodium [Moles/Vol] 134 mmol/L Low 136-145 [facility] Comment on above: Performed By: #### L [id number] #### [facility] ([facility]) [address] [place] [address] Urea nitrogen [Mass/Vol] 12 mg/dL Normal 7-25 [facility] Comment on above: Performed By: #### L [id number] #### [facility] ([facility]) [address] [place] [address] UREA NITROGEN/CREATININE (MASS RATIO) IN SER/PLAS 16.0 Normal [facility] Comment on above: Performed By: #### L [id number] #### [facility] ([facility]) [address] [place] [address] Labon 05-09-2024 Lab [id number] AngeliaConstantin Delroy 1990 M Date Provider Department [place] 05/09/[address] [place] [address] LAB RESOURCE [facility] Family History Problem Relation Age of Onset Alcohol abuse Mother Anxiety disorder Mother Arthritis Mother Cancer Mother COPD Mother Depression Mother Diabetes Mother Drug abuse Mother Hypertension Mother Kidney disease Mother Mental illness Mother Suicide Attempts Mother Alcohol abuse Father Family Status - Relation Status Age at Mother Father Normal [facility] Office Visiton 05-09-2024 Follow-up visit [id number] Constantin Galan 1990 M Date Provider Department [place] 05/09/2024 [facility]O [facility] Adrian Heal Family History Problem Relation Age of Onset Alcohol abuse Mother Anxiety disorder Mother Arthritis Mother Cancer Mother COPD Mother Depression Mother Diabetes Mother Drug abuse Mother Hypertension Mother Kidney disease Mother Mental illness Mother Suicide Attempts Mother Alcohol abuse Father Family Status - Relation Status Age at Mother Father Level of Service:75143 [place] OFFICE/OUTPATIENT ESTABLISHED LOW MDM 20 MIN Reason for Visit and Comments: Health Maintenance [619] Normal [facility] RPRon 05-09-2024 REAGIN AB PRESENCE IN SERUM BY RPR Non-Reactive Normal Nonreactive [facility] Comment on above: Performed By: #### L [id number] ####[facility] ([facility])[address] [place] [address] T CELL SUBSET ANALYSISon CD3 88.87 % Normal 65.00-90.00 [facility] Comment on above: Performed By: #### L [id number] #### [facility] ([facility]) [address] [place] [address] CD3 ABSOLUTE 552 cells/mm3 Low 760-2130 [facility] Comment on above: Performed By: #### L [id number] #### [facility] ([facility]) [address] [place] [address] CD4 8.04 % Low 40.00-70.00 [facility] Comment on above: Performed By: #### L [id number] #### [facility] ([facility]) [address] [place] [address] CD4 ABSOLUTE 50 cells/mm3 Low 430-1185 [facility] Comment on above: Performed By: #### L [id number] #### [facility] ([facility]) [address] [place] [address] CD4:CD8 0.10 Low 1.00-4.00 [facility] Comment on above: Performed By: #### L [id number] #### [facility] ([facility]) [address] [place] [address] CD8 78.16 % High 15.00-40.00 [facility] Comment on above: Performed By: #### L [id number] #### [facility] ([facility]) [address] [place] [address] CD8 ABSOLUTE 486 cells/mm3 Normal 180-865 [facility] Comment on above: Performed By: #### L [id number] #### [facility] ([facility]) [address] [place] [address] TOXICOLOGY PANEL URINEon AMPHETAMINE+METHAMPHETA MINE SCREEN (PRESENCE) IN URINE Negative Normal Negative [facility] Comment on above: Performed By: #### L [id number] #### [facility] ([facility]) [address] [place] [address] BARBITURATES PRESENCE IN URINE BY SCREEN METHOD Negative Normal Negative [facility] Comment on above: Performed By: #### L [id number] #### [facility] ([facility]) [address] [place] [address] Benzodiazepines Ql (U) Negative Normal Negative [facility] Comment on above: Performed By: #### L [id number] #### [facility] ([facility]) [address] [place] [address] CANNABINOID (PRESENCE) IN URINE BY SCREEN METHOD Negative Normal Negative [facility] Comment on above: Performed By: #### L [id number] #### [facility] ([facility]) [address] [place] [address] Cocaine Ql (U) Negative Normal Negative [facility] Comment on above: Performed By: #### L [id number] #### [facility] ([facility]) [address] [place] [address] METHADONE (PRESENCE) IN URINE BY SCREEN METHOD Negative Normal Negative [facility] Comment on above: Performed By: #### L [id number] #### [facility] ([facility]) [address] [place] [address] OPIATES (PRESENCE) IN URINE BY SCREEN METHOD Negative Normal Negative [facility] Comment on above: Performed By: #### L [id number] #### [facility] ([facility]) [address] [place] [address] PHENCYCLIDINE PRESENCE IN URINE BY SCREEN METHOD Negative Normal Negative [facility] Comment on above: Performed By: #### L [id number] #### [facility] ([facility]) [address] [place] [address] Propoxyphene Screen Ql (U) Negative Normal Negative [facility] Comment on above: Performed By: #### L [id number] #### [facility] ([facility]) [address] [place] [address] TRICYCLIC ANTIDEPRESSANTS (PRESENCE) IN URINE Negative Normal Negative [facility] Comment on above: Performed By: #### L [id number] #### [facility] ([facility]) [address] [place] [address] URINALYSISon 05-09-2024 BILIRUBIN, TOTAL PRESENCE IN URINE Negative Normal Negative [facility] Comment on above: Order Comment: Micro scopics not performed on urines with negative chemical reactions unless requested on original order. Performed By: #### L [id number] #### [facility] ([facility]) [address] [place] [address] Clarity (U) Clear Normal Clear [facility] Comment on above: Order Comment: Micro scopics not performed on urines with negative chemical reactions unless requested on original order. Performed By: #### L [id number] #### [facility] ([facility]) [address] [place] [address] Color (U) Yellow Normal Yellow [facility] Comment on above: Order Comment: Micro scopics not performed on urines with negative chemical reactions unless requested on original order. Performed By: #### L [id number] #### [facility] ([facility]) [address] [place] [address] Glucose (U) [Mass/Vol] Negative Normal Negative [facility] on above: Order Comment: Micro scopics not performed on urines with negative chemical reactions unless requested on original order. Performed By: #### L [id number] #### [facility] ([facility]) [address] [place] [address] HEMOGLOBIN PRESENCE IN URINE Negative Normal Negative [facility] Comment on above: Order Comment: Micro scopics not performed on urines with negative chemical reactions unless requested on original order. Performed By: #### L [id number] #### [facility] ([facility]) [address] [place] [address] Ketones Ql (U) Negative Normal Negative [facility] Comment on above: Order Comment: Micro scopics not performed on urines with negative chemical reactions unless requested on original order. Performed By: #### L [id number] #### [facility] ([facility]) [address] [place] [address] LEUKOCYTE ESTERASE PRESENCE IN URINE BY TEST STRIP Negative Normal Negative [facility] Comment on above: Order Comment: Micro scopics not performed on urines with negative chemical reactions unless requested on original order. Performed By: #### L [id number] #### [facility] ([facility]) [address] [place] [address] NITRITE PRESENCE IN URINE Negative Normal Negative [facility] Comment on above: Order Comment: Micro scopics not performed on urines with negative chemical reactions unless requested on original order. Performed By: #### L [id number] #### [facility] ([facility]) [address] [place] [address] pH (U) 6.0 [pH] Normal 5.0-8.0 [facility] Comment on above: Order Comment: Micro scopics not performed on urines with negative chemical reactions unless requested on original order. Performed By: #### L [id number] #### [facility] ([facility]) [address] [place] [address] Protein (U) [Mass/Vol] Negative Normal Negative Un [facility] Comment on above: Order Comment: Micro scopics not performed on urines with negative chemical reactions unless requested on original order. Performed By: #### L [id number] #### [facility] ([facility]) [address] [place] [address] Specific gravity (U) [Rel density] 1.006 Low 1.015-1.020 [facility] Comment on above: Order Comment: Micro scopics not performed on urines with negative chemical reactions unless requested on original order. Performed By: #### L [id number] #### [facility] ([facility]) [address] [place] [address] UROBILINOGEN (EU/DL) IN URINE 2.0 EU/dL Abnormal Negative [facility] Comment on above: Order Comment: Micro scopics not performed on urines with negative chemical reactions unless requested on original order. Performed By: #### L [id number] #### [facility] ([facility]) [address] [place] [address] Office Visiton 04-26-2024 Follow-up visit [id number] Constantin Galan 1990 M Date Provider Department Center 04/26/2024 TONJA ANDRADE [facility] Family History Problem Relation Age of Onset Alcohol abuse Mother Anxiety disorder Mother Arthritis Mother Cancer Mother COPD Mother Depression Mother Diabetes Mother Drug abuse Mother Hypertension Mother Kidney disease Mother Mental illness Mother Suicide Attempts Mother Alcohol abuse Father Family Status - Relation Status Age at Mother Father Level of Service:89747 [place] OFFICE/OUTPATIENT ESTABLISHED LOW MDM 20 MIN Reason for Visit and Comments: Human immunodeficiency virus (HIV) disease ([facility]) [Other] Health Maintenance [619] Med Management [[id number]] - Out of biktarvy, has not taken a dose in 3 weeks [facility] 3602-14-2024 36 Pt called he is currently in halfway and needs a medication refill on his Biktarvy. He does not know his release date but stated he will call and make an appt when he is out. 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 [facility] Refillon 02-14-2024 Refill [id number] Constantin Galan 1990 M Date Provider Department [place] 02/14/2024 [id number]-GODWYLILIAN MENDOZA [facility] Family History Problem Relation Age of Onset Alcohol abuse Mother Anxiety disorder Mother Arthritis Mother Cancer Mother COPD Mother Depression Mother Diabetes Mother Drug abuse Mother Hypertension Mother Kidney disease Mother Mental illness Mother Suicide Attempts Mother Alcohol abuse Father Family Status - Relation Status Age at Mother Father Reason for Visit and Comments: Med Refill [[id number]] [facility] 36on 12-22-2023 36 Patient had previous admission to [facility]. I reschedule his appointment within the two weeks of his discharge date. Normal [facility] CBC W Auto Differential pane l (Bld)Ordered By: Giovanny Fraga on 12-16-2023 Basophils (Bld) [#/Vol] 0.0 10*3/uL 0.0 - 0.2 10*3/uL [facility] [employer] Basophils/100 WBC (Bld) 0.4 % 0.0 - 2.0 % [facility] Eosinophils (Bld) [#/Vol] 0.1 10*3/uL 0.0 - 0.5 10*3/uL [facility] Eosinophils/100 WBC (Bld) 2.6 % 0.0 - 6.0 % [facility] Erythrocyte distribution width (RBC) [Ratio] 14.7 % 11.5 - 15.0 % [facility] Hematocrit (Bld) [Volume fraction] 39.4 % Low 40.0 - 52.0 % [facility] Hemoglobin (Bld) [Mass/Vol] 14.1 g/dL 13.0 - 18.0 g/dL [facility] Immature granulocytes (Bld) [#/Vol] 0.1 10*3/uL High NINF - 0.1 10*3/uL [facility] Immature granulocytes/100 WBC (Bld) 1.5 % 0.0 - 2.0 % [facility] Interpretation and review of laboratory results Abnormal [facility] IPF 12 [facility] Lymphocytes (Bld) [#/Vol] 1.0 10*3/uL 1.0 - 4.3 10*3/uL [facility] Lymphocytes/100 WBC (Bld) 20.9 % 15.0 - 45.0 % [facility] MCH (RBC) [Entitic mass] 37.1 pg High 26.0 - 34.0 pg [facility] MCHC (RBC) [Mass/Vol] 35.8 % 30.5 - 36.0 % [facility] MCV (RBC) [Entitic vol] 103.7 fL High 77.0 - 99.0 fL [facility] Monocytes (Bld) [#/Vol] 0.4 10*3/uL 0.0 - 0.9 10*3/uL [facility] Monocytes/100 WBC (Bld) 8.7 % 5.0 - 13.0 % [facility] Neutrophils (Bld) [#/Vol] 3.0 10*3/uL 1.8 - 7.5 10*3/uL [facility] Neutrophils/100 WBC (Bld) 65.9 % 38.0 - 82.0 % [facility] Nucleated RBC/100 WBC (Bld) [Ratio] 0.9 % [facility] Platelet mean volume (Bld) [Entitic vol] 13.0 fL High 9.0 - 12.7 fL [facility] Platelets (Bld) [#/Vol] 84 10*3/uL Low 140 - 440 10*3/uL [facility] RBC (Bld) [#/Vol] 3.80 10*6/uL Low 4.40 - 5.9 0 10*6/uL [facility] WBC (Bld) [#/Vol] 4.6 10*3/uL 3.6 - 10.7 10*3/uL [facility] CBC WITH AUTO DIFFERENTIALon 12-16-2023 Basophils (Bld) [#/Vol] 0.0 10*3/uL Normal 0.0-0.2 [facility] Comment on above: Performed By: #### L [id number] ####Rn Documentation Specialist: ZEHRA ONEILL ([phone])[facility])[address] [place] [address] Basophils/100 WBC (Bld) 0.4 % Normal 0.0-2.0 S [facility] Comment on above: Performed By: #### L [id number] ####Rn Documentation Specialist: ZEHRA ONEILL ([phone])[facility] ([facility])[address] [place] [address] Eosinophils (Bld) [#/Vol] 0.1 10*3/uL Normal 0.0-0.5 [facility] Comment on above: Performed By: #### L [id number] ####Rn Documentation Specialist: ZEHRA ONEILL ([phone])[facility])[address] [place] [address] Eosinophils/100 WBC (Bld) 2.6 % Normal 0.0-6.0 [facility] Comment on above: Performed By: #### L [id number] ####Rn Documentation Specialist: ZEHRA ONEILL ([id number])[facility])[address] [place] [address] Erythrocyte distribution width (RBC) [Ratio] 14.7 % Normal 11.5-15.0 [facility] Comment on above: Performed By: #### L [id number] ####Rn Documentation Specialist: ZEHRA ONEILL ([phone])[facility])[address] [place] [address] Hematocrit (Bld) [Volume fraction] 39.4 % Low 40.0-52.0 [facility] Comment on above: Performed By: #### L [id number] ####Rn Documentation Specialist: ZEHRA ONEILL ([phone])[facility])[address] [place] [address] Hemoglobin (Bld) [Mass/Vol] 14.1 g/dL Normal 13.0-18.0 [facility] Comment on above: Performed By: #### L [id number] ####Rn Documentation Specialist: ZEHRA ONEILL ([phone])[facility] ([facility])[address] [place] [address] IMMATURE GRANS % 1.5 % Normal 0.0-2.0 [facility] Comment on above: Performed By: #### L [id number] ####Rn Documentation Specialist: ZEHRA ONEILL ([phone])[facility])[address] [place] [address] IMMATURE GRANS ABSOLUTE 0.1 10*3/uL High <0.1 [facility] Comment on above: Performed By: #### L [id number] ####Rn Documentation Specialist: ZEHRA ONEILL ([phone])[facility])[address] [place] [address] [place] IPF 12 Normal [facility] Comment on above: Performed By: #### L [id number] ####Rn Documentation Specialist: ZEHRA ONEILL ([id number])[facility])[address] [place] [address] Lymphocytes (Bld) [#/Vol] 1.0 10*3/uL Normal 1.0-4.3 [facility] Comment on above: Performed By: #### L [id number] ####Rn Documentation Specialist: ZEHRA ONEILL ([phone])[facility])[address] [place] [address] Lymphocytes/100 WBC (Bld) 20.9 % Normal 15.0-45.0 [facility] Comment on above: Performed By: #### L [id number] ####Rn Documentation Specialist: ZEHRA ONEILL ([phone])[facility] ([facility])[address] [place] [address] MCH (RBC) [Entitic mass] 37.1 pg High 26.0-34.0 [facility] Comment on above: Performed By: #### L [id number] ####Rn Documentation Specialist: ZEHRA ONEILL ([phone])[facility])[address] [place] [address] MCHC 35.8 % Normal 30.5-36.0 [facility] Comment on above: Performed By: #### L [id number] ####Rn Documentation Specialist: ZEHRA ONEILL ([phone])[facility])[address] [place] [address] MCV (RBC) [Entitic vol] 103.7 fL High 77.0-99.0 S [facility] Comment on above: Performed By: #### L [id number] ####Rn Documentation Specialist: ZEHRA ONEILL ([id number])[facility] ([facility])[address] [place] [address] Monocytes (Bld) [#/Vol] 0.4 10*3/uL Normal 0.0-0.9 [facility] Comment on above: Performed By: #### L [id number] ####Rn Documentation Specialist: ZEHRA ONEILL ([id number])[facility] ([facility])[address] [place] [address] Monocytes/100 WBC (Bld) 8.7 % Normal 5.0-13.0 S [facility] Comment on above: Performed By: #### L [id number] ####Rn Documentation Specialist: ZEHRA ONEILL ([phone])[facility])[address] [place] [address] NEUTROPHILS ABSOLUTE 3.0 10*3/uL Normal 1.8-7.5 [facility] Comment on above: Performed By: #### L [id number] ####Rn Documentation Specialist: ZEHRA ONEILL ([phone])[facility])[address] [place] [address] [place] Neutrophils/100 WBC (Bld) 65.9 % Normal 38.0-82.0 [facility] Comment on above: Performed By: #### L [id number] ####Rn Documentation Specialist: ZEHRA ONEILL ([phone])[facility] ([facility])[address] [place] [address] NRBC 0.9 /100 WBCs Normal 0.0-2.0 [facility] Comment on above: Performed By: #### L [id number] ####Rn Documentation Specialist: ZEHRA ONEILL ([id number])[facility] ([facility])[address] [place] [address] Platelet mean volume (Bld) [Entitic vol] 13.0 fL High 9.0-12.7 [facility] Comment on above: Performed By: #### L [id number] ####Rn Documentation Specialist: ZEHRA ONEILL ([phone])[facility] ([facility] [facility])[address] [place] [address] Platelets (Bld) [#/Vol] 84 10*3/uL Low 140-440 S [facility] Comment on above: Performed By: #### L [id number] ####Rn Documentation Specialist: ZEHRA ONEILL ([phone])[facility] ([facility])[address] [place] [address] RBC (Bld) [#/Vol] 3.80 10*6/uL Low 4.40-5.90 [facility] Comment on above: Performed By: #### L [id number] ####Rn Documentation Specialist: ZEHRA ONEILL ([phone])[facility] ([facility])[address] [place] [address] [place] WBC (Bld) [#/Vol] 4.6 10*3/uL Normal 3.6-10.7 [facility] Comment on above: Performed By: #### L [id number] ####Rn Documentation Specialist: ZEHRA ONEILL ([phone])[facility] ([facility])[address] [place] [address] [place] CKon 12-16-2023 CK [Catalytic activity/Vol] 43 U/L Normal 30-170 [facility] Comment on above: Performed By: #### L AB62, LAB17, LAB46 ####Rn Documentation Specialist: ZEHRA ONEILL ([id number])[facility] ([facility])[address] [place] [address] COMPLETE URINALYSISon 2023 BILIRUBIN, TOTAL PRESENCE IN URINE Negative Normal Negative [facility] Comment on above: Performed By: #### L [id number] ####Rn Documentation Specialist: ZEHRA ONEILL ([phone])[facility] ([facility])[address] [place] [address] Clarity (U) Clear Normal Clear [facility] Comment on above: Performed By: #### L [id number] ####Rn Documentation Specialist: ZEHRA ONEILL ([phone])[facility] ([facility])[address] [place] [address] Color (U) Yellow Normal Lt. Yellow [facility] Comment on above: Performed By: #### L [id number] ####Rn Documentation Specialist: ZEHRA ONEILL ([phone])[facility] ([facility])[address] [place] [address] GLUCOSE (MG/DL) IN URINE Normal Normal Normal (<70) [facility] Comment on above: Performed By: #### L [id number] ####Rn Documentation Specialist: ZEHRA ONEILL ([phone])[facility] ([facility])[address] [place] [address] HEMOGLOBIN PRESENCE IN URINE Negative Normal Negative [facility] Comment on above: Performed By: #### L [id number] ####Rn Documentation Specialist: ZEHRA ONEILL ([phone])[facility] ([facility])[address] [place] [address] Ketones Ql (U) Negative Normal Negative [facility] Comment on above: Performed By: #### L [id number] ####Rn Documentation Specialist: ZEHRA ONEILL ([phone])[facility] ([facility])[address] [place] [address] LEUKOCYTE ESTERASE PRESENCE IN URINE BY TEST STRIP Negative Normal Negative [facility] Comment on above: Performed By: #### L [id number] ####Rn Documentation Specialist: ZEHRA ONEILL ([phone])[facility] ([facility])[address] [place] [address] NITRITE PRESENCE IN URINE Negative Normal Negative [facility] Comment on above: Performed By: #### L [id number] ####Rn Documentation Specialist: ZEHRA ONEILL ([id number])[facility])[address] [place] [address] pH (U) 6.0 [pH] Normal 5.0-8.0 [facility] Comment on above: Performed By: #### L [id number] ####Rn Documentation Specialist: ZEHRA ONEILL ([phone])[facility])[address] [place] [address] Protein (U) [Mass/Vol] Negative Normal Negative [facility] Comment on above: Performed By: #### L [id number] ####Rn Documentation Specialist: ZEHRA ONEILL ([id number])[facility] ([facility])[address] [place] [address] Specific gravity (U) [Rel density] 1.023 Normal 1.005-1.030 [facility] Comment on above: Performed By: #### L [id number] ####Rn Documentation Specialist: ZEHRA ONEILL ([id number])[facility])[address] [place] [address] UROBILINOGEN (MG/DL) IN URINE 2 mg/dL Abnormal Normal (0-1) [facility] Comment on above: Performed By: #### L [id number] ####Rn Documentation Specialist: ZEHRA ONEILL ([phone])[facility])[address] [place] [address] COMPREHENSIVE METABOLIC PANE Agustin 12-16-2023 Albumin [Mass/Vol] 4.1 g/dL Normal 3.5-5.0 [facility] Comment on above: Performed By: #### L AB62, LAB17, LAB46 ####Rn Documentation Specialist: ZEHRA ONEILL ([id number])[facility])[address] [place] [address] ALP [Catalytic activity/Vol] 88 U/L Normal 38-126 [facility] Comment on above: Performed By: #### Faye FERRIS, LAB17, LAB46 ####Rn Documentation Specialist: ZEHRA ONEILL ([phone])[facility] ([facility])[address] [place] [address] ALT [Catalytic activity/Vol] 63 U/L High 0-49 [facility] Comment on above: Performed By: #### Faye FERRIS, LAB17, LAB46 ####Rn Documentation Specialist: ZEHRA ONEILL ([phone])[facility] ([facility])[address] [place] [address] Anion gap [Moles/Vol] 10 mmol/L Normal 3-13 [facility] Comment on above: Performed By: #### Faye FERRIS, LAB17, LAB46 ####Rn Documentation Specialist: ZEHRA ONEILL ([phone])[facility] ([facility])[address] [place] [address] AST [Catalytic activity/Vol] 47 U/L High 15-46 [facility] Comment on above: Performed By: #### Faye FERRIS, LAB17, LAB46 ####Rn Documentation Specialist: ZEHRA ONEILL ([phone])[facility] ([facility])[address] [place] [address] Bilirubin [Mass/Vol] 0.8 mg/dL Normal 0.2-1.3 [facility] Comment on above: Performed By: #### Faye FERRIS LAB17, LAB46 ####Rn Documentation Specialist: ZEHRA ONEILL ([id number])[facility] ([facility])[address] [place] [address] Calcium [Mass/Vol] 9.5 mg/dL Normal 8.4-10.4 [facility] Comment on above: Performed By: #### Faye FERRIS, LAB17, LAB46 ####Rn Documentation Specialist: ZEHRA ONEILL ([phone])[facility] ([facility])[address] [place] [address] [place] Chloride [Moles/Vol] 101 mmol/L Normal 98-107 [facility] Comment on above: Performed By: #### Faye FERRIS, LAB17, LAB46 ####Rn Documentation Specialist: ZEHRA ONEILL ([phone])[facility])[address] [place] [address] CO2 [Moles/Vol] 28 mmol/L Normal 22-30 [facility] Comment on above: Performed By: #### Faye FERRIS, LAB17, LAB46 ####Rn Documentation Specialist: ZEHRA ONEILL ([id number])[facility])[address] [place] [address] Creatinine [Mass/Vol] 0.56 mg/dL Low 0.66-1.25 [facility] Comment on above: Performed By: #### Faye FERRIS, LAB17, LAB46 ####Rn Documentation Specialist: ZEHRA ONEILL ([id number])[facility])[address] [place] [address] GLOMERULAR FILTRATION RATE ML/MIN/1.73 SQ M.PREDICTED >90.0 Normal >60.0 [facility] Comment on above: Result Comment: Calc ulation based on the Chronic Kidney Disease Epidemiology Collaboration (CKD-EPI) equation refit without adjustment for race Performed By: #### Faye FERRIS, LAB17, LAB46 ####Rn Documentation Specialist: ZEHRA ONEILL ([phone])[facility] ([facility])[address] [place] [address] Glucose [Mass/Vol] 97 mg/dL Normal 70-100 [facility] Comment on above: Performed By: #### Faye FERRIS, LAB17, LAB46 ####Rn Documentation Specialist: EZHRA ONEILL ([phone])[facility])[address] [place] [address] Potassium [Moles/Vol] 4.0 mmol/L Normal 3.5-5.1 [facility] Comment on above: Performed By: #### Faye FERRIS, LAB17, LAB46 ####Rn Documentation Specialist: ZEHRA ONEILL ([id number])[facility])[address] [place] [address] Protein [Mass/Vol] 8.4 g/dL High 6.3-8.2 [facility] Comment on above: Performed By: #### Faye FERRIS, LAB17, LAB46 ####Rn Documentation Specialist: ZEHRA ONEILL ([phone])[facility] ([facility])[address] [place] [address] Sodium [Moles/Vol] 138 mmol/L Normal 135-145 [facility] Comment on above: Performed By: #### Faye FERRIS, LAB17, LAB46 ####Rn Documentation Specialist: ZEHRA ONEILL ([id number])[facility] ([facility])[address] [place] [address] Urea nitrogen [Mass/Vol] 10 mg/dL Normal 9-20 [facility] Comment on above: Performed By: #### Faye FERRIS, LAB17, LAB46 ####Rn Documentation Specialist: ZEHRA ONEILL ([phone])[facility] ([facility])[address] [place] [address] Comprehensive metabolic 1998 panelon 12-16-2023 Albumin [Mass/Vol] 4.1 g/dL 3.5 - 5.0 g/dL [facility] ALP [Catalytic activity/Vol] 88 U/L 38 - 126 U/L [facility] ALT [Catalytic activity/Vol] 63 U/L High 0 - 49 U/L [facility] Anion gap [Moles/Vol] 10 mmol/L 3 - 13 mmol/L [facility] AST [Catalytic activity/Vol] 47 U/L High 15 - 46 U/L [facility] Bilirubin [Mass/Vol] 0.8 mg/dL 0.2 - 1 .3 mg/dL [facility] Calcium [Mass/Vol] 9.5 mg/dL 8.4 - 10. 4 mg/dL [facility] Chloride [Moles/Vol] 101 mmol/L 98 - 10 7 mmol/L [facility] CO2 [Moles/Vol] 28 mmol/L 22 - 30 mmol/L [facility] Creatinine [Mass/Vol] 0.56 mg/dL Low 0.66 - 1.25 mg/dL [facility] GFR/1.73 sq M.predicted MDRD (S/P/Bld) [Vol rate/Area] - PINF [facility] Comment on above: Calculation based on the Chronic Kidney Disease Epidemiology Collaboration (CKD-EPI) equation refit without adjustment for race Glucose [Mass/Vol] 97 mg/dL 70 - 100 mg/dL [facility] Interpretation and review of laboratory results Abnormal [facility] Potassium [Moles/Vol] 4.0 mmol/L 3.5 - 5.1 mmol/L [facility] Protein [Mass/Vol] 8.4 g/dL High 6.3 - 8.2 g/dL [facility] Sodium [Moles/Vol] 138 mmol/L 135 - 145 mmol/L [facility] Urea nitrogen [Mass/Vol] 10 mg/dL 9 - 20 mg/dL [facility] DRUGS OF ABUSEon 12-16-2023 AMPHETAMINE SCREEN Negative Normal [facility] Comment on above: Performed By: #### L [id number] ####Rn Documentation Specialist: ZEHRA ONEILL ([id number])[facility] ([facility])[address] [place] [address] BARBITURATES SCREEN Negative Normal [facility] Comment on above: Performed By: #### L [id number] ####Rn Documentation Specialist: ZEHRA ONEILL ([phone])[facility] ([facility])[address] [place] [address] BENZODIAZEPINE SCREEN Negative Normal [facility] Comment on above: Performed By: #### L [id number] ####Rn Documentation Specialist: ZEHRA ONEILL ([phone])[facility] ([facility])[address] [place] [address] COCAINE METAB. SCREEN Negative Normal [facility] Comment on above: Performed By: #### L [id number] ####Rn Documentation Specialist: ZEHRA ONEILL ([id number])[facility] ([facility])[address] [place] [address] METHADONE SCREEN Negative Normal [facility] Comment on above: Performed By: #### L [id number] ####Rn Documentation Specialist: ZEHRA ONEILL ([id number])[facility] ([facility])[address] [place] [address] OPIATES SCREEN Negative Normal [facility] Comment on above: Performed By: #### L [id number] ####Rn Documentation Specialist: ZEHRA ONEILL ([id number])[facility])[address] [place] [address] OXYCODONE SCREEN Negative [facility] Comment on above: Performed By: #### L [id number] ####Rn Documentation Specialist: ZEHRA ONEILL ([phone])[facility])[address] [place] [address] PHENCYCLIDINE SCREEN Negative Normal [facility] Comment on above: Result Comment: ORDE R [...] under separate order. Performed By: #### L [id number] ####Rn Documentation Specialist: ZEHRA PASCUALSCOT ([id number])[facility] ([facility])[address] [place] [address] ECG 12-LEADon 12-16-2023 ECG 12-LEAD IMPRESSION: Sinus rhythm Electronically Signed On 12-16-2023 07:18:05 EDT by Hakan Martinez [facility] ED Nursing Noteon 12-16-2023 ED Nursing Note Pt is now off ED BH unit [facility] Danny 12/16/23 035 [facility] ED Nursing Note Patient was cleared by Dr. ARNDT. Patient report was given to Gerardo WARD and transported back to [facility]. Patient left in no apparent distress. Flaco Melgar RN 12/16/23 0352 [facility] ED Nursing Note Pt walked out to [facility] by Flaco WARD Pt packaged with 5 straps and 2 rails to ensure safety [facility] Danny 12/16/23 0351 [facility] ED Nursing Note DM transport arrived to take pt back to [facility] 1 bag [facility] Danny 12/16/23 0349 [facility] ED Nursing Note Pt activated call Alvarado valencia answered it. Pt asked for something to eat. Given bagged lunch [facility] Danny 12/16/23 0316 [facility] ED Nursing Note Activated call reynaldo , SYLVIA Sam answered it. Pt asked for coca cola, given. Leeann Danny 12/16/23 0310 [facility] ED Nursing Note SYLVIA Sam at patient bedside Emilio Mike, EMT 12/16/23 0239 [facility] ED Nursing Note EKG at patient bedsi de Emilio Mike, EMT 12/16/23 0[address] [facility] ED Nursing Note Dr. Arndt at patient bedside Emilio Mike, EMT 12/16/23 0112 [facility] ED Nursing Note Dr. Rivera at patient bedside Emilio Mike, EMT 12/16/23 0058 [facility] ED Nursing Note Registration at joyce ent bedside Emilio Mike, EMT 12/16/23 0051 [facility] ED Nursing Note Given coca cola and warm blanket [facility] Danny 12/16/23 0046 [facility] ED Nursing Note Patient has one bag of belongings. Patient was placed into two hospital gowns and wanded by protective services. Emilio Mike, EMT 12/16/23 0032 [facility] ED Nursing Note Emilio Mike, EM T 12/16/23 0028 Emilio Mike, EMT 12/16/23 0028 [facility] ED Provider Noteon ED Provider Note EMERGENCY DEPARTMENT ENCOUNTER Pt Name: Constantin Galan Birthdate 1990 Date of evaluation: 12/16/2023 ED Provider: Amalia Rivera MD CHIEF COMPLAINT Chief Complaint Patient presents with Delusional Patient was sent from [facility] for medical clearance. Patient is having [...] department for medical clearance. Presented himself to [facility] due to symptoms of psychosis in his [...] Absolute 0.0 (more content not included)... Normal [facility] ED Provider Note Emergency Department Encounter [facility] EMERGENCY DEPT Patient: Constantin Galan : 1990 [...] denies any medical complaints. He presented from [facility] for medical clearance. Focused exam: [id number], no acute distress, nontoxic-appearing HEENT- atraumatic, normocephalic [...] Rate 73 normal sinus rhythm. Normal axis. AR interval 122, QRS 75, QTc 396. No STEMI. Independent historians: Imaging interpreted by me: Social determinants affecting care: meth use Escalation of care, appropriate for: transfer to [facility] Brief ED course/MDM: 33-year-old male presenting for medical clearance for psychiatric admission at [facility]. His labs were reassuring. I had a low suspicion for meningitis or encephalitis in this patient given the clinical picture. He was afebrile. He has a history of meth use. I believe his presentation is likely related to the meth use. He was medically cleared for it transfer to [facility] for psychiatric admission. All diagnostic, treatment, [...] Solutions Atul Arndt MD 12/16/23 0147 Normal [facility] ETHANOLon 12-16-2023 ETHANOL IN SER/PLAS <0.010 Normal 0.000-0.010 [facility] Comment on above: Result Comment: NIKOLAI Haley COMMENTS: NOTE: This result is for medical treatment only. Analysis performed using non-forensic procedures. Performed By: #### L AB62, LAB17, LAB46 ####Rn Documentation Specialist: ZEHRA ONIELL ([id number])[facility] ([facility])[address] [place] [address] Ethanol (Bld) [Mass/Vol]on 0 12-16-2023 Ethanol [Mass/Vol] g/dL 0.000 - 0.010 g/dL [facility] Laboratory - Chemistry and C hemistry - challengeon 12-16-2023 CK [Catalytic activity/Vol] 43 U/L 30 - 170 U/L [facility] Laboratory - Drug toxicology Ordered By: Annemarie Hernandez on 12-16-2023 Amphetamines Screen method >1000 ng/mL Ql (U) Negative [facility] Barbiturates Screen method >200 ng/mL Ql (U) Negative [facility] Benzodiazepines Ql (U) Negative [facility] Methadone Screen Ql (U) Negative [facility] Opiates Screen Ql (U) Negative [facility] oxyCODONE Ql (U) Negative [facility] Phencyclidine Ql (U) Negative [facility] Laboratory - Microbiology an d Antimicrobial susceptibilityOrdered By: Rudy Looney on 12-16-2023 SARS-CoV-2 (COVID-19) Ag IA.rapid Ql (Resp) Negative Negative [facility] Comment on above: A negative result do es not rule out the possibility of SARS-CoV-2 infection. NAAT-based methods should be considered for symptomatic patients presenting greater than seven days after onset of symptoms. Method: Lateral flow immunoassay. Fact sheets for healthcare providers and patients can be found at the following sites: https://www.fda.gov/media/229073/download https://www.fda.gov/media/080994/download No Panel InformationOrdered By: Hakan Martinez on 12-16-2023 P Pelican 76 degrees [employer] Phone: AR Interval 122 ms [employer] Phone: QRS Pelican 88 degrees [employer] Phone: QRSD Interval 75 ms [employer] Phone: [phone] QT Interval 359 ms [employer] Phone: [phone] QTC Interval 396 ms [employer] Phone: [phone] T Wave Pelican 56 degrees [employer] Phone: [phone] [employer] Phone: No Panel Informationon 12-15 Sinus rhythm Electronically Signed On 12-16-2023 07:18:05 EDT by Hakan Martinez CV Hakan Freeman MD - 12/16/2023 IMPRESSION: Sinus rhythm Electronically Signed On 12-16-2023 07:18:05 EDT by Hakan Martinez [employer] Interpretation and review of laboratory results [facility] No Panel InformationOrdered By: Annemarie Hernandez on 12-16-2023 COCAINE METAB. SCREEN Negative [facility] [employer] The expected value f or all of [...] is needed, request confirmation under separate order. [employer] SARS-COV-2 ANTIGENon 024 SARS-COV-2 ANTIGEN SARS-COV-2 ANTIGEN -BINAX Reference Negative Negative A negative result does not rule out the possibility of SARS-CoV-2 infection. NAAT-based methods should be considered for symptomatic patients presenting greater than seven days after onset of symptoms. Method: Lateral flow immunoassay. Fact sheets for healthcare providers and patients can be found at the following sites: https://www.fda.gov/medi a/862769/download https://www.fda.gov/medi a/912666/download Normal [facility] Comment on above: Performed By: #### L [id number] ####Rn Documentation Specialist: ZEHRA ONEILL ([id number])[facility] ([facility] SARS-CoV-2 (COVID-19) Ag IA. rapid Ql (Resp)Ordered By: Rudy Looney on 12-16-2023 Interpretation and review of laboratory results Normal [facility] Urinalysis complete panel (U )Ordered By: Haritha Baron on 12-16-2023 Bilirubin Ql (U) Negative Negative mg/dL [facility] Clarity (U) Clear Clear [facility] Color (U) Yellow Lt. Yellow [facility] Glucose Ql (U) Normal Normal (<70) mg/dL [facility] Hemoglobin Ql (U) Negative Negative mg/dL [facility] Interpretation and review of laboratory results Abnormal [facility] Ketones (U) [Mass/Vol] Negative Negat delroy mg/dL [facility] Leukocyte esterase Test strip Ql (U) Negative Negative Geovany/uL [facility] Nitrite Ql (U) Negative Negative [facility] pH (U) 6.0 [pH] 5.0 - 8.0 pH [facility] Protein (U) [Mass/Vol] Negative Negat delroy mg/dL [facility] Specific gravity (U) [Rel density] 1.023 1.005 - 1.030 [facility] Urobilinogen (U) [Mass/Vol] 2 mg/dL Abnormal Normal (0-1) [facility] Vital signsOrdered By: Hakan Maritnez on 12-16-2023 Heart rate 73 /min bpm [facility] [employer] Work Phone: 36on 08-19-2023 36 Called for ns policy - RD Normal [facility] 36on 07-26-2023 36 Tried to call and schedule patient phone number listed states Person you are calling cannot accept calls at this time then went to a fast busy signal. Please have patient contact [facility] to schedule Normal [facility] No Panel Informationon 07-07 Gerardo Ramos DO 07/07/2023 3:28 PM [facility] EMG/NCS report: Patient: Constantin [...] for this study were taken from the [facility] reference values which were created in 2019. This dictation was done by using the [employer] dictation system. It has been proofread but still may contain unrecognized voice recognition errors. [facility] Progress Noteon 07-06-2023 Progress Note [facility] [address] [facility] [address] Dept: [phone] Dept Loc: [phone] Visit type: New patient Reason for Visit: Other and Spots and/or Floaters Assessment and Plan Problem List Items Addressed This Visit Eye/Vision problems Floaters in visual field, bilateral Relevant Orders [facility] Ophthalmology Clinic 202 No retinal tears or [...] Normal Normal Refraction Wearing Rx Sphere Cylinder Pelican Add Right -6.50 +1.00 088 None Left -9.50 +0.75 073 None Age: 1-2yrs Type: Distance Manifest Refraction Sphere Cylinder Pelican Dist VA Add Near VA Right -7.00 +1.25 105 20/30 None 20/30 Left -9.50 +1.25 075 20/30 None 20/20 Final Rx Sphere Cylinder Pelican Dist VA Add Near VA Right -7.00 +1.25 105 20/30 None 20/30 Left -9.50 +1.25 075 20/30 None 20/20 Type: Distance Expiration Date: 07/06/2025 Data Reviewed and Summarized The patient will need the following test completed on: 07/06/2023 1. [facility] Ophthalmology Clinic 202 Diagnosis: Floaters in visual field, bilateral (H43.393) Authorizing Provider: DO Joi Goss MD [facility] Office Visiton 07-04-2023 Follow-up visit [id number] Constantin Galan 1990 M Date Provider Department Center 07/04/2023 [id number] NELSON [facility] Chart Close Cosign Accepted by: MC BLANDON[NEVAEH] Chart Close Cosign Accepted on: TueJul 04, 2023 2:44 PM Family History Problem Relation Age of Onset Heart attack Mother Comments: x4 Diabetes Mother Thyroid disease Mother Cancer Mother Comments: Type unknown Family Status - Relation Status Age at Mother Alive Notes: Hep C Father Other Notes: Unknown Level of Service:35788 [place] TRANSJ CARE MGMT MOD MDM F2F 14 BELL D DISCHARGE Reason for Visit and Comments: Hospital Follow-up [832] - Arm tight, cough, chest pains, sob, meds for hiv Normal [facility] PATINSon 07-04-2023 PATINS Please call the [facility] to set up an appointment [facility] [address] [facility] [address] [place] [address] Normal [facility] Progress Noteon 07-04-2023 Progress Note - [...] for symptoms of anxiety and depression Normal [facility] Progress Note - Present for ~2 [...] PFTs, may consider trial of PPI Normal [facility] Progress Note - Chronic, uncontrol led [...] Care Center phone number in AVS Normal [facility] Progress Note - Intermittent for p ast few days - Etiology unclear, possibly due to migraine vs intrinsic ocular pathology - Recent CT head negative for acute process - Refer to ophthalmology for thorough eye and retinal examination [facility] Progress Note - Etiology still unc lear [...] Center to establish and initiate HIV treatment [facility] Progress Note - Found to have low [...] at follow up appointment in 2 months [facility] Progress Note Teaching Physician Enrique bazan Direct [...] teaching physician (GC Modifier). Mc Blandon MD [facility] Progress Note [facility] [address] [place] [id number] Dept: [phone] Dept Loc: [phone] 07/04/2023 Visit type: inpatient follow up Reason [...] thorough eye and retinal examination Orders: - [facility] 4. Human immunodeficiency virus (HIV) [...] and anxiety (more content not included)... Normal [facility] Progress Note MA time with patient 5 minutes TH Normal [facility] Progress Noteon 06-27-2023 Progress Note Initial Post-Hospita l Follow Up Call Call within 2 business days of discharge: yes Patient: Constantin Galan Patient : 1990 Spoke with: Patient Discharge department/facility: [facility] Fgr-eigq-dr-face services provided: Assessment and support for treatment [...] for insurance purposes. -Advised patient to call [facility] back for future needs. Recommended he save phone number from caller ID. Constantin voiced appreciation of outreach. - Confirmed patient is scheduled for a follow up appointment within 14 days of hospital discharge Follow Up Future Appointments Date Time Provider Department Center 07/04/2023 8:20 AM Gracy Nelson DO [facility] KAREN Damian RN [facility] 36on 06-24-2023 36 Notification of Hosp ital Discharge Constantin Monsalve was discharged from [facility] inpatient hospital service to home on 06/24/2023. Prior to patient's discharge, he was scheduled an [facility] follow up appointment within 7 days of hospital discharge (preferred). Will route this note to Gilles Damian (Nate) to initiate Transitional Care Management Process. Future Appointments Date Time Provider Department Center 07/04/2023 8:20 AM Gracy Nelson DO [facility] KAREN [facility] BASIC METABOLIC PANELon 10-2 Anion gap [Moles/Vol] 10 mmol/L Normal 3-13 [facility] Comment on above: Performed By: #### L AB15, [id number] ####Rn Documentation Specialist: ZEHRA ONEILL ([id number])[facility])[address] [place] [address] Calcium [Mass/Vol] 10.6 mg/dL High 8.4-10.4 [facility] Comment on above: Performed By: #### Faye LOCKE, [id number] ####Rn Documentation Specialist: ZEHRA ONEILL ([id number])[facility] [place] [address] Chloride [Moles/Vol] 103 mmol/L Normal 98-107 [facility] Comment on above: Performed By: #### Faye JOHNSTON15, [id number] ####Rn Documentation Specialist: ZEHRA ONEILL ([id number])[facility] ([facility])[address] [place] [address] CO2 [Moles/Vol] 26 mmol/L Normal 22-30 [facility] Comment on above: Performed By: #### Faye JOHNSTON15, [id number] ####Rn Documentation Specialist: ZEHRA ONEILL ([id number])[facility] ([facility])[address] [place] [address] Creatinine [Mass/Vol] 0.61 mg/dL Low 0.66-1.25 [facility] Comment on above: Performed By: #### Faye JOHNSTON15, [id number] ####Rn Documentation Specialist: ZEHRA ONEILL ([id number])[facility])[address] [place] [address] GLOMERULAR FILTRATION RATE ML/MIN/1.73 SQ M.PREDICTED >90.0 Normal >60.0 [facility] Comment on above: Result Comment: Calc ulation based on the Chronic Kidney Disease Epidemiology Collaboration (CKD-EPI) equation refit without adjustment for race Performed By: #### L AB15, [id number] ####Rn Documentation Specialist: ZEHRA ONEILL ([id number])[facility] [place] [address] [place] Glucose [Mass/Vol] 83 mg/dL Normal 70-100 [facility] Comment on above: Performed By: #### L AB15, [id number] ####Rn Documentation Specialist: ZEHRA ONEILL ([id number])[facility] ([facility])[address] [place] [address] Potassium [Moles/Vol] 4.5 mmol/L Normal 3.5-5.1 [facility] Comment on above: Performed By: #### L AB15, [id number] ####Rn Documentation Specialist: ZEHRA ONEILL ([id number])[facility] [place] [address] Sodium [Moles/Vol] 139 mmol/L Normal 135-145 [facility] Comment on above: Performed By: #### L AB15, [id number] ####Rn Documentation Specialist: ZEHRA ONEILL ([id number])[facility] ([facility])[address] [place] [address] Urea nitrogen [Mass/Vol] 21 mg/dL High 9-20 [facility] Comment on above: Performed By: #### L AB15, [id number] ####Rn Documentation Specialist: ZEHRA ONEILL ([id number])[facility] ([facility])[address] [place] [address] Basic metabolic 1998 panelon 06-24-2023 Anion gap [Moles/Vol] 10 mmol/L 3 - 13 mmol/L [facility] Calcium [Mass/Vol] 10.6 mg/dL High 8.4 - 10. 4 mg/dL [facility] Chloride [Moles/Vol] 103 mmol/L 98 - 10 7 mmol/L [facility] CO2 [Moles/Vol] 26 mmol/L 22 - 30 mmol/L [facility] Creatinine [Mass/Vol] 0.61 mg/dL Low 0.66 - 1.25 mg/dL [facility] GFR/1.73 sq M.predicted MDRD (S/P/Bld) [Vol rate/Area] - PINF [facility] Comment on above: Calculation based on the Chronic Kidney Disease Epidemiology Collaboration (CKD-EPI) equation refit without adjustment for race Glucose [Mass/Vol] 83 mg/dL 70 - 100 mg/dL [facility] Interpretation and review of laboratory results Abnormal [facility] Potassium [Moles/Vol] 4.5 mmol/L 3.5 - 5.1 mmol/L [facility] Sodium [Moles/Vol] 139 mmol/L 135 - 145 mmol/L [facility] Urea nitrogen [Mass/Vol] 21 mg/dL High 9 - 20 mg/dL [facility] CBC W Auto Differential pane l (Bld)Ordered By: Juan Carlos Chapman on 06-24-2023 Basophils (Bld) [#/Vol] 0.1 10*3/uL 0.0 - 0.2 10*3/uL [facility] Basophils/100 WBC (Bld) 1.5 % 0.0 - 2.0 % [facility] Eosinophils (Bld) [#/Vol] 0.2 10*3/uL 0.0 - 0.5 10*3/uL [facility] Eosinophils/100 WBC (Bld) 3.6 % 1.0 - 6.0 % [facility] Erythrocyte distribution width (RBC) [Ratio] 17.5 % High 11.5 - 14.5 % [facility] Hematocrit (Bld) [Volume fraction] 45.6 % 40.0 - 52.0 % [facility] Hemoglobin (Bld) [Mass/Vol] 15.8 g/dL 13.0 - 18.0 g/dL [facility] Interpretation and review of laboratory results Abnormal [facility] Lymphocytes (Bld) [#/Vol] 0.9 10*3/uL Low 1.0 - 4.3 10*3/uL [facility] Lymphocytes/100 WBC (Bld) 19.8 % Low 20.0 - 40.0 % [facility] MCH (RBC) [Entitic mass] 38.2 pg High 26.0 - 34.0 pg [facility] MCHC (RBC) [Mass/Vol] 34.7 % 32.0 - 36.0 % [facility] MCV (RBC) [Entitic vol] 110.2 fL High 80.0 - 98.0 fL [facility] Comment on above: I-Macrocytosis Monocytes (Bld) [#/Vol] 0.4 10*3/uL 0.0 - 0.8 10*3/uL [facility] Monocytes/100 WBC (Bld) 7.5 % 2.0 - 10.0 % [facility] Neutrophils (Bld) [#/Vol] 3.2 10*3/uL 1.8 - 7.0 10*3/uL [facility] Neutrophils/100 WBC (Bld) 67.6 % 40.0 - 80.0 % [facility] Nucleated RBC/100 WBC (Bld) [Ratio] 0.2 % [facility] Platelet mean volume (Bld) [Entitic vol] 10.3 fL 7.4 - 12.4 fL [facility] Platelets (Bld) [#/Vol] 67 10*3/uL Low 140 - 440 10*3/uL [facility] Comment on above: I-Thrombocytopenia RBC (Bld) [#/Vol] 4.14 10*6/uL Low 4.40 - 5.9 0 10*6/uL [facility] WBC (Bld) [#/Vol] 4.7 10*3/uL 3.6 - 10.7 10*3/uL [facility] CBC WITH AUTO DIFFERENTIALon 06-24-2023 Basophils (Bld) [#/Vol] 0.1 10*3/uL Normal 0.0-0.2 [facility] Comment on above: Performed By: #### L [id number] ####Rn Documentation Specialist: ZEHRA ONEILL ([id number])[address] Basophils/100 WBC (Bld) 1.5 % Normal 0.0-2.0 [facility] Comment on above: Performed By: #### L [id number] ####Rn Documentation Specialist: ZEHRA ONEILL ([id number])[facility] ([facility])[address] [place] [address] [place] Eosinophils (Bld) [#/Vol] 0.2 10*3/uL Normal 0.0-0.5 [facility] Comment on above: Performed By: #### L [id number] ####Rn Documentation Specialist: ZEHRA ONEILL ([id number])[facility])[address] [place] [address] Eosinophils/100 WBC (Bld) 3.6 % Normal 1.0-6.0 [facility] Comment on above: Performed By: #### L [id number] ####Rn Documentation Specialist: ZEHRA ONEILL ([id number])[facility])[address] [place] [address] Erythrocyte distribution width (RBC) [Ratio] 17.5 % High 11.5-14.5 [facility] Comment on above: Performed By: #### L [id number] ####Rn Documentation Specialist: ZEHRA ONEILL ([id number])[facility])[address] [place] [address] ERYTHROCYTE MEAN CORPUSCULAR HEMOGLOBIN CONCENTRATION (G/DL) BY AUTOMATED 34.7 % Normal 32.0-36.0 [facility] Comment on above: Performed By: #### L [id number] ####Rn Documentation Specialist: ZEHRA ONEILL ([id number])[facility])[address] [place] [address] Hematocrit (Bld) [Volume fraction] 45.6 % Normal 40.0-52.0 [facility] Comment on above: Performed By: #### L [id number] ####Rn Documentation Specialist: ZEHRA ONEILL ([id number])[address] Hemoglobin (Bld) [Mass/Vol] 15.8 g/dL Normal 13.0-18.0 [facility] Comment on above: Performed By: #### L [id number] ####Rn Documentation Specialist: ZEHRA ONEILL ([id number])[facility])[address] [place] [address] Lymphocytes (Bld) [#/Vol] 0.9 10*3/uL Low 1.0-4.3 [facility] Comment on above: Performed By: #### L [id number] ####Rn Documentation Specialist: ZEHRA ONEILL ([id number])[facility])[address] [place] [address] Lymphocytes/100 WBC (Bld) 19.8 % Low 20.0-40.0 [facility] Comment on above: Performed By: #### L [id number] ####Rn Documentation Specialist: ZEHRA ONEILL ([id number])[facility] ([facility])[address] [place] [address] MCH (RBC) [Entitic mass] 38.2 pg High 26.0-34.0 [facility] Comment on above: Performed By: #### L [id number] ####Rn Documentation Specialist: ZEHRA ONEILL ([id number])[facility] ([facility])[address] [place] [address] MCV (RBC) [Entitic vol] 110.2 fL High 80.0-98.0 S [facility] Comment on above: Result Comment: I-Ma crocytosis Performed By: #### L [id number] ####Rn Documentation Specialist: ZEHRA ONEILL ([id number])[facility])[address] [place] [address] Monocytes (Bld) [#/Vol] 0.4 10*3/uL Normal 0.0-0.8 [facility] Comment on above: Performed By: #### L [id number] ####Rn Documentation Specialist: ZEHRA ONEILL ([id number])[facility] ([facility])[address] [place] [address] Monocytes/100 WBC (Bld) 7.5 % Normal 2.0-10.0 S [facility] Comment on above: Performed By: #### L [id number] ####Rn Documentation Specialist: ZEHRA ONEILL ([id number])[facility])[address] [place] [address] Neutrophils (Bld) [#/Vol] 3.2 10*3/uL Normal 1.8-7.0 [facility] Comment on above: Performed By: #### L [id number] ####Rn Documentation Specialist: ZEHRA ONEILL ([id number])[facility])[address] [place] [address] Neutrophils/100 WBC (Bld) 67.6 % Normal 40.0-80.0 [facility] Comment on above: Performed By: #### L [id number] ####Rn Documentation Specialist: ZEHRA ONEILL ([id number])[facility] ([facility])[address] [place] [address] NRBC (PER 100 WBCS) BY AUTOMATED COUNT 0.2 /100 WBCs Normal 0.0-2.0 [facility] Comment on above: Performed By: #### L [id number] ####Rn Documentation Specialist: ZEHRA ONEILL ([id number])[facility] ([facility])[address] [place] [address] Platelet mean volume (Bld) [Entitic vol] 10.3 fL Normal 7.4-12.4 [facility] Comment on above: Performed By: #### L [id number] ####Rn Documentation Specialist: ZEHRA ONEILL ([id number])[facility] ([facility])[address] [place] [address] PLATELETS (10*3/UL) IN BLOOD AUTOMATED COUNT 67 10*3/uL Low 140-440 [facility] Comment on above: Result Comment: I-Th rombocytopenia Performed By: #### L [id number] ####Rn Documentation Specialist: ZEHRA ONEILL ([id number])[facility] ([facility])[address] [place] [address] RBC (Bld) [#/Vol] 4.14 10*6/uL Low 4.40-5.90 [facility] Comment on above: Performed By: #### L [id number] ####Rn Documentation Specialist: ZEHRA ONEILL ([id number])[facility] ([facility])[address] [place] [address] WBC (Bld) [#/Vol] 4.7 10*3/uL Normal 3.6-10.7 [facility] Comment on above: Performed By: #### L [id number] ####Rn Documentation Specialist: ZEHRA ONEILL ([id number])[facility])[address] [place] [address] CK TOTAL AND CKMBon 10-27-20 23 CK [Catalytic activity/Vol] 60 U/L Normal 30-170 [facility] Comment on above: Performed By: #### L AB69, [id number], [id number], LAB67, LAB63 ####Rn Documentation Specialist: ZEHRA ONEILL ([id number])[facility])[address] [place] [address] CK.MB [Mass/Vol] 0.5 ng/mL Normal 0.0-4.4 [facility] Comment on above: Performed By: #### L AB69, [id number], [id number], LAB67, LAB63 ####Rn Documentation Specialist: ZEHRA ONEILL ([id number])[facility])[address] [place] [address] RELATIVE INDEX 0.8 Normal 0.0-3.0 [facility] Comment on above: Performed By: #### L AB69, [id number], [id number], LAB67, LAB63 ####Rn Documentation Specialist: ZEHRA ONEILL ([id number])[address] CK.total/Creatine kinase.MB [Catalytic ratio]on 06-24-2023 CK [Catalytic activity/Vol] 60 U/L 30 - 170 U/L [facility] CK.MB [Mass/Vol] 0.5 ng/mL 0.0 - 4.4 ng/mL [facility] Interpretation and review of laboratory results Normal [facility] RELATIVE INDEX 0.8 0.0 - 3.[address] [facility] [address] HEAD WO IV CONTRASTon CT HEAD WO IV CONTRAST Patient Name: CONSTANTIN BAI : 1990 [facility]#: [id number] Exam Date/Time: 06/24/2023 05:44 Procedure: CT HEAD WO IV CONTRAST [facility] Reason For Exam: Dizziness, non-specific EXAMINATION: CT [...] LE Pt unable to remove earrings Normal [facility] CT Head WO contraston 2022 1. No acute intracra nial abnormality with limitations as above. 2. Maxillary sinusitis, right greater than left. 3. Small right mastoid effusion. Report Dictated on Electronically Signed By: Trevon Jeffers MD Electronically Signed Date/Time: 06/24/2023 5:51 AM T [facility] 1990 [id number] Exam Date/Time: 06/24/2023 05:44 Procedure: CT HEAD [...] Soft tissues: The soft tissues are unremarkable. [facility] Trevon Jeffers MD - 06/24/2023 Patient Name: CONSTANTIN MONSALVE [facility] 1990 [id number] Exam Date/Time: 06/24/2023 05:44 Procedure: CT HEAD WO IV CONTRAST Ordering Provider: [facility]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 PCT<0.5ng/mL Performed By: #### 3 1488 ####[facility] [place] [address], [facility] SEDIMENTATION RATEon 021 SED RATE 58 mm/hr High 0-10 [facility] Comment on above: Performed By: #### 5 6506 #### [facility] [address] [place] [address], [facility] TROPONIN-Ion 12-29-2020 Troponin I.cardiac [Mass/Vol] 0.01 ng/mL Normal 0.00-0.04 [facility] Comment on above: Result Comment: REFE RENCE RANGES: 0.00 - 0.04 ng/ml NORMAL 0.05 - 0.50 ng/ml INDETERMINATE > 0.50 ng/ml CONSISTENT WITH AN M.I. Performed By: #### 3 5200, 14348, 71752, 44835, 12719, 83908 #### [facility] [address] [place] [address], [facility] Basic Metabolic Profon 01-30 (cont.) Normal [facility] Comment on above: Result Comment: Aver age GFR for 20-29 years old: 116 mL/min/1.73sq mChronic Kidney Disease: <60 mL/min/1.73sq mKidney failure: <15 mL/min/1.73sq meGFR calculated using average adult body mass. Additional eGFR calculator available at:http://www.[employer]/multiple_crcl_2012.htmPerformed at [facility] [address] [place], [place] [id number] Performed By: #### B MP, CDP ####[facility] [place] [address] Anion gap 10 mmol/L Normal 9-17 [facility] Comment on above: Performed By: #### B MP, CDP ####[facility] [place] [address] BUN/CRE Ratio 15 Normal 9-20 [facility] Comment on above: Performed By: #### B MP, CDP ####[facility] [place] [address] Calcium 9.3 mg/dL Normal 8.6-10.4 [facility] Comment on above: Performed By: #### B MP, CDP ####[place] [address] [place] [address] Chloride 100 mmol/L Normal 98-107 [facility] Comment on above: Performed By: #### B MP, CDP ####[facility] [place] [address] CO2 27 mmol/L Normal 20-31 [facility] Comment on above: Performed By: #### B MP, CDP ####[facility] [place] [address] Creatinine 0.59 mg/dL Low 0.70-1.20 [facility] Comment on above: Performed By: #### B MP, CDP ####[facility] [place] [address] eGFR (non-black) mL/min/{1.73_m2} Normal >60 [facility] Comment on above: Performed By: #### B MP, CDP ####[facility] [place] [address] Glucose mass conc 90 mg/dL Normal 70-99 [facility] Comment on above: Performed By: #### B MP, CDP ####[address] [address] Potassium molar conc 4.7 mmol/L Normal 3.7-5.3 [facility] Comment on above: Performed By: #### B MP, CDP ####[address] [address] Sodium 137 mmol/L Normal 135-144 [facility] Comment on above: Performed By: #### B MP, CDP ####[address] [address] Urea nitrogen 9 mg/dL Normal 6-20 [facility] Comment on above: Performed By: #### B MP, CDP ####[address] [address] Staging: NOT REPORTED Normal [facility] Comment on above: Performed By: #### B MP, CDP ####[address] [address] CBC with Diffon 01-30-2018 Abs. Basophil 0.00 k/uL Normal 0.0-0.2 [facility] Comment on above: Performed By: #### B MP, CDP ####[address] [address] Abs.Neutrophil (Seg) 6.01 k/uL Normal 1.8-7.7 [facility] Comment on above: Performed By: #### B MP, CDP ####[address] [address] Basophils/100 WBC Auto (Bld) 0 % Normal [facility] Comment on above: Performed By: #### B MP, CDP ####[facility] [place], [place] [address]ia [facility] [place] [address] Blood morphology MACROCYTOSIS PRESENT Normal [facility] Comment on above: Result Comment: LARG E PLATELETS PRESENTPerformed at [facility] [address] [place] [address] Performed By: #### B MP, CDP ####[facility] [place], [place] [address]ia [facility] [place] [address] Eosinophils 0.15 10*3/uL Normal 0.0-0.4 [facility] Comment on above: Performed By: #### B MP, CDP ####[address] [place] [address] Eosinophils/100 leukocytes 2 % Normal 1-4 [facility] Comment on above: Performed By: #### B MP, CDP ####[facility] [facility] [place] [address] Lymphocytes 0.91 10*3/uL Low 1.0-4.8 [facility] Comment on above: Performed By: #### B MP, CDP ####[facility] [place], [place] [address]ia [facility] [place] [address] Lymphocytes/100 leukocytes 12 % Low 24-44 [facility] Comment on above: Performed By: #### B MP, CDP ####[facility] [place], [place] [address]ia [facility] [place] [address] Monocytes 0.53 10*3/uL Normal 0.2-0.8 [facility] Comment on above: Performed By: #### B MP, CDP ####[facility] [place], [place] [address] [address] Monocytes/100 leukocytes 7 % Normal 1-7 [facility] Comment on above: Performed By: #### B MP, CDP ####[facility] [place] [address].[place] [address] Neutrophil (Seg) 79 % High 36-66 [facility] Comment on above: Performed By: #### B MP, CDP ####[address] [place] [address] Erythrocyte distribution width Auto Ratio (RBC) 15.5 % High 11.5-14.5 [facility] Comment on above: Performed By: #### B MP, CDP ####[address] [address] Erythrocytes (RBC) 3.98 10*6/uL Low 4.5-5.9 [facility] Comment on above: Performed By: #### B MP, CDP ####[address] [address] Hematocrit (HCT) 45.3 % Normal 41-53 [facility] Comment on above: Performed By: #### B MP, CDP ####[address] [address] Hemoglobin mass conc (Bld) 15.6 g/dL Normal 13.5-17.5 [facility] Comment on above: Performed By: #### B MP, CDP ####[address] [address] MCH 39.1 pg High 26-34 [facility] Comment on above: Performed By: #### B MP, CDP ####[address] [address] MCHC mass conc (RBC) 34.4 g/dL Normal 31-37 [facility] Comment on above: Performed By: #### B MP, CDP ####[facility] [place] [address] MCV 113.7 fL High 80-100 [facility] Comment on above: Performed By: #### B MP, CDP ####[facility] [place], [place] [address] [address] Platelets 226 10*3/uL Normal 130-400 [facility] Comment on above: Performed By: #### B MP, CDP ####[facility] [place], [place] [address] [address] WBC (Leukocytes) 7.6 10*3/uL Normal 3.5-11.0 [facility] Comment on above: Performed By: #### B MP, CDP ####[address] [place] [address] Auto Diff Performed NOT REPORTED Normal [facility] Comment on above: Performed By: #### B MP, CDP ####[facility] [place] [address].[place] [address] Erythrocyte morphology NOT REPORTED Normal [facility] Comment on above: Performed By: #### B MP, CDP ####[address] [place] [address] Erythrocytes (RBC) NOT REPORTED Normal [facility] Comment on above: Performed By: #### B MP, CDP ####[facility] [place], [place] [address] [address] Granulocytes/100 WBC (Bld) NOT REPORTED Normal 0.00-0.30 [facility] Comment on above: Performed By: #### B MP, CDP ####[facility] [place], [place] [address] [address] Immature granulocytes #/vol (Bld) NOT REPORTED Normal 0 [facility] Comment on above: Performed By: #### B MP, CDP ####[facility] [place] [address] Platelet mean volume (PMV) NOT REPORTED Normal 6.0-12.0 [facility] Comment on above: Performed By: #### B MP, CDP ####[facility] [place] [address] Platelets NOT REPORTED Normal [facility] Comment on above: Performed By: #### B MP, CDP ####[facility] [place] [address] WBC Morphology NOT REPORTED Normal [facility] Comment on above: Performed By: #### B MP, CDP ####[facility] [place] [address] Occ Bld, Fecal Scrnon 2017 Occult Blood 1 Negative Normal NEG [facility] Comment on above: Performed By: #### O BS ####[facility] [place] [address] Specimen 1 Date Normal [facility] Comment on above: Performed By: #### O BS ####[facility] [place], [place] [address] [address] Specimen 1 Time 1549 Normal [facility] Comment on above: Result Comment: Perf ormed at [facility] [address] [place] [address] Performed By: #### O BS ####[facility] [place] [address] Specimen 2 Date NOT REPORTED Normal [facility] Comment on above: Performed By: #### O BS ####[facility] [facility] [place] [address] Specimen 2 Time NOT REPORTED Normal [facility] Comment on above: Performed By: #### O BS ####[facility] [facility] [place] [address] Specimen 3 Date NOT REPORTED Normal [facility] Comment on above: Performed By: #### O BS ####[facility] [place] [address].[place] [address] Specimen 3 Time NOT REPORTED Normal [facility] Comment on above: Performed By: #### O BS ####[facility] [place] [address].[place] [address] Occult Blood 2 NOT REPORTED Normal NEG [facility] Comment on above: Performed By: #### O BS ####[facility] [place] [address] Occult Blood 3 NOT REPORTED Normal NEG [facility] Comment on above: Performed By: #### O BS ####[facility] [place] [address].[place] [address] UA w/Reflex Cultureon 2017 Acetaminophen mass conc Negative Normal NEG [facility] Comment on above: Performed By: #### U AX ####[facility] [place] [address].[place] [address] Bilirubin (direct) Negative Normal NEG [facility] Comment on above: Performed By: #### U AX ####[address] [place] [address] Hemoglobin mass conc (Bld) Negative Normal NEG [facility] Comment on above: Performed By: #### U AX ####[address] [place] [address] Nitrite,Ur Negative Normal NEG [facility] Comment on above: Performed By: #### U AX ####[facility] [place] [address] Turbidity CLEAR Normal CLEAR [facility] Comment on above: Performed By: #### U AX ####[facility] [place] [address] Urine, color YELLOW Normal YEL [facility] Comment on above: Performed By: #### U AX ####[facility] [place] [address] Urine, glucose presence Negative Normal NEG [facility] Comment on above: Performed By: #### U AX ####[facility] [place] [address] Urine, leukocyte esterase presence Negative Normal NEG [facility] Comment on above: Result Comment: Perf ormed at [facility] [address] [place] [address] Performed By: #### U AX ####[facility] [place] [address] Urine, pH 6.5 [pH] Normal 5.0-8.0 [facility] Comment on above: Performed By: #### U AX ####[facility] [place] [address] Urine, protein presence Negative Normal NEG [facility] Comment on above: Performed By: #### U AX ####[facility] [place] [address].[place] [address] Urine, specific gravity 1.015 Normal 1.005-1.030 [facility] Comment on above: Performed By: #### U AX ####[facility] [place] [address] Urobilinogen,Ur Normal Normal NORM [facility] Comment on above: Performed By: #### U AX ####[facility] [facility] [place] [address] Comment NOT REPORTED Normal [facility] Comment on above: Performed By: #### U AX ####[facility] [place] [address] Cult,Bloodon 07-01-2017 Cult,Blood Specimen Description .BLOOD 5ML PURP 5ML RED LEFT UPPER ARM Performed at [address] [address] Special Requests NOT REPORTEDCulture NO GROWTH 6 DAYS Performed at [address] [address] Report Status FINAL 07/01/2017 Normal [facility] Comment on above: Performed By: #### A LCB, BMP, CDP, PATH ####[address] [address] Cult,Blood Specimen Description .BLOOD RED 3ML PURPLE 3ML BOTH LEFT AC Performed at [address] [address] Special Requests NOT REPORTEDCulture NO GROWTH 6 DAYS Performed at [address] [address] Report Status FINAL 07/01/2017 Normal [facility] Comment on above: Performed By: #### A LCB, BMP, CDP, PATH ####[address] [address] HIV-1,Quant,RNAon 07-01-2017 HIV-1,Quant,RNA Specimen Description .PLASMA Performed at [address] [address] Special Requests NOT REPORTEDDirect Exam HIV-1 RNA [...] efficacy of Anti-HIV drug therapy. Performed at [address] [address] Report Status FINAL 07/01/2017 Normal [facility] Comment on above: Performed By: #### A LCB, BMP, CDP, PATH ####[address] [address] Cult,CSFon 06-28-2017 Cult,CSF Specimen Description .CSF Performed at [address] [address] Special Requests NOT REPORTEDDirect Exam NO NEUTROPHILS SEEN NO BACTERIA SEEN Gram stain made from cytocentrifuged specimen. Organisms and cells will be concentrated. Culture NO GROWTH 3 DAYS Performed at [address] [address] Report Status FINAL 06/28/2017 Normal [facility] Comment on above: Performed By: #### A LCB, BMP, CDP, PATH ####[address] [address] VDRL, Qual, CSFon 06-28-2017 VDRL, Qual, CSF NONREACTIVE Normal NR [facility] Comment on above: Result Comment: Perf ormed at [address] [address] Performed By: #### L AC ####[facility] [place] [address].[place] [address] HSV DNA, PCRon 06-27-2017 HSV by PCR Not Detected Normal [facility] Comment on above: Result Comment: (NOT E)NOT DETECTED - A negative result does not rule out thepresence of PCR inhibitors in the patient specimen or assayspecific nucleic acid in concentrations below the level ofdetection by the assay.INTERPRETIVE INFORMATION: Herpes Simplex Virus by PCRTest developed and characteristics determined by [employer]. See Compliance Statement B: [employer]/CSPerformed by [employer],[address] [place] [address],[place] [address] vvi.[employer], Lobito Davila MD, Lab. Director Performed By: #### A CHUN, LAUREN, LAILA, PATH ####[address] [place] [address] Smear to Pathologiston 06-27 Smear to Pathologist TO BE REVIEWED BY PATHOLOGIST Normal [facility] Comment on above: Result Comment: Revi ewed by pathologist: Parag Ledesma M.D.SMEAR AND CBC DATA REVIEWED. MODERATE MACROCYTOSIS NOTED. INCREASE IN HEMOGLOBIN AND HEMATOCRIT. PLEASE ALSO SEE SUBSEQUENT CBC DATA.Performed at [facility] [address] [place] [address] Performed By: #### A AARTIB, LAUREN, LAILA, PATH ####[facility] [place] [address].[place] [address] B12/Folate Panelon 7 Cobalamins (Vitamin B12) 165 pg/mL Low 211-946 [facility] Comment on above: Performed By: #### A AARTIB, BMP, CDP, PATH ####[address] [place] [address] Folic Acid 8.7 ng/mL Normal >4.8 [facility] Comment on above: Result Comment: Perf ormed at [facility] [address] [place] [address] Performed By: #### A LAUREN MCCOLLUM CDP, PATH ####[address] [address] Basic Metabolic Profon 06-26 (cont.) Normal [facility] Comment on above: Result Comment: Aver age GFR for 20-29 years old: 116 mL/min/1.73sq mChronic Kidney Disease: <60 mL/min/1.73sq mKidney failure: <15 mL/min/1.73sq meGFR calculated using average adult body mass. Additional eGFR calculator available at:http://www.[employer]/multiple_crcl_2012.htmPerformed at [facility] [address] [place] [address] Performed By: #### A LAUREN MCCOLLUM, LAILA, PATH ####[address] [address] Anion gap 11 mmol/L Normal 9-17 [facility] Comment on above: Performed By: #### A LAUREN MCCOLLUM, LAILA, PATH ####[address] [address] Calcium 8.9 mg/dL Normal 8.6-10.4 [facility] Comment on above: Performed By: #### A LAUREN MCCOLLUM, LAILA, PATH ####[address] [address] Chloride 100 mmol/L Normal 98-107 [facility] Comment on above: Performed By: #### A LAUREN MCCOLLUM, LAILA, PATH ####[address] [address] CO2 26 mmol/L Normal 20-31 [facility] Comment on above: Performed By: #### A LAUREN MCCOLLUM, CDP, PATH ####[facility] [place] [address] Creatinine 0.69 mg/dL Low 0.70-1.20 [facility] Comment on above: Performed By: #### A LCB, BMP, CDP, PATH ####[facility] [place], [place] [address] [place] [address] eGFR (non-black) mL/min/{1.73_m2} Normal >60 [facility] Comment on above: Performed By: #### A LCB, BMP, CDP, PATH ####[facility] [place] [address].[place] [address] Glucose mass conc 92 mg/dL Normal 70-99 [facility] Comment on above: Performed By: #### A LCB, BMP, CDP, PATH ####[facility] [place] [address].[place] [address] Potassium molar conc 3.9 mmol/L Normal 3.7-5.[address] [facility] Comment on above: Performed By: #### A LCB, BMP, CDP, PATH ####[address] [place] [address] Sodium 137 mmol/L Normal 135-144 [facility] Comment on above: Performed By: #### A LCB, BMP, CDP, PATH ####[facility] [place], [place] [address]e [facility] [place] [address] Urea nitrogen 10 mg/dL Normal 6-20 [facility] Comment on above: Performed By: #### A LCB, BMP, CDP, PATH ####[address] [place] [address] BUN/CRE Ratio NOT REPORTED Normal 9-20 [facility] Comment on above: Performed By: #### A LCB, BMP, CDP, PATH ####[address] [place] [address] Staging: NOT REPORTED Normal [facility] Comment on above: Performed By: #### A LCB, BMP, CDP, PATH ####[address] [address] CBC with Diffon 06-26-2017 Abs. Basophil 0.05 k/uL Normal 0.0-0.2 [facility] Comment on above: Performed By: #### A LCB, BMP, CDP, PATH ####[address] [place] [address] Abs.Neutrophil (Seg) 3.75 k/uL Normal 1.3-9.[address] [facility] Comment on above: Performed By: #### A LCB, BMP, CDP, PATH ####[address] [place] [address] Basophils/100 WBC Auto (Bld) 1 % Normal [facility] Comment on above: Performed By: #### A LCB, BMP, CDP, PATH ####[address] [address] Blood morphology MACROCYTOSIS PRESENT Normal [facility] Comment on above: Result Comment: Perf ormed at [facility] [address] [place] [address] Performed By: #### A LCB, BMP, CDP, PATH ####[address] [address] Eosinophils 0.10 10*3/uL Normal 0.0-0.4 [facility] Comment on above: Performed By: #### A LCB, BMP, CDP, PATH ####[address] [address] Eosinophils/100 leukocytes 2 % Normal [facility] Comment on above: Performed By: #### A LCB, BMP, CDP, PATH ####[facility] [place] [address].[place] [address] Lymphocytes 0.88 10*3/uL Low 1.0-4.8 [facility] Comment on above: Performed By: #### A LCB, BMP, CDP, PATH ####[address] [place] [address] Lymphocytes/100 leukocytes 17 % Normal [facility] Comment on above: Performed By: #### A LCB, BMP, CDP, PATH ####[address] [address] Monocytes 0.42 10*3/uL Normal 0.1-1.3 [facility] Comment on above: Performed By: #### A LCB, BMP, CDP, PATH ####[address] [address] Monocytes/100 leukocytes 8 % Normal [facility] Comment on above: Performed By: #### A LCB, BMP, CDP, PATH ####[address] [address] Neutrophil (Seg) 72 % Normal [facility] Comment on above: Performed By: #### A LCB, BMP, CDP, PATH ####[address] [address] Erythrocyte distribution width Auto Ratio (RBC) 14.6 % Normal 11.5-14.9 [facility] Comment on above: Performed By: #### A LCB, BMP, CDP, PATH ####[address] [address] Erythrocytes (RBC) 4.11 10*6/uL Low 4.5-5.[address] [facility] Comment on above: Performed By: #### A LCB, BMP, CDP, PATH ####[facility] [place] [address] Hematocrit (HCT) 46.3 % Normal 41-53 [facility] Comment on above: Performed By: #### A LCB, BMP, CDP, PATH ####[address] [address] Hemoglobin mass conc (Bld) 16.4 g/dL Normal 13.5-17.5 [facility] Comment on above: Performed By: #### A LCB, BMP, CDP, PATH ####[address] [address] MCH 39.9 pg High 26-34 [facility] Comment on above: Performed By: #### A LCB, BMP, CDP, PATH ####[address] [address] MCHC mass conc (RBC) 35.4 g/dL Normal 31-[address] [facility] Comment on above: Performed By: #### A LCB, BMP, CDP, PATH ####[address] [address] MCV 112.6 fL High 80-100 [facility] Comment on above: Performed By: #### A LCB, BMP, CDP, PATH ####[address] [address] Platelet mean volume (PMV) 9.5 fL Normal 6.0-12.0 [facility] Comment on above: Performed By: #### A LCB, BMP, CDP, PATH ####[address] [address] Platelets 159 10*3/uL Normal 150-450 [facility] Comment on above: Performed By: #### A LCB, BMP, CDP, PATH ####[facility] [place] [address] WBC (Leukocytes) 5.2 10*3/uL Normal 3.5-11.0 [facility] Comment on above: Performed By: #### A LCB, BMP, CDP, PATH ####[address] [address] Auto Diff Performed NOT REPORTED Normal [facility] Comment on above: Performed By: #### A LCB, BMP, CDP, PATH ####[address] [address] Erythrocyte morphology NOT REPORTED Normal [facility] Comment on above: Performed By: #### A LCB, BMP, CDP, PATH ####[address] [address] Granulocytes/100 WBC (Bld) NOT REPORTED Normal 0.00-0.30 [facility] Comment on above: Performed By: #### A LCB, BMP, CDP, PATH ####[address] [address] Immature granulocytes #/vol (Bld) NOT REPORTED Normal 0 [facility] Comment on above: Performed By: #### A LCB, BMP, CDP, PATH ####[address] [address] Platelets NOT REPORTED Normal [facility] Comment on above: Performed By: #### A LCB, BMP, CDP, PATH ####[address] [address] WBC Morphology NOT REPORTED Normal [facility] Comment on above: Performed By: #### A LCB, BMP, CDP, PATH ####[address] [address] CONSULTATIONon 06-26-[address] [address] CONSULTATIONPATIENT NAME: CONSTANTIN GALAN : 1990MED REC NO: [id number] ROOM: 2096ACCOUNT NO: [id number] ADMIT DATE: 06/25/2017PROVIDER: Cherelle Balderas HasanCONSULT DATE: [...] your discretion.Cherelle BALDERAS HASAND: 06/26/2017 11:15:40 /[id number]#: [id number] Doc#: [id number]: Dr. Mayo Normal [facility] CT HEAD WO CONTRASTon 2016 CT HEAD [...] by:TERESA Clancyigned by:Trevon Mcclain MD06/26/17Final result Normal [facility] Smear to Pathologiston 06-26 Smear to Pathologist NOT REPORTED Normal [facility] Comment on above: Performed By: #### A LCB, BMP, CDP, PATH ####[facility] [place] [address] TSH w/reflex to FT4on 2016 Thyroid stimulating hormone (TSH) 0.81 m[IU]/L Normal 0.30-5.00 [facility] Comment on above: Result Comment: Perf ormed at [facility] [address] [place] [address] Performed By: #### A CHUN, LAUREN, LAILA, PATH ####[facility] [place] [address] Thyroxine, Freeon 06-26-2017 Thyroxine, Free 0.89 ng/dL Low 0.93-1.70 [facility] Comment on above: Result Comment: Perf ormed at [facility] [address] [place] [address] Performed By: #### A CHUN, LAUREN, LAILA, PATH ####[facility] [place] [address] XR ELBOW RIGHT LIMITEDon XR ELBOW RIGHT [...] right arm x 2 days no known [id number] male with right arm pain for 2 days without any known injuryFINDINGS:Right shoulder:Right acromioclavicular and right glenohumeral joints grossly unremarkable.Visualized right-sided ribs appear intact. wheel braider leads overlie theright hemithorax. No acute fracture [...] by:TERESA Deeigned by:Caden Duncan MD06/26/17Final result Normal [facility] XR SHOULDER RIGHT STANDARDon 06-26-2017 XR SHOULDER [...] right arm x 2 days no known -vfsj-pgx male with right arm pain for 2 days without any known injuryFINDINGS:Right shoulder:Right acromioclavicular and right glenohumeral joints grossly unremarkable.Visualized right-sided ribs appear intact. wheel braider leads overlie theright hemithorax. No acute fracture [...] by:TERESA Deeigned by:Caden Duncan MD06/26/17Final result Normal [facility] XR WRIST RIGHT LIMITEDon XR WRIST RIGHT LIMITED EXAMINATION:3 VIE WS OF THE RIGHT SHOULDER; 2 VIEWS OF THE RIGHT ELBOW; 2 VIEWS OF THERIGHT WRIST06/26/2017 12:16 pmCOMPARISON:Right shoulder plain radiographs from 06/24/2017HISTORY:ORDERI [employer] SYSTEM PROVIDED HISTORY: arthritis fxTECHNOLOGIST PROVIDED HISTORY:Reason for exam:->arthritis fxOrdering Physician Provided Reason for Exam: painAcuity: AcuteType of Exam: InitialAdditional signs and symptoms: Pain right arm x 2 days no known acegnn21-[id number] male with right arm pain for 2 days without any known injuryFINDINGS:Right shoulder:Right acromioclavicular and right glenohumeral joints grossly unremarkable.Visualized right-sided ribs appear intact. wheel braider leads overlie theright hemithorax. No acute fracture [...] by:TERESA Deeigned by:Caden Duncan MD06/26/17Final result Normal [facility] APTTon 06-25-2017 aPTT 26.6 s Normal 23.0-31.0 [facility] Comment on above: Result Comment: IV H eparin Therapy Range: 64.3-87.8Performed at [address] [address] Performed By: #### L AC ####[address] [address] Ammoniaon 06-25-2017 Ammonia 36 umol/L Normal 16-60 [facility] Comment on above: Result Comment: Perf ormed at [address] [address] Performed By: #### L AC ####[address] [address] Basic Metabolic Profon 06-25 (cont.) Normal [facility] Comment on above: Result Comment: Aver age GFR for 20-29 years old: 116 mL/min/1.73sq mChronic Kidney Disease: <60 mL/min/1.73sq mKidney failure: <15 mL/min/1.73sq meGFR calculated using average adult body mass. Additional eGFR calculator available at:http://www.[employer]/multiple_crcl_2012.htmPerformed at [facility] [address] [place] [address] Performed By: #### A LCB, BMP, CDP, PATH ####[address] [address] Anion gap 14 mmol/L Normal 9-17 [facility] Comment on above: Performed By: #### A LCB, BMP, CDP, PATH ####[address] [address] Calcium 9.5 mg/dL Normal 8.6-10.4 [facility] Comment on above: Performed By: #### A LCB, BMP, CDP, PATH ####[facility] [place] [address] Chloride 98 mmol/L Normal 98-107 [facility] Comment on above: Performed By: #### A LCB, BMP, CDP, PATH ####[facility] [place] [address] CO2 26 mmol/L Normal 20-31 [facility] Comment on above: Performed By: #### A LCB, BMP, CDP, PATH ####[address] [address] Creatinine 0.68 mg/dL Low 0.70-1.20 [facility] Comment on above: Performed By: #### A LCB, BMP, CDP, PATH ####[place] [address] [facility] [place] [address] eGFR (non-black) mL/min/{1.73_m2} Normal >60 [facility] Comment on above: Performed By: #### A LCB, BMP, CDP, PATH ####[facility] [place] [address].[place] [address] Glucose mass conc 100 mg/dL High 70-99 [facility] Comment on above: Performed By: #### A LCB, BMP, CDP, PATH ####[facility] [place] [address].[place] [address] Potassium molar conc 4.2 mmol/L Normal 3.7-5.[address] [facility] Comment on above: Performed By: #### A LCB, BMP, CDP, PATH ####[address] [place] [address] Sodium 138 mmol/L Normal 135-144 [facility] Comment on above: Performed By: #### A LCB, BMP, CDP, PATH ####[address] [address] Urea nitrogen 9 mg/dL Normal 6-20 [facility] Comment on above: Performed By: #### A LCB, BMP, CDP, PATH ####[facility] [place] [address].[place] [address] BUN/CRE Ratio NOT REPORTED Normal 9-20 [facility] Comment on above: Performed By: #### A LCB, BMP, CDP, PATH ####[address] [address] Staging: NOT REPORTED Normal [facility] Comment on above: Performed By: #### A LCB, BMP, CDP, PATH ####[address] [address] CBC with Diffon 06-25-2017 Abs. Basophil 0.09 k/uL Normal 0.0-0.2 [facility] Comment on above: Performed By: #### A LCB, BMP, CDP, PATH ####[facility] [place] [address] Abs.Neutrophil (Seg) 6.94 k/uL Normal 1.3-9.[address] [facility] Comment on above: Performed By: #### A LCB, BMP, CDP, PATH ####[facility] [place] [address].[place] [address] Basophils/100 WBC Auto (Bld) 1 % Normal [facility] Comment on above: Performed By: #### A LCB, BMP, CDP, PATH ####[facility] [place] [address].[place] [address] Blood morphology MACROCYTOSIS PRESENT Normal [facility] Comment on above: Result Comment: Perf ormed at [facility] [address] [place] [address] Performed By: #### A LCB, BMP, CDP, PATH ####[facility] [place] [address] Eosinophils 0.09 10*3/uL Normal 0.0-0.4 [facility] Comment on above: Performed By: #### A LCB, BMP, CDP, PATH ####[facility] [place] [address].[place] [address] Eosinophils/100 leukocytes 1 % Normal [facility] Comment on above: Performed By: #### A LCB, BMP, CDP, PATH ####[facility] [place] [address] Lymphocytes 1.16 10*3/uL Normal 1.0-4.8 [facility] Comment on above: Performed By: #### A LCB, BMP, CDP, PATH ####[facility] [place] [address] Lymphocytes/100 leukocytes 13 % Normal [facility] Comment on above: Performed By: #### A LCB, BMP, CDP, PATH ####[facility] [place] [address].[place] [address] Monocytes 0.62 10*3/uL Normal 0.1-1.3 [facility] Comment on above: Performed By: #### A LCB, BMP, CDP, PATH ####[address] [address] Monocytes/100 leukocytes 7 % Normal [facility] Comment on above: Performed By: #### A LCB, BMP, CDP, PATH ####[address] [address] Neutrophil (Seg) 78 % Normal [facility] Comment on above: Performed By: #### A LCB, BMP, CDP, PATH ####[address] [address] Erythrocyte distribution width Auto Ratio (RBC) 14.9 % Normal 11.5-14.9 [facility] Comment on above: Performed By: #### A LCB, BMP, CDP, PATH ####[address] [address] Erythrocytes (RBC) 4.37 10*6/uL Low 4.5-5.[address] [facility] Comment on above: Performed By: #### A LCB, BMP, CDP, PATH ####[address] [address] Hematocrit (HCT) 50.1 % Normal 41-53 [facility] Comment on above: Performed By: #### A LCB, BMP, CDP, PATH ####[facility] [place] [address] Hemoglobin mass conc (Bld) 17.6 g/dL High 13.5-17.5 [facility] Comment on above: Performed By: #### A LCB, BMP, CDP, PATH ####[address] [address] MCH 40.2 pg High 26-34 [facility] Comment on above: Performed By: #### A LCB, BMP, CDP, PATH ####[address] [address] MCHC mass conc (RBC) 35.1 g/dL Normal 31-[address] [facility] Comment on above: Performed By: #### A LCB, BMP, CDP, PATH ####[address] [address] MCV 114.6 fL High 80-100 [facility] Comment on above: Performed By: #### A LCB, BMP, CDP, PATH ####[address] [address] Platelet mean volume (PMV) 9.8 fL Normal 6.0-12.0 [facility] Comment on above: Performed By: #### A LCB, BMP, CDP, PATH ####[address] [address] Platelets 187 10*3/uL Normal 150-450 [facility] Comment on above: Performed By: #### A LCB, BMP, CDP, PATH ####[address] [address] WBC (Leukocytes) 8.9 10*3/uL Normal 3.5-11.0 [facility] Comment on above: Performed By: #### A LCB, BMP, CDP, PATH ####[facility] [place] [address] Auto Diff Performed NOT REPORTED Normal [facility] Comment on above: Performed By: #### A LCB, BMP, CDP, PATH ####[facility] [place] [address] Erythrocyte morphology NOT REPORTED Normal [facility] Comment on above: Performed By: #### A LCB, BMP, CDP, PATH ####[facility] [place] [address] Granulocytes/100 WBC (Bld) NOT REPORTED Normal 0.00-0.30 [facility] Comment on above: Performed By: #### A LCB, BMP, CDP, PATH ####[address] [place] [address] Immature granulocytes #/vol (Bld) NOT REPORTED Normal 0 [facility] Comment on above: Performed By: #### A LCB, BMP, CDP, PATH ####[address] [place] [address] Platelets NOT REPORTED Normal [facility] Comment on above: Performed By: #### A LCB, BMP, CDP, PATH ####[address] [place] [address] WBC Morphology NOT REPORTED Normal [facility] Comment on above: Performed By: #### A LCB, BMP, CDP, PATH ####[address] [place] [address] CD4 Absoluteon 06-25-2017 Ab.T Help(CD3+,CD4+) 271 /uL Low 309-[address] [facility] Comment on above: Performed By: #### A LCB, BMP, CDP, PATH ####[address] [place] [address] Lymphocytes/100 leukocytes 19 % Low 24-44 [facility] Comment on above: Result Comment: Perf ormed at [facility] [address] [place] [address] Performed By: #### A LCB, BMP, CDP, PATH ####[facility] [place], [place] [address] [place] [address] T [place] (CD3+,CD4+) 23 % Low 27-[address] [facility] Comment on above: Performed By: #### A LCB, BMP, CDP, PATH ####[address] [place] [address] WBC (Leukocytes) 6.2 10*3/uL Normal 3.5-11.0 [facility] Comment on above: Performed By: #### A LCB, BMP, CDP, PATH ####[facility] [place] [address] CSF Cell Counton 06-25-2017 Erythrocytes (RBC) 22 /mm3 High 0 [facility] Comment on above: Result Comment: MARIA M ECTED ON 06/25 AT 0412: PREVIOUSLY REPORTED 11 Performed By: #### L AC ####[facility] [place] [address] WBC (Leukocytes) 0 /mm3 Normal <5 [facility] Comment on above: Performed By: #### L AC ####[facility] [place] [address] Tube Number 3 Normal [facility] Comment on above: Result Comment: Perf ormed at [facility] [address] [place] [address] Performed By: #### L AC ####[address] [place] [address] Urine, appearance COLORLESS Normal [facility] Comment on above: Performed By: #### L AC ####[facility] [facility] [place] [address] Urine, color CLEAR Normal [facility] Comment on above: Performed By: #### L AC ####[facility] [place] [address], [place] [address] Xanthochromia ABSENT Normal [facility] Comment on above: Performed By: #### L AC ####[facility] [place] [address] [place] [address] Volume 6CC Normal [facility] Comment on above: Performed By: #### L AC ####[address] [address] Cryptococcus Ag,CSFon 2016 Cryptococcus Ag,CSF Negative Normal NEG [facility] Comment on above: Result Comment: Perf ormed at [address] [place] [address] Performed By: #### L AC ####[facility] [place] [address] Drug Scr, Abuse, Uron 2016 Amphetamine(s),Ur Negative Normal NEG [facility] Comment on above: Result Comment: (Pos itive cutoff 1000 ng/mL) Performed By: #### L AC ####[address] [address] Barbiturate(s),Ur Negative Normal NEG [facility] Comment on above: Result Comment: (Pos itive cutoff 200 ng/mL) Performed By: #### L AC ####[address] [address] Base excess Negative Normal NEG [facility] Comment on above: Result Comment: (Pos itive cutoff 300 ng/mL) Performed By: #### L AC ####[address] [address] Benzodiazepine(s) Positive Abnormal NEG [facility] Comment on above: Result Comment: (Pos itive cutoff 200 ng/mL) Performed By: #### L AC ####[address] [address] Cannabinoid(s),Ur Positive Abnormal NEG [facility] Comment on above: Result Comment: (Pos itive cutoff 50 ng/mL) Performed By: #### L AC ####[address] [address] Interpretive Info Assay provides medic al screening only. The absence of expected drug(s) and/or Normal [facility] Comment on above: Result Comment: meta bolite(s) may indicate diluted or adulterated urine, limitations of testing or timing of collection.Testing for legal purposes should be confirmed by another method. To request confirmation of test result, please call the lab within 7 days of sample submission.Performed at [facility] [address] [place] [address] Performed By: #### L AC ####[address] [address] Opiate(s), Ur Negative Normal NEG [facility] Comment on above: Result Comment: (Pos itive cutoff 300 ng/mL) Performed By: #### L AC ####[address] [address] Oxycodone, Urine Negative Normal NEG [facility] Comment on above: Result Comment: (Pos itive cutoff 100 ng/mL) Performed By: #### L AC ####[address] [address] Phencyclidine, Ur Negative Normal NEG [facility] Comment on above: Result Comment: (Pos itive cutoff 25 ng/mL) Performed By: #### L AC ####[address] [id number] Urine, methadone presence Negative Normal NEG [facility] Comment on above: Result Comment: (Pos itive cutoff 300 ng/mL) Performed By: #### L AC ####[address] [address] Buprenorphrine, Ur NOT REPORTED Normal NEG [facility] Comment on above: Performed By: #### L AC ####[address] [address] MDMA, Urine NOT REPORTED Normal NEG [facility] Comment on above: Performed By: #### L AC ####[address] [address] Methamphetamine, Ur NOT REPORTED Normal NEG [facility] Comment on above: Performed By: #### L AC ####[address] [address] Propoxyphene,Urine NOT REPORTED Normal NEG [facility] Comment on above: Performed By: #### L AC ####[address] [address] Urine, tricyclic antidepressants NOT REPORTED Normal NEG [facility] Comment on above: Performed By: #### L AC ####[address] [address] Ethanol Alcoholon 06-25-2017 Ethanol mg/dL Normal <10 [facility] Comment on above: Performed By: #### A LCB, BMP, CDP, PATH ####[address] [address] Ethanol percent <0.010 Normal [facility] Comment on above: Result Comment: Perf ormed at [facility] [address] [place] [address] Performed By: #### A LCB, BMP, CDP, PATH ####[facility] [place] [address] Fungi,Direct Examon 06-25-20 17 Fungi,Direct Exam Specimen Description .CSF Performed at [facility] [address] [place] [address] Special Requests NOT REPORTEDDirect Exam NO FUNGAL ELEMENTS SEEN Performed at [address] [address] Report Status FINAL 06/25/2017 Normal [facility] Comment on above: Performed By: #### A LCB, BMP, CDP, PATH ####[address] [place] [address] Glucose,CSFon 06-25-2017 Glucose mass conc 65 mg/dL Normal 40-70 [facility] Comment on above: Result Comment: Perf ormed at [facility] [address] [place] [address] Performed By: #### L AC ####[address] [facility] [place] [address] HSV DNA, PCRon 06-25-2017 HSV source .BLOOD Normal [facility] Comment on above: Result Comment: Perf ormed at [facility] [address] [place] [address] Performed By: #### A LCB, BMP, CDP, PATH ####[place] [address] [address] Lactic Acidon 06-25-2017 Lactate 1.5 mmol/L Normal 0.5-2.2 [facility] Comment on above: Result Comment: Perf ormed at [facility] [address] [place] [address] Performed By: #### L AC ####[facility] [facility] [place] [address] Lactate 2.3 mmol/L High 0.5-2.2 [facility] Comment on above: Result Comment: Perf ormed at [facility] [address] [place] [address] Performed By: #### L AC ####[facility] [place] [address] MRI CERVICAL SPINE WO CONTRA STon 06-25-2017 [...] by:TERESA Powelligned by:Kush Nelson MD06/25/17Final result Normal [facility] PTon 06-25-2017 INR Coag RelTime (PPP) 1.0 {INR} Normal [facility] Comment on above: Result Comment: Non- therapeutic Range: INR = 0.9-1.2Therapeutic Range: Moderate Anticoagulant Intensity: INR = 2.0-3.0 High Anticoagulant Intensity: INR = 2.5-3.5Performed at [address] [address] Performed By: #### L AC ####[address] [address] Prothrombin time (PT) Coag time (PPP) 10.8 s Normal 9.7-12.0 [facility] Comment on above: Performed By: #### L AC ####[address] [address] Protein, Total, CSFon 2016 Total Protein - CSF 28.1 mg/dL Normal 15.0-45.0 [facility] Comment on above: Result Comment: Perf ormed at [id number] [place] [address] Performed By: #### L AC ####[address] [address] Surgical Pathologyon 017 Surgical Pathology (NOTE)[id number], [place] [address] Fax: SURGICAL PATHOLOGY REPORTPatient Name: EDU GALAN#: [id number] #[id number] DiagnosisCEREBROSPINAL FLUID, CYTOSPIN PREPARATIONS: HYPOCELLULAR SPECIMEN CONTAINING [...] are received. Microscopic examination is performed. Normal [facility] Urinalysis, Routineon 2016 Acetaminophen mass conc Negative Normal NEG [facility] Comment on above: Performed By: #### U AMARU, DEBRA ####[address] [place] [address] Bilirubin (direct) Negative Normal NEG [facility] Comment on above: Performed By: #### U AMARU DEBRA ####[facility] [place] [address] Hemoglobin mass conc (Bld) Negative Normal NEG [facility] Comment on above: Performed By: #### U A UMJIGAR, DEBRA ####[facility] [place] [address] Nitrite,Ur Negative Normal NEG [facility] Comment on above: Performed By: #### U AMARU, DEBRA ####[address] [address] Turbidity CLEAR Normal CLEAR [facility] Comment on above: Performed By: #### U AMARU DEBRA ####[facility] [facility] [place] [address] Urine, color YELLOW Normal YEL [facility] Comment on above: Performed By: #### MARU Ruggiero DEBRA ####[facility] [facility] [place] [address] Urine, glucose presence Negative Normal NEG [facility] Comment on above: Performed By: #### MARU Ruggiero DEBRA ####[facility] [facility] [place] [address] Urine, leukocyte esterase presence Negative Normal NEG [facility] Comment on above: Result Comment: Perf ormed at [facility] [address] [place] [address] Performed By: #### MARU Ruggiero DEBRA ####[facility] [place] [address].[place] [address] Urine, pH 6.5 [pH] Normal 5.0-8.0 [facility] Comment on above: Performed By: #### MARU Ruggiero DEBRA ####[facility] [place] [address].[place] [address] Urine, protein presence TRACE Abnormal NEG [facility] Comment on above: Performed By: #### MARU Ruggiero DEBRA ####[facility] [place] [address].[place] [address] Urine, specific gravity 1.011 Normal 1.000-1.030 [facility] Comment on above: Performed By: #### MARU Ruggiero DEBRA ####[facility] [place] [address].[place] [address] Urobilinogen,Ur Normal Normal NORM [facility] Comment on above: Performed By: #### GERI RuggieroO, DEBRA ####[address] [address] Comment NOT REPORTED Normal [facility] Comment on above: Performed By: #### U A, UMTOMASO, DEBRA ####[address] [address] Urinalysis,Microon 7 ----- Normal [facility] Comment on above: Performed By: #### U A, UMTOMASO, DEBRA ####[address] [address] Mucus Strands 2+ Abnormal [facility] Comment on above: Performed By: #### U AMARU, DEBRA ####[address] [address] Urine WBC's 2 TO 5 Normal [facility] Comment on above: Performed By: #### U AMARU, DEBRA ####[address] [address] Urine, amorphous sediment presence in sediment 1+ Abnormal [facility] Comment on above: Result Comment: Perf ormed at [address] [place] [address] Performed By: #### U A, UMICAO, DEBRA ####[address] [address] Urine, bacteria in sediment FEW Abnormal [facility] Comment on above: Performed By: #### U A, UMICAO, DEBRA ####[address] [address] Urine, epithelial cells in sediment 0 TO 2 Normal [facility] Comment on above: Performed By: #### U A, UMICAO, DEBRA ####[facility] [place] [address] Urine, erythrocytes 0 TO 2 Normal [facility] Comment on above: Performed By: #### U A, UMICAO, DEBRA ####[facility] [place] [address].[place] [address] Epithelial, Renal NOT REPORTED Normal 0 [facility] Comment on above: Performed By: #### U A, UMICAO, DEBRA ####[facility] [place] [address].[place] [address] Other Observations NOT REPORTED Normal NREQ [facility] Comment on above: Performed By: #### U A, UMICAO, DEBRA ####[address] [place] [address] Trichomonas NOT REPORTED Normal NONE [facility] Comment on above: Performed By: #### U A, UMICAO, DEBRA ####[facility] [place] [address].[place] [address] Urine, casts in sediment NOT REPORTED Normal [facility] Comment on above: Performed By: #### U A, UMICAO, DEBRA ####[facility] [place] [address].[place] [address] Urine, crystals in sediment NOT REPORTED Normal [facility] Comment on above: Performed By: #### U A, UMICAO, DEBRA ####[facility] [place] [address].[place] [address] Urine, yeast presence in sediment NOT REPORTED Normal NONE [facility] Comment on above: Performed By: #### U A, UMICAO, DEBRA ####[facility] [place] [address].[place] [address] XR CHEST LIMITEDon 7 XR CHEST LIMITED [...] by:TERESA Delgadoigned by:Mc Montgomery MD06/25/17Final result Normal [facility] XR SHOULDER RIGHT STANDARDon 06-24-2017 Thyroid stimulating hormone (TSH) EXAMINATION:3 VIEWS OF THE RIGHT LKCDTQID52/27/2017 11:56 amCOMPARISON:None.HISTOR Y:ORDERING SYSTEM PROVIDED HISTORY: PainTECHNOLOGIST PROVIDED HISTORY:Reason for exam:->PainOrdering Physician Provided Reason for Exam: RT SHOULDER PAINAcuity: UnknownType of Exam: [id number] male with right shoulder painFINDINGS:Right acromioclavicular and right glenohumeral joints grossly unremarkable.Visualized ribs appear grossly intact. No acute fracture or grossdislocation.IMPRESS ION: No acute fracture or gross dislocation.Interpreted by:TERESA Deeigned by:Caden Duncan MD06/24/17Final result Normal [facility] Vital Signs Date Time Vital Sign Value Performing Clinician Yossi vogel 12-16-2023 02:38-0400 Body temperature 99.1 [degF] Atul Arndt MD Work Phone: [facility] 12-16-2023 02:38-0400 Diastolic blood pressure 76 mm[Hg] Atul Arndt MD Work Phone: [facility] 12-16-2023 02:38-0400 Heart rate 87 /min Atul Arndt MD Work Phone: [facility] 12-16-2023 02:38-0400 Respiratory rate 16 /min Atul Arndt MD Work Phone: [facility] 12-16-2023 02:38-0400 SaO2% (BldA) [Mass fraction] 97 % Atul Arndt MD Work Phone: [facility] [employer] 12-16-2023 02:38-0400 Systolic blood pressure 124 mm[Hg] Atul Arndt MD Work Phone: [facility] [employer] 12-16-2023 00:35-0400 Body height 149.9 cm Atul Arndt MD Work Phone: [facility] [employer] 12-16-2023 00:35-0400 Body mass index (BMI) [Ratio] 17.57 kg/m2 Atul Arndt MD Work Phone: [employer] 12-16-2023 00:35-0400 Body weight 39.46 kg Atul Arndt MD Work Phone: [facility] [employer] 07-04-2023 08:34-0500 Body height 147.3 cm Gracy Nelson DO Work Phone: [employer] 07-04-2023 08:34-0500 Body mass index (BMI) [Ratio] 18.6 kg/m2 Gracytomas Nelson DO Work Phone: [employer] 07-04-2023 08:34-0500 Body temperature 97 [degF] Gracy Nelson DO Work Phone: [employer] 07-04-2023 08:34-0500 Body weight 40.37 kg Gracytomas Nelson DO Work Phone: [employer] 07-04-2023 08:34-0500 Diastolic blood pressure 73 mm[Hg] Gracy Nelson DO Work Phone: [employer] 07-04-2023 08:34-0500 Heart rate 91 /min Gracy Nelson DO Work Phone: [employer] 07-04-2023 08:34-0500 SaO2% (BldA) [Mass fraction] 99 % Gracy Nelson DO Work Phone: [employer] Comment on above: 07-04-2023 08:34-0500 Systolic blood pressure 107 mm[Hg] Gracy Nelson DO Work Phone: [facility] [employer] 06-24-2023 15:19-0400 Body temperature 98.8 [degF] Atul Arndt MD Work Phone: [facility] [employer] 06-24-2023 15:19-0400 Diastolic blood pressure 78 mm[Hg] Atul Ems Work Phone: [facility] [employer] 06-24-2023 15:19-0400 Heart rate 87 /min Atul Ems Work Phone: [facility] [employer] 06-24-2023 15:19-0400 Respiratory rate 14 /min Atul Ems Work Phone: [facility] [employer] 06-24-2023 15:19-0400 SaO2% (BldA) [Mass fraction] 100 % Atul Arndt MD Work Phone: [facility] [employer] 06-24-2023 15:19-0400 Systolic blood pressure 114 mm[Hg] Atul Arndt MD Work Phone: [facility] [employer] 05-16-2023 22:35-0400 Body temperature 98.8 [degF] Damaso Nesheim DO Work Phone: [facility] [employer] 05-16-2023 22:35-0400 Diastolic blood pressure 69 mm[Hg] Damaso Nesheim DO Work Phone: [facility] [employer] 05-16-2023 22:35-0400 Heart rate 120 /min Damaso Nesheim DO Work Phone: [facility] [employer] 05-16-2023 22:35-0400 Respiratory rate 18 /min Damaso Nesheim DO Work Phone: [facility] [employer] 05-16-2023 22:35-0400 SaO2% (BldA) [Mass fraction] 96 % Damaso Nesheim DO Work Phone: [facility] [employer] 05-16-2023 22:35-0400 Systolic blood pressure 98 mm[Hg] Damaso Nesheim DO Work Phone: [employer] 05-14-2023 18:32-0400 Body height 147.3 cm [employer] Work Phone: [employer] 05-14-2023 18:32-0403 Body mass index (BMI) [Ratio] 16.93 kg/m2 [facility] Work Phone: [employer] 05-14-2023 18:32-0402 Body weight 36.74 kg [employer] Work Phone: [employer] Encounters Encounter Date Encounter Type Care Provider Facility Start: 12-19-2024 End: 12-19-2024 ambulatory TONJA Mercer BARBI [facility] Start: 12-09-2024 End: 12-10-2024 Emergency department patient visit [facility] Start: 12-09-2024 End: 12-09-2024 Emergency department patient visit NO PCP NO PCP [facility] Start: 11-28-2024 End: 11-28-2024 Emergency department patient visit NO PCP NO PCP [facility] Start: 06-26-2024 End: 06-26-2024 ambulatory HALIMA Zhu [facility] Start: 06-11-2024 End: 06-11-2024 Emergency department patient visit TOSHIA SHINE [facility] Start: 05-09-2024 End: 05-09-2024 ambulatory HALIMA Zhu [facility] Start: 04-26-2024 End: 04-26-2024 ambulatory TONJA KAISER [facility] Start: 01-18-2024 End: 01-18-2024 Emergency department patient visit Facility:[facility] Start: 12-16-2023 End: 12-16-2023 Emergency department patient visit ATUL Briceño [facility] Start: 12-16-2023 End: 12-16-2023 Encounter for other general examination ATUL D [facility] Start: 12-16-2023 End: 12-16-2023 Admission to establishment Atul Arndt MD Work Phone: [employer] Work Phone: Start: 12-16-2023 End: 12-16-2023 Emergency department patient visit Atul Arndt MD Work Phone: [facility] Comment on above: Medical clearance fo r psychiatric admission (Primary Dx) Start: 08-19-2023 Telephone encounter Pcp None Other Phone: [facility] Comment on above: No Show Start: 07-07-2023 End: 07-08-2023 ambulatory [facility] Start: 07-07-2023 End: 07-07-2023 Subsequent hospital visit by physician Domonique Cortez MD Work Phone: [facility] Comment on above: Numbness and tinglin g in left arm Start: 07-06-2023 End: 07-07-2023 ambulatory [facility] Start: 07-06-2023 End: 07-06-2023 Office outpatient new 30 minutes Joi Arteaga MD Work Phone: [facility] Comment on above: Floaters in visual f ield, bilateral Start: 07-04-2023 End: 07[facility]: 07-04-2023 End: 07-04-2023 Sbsq hospital care/day 35 minutes Domonique Cortez MD Work Phone: [facility] [place] Comment on above: Numbness and tinglin g in left arm (Primary Dx); B12 deficiency; Floaters in visual field, bilateral; Human immunodeficiency virus (HIV) disease (HCC); Chronic cough; Brain fog; Need for immunization against influenza Start: 07-04-2023 End: 07-04-2023 Transitional care manage srvc 14 day discharge Domonique Cortez MD Work Phone: [facility] [place] Comment on above: Numbness and tinglin g in left arm (Primary Dx); B12 deficiency; Floaters in visual field, bilateral; Human immunodeficiency virus (HIV) disease (HCC); Chronic cough; Brain fog; Need for immunization against influenza Start: 06-24-2023 End: 06-24-2023 ambulatory FLO DOWLING [facility] Start: 06-24-2023 End: 06-24-2023 Emergency department patient visit Atul Arndt MD Work Phone: [facility] Comment on above: Numbness and tinglin g of left upper and lower extremity (Primary Dx); Non compliance w medication regimen; Currently asymptomatic HIV infection, with history of HIV-related illness (HCC); Left arm weakness Start: 06-24-2023 End: 06-24-2023 Emergency department patient visit NEISHA SIMMONS [facility] Start: 06-23-2023 End: 06-23-2023 Subsequent hospital visit by physician Ach Ecg [facility] Non-Invasive Cardiology Comment on above: Arrived Start: 05-14-2023 End: 05-17-2023 Emergency department patient visit GAYATRI GONZALES [facility] Start: 05-14-2023 End: 05-16-2023 Emergency department patient visit Damaso G Josue DO Work Phone: [facility] Comment on above: Auditory hallucinati on (Primary Dx); Suicidal ideation; HIV infection, unspecified symptom status (HCC) Start: 05-03-2023 End: 05-05-2023 ambulatory MISAEL SIMMONS [facility] Start: 05-03-2023 End: 05-03-2023 Emergency department patient visit JANINE OLMSTEAD [facility] Start: 05-03-2023 End: 05-03-2023 Subsequent hospital visit by physician [facility] Non-Invasive Cardiology Comment on above: Arrived Start: 03-05-2023 ambulatory Facility:[facility] Start: 12-29-2020 End: 12-29-2020 Emergency department patient visit REFERRED SELF Facility:[facility] Start: 10-05-2019 End: 10-05-2019 ambulatory Mee Barcenas Facility:[facility] Start: 01-30-2018 End: 01-30-2018 Emergency department patient visit [facility] Start: 10-04-2017 End: 10-05-2017 Emergency department patient visit [facility] Start: 06-25-2017 End: 06-26-2017 Ambulatory [facility] Start: 06-24-2017 End: 06-24-2017 Emergency department patient visit PEDRO STEWART [facility] Procedures Date Procedure Procedure Detail Performing Clinician [...] stick/tabl et reagent auto microscopy Damaso Yoana aSlas DO Work Phone: Start: 05-14-2023 SARS-CoV-2 (COVID-19 [...] CSF CULTURE TONJA MARTINEZ Start: 06-25-2017 CYTOLOGY, NON-SENIOR PAINTER SUGEY [facility] Start: 06-25-2017 FUNGAL STAIN TONJA MARTINEZ Start: 06-25-2017 GLUCOSE, CSF TONJA MARTINEZ Start: 06-25-2017 PROTEIN, CSF TONJA MARTINEZ Start: 06-25-2017 VDRL, CSF TONJA MARTINEZ Start: 06-25-2017 Microscopic urinalysis TONJA [facility] Start: 06-25-2017 Urinalysis TONJA MARTINEZ Start: 06-25-2017 URINE DRUG SCREEN SUGEY [facility] Start: 06-25-2017 Chest x-ray 1 view frontal TONJA [facility] Start: 06-25-2017 BEDREST TONJA MARTNIEZ Start: 06-25-2017 LUMBAR PUNCTURE ELIECER [facility] Start: [...] or older (1 - 1-dose 60+ series) [facility] Start: 11-02-2026 DTaP/Tdap/Td Vaccine s (7 - Td or Tdap) DTaP/Tdap/Td Vaccines (7 - Td or Tdap) [facility] Start: 07-06-2025 Glaucoma screening Diabetes: R etinopathy Screening [facility] Start: 05-16-2024 Hemoglobin A1c measurement Diabetes: Hemoglobin A1C [facility] Start: 05-16-2024 Lipid panel Lipid Panel [facility] Start: 09-05-2023 End: 09-05-2023 Patient encounter procedure 09/05/2023 8:10 AM EST Office Visit [facility] [address] [place] [phone] Davin Martinez MD [address] [place], [place] [phone] [facility] [place] Start: 08-19-2023 End: 08-19-2023 Patient encounter procedure 08/19/2023 9:00 AM EST Appointment [facility] [address] [place] [phone] Joi Arteaga MD [address] [place], [place] [phone] [facility] Start: 07-07-2023 End: 07-07-2023 Patient encounter procedure 07/07/2023 10:30 AM EST Appointment [facility] [address] [place] [address] Domonique Cortez MD [address] [place], [place] [phone] [facility] Start: 07-06-2023 End: 07-06-2023 Patient encounter procedure 07/06/2023 9:00 AM EST Appointment [facility] [address] [place] [phone] Joi Arteaga MD [address] [place], [place] [phone] [facility] Start: 07-04-2023 End: 07-04-2024 Nerve conduction test with EM[facility] Nerve conduction test with [facility] Neu[facility] Routine Numbness and tingling in left arm Expected: 07/04/2023 (Approximate), Expires: 07/04/2024 [facility] Work Phone: Comment on above: Expected: 07/04/2023 (Approximate), Expires: 07/04/2024 Start: 07-04-2023 End: 07-04-2023 Patient encounter procedure 07/04/2023 8:20 AM EST Office Visit [facility] [address] [place] [phone] Gracy Nelson DO [address] [place] [address] [facility] Start: 05-19-2023 End: 05-19-2023 Patient encounter procedure 05/19/2023 8:45 AM EDT Office Visit [address] [phone] Idris Oneill MD [address] [place] [address] [facility] Start: 05-18-2023 End: 05-18-2023 Patient encounter procedure 05/18/2023 9:00 AM EDT Office Visit [facility] [address] [place] [phone] Eugenio Lopez MD [address] [place], [place] [phone] [facility] Start: 04-29-2023 Influenza vaccination Influenza Vacc ine (#1) [facility] Start: 11-02-2021 Pneumococcal Vaccine : Pediatrics (0 to 5 Years) and At-Risk Patients (6 to 64 Years) (3 - PPSV23 or PCV20) Pneumococcal Vaccine: Pediatrics (0 to 5 Years) and At-Risk Patients (6 to 64 Years) (3 - PPSV23 or PCV20) [facility] Start: 11-02-2021 Pneumococcal Vaccine : Pediatrics (0 to 5 Years) and At-Risk Patients (6 to 64 Years) (3 of 3 - PPSV23 or PCV20) Pneumococcal Vaccine: Pediatrics (0 to 5 Years) and At-Risk Patients (6 to 64 Years) (3 of 3 - PPSV23 or PCV20) [facility] Start: 07-03-2014 Hepatitis A Vaccines (2 of 2 - Risk 2-dose series) Hepatitis A Vaccines (2 of 2 - Risk 2-dose series) [facility] Start: 10-01-2013 Pneumococcal Vaccine : Pediatrics (0 to 5 Years) and At-Risk Patients (6 to 64 Years) (2 - PPSV23 if available, else PCV20) Pneumococcal Vaccine: Pediatrics (0 to 5 Years) and At-Risk Patients (6 to 64 Years) (2 - PPSV23 if available, else PCV20) [facility] Start: 02-26-2008 DTaP/Tdap/Td Vaccine s (1 - Tdap) DTaP/Tdap/Td Vaccines (1 - Tdap) [facility] Start: 02-26-2008 Hepatitis A Vaccines (1 of 2 - Risk 2-dose series) Hepatitis A Vaccines (1 of 2 - Risk 2-dose series) [facility] Start: 02-26-2008 Zoster Vaccines (1 o f 2) Zoster Vaccines (1 of 2) [facility] Start: 2007 Hepatitis C screening Hepatitis C Sc reening [facility] Start: 2007 MMR Vaccines (1 of 2 - Risk 2-dose series) MMR Vaccines (1 of 2 - Risk 2-dose series) [facility] Start: 2002 Varicella vaccination Varicell a Vaccines (1 of 2 - 13+ 2-dose series) [facility] Start: 04-05-2001 Varicella vaccination Varicell a Vaccines (1 of 2 - 2-dose childhood series) [facility] [place] Start: 2001 Depression Screening Depression Scre ening [facility] Start: 1999 Diabetic foot examination Diabetes: Foot Exam [facility] Start: 1999 Glaucoma screening Diabetes: R etinopathy Screening [facility] Start: 1999 Preventive dental service Diabetes: Dental Exam [facility] Start: 1994 COVID-19 Vaccine (#1) COVID-19 Vacci ne (#1) [facility] Start: 1991 Meningococcal Vaccin e (1 - Risk 2-dose series) Meningococcal Vaccine (1 - Risk 2-dose series) [facility] Start: 1990 Varicella vaccination Varicell a Vaccines (1 of 2 - 2-dose childhood series) [facility] Start: 1989 COVID-19 Vaccine (#1) COVID-19 Vacci ne (#1) [facility] Start: 1989 Hemoglobin A1c measurement Diabetes: Hemoglobin A1C [facility] Start: 1989 Hepatitis B Vaccines (1 of 3 - 3-dose series) Hepatitis B Vaccines (1 of 3 - 3-dose series) [facility] Start: 1989 Lipid panel Lipid Panel [facility] Immunizations Immunization Date Immunization Notes Care Provider Fa cility 07-04-2023 influenza, injectabl e, quadrivalent, preservative free Gracy Omar DO Work Phone: [facility] 07-04-2023 influenza virus vaccine, unspecified formulation Gracy Omar DO Work Phone: [facility] 05-24-2014 influenza virus vaccine, unspecified formulation Atul Arndt MD Work Phone: [facility] 12-31-2013 hepatitis A and hepatitis B vaccine Atul Arndt MD Work Phone: [facility] 08-06-2013 pneumococcal conjuga te vaccine, 13 valent Sbh Ecg [facility] 08-06-2013 hepatitis A and hepatitis B vaccine Atul Arndt MD Work Phone: [facility] NEGATED: Highlighted row has not occurred!05-15-2023 Influenza, injectable, Madin Adrienne Canine Kidney, preservative free, quadrivalent Damaso Nesheim DO Work Phone: [facility] Comment on above: Deferred: Patient Re fused Payers Date Payer Category Payer Medicaid [id number] 2022 Unknown [id number] 2019 Unknown [id number] 2017 Unknown [id number] 2015 Unknown [id number] 1989 Unknown [id number] 1989 Unknown [id number] 1989 Unknown [id number] [id number]. [id number] 1989 Unknown [id number] [id number]. [id number] Social History Date Type Detail Facility Tobacco smoking status NHIS Smokes tobacc o daily [facility] History of tobacco use Cigarette Smoker S [facility] Start: 05-03-2023 End: 12-16-2023 Alcohol intake Current non-drinker of alcohol (finding) [facility] Start: 05-03-2023 End: 05-04-2023 Alcohol intake [facility] Start: 05-03-2023 End: 05-04-2023 Tobacco use panel [facility] Start: 1989 Sex Assigned At Not on file [facility] Start: 04-23-2023 End: 05-14-2023 Exposure to SARS-CoV-2 (event) Not sure [facility] How often to you hav e a drink containing alcohol? Never [facility] How many standard dr inks containing alcohol do you have on a typical day? Patient does not drink [facility] In the past 12 month s, was there a time when you were not able to pay the mortgage or rent on time? Yes [facility] How often to you hav e a drink containing alcohol? 2-3 time sa week [facility] How many standard dr inks containing alcohol do you have on a typical day? 3 or 4 [facility] Clinical Notes 05-04-2023 to 12-19-2024 [facility] - 12/16/2023 3:52 AM EDTIndimery Seguraw [...] Insurance: Medicaid [employer] program: Not enrolled in [employer] Animal Herder: LORETA Housing: Unstable Type: Other - living [...] social support. Prevention for Positives PFP methods: [facility] reviewed Prevention for Positives information with patient., Patient understands U=U., MCM reviewed additional STI information. Patient was encouraged to take condoms. [facility] 12-19-2024 Note Immunization History Administered Date(s) Administered Hep A, Adult 09/07/2017, 04/19/2018 Influenza, Unspecified 05/29/2018 Influenza, injectable, quadrivalent, preservative free 06/07/2017, 09/11/2019 Influenza, seasonal, injectable 05/24/2014 Pneumococcal Conjugate PCV 13 04/09/2016, 08/27/2016 Pneumococcal Polysaccharide PPV23 11/02/2016 Tdap 11/02/2016 Subjective oCnstantin Galan is a 34 y.o. male who presents to the Infectious Disease clinic for follow-up of HIV infection. Constantin Galan was diagnosed in 2012 and has been on Biktarvy since 2019. Constantin Galan is feeling unchanged since his last visit. Patient states that he has been using methamphetamine and he has been losing weight and his teeth are breaking. Constantin W [place] >90% adherent with medication and tolerating it well. Remains sexually active and uses condoms for protection consistently. Denies nausea, vomiting, diarrhea, constipation, SOB, chest pain, fever, and rash. Risk Factors: MSM Past Medical History: Past Medical History: Diagnosis Date HIV disease ([facility]) 2012 STD (sexually transmitted disease) Varicella Rogelio had it when i was a kid Patient Active Problem List Diagnosis Bipolar I disorder ([facility]) Posttraumatic stress disorder Acute leg pain Autonomic neuropathy Back pain Chronic pain Hemorrhoids HIV (human immunodeficiency virus infection) ([facility]) Joint pain Migraine without aura Retention of urine Short stature disorder Syncope Severe stimulant use disorder ([facility]) Past Surgical History No past surgical history [...] to 10 days. 40 tablet 0 [DISCONTINUED] wurwvpwcg-ciecfjpt-mqwmref ala (Biktarvy) 50-200-25 mg tablet Take one [...] Insecurity: No Food Insecurity (12/09/2024) Received from [facility] Hunger Screening Within the past 12 months [...] Keena Arthritis Mother (more content not included)... [facility] 12-19-2024 Note Nca Certified Concierge met with patient on 12/19/24 manager plumbing and patient created patient Care Plan and [...] meets program eligibility., Application submitted this visit. [facility] 12-10-2024 Note Procedure Digital Block Performed by: Anand Bliss MD Authorized by: Anand Bliss MD Consent: Consent obtained: Verbal Consent given by: Patient Risks, benefits, and alternatives were discussed: yes Risks discussed: Infection, allergic reaction and unsuccessful block Alternatives discussed: No treatment [place] protocol: Procedure explained and questions answered to [...] immediate complications Anand Bliss MD 12/14/24 1301 [facility] 12-10-2024 Note Procedure Incision and Drainage Performed by: Anand Bliss MD Authorized by: Anand Bliss MD Consent: Consent obtained: Verbal Consent given by: Patient Risks discussed: Bleeding, incomplete drainage and pain Alternatives discussed: No treatment [place] protocol: Procedure explained and questions answered to [...] drainage from erasmo Bliss MD 12/14/24 1303 [facility] 11-12-2024 Note Patient called to re scheduled missed appointments with ID provider & and Mh provider. Patient was agreeable to have appointments scheduled on same day, patient informed that a new application will need to be completed during next clinic appointment. Patient agreeable. [facility] 10-30-2024 Note Outreach attempt - r eschedule missed appointment with the following providers ID & MH. Patient also is currently no eligible for program services. [facility] 10-23-2024 Note Outreach attempt reg arding missed appointments and program eligibility. 10/24/2024 patient will no longer being eligible for services after today (10/23/2024), unless application is completed and supportive documents submitted - if applicable. Mcm left VM. [facility] 10-18-2024 Note Mcm called patient r egarding the following : missed ID appointment, program eligibility is needed. Patient's application expires 10/24/2024 - which will make him not eligable for services. [facility] lvm. [facility] 10-03-2024 Note Outreach attempt to patient regarding missed clinic appointments as well as update eligibility documents. Patient reports not able to complete application via phone, and will complete it during ID appointment scheduled for 10/10/2024. [facility] 07-30-2024 Note [facility] attempted to bell l pt regarding missed appointment within clinic. Pt was encouraged to call [facility] to have missed appointment rescheduled. [facility] 06-26-2024 Note Attestation signed by Halima [...] disorder. 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 [facility] 04-26-2024 Note Mcm met with pt. Pt reports not changes since last in clinic. Was given a gas vouchers to assist with getting to and from appointment. 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 No additional concerns reported. [facility] 04-26-2024 Note Immunization History Administered Date(s) [...] Past Medical History: Diagnosis Date HIV disease ([facility]) 2012 STD (sexually transmitted disease) Varicella Rogelio had it when i was a kid Patient Active Problem List Diagnosis Bipolar I disorder ([facility]) Posttraumatic stress disorder Acute leg pain Autonomic neuropathy Back pain Chronic pain Hemorrhoids HIV (human immunodeficiency virus infection) ([facility]) Joint pain Migraine without aura Retention of urine Short stature disorder Syncope Severe stimulant use disorder ([facility]) Past Surgical History No past surgical history [...] Eyes: Negative. Respirato (more content not included)... [facility] 04-10-2024 Note Missed appointments, unable to contact and complete eligibility documents. [facility] 12-16-2023 Emergency department Note Pt is now off ED BH unit [facility] 12/16/23 0352 [facility] 12-16-2023 Emergency department Note Pt is now off ED BH unit [facility] 12/16/23 035 Patient was cleared by Dr. ARNDT. Patient report was given to Gerardo WARD and transported back to [facility]. Patient left in no apparent distress. Flaco Melgar RN 12/16/23 035 Pt walked out to cot by Flaco WARD Pt packaged with 5 straps and 2 rails to ensure safety [facility] 12/16/23 035 transport arrived to take pt back to [facility] 1 bag [facility] 12/16/23 0349 Pt activated call light, Alvarado Brush answered it. Pt asked for something to eat. Given bagged lunch [facility] 12/16/23 0316 Activated call light, SYLVIA Sam answered it. Pt asked for coca cola, given. Leeann Danny 12/16/23 0310 SYLVIA Sam at patient bedside MONSE Tracy 12/16/23 0239 EKG at patient bedside MONSE [...] MONSE Tracy 12/16/23 0028 Emergency Department Encounter [facility] EMERGENCY DEPT Patient: Constantin Galan : 1990 [...] denies any medical complaints. He presented from [facility] for medical clearance. Focused exam: Umdkobv-jxnh-jtrhsynyg, no acute distress, nontoxic-appearing HEENT- atraumatic, normocephalic [...] Rate 73 normal sinus rhythm. Normal axis. AR interval 122, QRS 75, QTc 396. No STEMI. Independent historians: Imaging interpreted by me: Social determinants affecting care: meth use Escalation of care, appropriate for: transfer to [facility] Brief ED course/MDM: 33-year-old male presenting for medical clearance for psychiatric admission at [facility]. His labs were reassuring. I had a low suspicion for meningitis or encephalitis in this patient given the clinical picture. He was afebrile. He has a history of meth use. I believe his presentation is likely related to the meth use. He was medically cleared for it transfer to [facility] for psychiatric admission. All diagnostic, treatment, [...] for clarification.) Atul Arndt MD Acute Care [facility] Atul Arndt MD 12/16/23 0147 Patient was sent from [facility] for medical clearance. Patient is having symptoms of psychosis and racing thoughts. Patient is having racing thoughts. Patient is hearing voices. documented in this encounter [facility] 12-16-2023 Emergency department Note Patient was cleared by Dr. ARNDT. Patient report was given to Gerardo WARD and transported back to [facility]. Patient left in no apparent distress. Flaco Melgar RN 12/16/23 0352 [facility] 12-16-2023 Emergency department Note Pt walked out to cot by Flaco WARD Pt packaged with 5 straps and 2 rails to ensure safety [facility] 12/16/23 0351 [facility] 12-16-2023 Emergency department Note DM transport arrived to take pt back to [facility] 1 bag [facility] 12/16/23 0349 [facility] 12-16-2023 Emergency department Note Pt activated call lightAlvarado answered it. Pt asked for something to eat. Given bagged lunch [facility] 12/16/23 0316 [facility] 12-16-2023 Emergency department Note Activated call light, SYLVIA Sam answered it. Pt asked for coca cola, given. [facility] 12/16/23 0310 [facility] 12-16-2023 Emergency department Note [facility] 12-16-2023 Note Patient was sent fro [facility] for medical clearance. Patient is having symptoms of psychosis and racing thoughts. Patient is having racing thoughts. Patient is hearing voices. [facility] 12-16-2023 Emergency department Note EKG at patient bedside MONSE Tracy 12/16/23 0119 [facility] 12-16-[address] Arndt at patient bedside MONSE Tracy 12/16/23 0112 [facility] 12-16-2023 Note NOTE: This result is for medical treatment only. Analysis performed using non-forensic procedures. [facility] 12-16-[address] Rivera at patient bedside MONSE Tracy 12/16/23 0058 [facility] 12-16-2023 Emergency department Note Registration at patient bedside MONSE Tracy 12/16/23 0051 [facility] 12-16-2023 Emergency department Note Given coca cola and warm blanket Leeann Delgado 12/16/23 0046 [facility] 12-16-2023 Emergency department Note Patient has one bag of belongings. Patient was placed into two hospital gowns and wanded by protective services. MONSE Tracy 12/16/23 0032 [facility] 12-16-2023 Emergency department Note MONSE Tracy 12/16/23 0028 MONSE Tracy 12/16/23 0028 [facility] 12-16-2023 Emergency department Triage note Patient was sent from [facility] for medical clearance. Patient is having symptoms of psychosis and racing thoughts. Patient is having racing thoughts. Patient is hearing voices. [facility] 12-16-2023 Physician Emergency department Note Emergency Department Encounter [facility] EMERGENCY DEPT Patient: Constantin Galan : 1990 [...] denies any medical complaints. He presented from [facility] for medical clearance. Focused exam: Bebijji-ilsj-shsyexvka, no acute distress, nontoxic-appearing HEENT- atraumatic, normocephalic [...] Rate 73 normal sinus rhythm. Normal axis. AR interval 122, QRS 75, QTc 396. No STEMI. Independent historians: Imaging interpreted by me: Social determinants affecting care: meth use Escalation of care, appropriate for: transfer to [facility] Brief ED course/MDM: 33-year-old male presenting for medical clearance for psychiatric admission at [facility]. His labs were reassuring. I had a low suspicion for meningitis or encephalitis in this patient given the clinical picture. He was afebrile. He has a history of meth use. I believe his presentation is likely related to the meth use. He was medically cleared for it transfer to [facility] for psychiatric admission. All diagnostic, treatment, [...] [employer] Atul Arndt MD 12/16/23 0147 [employer] Phone: 08-19-2023 Telephone encounter Note Called for ns policy - RD [facility] 08-19-2023 Miscellaneous Notes Called for ns policy - RD documented in this encounter [facility] 07-07-2023 Note [facility] EMG/NCS report: Patient: Constantin [...] for this study were taken from the [facility] reference values which were created in 2019. This dictation was done by using the [employer] dictation system. It has been proofread but still may contain unrecognized voice recognition errors. [facility] 07-07-2023 Procedure note Associated Ord er(s): NERVE CONDUCTION TEST WITH EMG [facility] EMG/NCS report: Patient: Constantin [...] This dictation was done by using the [employer] dictation system. It has been proofread but still may contain unrecognized voice recognition errors. [employer] Phone: 07-07-2023 Procedure note Associated Ord er(s): NERVE CONDUCTION TEST WITH EMG [facility] EMG/NCS report: Patient: Constantin Galan [...] This dictation was done by using the [employer] dictation system. It has been proofread but still may contain unrecognized voice recognition errors. documented in this encounter [facility] 07-06-2023 History of Present illness Narrative Images from the original note were not included. [facility] [address] [facility] [address] Dept: [phone] Dept Loc: [phone] Visit type: New patient Reason for Visit: Other and Spots and/or Floaters Assessment and Plan Problem List Items Addressed This Visit Eye/Vision problems Floaters in visual field, bilateral Relevant Orders [facility] Ophthalmology Clinic 202 No retinal tears or [...] Normal Normal Refraction Wearing Rx Sphere Cylinder Pelican Add Right -6.50 +1.00 088 None Left -9.50 +0.75 073 None Age: 1-2yrs Type: Distance Manifest Refraction Sphere Cylinder Pelican Dist VA Add Near VA Right -7.00 +1.25 105 20/30 None 20/30 Left -9.50 +1.25 075 20/30 None 20/20 Final Rx Sphere Cylinder Pelican Dist VA Add Near VA Right -7.00 +1.25 105 20/30 None 20/30 Left -9.50 +1.25 075 20/30 None 20/20 Type: Distance Expiration Date: 07/06/2025 Data Reviewed and Summarized The patient will need the following test completed on: 07/06/2023 1. [facility] Ophthalmology Clinic Diagnosis: Floaters in visual field, bilateral (H43.393) Authorizing Provider: DO Joi Goss MD documented in this encounter [facility] 07-04-2023 Evaluation + Plan note Associated Problem(s): [...] further for symptoms of anxiety and depression [facility] 07-04-2023 Miscellaneous Notes Associated Problem(s): Brain fog [...] vitamin B12 deficiency and advised to call [facility] to establish and initiate HIV treatment Associated [...] in 2 months documented in this encounter [facility] 07-04-2023 Miscellaneous Notes Associated Problem(s): Brain fog [...] Level of Service documented in this encounter [facility] 07-04-2023 Evaluation + Plan note Associated Problem(s): [...] including PFTs, may consider trial of PPI [facility] 07-04-2023 Evaluation + Plan note Associated Problem(s): [...] with Care Center phone number in AVS [facility] 07-04-2023 Evaluation + Plan note Associated Problem(s): Floaters in visual field, bilateral - Intermittent for past few days - Etiology unclear, possibly due to migraine vs intrinsic ocular pathology - Recent CT head negative for acute process - Refer to ophthalmology for thorough eye and retinal examination [facility] 07-04-2023 Evaluation + Plan note Associated Problem(s): [...] Center to establish and initiate HIV treatment [facility] 07-04-2023 Evaluation + Plan note Associated [...] at follow up appointment in 2 months [facility] 07-04-2023 Note Addended by: GRACY MOTA on: 07/06/2023 09:01 AM Modules accepted: Level of Service [facility] 07-04-2023 History of Present illness Narrative Images from the original note were not included. [facility] [address] [place] [address] Dept: [phone] Dept Loc: [phone] 07/04/2023 Visit type: inpatient follow up Reason [...] thorough eye and retinal examination Orders: - [facility] Ophthalmology Clinic 4. Human immunodeficiency virus (HIV) [...] disorder, PTSD, and anxiety that presented to [facility] on 06/24/2023 and was admitted for chest [...] Mc Blandon MD documented in this encounter [facility] 07-04-2023 History of Present illness Narrative Images from the original note were not included. [facility] [address] [facility] [address] Dept: [phone] Dept Loc: [phone] 07/04/2023 Visit type: inpatient follow up Reason [...] thorough eye and retinal examination Orders: - [facility] Ophthalmology Clinic 4. Human immunodeficiency virus (HIV) [...] disorder, PTSD, and anxiety that presented to [facility] on 06/24/2023 and was admitted for chest [...] Back injury HIV (human immunodeficiency virus infection) ([facility]) 01/2013 Right leg pain since childhood Syncope [...] Mc Blandon MD documented in this encounter [facility] 07-04-2023 Instructions Gracy Nelson DO - 07/04/2023 8:20 AM EST Please call the [facility] to set up an appointment [facility] [address] [address] documented in this encounter [facility] 07-04-2023 Instructions Gracy Nelson DO - 07/04/2023 8:20 AM EST Please call the [facility] to set up an appointment [facility] [address] [address] documented in this encounter [facility] 07-04-2023 Note Addended by: GRACY MOTA on: 07/06/2023 09:01 AM Modules accepted: Level of Service [facility] 06-27-2023 Note Hospital discharge t o home noted. Please see separate patient outreach encounter. [facility] [employer] [facility] 06-24-2023 Note Attestation with edits by [...] disorder, PTSD, and anxiety that presented to [facility] on 06/24/2023 and was admitted for chest [...] with Infectious Disease Care center referral and [facility] appt set up. Disposition: Home [...] Your Medications These medications were sent to [facility] [address] [place], [place] [address] Hours: Tuesday to Tuesday 10 am to [...] Center 07/04/2023 8:20 AM Gracy Nelson DO [facility] Items to Address at Followup Visit: HIV ART + prophylaxis LUE paresthesia resolution Substance use disorder counseling Ensure follow up with Care [facility] Outpatient evaluation for carpal tunnel Recheck CD4 count Workup for carpal tunnel if he continues to have paresthesias in median nerve distribution [facility] 06-24-2023 Note Attestation with edits by [...] with outpatient follow-up. 7AM-5PM: contact resident on [facility] Med C team (found by hovering over [...] disorder, PTSD, and anxiety that presented to [facility] on 06/24/2023 from home with LUE and LLE parasthesias, chest discomfort. Pt seen bedside in ED, and somnolent during initial interview, improving throughout day. States that symptoms initially began on 06/23 around 1400. States that he received stressful news around that time. After receiving news, pt developed LUE/LLE parasthesias and chest discomfort which prompted presentation to [facility] ED for further evaluation. This morning, pt [...] injury/trauma. He no (more content not included)... [facility] 06-24-2023 History and physical note Internal [...] disorder, PTSD, and anxiety that presented to [facility] on 06/24/2023 from home with LUE and LLE parasthesias, chest discomfort. Pt seen bedside in ED, and somnolent during initial interview, improving throughout day. States that symptoms initially began on 06/23 around 1400. States that he received stressful news around that time. After receiving news, pt developed LUE/LLE parasthesias and chest discomfort which prompted presentation to [facility] ED for further evaluation. This morning, pt [...] Back injury HIV (human immunodeficiency virus infection) ([facility]) 01/2013 Right leg pain since childhood Past [...] resistance in outpatient setting - Referral to [facility] for outpatient follow up and [...] Underweight (BMI <18.5) - Disposition: Admit to [facility] for observation - Given the signs and [...] with outpatient follow-up. 7AM-5PM: contact resident on [facility] Med C team (found by hovering over attending's name on left side of patient's chart) 5PM-7AM: contact AI2 (Med Team A or B) or AI3 (Med Team C or D) [facility] 06-24-2023 History and physical note Internal Medicine: [...] disorder, PTSD, and anxiety that presented to [facility] on 06/24/2023 from home with LUE and LLE parasthesias, chest discomfort. Pt seen bedside in ED, and somnolent during initial interview, improving throughout day. States that symptoms initially began on 06/23 around 1400. States that he received stressful news around that time. After receiving news, pt developed LUE/LLE parasthesias and chest discomfort which prompted presentation to [facility] ED for further evaluation. This morning, pt [...] Back injury HIV (human immunodeficiency virus infection) ([facility]) 01/2013 Right leg pain since childhood Past [...] Underweight (BMI <18.5) - Disposition: Admit to [facility] for observation - Given the signs and [...] with outpatient follow-up. 7AM-5PM: contact resident on [facility] Med C team (found by hovering over attending's name on left side of patient's chart) 5PM-7AM: contact AI2 (Med Team A or B) or AI3 (Med Team C or D) documented in this encounter [facility] 06-23-2023 Emergency department Note Bed: 18 Expected date: 06/24/23 Expected time: Means of arrival: Comments: triage Lilian Spear RN 06/24/23 0410 [facility] 06-23-2023 Emergency department Note Emergency Department Encounter [facility] EMERGENCY DEPT Patient: Constantin Monsalve : 1990 [...] get in with a doctor. Focused exam: Bjgbibi-urdr-phomlbruw, no acute distress, nontoxic-appearing HEENT- atraumatic, normocephalic [...] grossly, to the RUE and RLE. Normal tdbban-lo-nekt and fswi-lk-awep bilaterally. Psych- calm, cooperative EKG interpreted by me: 06-23-2023. Time 2226. Rate 84 normal sinus rhythm. Normal axis. AR interval 121, QRS 71, QTc 382. No [...] RN 06/24/23 0410 documented in this encounter [facility] 06-23-2023 Emergency department Triage note Pt states having left arm pain on and off and chest pain. Pt denies any heart history. [facility] 06-23-2023 Physician Emergency department Note Emergency Department Encounter [facility] EMERGENCY DEPT Patient: Constantin Monsalve : 1990 [...] get in with a doctor. Focused exam: Ulddlwa-xjhy-zsznivmvf, no acute distress, nontoxic-appearing HEENT- atraumatic, normocephalic [...] grossly, to the RUE and RLE. Normal ciwsgd-uv-uxby and ucaa-fs-qfcp bilaterally. Psych- calm, cooperative EKG interpreted by me: 06-23-2023. Time 2226. Rate 84 normal sinus rhythm. Normal axis. AR interval 121, QRS 71, QTc 382. No [...] [employer] Atul Arndt MD 06/24/23 0621 [facility] [employer] Work Phone: 05-16-2023 Emergency department Note Saturnino Bhavna here to transport Pt. Nurse took Pt to EMS. Pt cooperative. 1 bag of belongings given EMS. [facility] 05/16/232242 [facility] [employer] 05-16-2023 Emergency department Note Saturnino Huggins here to transport Pt. Nurse took Pt to EMS. Pt cooperative. 1 bag of belongings given EMS. [facility] 05/16/232242 Pt in hallway. Nurse letting Pt in restroom Pattmery Tomas 05/16/232237 Nurse at bedside for vitals Patt Roquetanya 05/16/232233 Nursing staff David Nair at the pt's bedside/vitals. Paula Calloway 05/16/23 181 field service technician Jillian Cortes at the bedside giving the pt a dietary tray. Paula Calloway 05/16/23 173 EMS ETA 2000->Elian Flor David Bustos RN 05/16/23 1558 Report given to Tonja WARD. Davdi Bustos RN 05/16/23 1552 Report called to [facility] 5 SYLVIA Sheikh RN 05/16/23 1423 Dietary tray ordered. Paula Calloway 05/16/23 1156 AUTOBODY TECHNICIAN to the room for labs. Madiha Goff [...] taken away. He states those fucking faggot new car salesperson out there are trying to take me [...] to get up out of bed and core machine tender warner looking at staff through window, RN [...] medicating pt. Salbador Nath 05/14/232027 Pt in [facility]. Salbador Nath 05/14/232026 SYLVIA Madrigal at bedside [...] pt in room 50. Salbador Nath 05/14/231941 Mchenry juice given to patient. Edin Freeman 05/14/231924 [...] glasses. Jillian Patel 05/14/231847 Emergency Department Encounter [facility] EMERGENCY DEPT Patient: Constantin Monsalve : 1990 [...] Back injury HIV (human immunodeficiency virus infection) ([facility]) 01/2013 Right leg pain since childhood Past [...] 289 ms QTC Interval 428 ms P Pelican 78 degrees QRS Pelican 87 degrees T Wave Pelican 44 degrees AR Interval 103 ms Radiographs: No orders to display Procedures/EKG: EKG Interpreted in [employer] software by myself SCREENINGS EMERGENCY DEPARTMENT COURSE [...] DO 05/15/23 0526 Emergency Department Encounter Location: [facility] EMERGENCY DEPT Patient: Constantin Monsalve : 1990 [...] 289 ms QTC Interval 428 ms P Pelican 78 degrees QRS Pelican 87 degrees T Wave Pelican 44 degrees AR Interval 103 ms No orders to display Final ED Course and MDM: In brief, Constantin Mnosalve is a 33 y.o. whose care was [...] [employer] Atul Arndt MD 05/15/23 1307 Patient presented to the ED for psychiatric evaluation. He is suicidal and hearing voices, they are asking him to jump off a bridge. Denies using methamphetamines recently. Originally the patient was supposed to be admitted to [facility] psychiatry. However, [facility] called back and said that they have multiple young patients at their facility and the patient is a known sex offender. They do not feel that those young patients would be safe around this patient so they refused to take him. I spoke with Dr. Baig of inpatient psychiatry here at [facility] and she decided to admit patient to [facility] instead. Clinical impression unchanged. Greg Reece MD 05/15/232228 documented in this encounter [facility] 05-16-2023 Emergency department Note Pt in hallway. Nurse letting Pt in restroom Patt Tomas 05/16/232237 [facility] 05-16-2023 Emergency department Note Nurse at bedside for vitals Patt Tomas 05/16/232233 [facility] 05-16-2023 Emergency department Note Nursing staff David Nair at the pt's bedside/vitals. Paula Calloway 05/16/23 1817 [facility] 05-16-2023 Emergency department Note field service technician Jillian Cortes at the bedside giving the pt a dietary tray. Paula Calloway 05/16/23 1730 [facility] 05-16-2023 Emergency department Note EMS ETA 2000->[place] Flor David Bustos RN 05/16/23 1558 [facility] 05-16-2023 Emergency department Note Report given to Tonja WARD. David Bustos RN 05/16/23 1552 [facility] 05-16-2023 Emergency department Note Report called to [facility] 5 SYLVIA Sheikh RN 05/16/23 1423 [facility] 05-16-2023 Emergency department Note Dietary tray ordered. Paula Calloway 05/16/23 1156 [facility] 05-16-2023 History of Present illness Narrative Pt seen while boarded awaiting bed availability at [facility].Initial dispo for [facility] but refused d/t RSO [...] to continue to await bed availability at [facility]. Pt elects for soonest bed available. A/P: Pt continues to require admission to [facility]. [] Admission orders placed [] Admission medication reconciliation completed [] Nicotine/EtOH withdrawal assessed and addressed [] Scheduled treatment started Will see daily while boarded in the ED. documented in this encounter [facility] 05-16-2023 Emergency department Note AUTOBODY TECHNICIAN to the room for labs. Madiha Goff MA 05/16/23 0549 [facility] 05-16-2023 Emergency department Note Pt resting in bed, bed near call light on the wall. Lights are off and door ajar. Breathing is unlabored. Keena Ball RN 05/16/23 0106 [facility] 05-15-2023 Emergency department Note Meal tray delivered Yusra Major LPN 05/15/23 1751 [facility] 05-15-2023 Emergency department Note This RN spoke with [facility]. Report given to caregiver. Caregiver requested pt files to review prior to accepting pt due to pt having a history of being a sex offender in the past Rebeca Delaney RN 05/15/23 1530 [facility] 05-15-2023 Emergency department Note Patient lying in bed with eyes closed. No distress noted. Breathing is even and unlabored on room air. Юлия Sheikh RN 05/15/23 1517 [facility] 05-15-[address] Baig, in regards to message sent to Dr Arndt, she will be down as soon as she can be to assess pt Rebeca Delaney RN 05/15/23 1140 [facility] 05-15-2023 Emergency department Note Pt report to this RN that he is hearing voices that are telling him he is going to be taken away. He states those fucking faggot new car salesperson out there are trying to take me away . This RN sent message to Dr Arndt to alert his of pts delusions and hallucinations Rebeca Delaney RN 05/15/23 1123 T [facility] 05-15-2023 Emergency department Note Patient continues to get up from bed and come to edge of door and stare at staff. Patient can be heard talking, when RN asked patient if he had any needs he said I am talking to myself. Breathing is even and unlabored on room air. No distress noted. Юлия Sheikh RN 05/15/23 1116 T [facility] 05-15-2023 Emergency department Note Patient continues to get up out of bed and core machine tender warner looking at staff through window, RN asked patient to return to room. Dr. Arndt notified again that patient is requesting something for anxiety. Юлия Sheikh RN 05/15/23 0956 T [facility] 05-15-2023 Emergency department Note Patient requesting something for anxiety, Dr. Arndt notified in person. Юлия Sheikh RN 05/15/23 0946 T [facility] 05-15-2023 Emergency department Note Patient given a coke per his request. Юлия Sheikh RN 05/15/23 0907 T [facility] 05-15-2023 Emergency department Note Meal tray given. Jillian Patel 05/15/23 0831 [facility] 05-15-2023 Emergency department Note PT urine specimen at bedside. Pt requesting blanket and sheet. This RN sent off urine specimen and provided pt with a warm blanket and a sheet Rebeca Delaney RN 05/15/23 0742 [facility] 05-15-2023 Emergency department Note RN at bed side at pt's request. Jillian Patel 05/15/23 0738 [facility] 05-15-2023 Emergency department Note Psych resident at bedside. Salbador Nath 05/15/23 025 [facility] 05-14-2023 Note NOTE: This result is for medical treatment only. Analysis performed using non-forensic procedures. [facility] 05-14-2023 Emergency department Note Kaitlin RN at bedside medicating pt. Salbador Nath 05/14/232027 [facility] 05-14-2023 Emergency department Note Pt in [place]. Salbador Nath 05/14/232026 [facility] 05-14-2023 Note Patient presented to the ED [...] Dr. Baig of inpatient psychiatry here at [facility] and she decided to admit patient to [facility] instead. Clinical impression unchanged. Greg Reece MD 05/15/232228 [facility] 05-14-2023 Emergency department Note SYLVIA Madrigal at bedside doing blood work. Edin Freeman 05/14/232010 [facility] 05-14-2023 Emergency department Note Pt coming into hallway, protective service officers attempting to redirect pt back into room. Salbador Nath 05/14/231952 [facility] 05-14-2023 Emergency department Note Pt in hallway yelling at pt in room 50. Stated to pt in room go ahead and kick my ass. Protective services called. Salbador Nath 05/14/231946 [facility] 05-14-2023 Emergency department Note Pt standing in doorway talking to pt in room 50. Salbador Nath 05/14/231941 [facility] 05-14-2023 Emergency department Note Mchenry juice given to patient. Edin Freeman 05/14/231924 [facility] 05-14-2023 Emergency department Note Physician at bed side. Jillian Patel 05/14/23 190 [facility] 05-14-2023 Emergency department Note .....................Pt resting in bed, calm and cooperative. Tearful Halima Bowles RN 05/14/23 185 [facility] 05-14-2023 Emergency department Note Pt to rm 53 with RN. Jillian Patel 05/14/231847 [facility] 05-14-2023 Emergency department Note Pt has been changed into 2 hospital gowns, footies and skin assessment completed by nursing. Pt wanded by protective services. 1 bag. Pt kept eye glasses. Jillian Patel 05/14/231847 [facility] 05-14-2023 Consult note Formatting of th is note is different from the original. 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 male presenting to [facility] ED for depression. Psychiatry was consulted for [...] Disorder, Methamphetamine abuse Outpatient psychiatrist: Halima Wells, INDUSTRIAL MAINTENANCE ELECTRICIAN with [facility]. Last seen before January 2023. Previous medications: [...] Back injury HIV (human immunodeficiency virus infection) ([facility]) 01/2013 Right leg pain since childhood Past [...] treatment: Denies SOCIAL HISTORY Born and raised: [place] Childhood: Endorses unknown type of trauma. Employment: Currently unemployed. 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 Relationships: Currently single. from . Children: None Living situation: Lives with mother in [place], [place]. Was seeking independent housing opportunities but could not pay rent. Legal: Possible charges - unsure what kind (rule out delusion) : Denies Church: Denies Weapons: Denies access to firearms Guardian: [...] (BMI <18.5) RECOMMENDED PLAN Transfer patient to [facility] for further monitoring, evaluation, and treatment Emergency Department informed of patient disposition recommendation Verbal explanation of working diagnosis, signs and symptoms and recommended course of treatment including risk/benefit information has been given to patient. This patient was staffed with attending physician, Dr. Gonzales T [facility] 05-14-2023 Consult note Formatting of th is note is different from the original. 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 male presenting to [facility] ED for depression. Psychiatry was consulted for [...] abuse Outpatient psychiatrist: Halima Wells NP with [facility]. Last seen before January 2023. Previous medications: [...] Back injury HIV (human immunodeficiency virus infection) ([facility]) 01/2013 Right leg pain since childhood Past [...] treatment: Denies SOCIAL HISTORY Born and raised: [place] Childhood: Endorses unknown type of trauma. Employment: Currently unemployed. 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 Relationships: Currently single. from . Children: None Living situation: Lives with mother in [place], [place]. Was seeking independent housing opportunities but could not pay rent. Legal: Possible charges - unsure what kind (rule out delusion) : Denies Church: Denies Weapons: Denies access to firearms Guardian: [...] (BMI <18.5) RECOMMENDED PLAN Transfer patient to [facility] for further monitoring, evaluation, and treatment Emergency Department informed of patient disposition recommendation Verbal explanation of working diagnosis, signs and symptoms and recommended course of treatment including risk/benefit information has been given to patient. This patient was staffed with attending physician, Dr. Gonzales documented in this encounter [facility] 05-14-2023 Physician Emergency department Note Emergency Department [...] Back injury HIV (human immunodeficiency virus infection) ([facility]) 01/2013 Right leg pain since childhood Past [...] 289 ms QTC Interval 428 ms P Pelican 78 degrees QRS Pelican 87 degrees T Wave Pelican 44 degrees AR Interval 103 ms Radiographs: No orders to display Procedures/EKG: EKG Interpreted in [employer] software by myself SCREENINGS EMERGENCY DEPARTMENT COURSE [...] [employer] Damaso Salas, DO 05/15/23 0526 [facility] 05-14-2023 Physician Emergency department Note Emergency Department Encounter Location: [facility] EMERGENCY DEPT Patient: Constantin Monsalve : 1990 [...] 289 ms QTC Interval 428 ms P Pelican 78 degrees QRS Pelican 87 degrees T Wave Pelican 44 degrees AR Interval 103 ms No orders to display Final ED Course and MDM: In brief, Constantin Monsalve is a 33 y.o. whose care was signed out to me by the outgoing provider. In brief, pt with signed out to me pending psych. Psych saw pt. He will go to [facility]. Medications LORazepam (Ativan) tablet 1 mg [...] [employer] Atul Arndt MD 05/15/23 7134 [employer] Phone: 05-14-2023 Physician Emergency department Note Patient presented to the ED for psychiatric evaluation. He is suicidal and hearing voices, they are asking him to jump off a bridge. Denies using methamphetamines recently. Originally the patient was supposed to be admitted to [facility] psychiatry. However, [facility] called back and said that they have multiple young patients at their facility and the patient is a known sex offender. They do not feel that those young patients would be safe around this patient so they refused to take him. I spoke with Dr. Baig of inpatient psychiatry here at [facility] and she decided to admit patient to [facility] instead. Clinical impression unchanged. Greg Reece MD 05/15/232228 [facility] [employer] Work Phone: 05-05-2023 Note [facility] - Infectious Diseases Attending Progress [...] was Dxd with HIV in 2012 in [place], [place], he did not remember his CD4 [...] 2 weeks ago, his was placed in longterm and he was able to leave the [...] Reviewed XR tibia fibula 2 views right [[id number]] Collected: 05/04/23218 Order Status: Completed Updated: 05/04/23221 Narrative: Patient Name: CONSTANTIN MONSALVE : 1990 Exam Date/Time: 05/04/2023 01:40 Procedure: XR TIBIA FIBULA 2 VIEWS RIGHT Or (more content not included)... [facility] 05-04-2023 Note CDU History and Phys [...] Back injury HIV (human immunodeficiency virus infection) ([facility]) 01/2013 Right leg pain since childhood Past [...] 0.2 Manual n (more content not included)... [facility] 05-04-2023 Note CARDIOLOGY CONSULTAT ION Patient Name: Constantin Monsalve : 1990 Reason for Consultation: Recurrent syncope History of Present Illness: Constantin Monsalve is a 33 yo male on observation at [facility] after presenting to ED with c/o bilateral leg pain and multiple syncopal episodes in the last couple days prior to coming to ED. Labs today show magnesium 1.9, potassium 3.3. Troponin negative x3. Patient has HIV and has not been on treatment for about a year. Past Medical History: has a past medical history of Back injury, HIV (human immunodeficiency virus infection) ([facility]) (01/2013), and Right leg pain. Surgical History: [...] 0.7 05/04/2023 No results found for: TSH, X0HRCDQ, V8MBOQP, THYROIDAB ABGs: No results found for: PHART, PO2ART, BJO5PRH INR: No results for input(s): INR in [...] Problems: Orthostatic hypot (more content not included)... [facility] Evaluation note Diagnosis Suicidal ideation- Primary Auditory hallucination Hallucinations Suicidal ideation HIV infection, unspecified symptom status (HCC) [facility] Diagnosis Left arm numbness- Primary Disturbance of skin sensation Numbness and tingling of left upper and lower extremity Non compliance w medication regimen Currently asymptomatic HIV infection, with history of HIV-related illness (HCC) Left arm weakness Other musculoskeletal symptoms referable to limbs [facility] Diagnosis Numbness and tingling in left arm- Primary B12 deficiency Floaters in visual field, bilateral Human immunodeficiency virus (HIV) disease (HCC) Human immunodeficiency virus [HIV] disease Chronic cough Cough Brain fog Need for immunization against influenza Need for prophylactic vaccination and inoculation against influenza [facility] Diagnosis Numbness and tingling in left arm- Primary B12 deficiency Floaters in visual field, bilateral Human immunodeficiency virus (HIV) disease (HCC) Human immunodeficiency virus [HIV] disease Chronic cough Cough Brain fog Need for immunization against influenza Need for prophylactic vaccination and inoculation against influenza documented in this encounter [facility]* Diagnosis Floaters in visual field, bilateral documented in this encounter [facility] note* Diagnosis Numbness and tingling in left arm documented in this encounter [facility]* Diagnosis Medical clearance for psychiatric admission- Primary documented in this encounter [facility] for referral (narrative)* Consultation (Routine) - Pending Review Specialty Diagnoses / Procedures Referred By Srini barcenas Referred To Contact Infectious Diseases Diagnoses Currently asymptomatic HIV infection, with history of HIV-related illness (HCC) Procedures AR OFFICE/OUTPATIENT NEW HIGH MDM 60-74 MINUTES Lucero Aly, DO [address] [place] [address] [facility] [address] [place] [address] Referral ID Status Reason Start Date Expiration Date Visits Requested Visits Authorized [id number] Pending Review Specialty Services Required 3 06/23/2024 1 1 [facility] Consultation (Routine) - Pending Review Specialty Diagnoses / Procedures Referred By Srini t Referred To Contact Ophthalmology Diagnoses Floaters in visual field, bilateral Procedures AR OFFICE/OUTPATIENT NEW HIGH MDM 60-74 MINUTES Gracy Nelson, DO [address] [place] [address] [facility] [address] [place] [address] Referral ID Status Reason Start Date Expiration Date Visits Requested Visits Authorized [id number] Pending Review Specialty Services Required 07/04/2023 07/03/2024 1 1 [facility] Health Summary Purpose Family History No Family [...] Gracy Nelson DO [address] [place] [id number] Referral ID Status Reason Start Date Expiration Date V isits Requested Visits Authorized [id number] Pending Review 07/04/2023 12/31/2023 1 1 Specialty Diagnoses / Procedures Referred By Contac t Referred To Contact Neurology Diagnoses Numbness and tingling in left arm Procedures Nerve conduction test with EMG Gracy Nelson DO [address] [place] [address] Referral ID Status Reason Start Date Expiration Date V isits Requested Visits Authorized [id number] Authorized 07/04/2023 12/31/2023 1 1 Specialty Diagnoses / Procedures Referred By Contac t Referred To Contact Ophthalmology Diagnoses Floaters in visual field, bilateral Procedures AR OFFICE/OUTPATIENT NEW HIGH MDM 60-74 MINUTES Gracy Nelson DO [address] [place] [address] [facility] [address] [place] [address] Referral ID Status Reason Start Date Expiration Date Visits Requested Visits Authorized [id number] Pending Review Specialty Services Required 07/04/2023 07/03/2024 1 1 Referral ID Status Reason Start Date Expiration Date Visits Re quested Visits Authorized [id number] Closed 07/04/2023 12/31/2023 1 1 Additional Source Comments (unrecognized sect ion and content) No Status Records FoundNo Status Records FoundNo Status Records FoundNo Status Records FoundNo Status Records FoundNo Status Records FoundNo Status Records FoundNo Status Records FoundNo Status Records FoundNo Status Records Found INFORMATION SOURCE (unrecogn ized section and content) DATE CREATED AUTHOR 02/14/2018 [facility] DATE CREATED AUTHOR AUTHOR'S ORGANIZ ATION 02/20/2018 [facility] DATE CREATED AUTHOR AUTHOR'S ORGANIZ ATION 01/03/2021 [facility] DATE CREATED AUTHOR AUTHOR'S ORGANIZ ATION 03/25/2023 [facility] DATE CREATED AUTHOR AUTHOR'S ORGANIZ ATION 12/17/2023 [facility] DATE CREATED AUTHOR AUTHOR'S ORGANIZ ATION 01/20/2024 [facility] DATE CREATED AUTHOR AUTHOR'S ORGANIZ ATION 06/09/2024 [facility] DATE CREATED AUTHOR AUTHOR'S ORGANIZ ATION 12/03/2024 [facility] DATE CREATED AUTHOR AUTHOR'S ORGANIZ ATION 12/10/2024 [facility] DATE CREATED AUTHOR AUTHOR'S ORGANIZ ATION 12/21/2024 [facility] Reason for Visit (unrecogniz ed section and [...] numbness Procedures . Flo Dowling, DO [address] [place] [address] [facility] [address] [place] [address] Referral ID Status Reason Start Date Expiration Date Visits Re quested Visits Authorized [id number] 1 1 Reason Comments Hospital Follow-up Arm tight, cough, ch est pains, sob, meds for hiv Specialty Diagnoses / Procedures Referred By Contac t Referred To Contact Diagnoses B12 deficiency Gracy Nelson, DO [address] [facility], [address] [place] [address] Referral ID Status Reason Start Date Expiration Date V isits Requested Visits Authorized [id number] Pending Review 07/04/2023 12/31/2023 1 1 Reason Comments Other Spots and/or Floaters Specialty Diagnoses / Procedures Referred By Contac t Referred To Contact Ophthalmology Diagnoses Floaters in visual field, bilateral Procedures AR OFFICE/OUTPATIENT NEW HIGH MDM 60-74 MINUTES Gracy Nelson, DO [address] [facility] [facility] [place] [address] [facility] [address] [place] [address] Referral ID Status Reason Start Date Expiration Date Visits Requested Visits Authorized [id number] Pending Review Specialty Services Required 07/04/2023 07/03/2024 1 1 Specialty Diagnoses / Procedures Referred By Contac t Referred To Contact Neurology Diagnoses Numbness and tingling in left arm Procedures Nerve conduction test with EMG Gracy Nelson, DO [address] [facility], [address] [place] [address] Referral ID Status Reason Start Date Expiration Date Visits Re quested Visits Authorized [id number] Closed 07/04/2023 12/31/2023 1 1 Reason Onset [...] 1 dose 1042 (Given - Provider: Rebeca Delnaey RN) LORazepam (Ativan) tablet 1 mg (COMPLETED) 1 mg, Oral, Once, On 05/14/23 at 1910, For 1 dose 2024 (Given - Provider: Kaitlin Baltazar, SYLVIA) nicotine (Nicoderm, Step 2) 14 MG/24HR patch 1 patch(Linked Group 1) 1 patch, TransDERmal, Administer over 24 Hours, Daily, First dose on 05/16/23 at 0900, For 42 days 0800 (Medication Applied - Provider: Hima Sheikh RN)9731 (Due: Medication Removed - Provider: Automatic Discharge [...] Care Teams (unrecognized sec tion and content) Clinical Trials Data Coordinator Relationship Specialty Start Date End Date [facility] [address] [place] [address] PCP - General 07/04/23 Clinical Trials Data Coordinator Relationship Specialty Start Date End Date [facility] [address] [place] [address] PCP - General 07/04/23 Clinical Trials Data Coordinator Relationship Specialty Start Date End Date [facility] [address] [place] [address] PCP - [facility] 07/04/23 Clinical Trials Data Coordinator Relationship Specialty Start Date End Date [facility] [address] [place] [address] PCP - General 07/04/23 Clinical Trials Data Coordinator Relationship Specialty Start Date End Date [facility] [address] [place] [address] PCP - General 07/04/23 FOR RECORDS PERTAINING [...] BE BASED ON THE PRIMARY CLINICAL RECORDS. [employer] provides no warranty or guarantee of the accuracy or completeness of information in this document.
--- NOTE | 2025-01-07 04:47 | ED.SKABFB1 ---
HPI - Skin/Abscess/Foreign Bdy General Chief complaint: Skin/Abscess/Foreign Body Stated complaint: POSS SKIN INFECTION Time Seen by Provider: 01/07/25 04:37 Source: patient Mode of arrival: walk-in Limitations: no limitations History of Present Illness HPI narrative: This 34-year-old male presents for evaluation of a painful sore on the posterior aspect of his left elbow. The patient states he had an abscess in this area in the past that had to be opened up twice, I suspect he had incision and drainage of the abscess. The surgery was 5 or more years ago at [facility] in [place]. He states that most recently the callus that he has over the elbow has opened up and he has some drainage in this area. He has an approximately 1.5 x 1 cm ovoid sore in this area that appears somewhat chronic in nature. I do not appreciate any drainage. He has not had any fever. There is no lymphangitic streaking. He resists range of motion of his elbow. He denies that he has been seen in the past for this however he was in this emergency department on 01/05/25 and left AGAINST MEDICAL ADVICE after being seen for back pain. He also has an Rx for Bactrim written 12/21/24 from [facility] pharmacy but denies that he is on antibiotics for this from [facility]. Related Data Home Medications ?Medication ?Instructions ?Recorded ?Confirmed bictegravir 50 mg-emtricitabine 1 tab PO DAILY 05/06/24 01/07/25 200 mg-tenofovir alafenam 25 mg tablet (Biktarvy) cariprazine .Route 05/06/24 sulfamethoxazole 800 1 tab PO DAILY 01/05/25 01/07/25 mg-trimethoprim 160 mg tablet Allergies Allergy/AdvReac Type Severity Reaction Status Date / Time No Known Drug Allergies Allergy Verified 01/07/25 04:25 Review of Systems ROS Status of ROS 10 or more systems reviewed and unremarkable except as noted in history and below PFSH PFSH Social History Little interest or pleasure in doing things: not at all Feeling down, depressed, or hopeless: not at all Exam Narrative Exam Narrative: Vital signs and Nursing Notes reviewed: Is afebrile, he is mildly tachycardic with a pulse of 102 has a normal blood pressure 117/69 he is not hypoxic with pulse ox of 100% on room air General: Awake, alert, oriented, no acute distress, lying comfortably on the stretcher texting on his phone HEENT: Normocephalic atraumatic, mucous membranes are moist and pink, eyes are clear, normal conjunctiva, vision is grossly intact Chest: Lungs are clear to auscultation with good air entry, there is no wheezing rhonchi or rales appreciated no accessory muscle use, patient is speaking in complete sentences-no chest wall tenderness to palpation CVS: Regular rate and rhythm S1-S2, no murmurs rubs or gallops, pulses are brisk and equal bilaterally Extremities: There is a 1.5 x 1 cm ovoid flat sore on the left elbow, there is no drainage from it, patient had a Band-Aid overlying the area that also did not have any drainage on it. He resists any range of motion of this area. There is no fluctuance or local cellulitis. There is no extension onto his forearm or upper arm. Skin: Normal in appearance without rash,pallor, petechiae or purpura Neuro: No focal deficits Constitutional Vital Signs, click to edit/add: Last Vital Signs Temp 98.3 F 01/07/25 04:25 Pulse 102 H 01/07/25 04:25 Resp 18 01/07/25 04:25 BP 117/69 01/07/25 04:25 Pulse Ox 100 01/07/25 04:25 O2 Del Method Room Air 01/07/25 04:25 Course Vital Signs Vital signs: Vital Signs Temperature 98.3 F 01/07/25 04:25 Pulse Rate 102 H 01/07/25 04:25 Respiratory Rate 18 01/07/25 04:25 Blood Pressure 117/69 01/07/25 04:25 Pulse Oximetry 100 01/07/25 04:25 Oxygen Delivery Method Room Air 01/07/25 04:25 Temperature 98.3 F 01/07/25 04:25 Pulse Rate 102 H 01/07/25 04:25 Respiratory Rate 18 01/07/25 04:25 Blood Pressure 117/69 01/07/25 04:25 Pulse Oximetry 100 01/07/25 04:25 Oxygen Delivery Method Room Air 01/07/25 04:25 MDM - Skin/Abscess/Foreign Bdy MDM Narrative Medical decision making narrative: This 34-year-old male with a history of HIV who is on retroviral therapy presents for evaluation of an open sore to his left elbow where he states he has had an abscess in the past that was drained. He has an approximately 1.5 x 1 cm ovoid open sore on the dependent surface of the left elbow. There is nothing to culture. There is no drainage or local redness. He resists range of motion stating that it hurts to move his elbow. He is right-hand dominant. He denies that he has been seen in the past for this but did receive a prescription for Bactrim from [facility] on 12/19/2024. I explained to him that this is likely a skin lesion that needs to close by secondary intention. There is nothing for me to close or drain. X-ray of the extremity was ordered and reviewed by myself. It does not show any free air, bony erosion or foreign body. He did have a staph infection that I treated him for last fall on his buttock. I will place him back on Augmentin for this and refer him to his family physician for referral to wound care. Discharge Plan Discharge Chief Complaint: Skin/Abscess/Foreign Body Clinical Impression: Elbow wound Patient Disposition: Home, Self-Care Time of Disposition Decision: 05:04 Condition: Good Prescriptions / Home Meds: No Action Biktarvy 50-200-25 mg tablet 1 tab PO DAILY cariprazine [Vraylar] .Route sulfamethoxazole-trimethoprim 800-160 mg tablet 1 tab PO DAILY Print Language: Tongan Instructions: Wound Healing and Your Diet (ED), Acute Wounds (DC) Referrals: Physician,Non-Staff, MD [Primary Care Provider] - 1 week
[2025-01-07] MEDS: BACITRACIN 0.9 GM PACKET 1 PACKET TOPICAL (05:23)
[2025-01-07] MEDS: AMOXICILLIN/POT CLAV 875-125 MG TABLET 1 TAB PO (05:23)
== END 2025-01-07 05:29 | disposition home or self-care (01) ==
PROVIDERS: Emergency Provider Emergency Medicine
DX: S50.902A Unspecified superficial injury of left elbow, initial encounter (principal); L98.8 Other specified disorders of the skin and subcutaneous tissue; M25.422 Effusion, left elbow
CPT/HCPCS: 73070; 99283